=== PATIENT | female | born 1945 | race Caucasian/White ===

== ENCOUNTER 2022-01-23 12:42 | Emergency (ER) | payer OTHER, MEDICARE ==
--- OUTSIDE RECORDS SUMMARY | 2022-01-23 12:59 | XMS REPORT | Continuity of Care Document ---
:[address] [facility] t Address [address] [place] [address] Dr. Guerrero [address] [place] [address] Care Team Providers Name Role Phone MEHDI CASAREZ Primary Care Physician Unavailable HENRRY FERNÁNDEZ Attending Clinician Unavailable RENETTA LOPES APN Attending Clinician Unavailable SYSTEM, PROVIDER NOT IN Attending Clinician Unavailable 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, NON STAFF Attending Clinician Unavailable MEHDI CASAREZ Attending Clinician Unavailable Elissa SINGLETARY Attending Clinician Unavailable JEFFREY BOYD Attending Clinician Unavailable ROC TERESA Attending Clinician Unavailable BEST BARBER Attending Clinician Unavailable ROC TERESA Attending Clinician Unavailable RENETTA LOPES Attending Clinician Unavailable Henrry Fernández MD Attending Clinician LINWOOD CORCORAN Attending Clinician Unavailable SAM GARSIA Attending Clinician Unavailable PAPA MOON I Attending Clinician Unavailable MARK SONI Attending Clinician Unavailable Tomy Dahl Attending Clinician Unavailable CHAGO ESPINOSA Attending Clinician Unavailable FABIO DENISE Attending Clinician Unavailable HENRRY FERNÁNDEZ Admitting Clinician Unavailable ROC TERESA Admitting Clinician Unavailable CHAGO ESPINOSA Admitting Clinician Unavailable Payers Payer Name Policy Type Policy Number Effective Date Expiration Date S [place] MEDICARE A B [id number] 2005 00:00:00 [facility] [id number] 2017 HEALTHCARE 00:00:00 MEDICARE PART A AND [id number] 2005 B 00:00:00 AARP-SECONDARY ONLY [id number] 2012 00:00:00 Problems Condition Condition Condition Status Onset Resolution Last Treating Co mments Source Name Details Category Date Date Treatment Clinician Date PFO PFO Disease Active [facility] (patent (patent 5-27 [facility] foramen foramen 00:00: Medical ovale) ovale) 00 Center HTN HTN Disease Active [facility] (hypertens (hypertens 2-13 [facility] ion), ion), 00:00: Medical chronic chronic 00 Center arterial arterial H/O Wound H/O Wound Disease Active [facility] dehiscence dehiscence 2-13 [facility] , L groin , L groin 00:00: Medi adrianne S/P S/P 00 Center debridemen debridemen t and t and closure closure (12/06/2017 (12/06/2017 ) ) Persistent Persistent Disease Active [facility] false false 2-13 [facility] channel channel 00:00: Medical post TEVAR post TEVAR 00 Ce nter (10/2017) (10/2017) S/P TEVAR S/P TEVAR extended extended with [facility] with [employer] Alpha 34 X Alpha 34 X 161 (DrElver 161 (Dr. Espinosa, Nely, 05/02/2018 05/02/2018 ) ) COPD COPD Disease Active [facility] (chronic (chronic 8-17 [facility] obstructiv obstructiv 00:00: Me dical e e 00 Center pulmonary pulmonary disease) disease) Stroke in Stroke in Disease Active [facility] the past, the past, 8-17 [facility] residual residual 00:00: Medica l vertigo vertigo 00 Center (1998) (1998) TIA TIA Disease Active [facility] (transient (transient 8-17 [facility] ischemic ischemic 00:00: Medica l attack) on attack) on 00 Ce nter Plavix Plavix IBS IBS Disease Active [facility] (irritable (irritable 8-17 [facility] bowel bowel 00:00: Medical syndrome) syndrome) 00 Cent er H/O 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 ) 2018) ) 2018) Obesity Obesity Disease Active 2016- [facility] (BMI (BMI 2-07 [facility] 30-39.9) 30-39.9) 00:00: Medica l 00 Center Lateral Problem Active [facility] knee pain S Health Arthritis Problem Active [facility] Recurrent Problem Active [facility] incisional S hernia Health Gastrointe Problem Active [facility] stinal S hemorrhage Health Anemia due Problem Active [facility] to acute S blood loss Health Chronic Problem Active [facility] diarrhea S Health History of Problem Active [facility] transient S ischemic Health attack Hyperlipid Problem Active [facility] emia S Health Diabetes Problem Active [facility] mellitus S Health Chronic Problem Active [facility] vertigo S Health Anxiety Problem Active [facility] and S depression Health Hemorrhage Problem Inactiv [facility] e S Health Thrombosed Problem Active [facility] external S hemorrhoid Health s Morbid Problem Active [facility] obesity S Health History of Problem Active [facility] aortic S dissection Health Rib pain Problem Inactiv [facility] Health Aortic Problem Inactiv [facility] dissection e S distal to Health left subclavian Encounter Problem Inactiv [facility] for e S monitoring Health clopidogre l therapy Fatigue Problem Inactiv [facility] e S Health Anemia Problem Inactiv [facility] e S Health Urinary Problem Inactiv [facility] tract e S infection Health Fracture Problem Inactiv [facility] of e S proximal Health end of humerus Back pain Problem Inactiv [facility] e S Health Status Problem Active [facility] post total S knee Health replacemen t Peripheral Problem Active [facility] arterial S disease Health Gastroesop Problem Active [facility] hageal S reflux Health disease History of Problem Active [facility] cerebrovas S cular Health accident Atrial Problem Active [facility] septal S defect Health Abdominal Problem Active [facility] aortic S aneurysm Health (AAA) without rupture Cardiac Problem Inactiv [facility] chest pain e S Health Osteoarthr Problem Active [facility] osis of S hip Health Status Problem Active [facility] post total S replacemen Health t of left hip Lateral Problem Active [facility] knee pain S Health 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 (H[facility]) Respirator Respirator Disease Active [facility] aylor y failure, y failure, Co llege post-opera post-opera of tive tive Medicin (HCCode) (HCCode) e Post-opera Post-opera Disease Active Overview : [facility] [place] tive tive left B And E infection infection groin of Medicin e Allergies, Adverse Reactions, Alerts Allergy Allergy Status Severity Reaction(s) Onset Inactive Treating Comm ents Source Name Type Date Date Clinician NO KNOWN Allergy Active Unknown 2019-03 [facility] ALLERGY to 1-17 S substanc 00:00: Health e 00 NO KNOWN Allergy Active Unknown [facility] ALLERGY to 2-05 S substanc 00:00: Health e 00 NO KNOWN Allergy Active Unknown 2017- [facility] ALLERGY to 7-20 S substanc 00:00: Health e 00 NO KNOWN Allergy Active [facility] Family History Family Member Diagnosis Comments Start Date Stop Date Source Natural father Emphysema [facility] Natural mother Hypothyroidism [facility] Social History Social Habit Start Date Stop Date Quantity Comments Source History of [place]A [place] h tobacco use Exposure to Not sure [facility] [place] Colle e SARS-CoV-2 of Medicine (event) Alcohol intake 2019-08-15 2019-08-15 Current [facility] 00:00:00 00:00:00 non-drinker of Medical Ce nter alcohol (finding) Tobacco use and 2017-12-05 2017-12-05 Never used [facility] exposure 00:00:00 00:00:00 [facility] Sex [birth year] [facility] 00:00:00 00:00:00 [facility] Smoking Status Start Date Stop Date Source Never smoked tobacco (finding) [employer] Ingenierie britebill Medications Ordered Filled Start Stop Current Ordering Indication Dosage Frequency Signature Comments Components Source Medication Medication Date Date Medication? Clinician (SIG) Name Name colesevelam Yes 625mg Take 625 B aylor (WELCHOL) 7-14 mg by B And E 625 MG 18:50: mouth 2 of tablet 24 times Medicin daily e (with meals). DiphenhydrA Yes Take by [place] kalpana MINE HCl 7-14 mouth. B And E (DIPHEN OR) 18:50: of 24 Medicin e simvastatin 2020-0 Yes 40mg Take 40 mg Dao (ZOCOR) 40 7-14 by mouth Colle ge MG tablet 18:50: every of 24 evening. Medicin e buPROPion 2020-0 Yes 150mg Take 150 [place] kalpana (WELLBUTRIN 7-14 mg by B And E ) 150 MG XL 18:50: mouth of tablet 24 every Medicin morning. e clopidogrel 2020-0 Yes 75mg Take 75 mg Dao (PLAVIX) 75 7-14 by mouth Galina ege MG tablet 18:50: daily. of 24 Medicin e diazepam 2020-0 Yes 5mg Take 5 mg [facility]l or (VALIUM) 5 7-14 by mouth Colle ge MG tablet 18:50: every 6 of 24 hours as Medicin needed for e Anxiety. Metoprolol 2020-0 Yes Take by Bayl or Succinate 7- mouth. B And E 25 MG CS24 18:50: of 24 Medicin e cetirizine, 2020-0 Yes 10mg Take 10 mg [facility] [place] ZYRTEC, 10 09-30 by mouth Colle ge MG tablet 18:50: once. of 24 Medicin e LINN 2020-0 Yes daily. [facility] [place] ASPIRIN EC 09-30 B And E LOW DOSE OR 18:50: of 24 Medicin e Cholecalcif 2020-0 Yes [facility] [place] corona 09-30 B And E (VITAMIN 18:50: of D3) 125 MCG 24 Medicin (5000 UT) e CAPS buPROPion 2020-0 Yes 150mg QD Take [address] [facility] (WELLBUTRIN 5-28 mg by [facility] XL) 150 MG 13:32: mouth Medica l 24 hr 26 daily. Center tablet metoprolol 2020-0 Yes 25mg Q.5D Take [address] (LOPRESSOR) 5-28 by mouth 2 [facility] k[facility] 25 MG 13:32: (two) Medical tablet 26 times Center daily . clopidogrel 2020-0 Yes 75mg QD Take [address] [facility] (PLAVIX) 75 5-28 by mouth Luke s mg tablet 13:32: daily. Medica l 26 [place] cetirizine 2020-0 Yes 5mg QD Take [address] (ZYRTEC) 5 5-28 by mouth [facility] MG tablet 13:32: daily. Medica l 26 [place] aspirin 81 2020-0 Yes 81mg QD Take [address] MG EC 5-28 by mouth [facility] tablet 13:32: daily. Medical 26 Center cholecalcif Yes 5000U QD Take 5,[address] [facility] corona, 5-28 Units by LuMotomotives vitamin D3, 13:32: mouth Medic al 125 mcg 26 daily. Center (5,000 unit) Tab acetaminoph Yes 1{tbl} Take [address] en-codeine 5-28 tablet by Kameron s (TYLENOL 13:32: mouth Medical #3) 300-30 26 every 4 Center mg per (four) tablet hours as needed for Pain. Hydrocortis 2018-03 No 1 Twice A [facility] one 0-29 Day S 16:49: Health 00 Hydrocortis 2018-03 No 1 Twice A [facility] one 0-29 Day S 16:49: Health 00 Hydrocortis 2018-03- No Twice A [facility] one 0-17 04-14 Day S (Proctosol 16:49: 00:00 Health Hc 2.5% 00 :00 Crm) 2.5% TUBE Hydrocortis 2018-03- No Twice A [facility] one 0-14 Day S (Proctosol 16:49: 00:00 Health Hc 2.5% 00 :00 Crm) 2.5% TUBE Hydrocortis 2018-03- No Twice A [facility] one 0-17 04-14 Day S (Proctosol 16:49: 00:00 Health Hc 2.5% 00 :00 Crm) 2.5% TUBE Hydrocortis 2018-03- No Twice A [facility] one 0-14 Day S (Proctosol 16:49: 00:00 Health Hc 2.5% 00 :00 Crm) 2.5% TUBE Hydrocortis 2018-03- No Twice A [facility] one 0-14 Day S (Proctosol 16:49: 00:00 Health Hc 2.5% 00 :00 Crm) 2.5% TUBE Hydrocortis 2018-03- No Twice A [facility] one 0-17 04-14 Day S (Proctosol 16:49: 00:00 Health Hc 2.5% 00 :00 Crm) 2.5% TUBE Hydrocortis 2018-03 Twice A [facility] one 014 Day S (Proctosol 16:49: 00:00 Health Hc 2.5% 00 :00 Crm) 2.5% TUBE Hydrocortis 2018-03 Twice A [facility] one 14 Day S (Proctosol 16:49: 00:00 Health Hc 2.5% 00 :00 Crm) 2.5% TUBE Hydrocortis 2018-03 Twice A [facility] one 014 Day S (Proctosol 16:49: 00:00 Health Hc 2.5% 00 :00 Crm) 2.5% TUBE Hydrocortis 2018-03 Twice A [facility] one 04-02 Day S (Proctosol 16:49: 00:00 Health Hc 2.5% 00 :00 Crm) 2.5% TUBE Hydrocortis 2018-03 Twice A [facility] one 04-02 Day S (Proctosol 16:49: 00:00 Health Hc 2.5% 00 :00 Crm) 2.5% TUBE Hydrocortis 2018-03 Twice A [facility] one 14 Day S (Proctosol 16:49: 00:00 Health Hc 2.5% 00 :00 Crm) 2.5% TUBE Hydrocortis 2018-03 Twice A [facility] one 04-02 Day S (Proctosol 16:49: 00:00 Health Hc 2.5% 00 :00 Crm) 2.5% TUBE Hydrocortis 2018-03 Twice A [facility] one 0-14 Day S (Proctosol 16:49: 00:00 Health Hc 2.5% 00 :00 Crm) 2.5% TUBE Diazepam 2018-03 No 5mg Daily [facility] (Valium) 5 0-29 S Mg TAB 16:29: Health 00 Diazepam 2018-03 No 5mg Daily [facility] (Valium) 5 0-29 S Mg TAB 16:29: Health 00 Diazepam 2018-03 No 5mg Daily [facility] (Valium) 5 0-29 S Mg TAB 16:29: Health 00 Diazepam 2018-03 No 5mg Daily [facility] (Valium) 5 0-29 S Mg TAB 16:29: Health 00 Diazepam 2018-03 No 5mg Daily [facility] (Valium) 5 0-29 S Mg TAB 16:29: Health 00 Diazepam 2018-03 No 5mg Daily [facility] (Valium) 5 0-29 S Mg TAB 16:29: Health 00 Diazepam 2018-03 No 5mg Daily [facility] (Valium) 5 0-29 S Mg TAB 16:29: Health 00 Diazepam 2018-03 No 5mg Daily [facility] 0-29 S 16:29: Health 00 Prednisone 2018-03 No 50mg Daily [facility] 0-29 S 16:29: Health 00 Tramadol 2018-03 No 50mg Every 6 [facility] Hcl 0-29 Hours S 16:29: Health 00 Diazepam 2018-03 No 5mg Daily [facility] 0-29 S 16:29: Health 00 Prednisone 2018-03 No 50mg Daily [facility] 0-29 S 16:29: Health 00 Tramadol 2018-03 No 50mg Every 6 [facility] Hcl 0-29 Hours S 16:29: Health 00 Diazepam 2018-03 No 5mg Daily [facility] (Valium) 5 0-29 S Mg TAB 16:29: Health 00 Diazepam 2018-03 No 5mg Daily [facility] (Valium) 5 0-29 S Mg TAB 16:29: Health 00 Diazepam 2018-03 No 5mg Daily [facility] (Valium) 5 0-29 S Mg TAB 16:29: Health 00 Diazepam 2018- No 5mg Daily [facility] (Valium) 5 0-29 S Mg TAB 16:29: Health 00 Diazepam 2018-03 No 5mg Daily [facility] (Valium) 5 0-29 S Mg TAB 16:29: Health 00 Diazepam 2018-03 No 5mg Daily [facility] (Valium) 5 0-29 S Mg TAB 16:29: Health 00 Diazepam 2018-03 No 5mg Daily [facility] (Valium) 5 0-29 S Mg TAB 16:29: Health 00 Prednisone 2018-2019- No 50mg Daily [facility] TU (Deltasone) 0-29 01-14 S 50 Mg TAB 16:29: 00:00 Health 00 :00 Prednisone 2018-2019- No 50mg Daily [facility] TU (Deltasone) 0-29 01-14 S 50 Mg TAB 16:29: 00:00 Health 00 :00 Prednisone 2019-1 2020- No 50mg Daily DENNIS HEDRICK (Deltasone) 0-29 01-14 S 50 Mg TAB 16:29: 00:00 Health 00 :00 Prednisone 2019-1 2020- No 50mg Daily [facility] TU (Deltasone) 0-29 01-14 S 50 Mg TAB 16:29: 00:00 Health 00 :00 Prednisone 2019-1 2020- No 50mg Daily [facility] TU (Deltasone) 0-29 01-14 S 50 Mg TAB 16:29: 00:00 Health 00 :00 Prednisone 2019-1 2020- No 50mg Daily [facility] TU (Deltasone) 0-29 01-14 S 50 Mg TAB 16:29: 00:00 Health 00 :00 Prednisone 2019-1 2020- No 50mg Daily DENNIS HEDRICK (Deltasone) 0-29 01-14 S 50 Mg TAB 16:29: 00:00 Health 00 :00 Prednisone 2019-1 2020- No 50mg Daily DENNIS HEDIRCK (Deltasone) 0-29 01-14 S 50 Mg TAB 16:29: 00:00 Health 00 :00 Prednisone 2019-1 2020- No 50mg Daily DENNIS HEDRICK (Deltasone) 0-29 01-14 S 50 Mg TAB 16:29: 00:00 Health 00 :00 Prednisone 2019-1 2020- No 50mg Daily DENNIS HEDRICK (Deltasone) 0-29 01-14 S 50 Mg TAB 16:29: 00:00 Health 00 :00 Prednisone 2019-1 2020- No 50mg Daily DENNIS HEDRICK (Deltasone) 0-29 01-14 S 50 Mg TAB 16:29: 00:00 Health 00 :00 Prednisone 2019-1 2020- No 50mg Daily DENNIS HEDRICK (Deltasone) 0-29 01-14 S 50 Mg TAB 16:29: 00:00 Health 00 :00 Prednisone 2019-1 2020- No 50mg Daily DENNIS TU (Deltasone) 0-29 01-14 S 50 Mg TAB 16:29: 00:00 Health 00 :00 Prednisone 2019-1 2020- No 50mg Daily DENN[facility] TU (Deltasone) 0-29 01-14 S 50 Mg TAB 16:29: 00:00 Health 00 :00 Tramadol 2019- 2019- No 50mg Every 6 DENNIS TU Hcl 0-29 11-29 Hours S (Ultram) 50 16:29: 00:00 Healt h Mg TAB 00 :00 Tramadol 2018-03- No 50mg Every 6 DENNIS TU Hcl 0-29 11-29 Hours S (Ultram) 50 16:29: 00:00 Healt h Mg TAB 00 :00 Tramadol 2018-03- No 50mg Every 6 DENNIS TU Hcl 0-29 11-29 Hours S (Ultram) 50 16:29: 00:00 Healt h Mg TAB 00 :00 Tramadol 2018-03- No 50mg Every 6 DENNIS TU Hcl 0-29 11-29 Hours S (Ultram) 50 16:29: 00:00 Healt h Mg TAB 00 :00 Tramadol 2018-03- No 50mg Every 6 DENN[facility] TU Hcl 0-29 11-29 Hours S (Ultram) 50 16:29: 00:00 Healt h Mg TAB 00 :00 Tramadol 2018-03- No 50mg Every 6 [facility] TU Hcl 0-29 11-29 Hours S (Ultram) 50 16:29: 00:00 Healt h Mg TAB 00 :00 Tramadol 2018-03- No 50mg Every 6 DENNIS TU Hcl 0-29 11-29 Hours S (Ultram) 50 16:29: 00:00 Healt h Mg TAB 00 :00 Tramadol 2018-03- No 50mg Every 6 DENNIS TU Hcl 0-29 11-29 Hours S (Ultram) 50 16:29: 00:00 Healt h Mg TAB 00 :00 Tramadol 2018-03- No 50mg Every 6 DENNIS TU Hcl 0-29 11-29 Hours S (Ultram) 50 16:29: 00:00 Healt h Mg TAB 00 :00 Tramadol 2018-03- No 50mg Every 6 DENNIS TU Hcl 0-29 11-29 Hours S (Ultram) 50 16:29: 00:00 Healt h Mg TAB 00 :00 Tramadol 2018-03- No 50mg Every 6 DENNIS TU Hcl 0-29 11-29 Hours S (Ultram) 50 16:29: 00:00 Healt h Mg TAB 00 :00 Tramadol 2018-03- No 50mg Every 6 DENNIS TU Hcl 0-29 11-29 Hours S (Ultram) 50 16:29: 00:00 Healt h Mg TAB 00 :00 Tramadol 2018-03- No 50mg Every 6 DENNIS TU Hcl 0-29 11-29 Hours S (Ultram) 50 16:29: 00:00 Healt h Mg TAB 00 :00 Tramadol 2018-03 2019- No 50mg Every 6 DENNIS TU Hcl 0-29 11-29 Hours S (Ultram) 50 16:29: 00:00 Healt h Mg TAB 00 :00 Acetaminoph 2019- No 1 Every 8 [facility] en/Codeine 5-02 05-08 Hours as S Phosphate 16:18: 00:00 needed for H ealth (Tylenol 00 :00 Pain #3) 1 Tab TAB Ibuprofen 2019- No 600mg Three DENNIS TU (Motrin) 5-02 05-08 Times A S 600 Mg TAB 16:18: 00:00 Day Health 00 :00 Acetaminoph 2019- No 1 Every 8 [facility] en/Codeine 5-02 05-08 Hours as S Phosphate 16:18: 00:00 needed for H ealth (Tylenol 00 :00 Pain #3) 1 Tab TAB Ibuprofen 2018- No 600mg Three DENNIS TU (Motrin) 5-02 05-08 Times A S 600 Mg TAB 16:18: 00:00 Day Health 00 :00 Acetaminoph 2019- No 1 Every 8 [facility] en/Codeine 5-02 05-08 Hours as S Phosphate 16:18: 00:00 needed for H ealth (Tylenol 00 :00 Pain #3) 1 Tab TAB Ibuprofen 2019- No 600mg Three DENNIS TU (Motrin) 5-02 05-08 Times A S 600 Mg TAB 16:18: 00:00 Day Health 00 :00 Acetaminoph 2019- No 1 Every 8 [facility] en/Codeine 5-02 05-08 Hours as S Phosphate 16:18: 00:00 needed for H ealth (Tylenol 00 :00 Pain #3) 1 Tab TAB Ibuprofen 2019- No 600mg Three DENNIS TU (Motrin) 5-02 05-08 Times A S 600 Mg TAB 16:18: 00:00 Day Health 00 :00 Acetaminoph 2019- No 1 Every 8 [facility] en/Codeine 5-02 05-08 Hours as S Phosphate 16:18: 00:00 needed for H ealth (Tylenol 00 :00 Pain #3) 1 Tab TAB Ibuprofen 2018- No 600mg Three DENNIS TU (Motrin) 5-02 05-08 Times A S 600 Mg TAB 16:18: 00:00 Day Health 00 :00 Acetaminoph 2019- No 1 Every 8 [facility] en/Codeine 5-02 05-08 Hours as S Phosphate 16:18: 00:00 needed for H ealth (Tylenol 00 :00 Pain #3) 1 Tab TAB Ibuprofen 2019- No 600mg Three DENNIS TU (Motrin) 5-02 05-08 Times A S 600 Mg TAB 16:18: 00:00 Day Health 00 :00 Acetaminoph 2019- No 1 Every 8 [facility] en/Codeine 5-02 05-08 Hours as S Phosphate 16:18: 00:00 needed for H ealth (Tylenol 00 :00 Pain #3) 1 Tab TAB Ibuprofen 2018- No 600mg Three DENNIS TU (Motrin) 5- 05-08 Times A S 600 Mg TAB 16:18: 00:00 Day Health 00 :00 Acetaminoph 2019- No 1 Every 8 [facility] en/Codeine 5-02 05-08 Hours as S Phosphate 16:18: 00:00 needed for H ealth (Tylenol 00 :00 Pain #3) 1 Tab TAB Ibuprofen 2018- No 600mg Three DENNIS TU (Motrin) - 05-08 Times A S 600 Mg TAB 16:18: 00:00 Day Health 00 :00 Acetaminoph 2019- No 1 Every 8 [facility] en/Codeine 5-02 05-08 Hours as S Phosphate 16:18: 00:00 needed for H ealth (Tylenol 00 :00 Pain #3) 1 Tab TAB Ibuprofen 2019- No 600mg Three DENNIS TU (Motrin) 5-02 05-08 Times A S 600 Mg TAB 16:18: 00:00 Day Health 00 :00 Acetaminoph 2019- No 1 Every 8 [facility] en/Codeine 5-02 05-08 Hours as S Phosphate 16:18: 00:00 needed for H ealth (Tylenol 00 :00 Pain #3) 1 Tab TAB Ibuprofen 2019- No 600mg Three DENNIS TU (Motrin) 5-02 05-08 Times A S 600 Mg TAB 16:18: 00:00 Day Health 00 :00 Acetaminoph 2019- No 1 Every 8 [facility] en/Codeine 5-02 05-08 Hours as S Phosphate 16:18: 00:00 needed for H ealth (Tylenol 00 :00 Pain #3) 1 Tab TAB Ibuprofen 2019- No 600mg Three DENNIS TU (Motrin) 5- 05-08 Times A S 600 Mg TAB 16:18: 00:00 Day Health 00 :00 Acetaminoph 2019- No 1 Every 8 [facility] en/Codeine 5-02 05-08 Hours as S Phosphate 16:18: 00:00 needed for H ealth (Tylenol 00 :00 Pain #3) 1 Tab TAB Ibuprofen 2018- No 600mg Three DENNIS TU (Motrin) 5- 05-08 Times A S 600 Mg TAB 16:18: 00:00 Day Health 00 :00 Acetaminoph 2019- No 1 Every 8 [facility] en/Codeine 5-02 05-08 Hours as S Phosphate 16:18: 00:00 needed for H ealth (Tylenol 00 :00 Pain #3) 1 Tab TAB Ibuprofen 2019- No 600mg Three DENNIS TU (Motrin) 5-02 05-08 Times A S 600 Mg TAB 16:18: 00:00 Day Health 00 :00 Acetaminoph 2019- No 1 Every 8 [facility] en/Codeine 5-02 05-08 Hours as S Phosphate 16:18: 00:00 needed for H ealth (Tylenol 00 :00 Pain #3) 1 Tab TAB Ibuprofen 2019- No 600mg Three DENNIS TU (Motrin) 5-02 05-08 Times A S 600 Mg TAB 16:18: 00:00 Day Health 00 :00 Psyllium 2019-0 No 1 Twice A GIO U Hydrophilic 4-07 Day S Mucilloid 08:42: Health 00 Psyllium 2019-0 No 1 Twice A GIO U Hydrophilic 4- Day S Mucilloid 08:42: Health 00 Psyllium 2018- 2020- No 1 Twice A DENNIS TU Hydrophilic 4-07 01-14 Day S Mucilloid 08:42: 00:00 Health (Metamucil 00 :00 Smooth Texture) 1 Ea PACK Psyllium 2019-0 2020- No 1 Twice A DENNIS TU Hydrophilic 4-14 Day S Mucilloid 08:42: 00:00 Health (Metamucil 00 :00 Smooth Texture) 1 Ea PACK Psyllium 2019-0 2020- No 1 Twice A DENNIS TU Hydrophilic 4-14 Day S Mucilloid 08:42: 00:00 Health (Metamucil 00 :00 Smooth Texture) 1 Ea PACK Psyllium 2019-0 2020- No 1 Twice A DENNIS TU Hydrophilic 4-14 Day S Mucilloid 08:42: 00:00 Health (Metamucil 00 :00 Smooth Texture) 1 Ea PACK Psyllium 2019-0 2020- No 1 Twice A DENNIS TU Hydrophilic 4-14 Day S Mucilloid 08:42: 00:00 Health (Metamucil 00 :00 Smooth Texture) 1 Ea PACK Psyllium 2019-0 2020- No 1 Twice A DENNIS TU Hydrophilic 4-14 Day S Mucilloid 08:42: 00:00 Health (Metamucil 00 :00 Smooth Texture) 1 Ea PACK Psyllium 2019-0 2020- No 1 Twice A DENNIS TU Hydrophilic 4-14 Day S Mucilloid 08:42: 00:00 Health (Metamucil 00 :00 Smooth Texture) 1 Ea PACK Psyllium 2019-0 2020- No 1 Twice A DENNIS TU Hydrophilic 4-14 Day S Mucilloid 08:42: 00:00 Health (Metamucil 00 :00 Smooth Texture) 1 Ea PACK Psyllium 2019-0 2020- No 1 Twice A DENNIS TU Hydrophilic 4-09 17-14 Day S Mucilloid 08:42: 00:00 Health (Metamucil 00 :00 Smooth Texture) 1 Ea PACK Psyllium 2019-0 2020- No 1 Twice A DENNIS TU Hydrophilic 4-14 Day S Mucilloid 08:42: 00:00 Health (Metamucil 00 :00 Smooth Texture) 1 Ea PACK Psyllium 2019-0 2020- No 1 Twice A DENNIS TU Hydrophilic 4-09 17-14 Day S Mucilloid 08:42: 00:00 Health (Metamucil 00 :00 Smooth Texture) 1 Ea PACK Psyllium 2019-0 2020- No 1 Twice A DENNIS TU Hydrophilic 4-09 17-14 Day S Mucilloid 08:42: 00:00 Health (Metamucil 00 :00 Smooth Texture) 1 Ea PACK Psyllium 2020- No 1 Twice A DENNIS TU Hydrophilic 06-24 Day S Mucilloid 08:42: 00:00 Health (Metamucil 00 :00 Smooth Texture) 1 Ea PACK Psyllium 2018-0 2020- No 1 Twice A DENNIS TU Hydrophilic 06-24 Day S Mucilloid 08:42: 00:00 Health (Metamucil 00 :00 Smooth Texture) 1 Ea PACK WELCHOL 625 Yes 2 (two) [facility] -[facility]: daily with Medical 00 breakfast Center and dinner . diazePAM Yes 5mg QD [address] [facility] (VALIUM) 5 10-23 . [facility] tablet 00:00: Medical 00 Center simvastatin 0 Yes 40mg QD 40 mg [facility] (ZOCOR) 40 6- nightly . Luke s MG tablet 00:00: Medical 00 [place] Tramadol 2016-03- No 50mg Every 6 [facility] TU Hcl 2-04 08-08 Hours as S (Ultram) 50 16:57: 00:00 needed for Health Mg TAB 00 :00 Pain Tramadol 2016-03- No 50mg Every 6 [facility] Hcl 2-04 08-08 Hours as S (Ultram) 50 16:57: 00:00 needed for Health Mg TAB 00 :00 Pain Tramadol 2016-03- No 50mg Every 6 [facility] Hcl 2-04 08-08 Hours as S (Ultram) 50 16:57: 00:00 needed for Health Mg TAB 00 :00 Pain Tramadol 2016-03 2018- No 50mg Every 6 [facility] Hcl 2-04 08-08 Hours as S (Ultram) 50 16:57: 00:00 needed for Health Mg TAB 00 :00 Pain Tramadol 2016-03- No 50mg Every 6 [facility] Hcl 2-04 08-08 Hours as S (Ultram) 50 16:57: 00:00 needed for Health Mg TAB 00 :00 Pain Tramadol 2016-03- No 50mg Every 6 [facility] Hcl 2-04 08-08 Hours as S (Ultram) 50 16:57: 00:00 needed for Health Mg TAB 00 :00 Pain Tramadol 2017-1 2018- No 50mg Every 6 [facility] Hcl 2-04 08-08 Hours as S (Ultram) 50 16:57: 00:00 needed for Health Mg TAB 00 :00 Pain Tramadol 2016-03 2018- No 50mg Every 6 [facility] Hcl 2-04 08-08 Hours as S (Ultram) 50 16:57: 00:00 needed for Health Mg TAB 00 :00 Pain Tramadol 2016-03- No 50mg Every 6 [facility] Hcl 2-04 08-08 Hours as S (Ultram) 50 16:57: 00:00 needed for Health Mg TAB 00 :00 Pain Tramadol 2016-03- No 50mg Every 6 [facility] Hcl 2-04 08-08 Hours as S (Ultram) 50 16:57: 00:00 needed for Health Mg TAB 00 :00 Pain Tramadol 2016-03 2018- No 50mg Every 6 [facility] Hcl 2-04 08-08 Hours as S (Ultram) 50 16:57: 00:00 needed for Health Mg TAB 00 :00 Pain Tramadol 2016-03 2018- No 50mg Every 6 [facility] Hcl 2-04 08-08 Hours as S (Ultram) 50 16:57: 00:00 needed for Health Mg TAB 00 :00 Pain Tramadol 2016-03 2018- No 50mg Every 6 [facility] Hcl 2-04 08-08 Hours as S (Ultram) 50 16:57: 00:00 needed for Health Mg TAB 00 :00 Pain Tramadol 2016-03 2018- No 50mg Every 6 [facility] Hcl 2-04 08-08 Hours as S (Ultram) 50 16:57: 00:00 needed for Health Mg TAB 00 :00 Pain Acetaminoph 2018- No 1 Every 4 [facility] en/Codeine 10-14 08-08 Hours for S Phosphate 15:45: 00:00 Pain Health (Tylenol 00 :00 #3) 1 Tab TAB Acetaminoph 2017- 2018- No 1 Every 4 [facility] en/Codeine 10-14-08 Hours for S Phosphate 15:45: 00:00 Pain Health (Tylenol 00 :00 #3) 1 Tab TAB Acetaminoph 2018- No 1 Every 4 [facility] en/Codeine 10-14-08 Hours for S Phosphate 15:45: 00:00 Pain Health (Tylenol 00 :00 #3) 1 Tab TAB Acetaminoph 2016- 2018- No 1 Every 4 [facility] en/Codeine 10-14 08-08 Hours for S Phosphate 15:45: 00:00 Pain Health (Tylenol 00 :00 #3) 1 Tab TAB Acetaminoph 2016- 2018- No 1 Every 4 [facility] en/Codeine 10-14 08-08 Hours for S Phosphate 15:45: 00:00 Pain Health (Tylenol 00 :00 #3) 1 Tab TAB Acetaminoph 2018- No 1 Every 4 [facility] en/Codeine 10-14 08-08 Hours for S Phosphate 15:45: 00:00 Pain Health (Tylenol 00 :00 #3) 1 Tab TAB Acetaminoph 2016-2017- No 1 Every 4 [facility] en/Codeine 10-14 08-08 Hours for S Phosphate 15:45: 00:00 Pain Health (Tylenol 00 :00 #3) 1 Tab TAB Acetaminoph 2017- No 1 Every 4 [facility] en/Codeine 10-14 08-08 Hours for S Phosphate 15:45: 00:00 Pain Health (Tylenol 00 :00 #3) 1 Tab TAB Acetaminoph 2018- No 1 Every 4 [facility] en/Codeine 10-14 08-08 Hours for S Phosphate 15:45: 00:00 Pain Health (Tylenol 00 :00 #3) 1 Tab TAB Acetaminoph 2018- No 1 Every 4 [facility] en/Codeine 10-14 08-08 Hours for S Phosphate 15:45: 00:00 Pain Health (Tylenol 00 :00 #3) 1 Tab TAB Acetaminoph 2018- No 1 Every 4 [facility] en/Codeine 10-14 08-08 Hours for S Phosphate 15:45: 00:00 Pain Health (Tylenol 00 :00 #3) 1 Tab TAB Acetaminoph 2016- 2018- No 1 Every 4 [facility] en/Codeine 10-14 08-08 Hours for S Phosphate 15:45: 00:00 Pain Health (Tylenol 00 :00 #3) 1 Tab TAB Acetaminoph 2016- 2018- No 1 Every 4 [facility] en/Codeine 10-14 08-08 Hours for S Phosphate 15:45: 00:00 Pain Health (Tylenol 00 :00 #3) 1 Tab TAB Acetaminoph 2018- No 1 Every 4 [facility] en/Codeine 10-14 08-08 Hours for S Phosphate 15:45: 00:00 Pain Health (Tylenol 00 :00 #3) 1 Tab TAB Acetaminoph 2014- No 1 Every 4 - [facility] en/Codeine 03-21 6 Hours as S Phosphate 19:39: 00:00 needed for H ealth (Tylenol 00 :00 Pain #3) 1 Tab TAB Methocarbam 2014- No 500mg Three [facility] ol 03-21 Times A S (Robaxin) 19:39: 00:00 Day Health 500 Mg TAB 00 :00 Acetaminoph 2014- No 1 Every 4 - [facility] en/Codeine 03-21 6 Hours as S Phosphate 19:39: 00:00 needed for H ealth (Tylenol 00 :00 Pain #3) 1 Tab TAB Methocarbam 2014- No 500mg Three [facility] ol 03-21 Times A S (Robaxin) 19:39: 00:00 Day Health 500 Mg TAB 00 :00 Acetaminoph 2014- No 1 Every 4 - [facility] en/Codeine 03-21 6 Hours as S Phosphate 19:39: 00:00 needed for H ealth (Tylenol 00 :00 Pain #3) 1 Tab TAB Methocarbam 2014- No 500mg Three [facility] ol 03-21 Times A S (Robaxin) 19:39: 00:00 Day Health 500 Mg TAB 00 :00 Acetaminoph 2014- No 1 Every 4 - [facility] en/Codeine 03-21 6 Hours as S Phosphate 19:39: 00:00 needed for H ealth (Tylenol 00 :00 Pain #3) 1 Tab TAB Methocarbam 2014- No 500mg Three [facility] ol 03-21 Times A S (Robaxin) 19:39: 00:00 Day Health 500 Mg TAB 00 :00 Acetaminoph 2014- No 1 Every 4 - [facility] en/Codeine 03-21 6 Hours as S Phosphate 19:39: 00:00 needed for H ealth (Tylenol 00 :00 Pain #3) 1 Tab TAB Methocarbam 2014- No 500mg Three [facility] ol 03-21 Times A S (Robaxin) 19:39: 00:00 Day Health 500 Mg TAB 00 :00 Acetaminoph 2014- No 1 Every 4 - [facility] en/Codeine 03-21 6 Hours as S Phosphate 19:39: 00:00 needed for H ealth (Tylenol 00 :00 Pain #3) 1 Tab TAB Methocarbam 2014- No 500mg Three [facility] ol 03-21 Times A S (Robaxin) 19:39: 00:00 Day Health 500 Mg TAB 00 :00 Acetaminoph 2014- No 1 Every 4 - [facility] en/Codeine 03-21 6 Hours as S Phosphate 19:39: 00:00 needed for H ealth (Tylenol 00 :00 Pain #3) 1 Tab TAB Methocarbam 2014- No 500mg Three [facility] ol 03-21 Times A S (Robaxin) 19:39: 00:00 Day Health 500 Mg TAB 00 :00 Acetaminoph 2014- No 1 Every 4 - [facility] en/Codeine 03-21 6 Hours as S Phosphate 19:39: 00:00 needed for H ealth (Tylenol 00 :00 Pain #3) 1 Tab TAB Methocarbam 2014- No 500mg Three [facility] ol 03-21 Times A S (Robaxin) 19:39: 00:00 Day Health 500 Mg TAB 00 :00 Acetaminoph 2014- No 1 Every 4 - [facility] en/Codeine 03-21 6 Hours as S Phosphate 19:39: 00:00 needed for H ealth (Tylenol 00 :00 Pain #3) 1 Tab TAB Methocarbam 2014- No 500mg Three [facility] ol 03-21 Times A S (Robaxin) 19:39: 00:00 Day Health 500 Mg TAB 00 :00 Acetaminoph 2014- No 1 Every 4 - [facility] en/Codeine 03-21 6 Hours as S Phosphate 19:39: 00:00 needed for H ealth (Tylenol 00 :00 Pain #3) 1 Tab TAB Methocarbam 2014- No 500mg Three [facility] ol 03-21- Times A S (Robaxin) 19:39: 00:00 Day Health 500 Mg TAB 00 :00 Acetaminoph 2014- No 1 Every 4 - [facility] en/Codeine 03-21 6 Hours as S Phosphate 19:39: 00:00 needed for H ealth (Tylenol 00 :00 Pain #3) 1 Tab TAB Methocarbam 2014- No 500mg Three [facility] ol 03-21 Times A S (Robaxin) 19:39: 00:00 Day Health 500 Mg TAB 00 :00 Acetaminoph 2014- No 1 Every 4 - [facility] en/Codeine 03-21 6 Hours as S Phosphate 19:39: 00:00 needed for H ealth (Tylenol 00 :00 Pain #3) 1 Tab TAB Methocarbam 2014- No 500mg Three [facility] ol 03-21 Times A S (Robaxin) 19:39: 00:00 Day Health 500 Mg TAB 00 :00 Acetaminoph 2014- No 1 Every 4 - [facility] en/Codeine 03-21 6 Hours as S Phosphate 19:39: 00:00 needed for H ealth (Tylenol 00 :00 Pain #3) 1 Tab TAB Methocarbam 2014- No 500mg Three [facility] ol 03-21- Times A S (Robaxin) 19:39: 00:00 Day Health 500 Mg TAB 00 :00 Acetaminoph 2014- No 1 Every 4 - [facility] en/Codeine 03-21 6 Hours as S Phosphate 19:39: 00:00 needed for H ealth (Tylenol 00 :00 Pain #3) 1 Tab TAB Methocarbam 2014- No 500mg Three [facility] ol 03-21-14 Times A S (Robaxin) 19:39: 00:00 Day Health 500 Mg TAB 00 :00 Ondansetron 2012-03- No 4mg Every 8 [facility] Hcl (Zofran 2-24 09-14 Hours as S Odt) 4 Mg 22:04: 00:00 needed Healt h TAB.RAPDIS 00 Ondansetron 2012-03- No 4mg Every 8 [facility] Hcl (Zofran 2-24 09-14 Hours as S Odt) 4 Mg 22:04: 00:00 needed Healt h TAB.RAPDIS 00 Ondansetron 2012-03- No 4mg Every 8 [facility] Hcl (Zofran 2-24 09-14 Hours as S Odt) 4 Mg 22:04: 00:00 needed Healt h TAB.RAPDIS 00 Ondansetron 2012-03- No 4mg Every 8 [facility] Hcl (Zofran 2-24 09-14 Hours as S Odt) 4 Mg 22:04: 00:00 needed Healt h TAB.RAPDIS 00 Ondansetron 2012-03 No 4mg Every 8 [facility] Hcl (Zofran 2-24 09-14 Hours as S Odt) 4 Mg 22:04: 00:00 needed Healt h TAB.RAPDIS 00 : Ondansetron 2012-03- No 4mg Every 8 [facility] Hcl (Zofran 2-24 09-14 Hours as S Odt) 4 Mg 22:04: 00:00 needed Healt h TAB.RAPDIS 00 Ondansetron 2012-03- No 4mg Every 8 [facility] Hcl (Zofran 2-24 09-14 Hours as S Odt) 4 Mg 22:04: 00:00 needed Healt h TAB.RAPDIS 00 Ondansetron 2012-03- No 4mg Every 8 [facility] Hcl (Zofran 2-24 09-14 Hours as S Odt) 4 Mg 22:04: 00:00 needed Healt h TAB.RAPDIS 00 Ondansetron 2012-03- No 4mg Every 8 [facility] Hcl (Zofran 2-24 09-14 Hours as S Odt) 4 Mg 22:04: 00:00 needed Healt h TAB.RAPDIS 00 Ondansetron 2012-03- No 4mg Every 8 [facility] Hcl (Zofran 2-24 -14 Hours as S Odt) 4 Mg 22:04: 00:00 needed Healt h TAB.RAPDIS 00 :00 Ondansetron 2012-03- No 4mg Every 8 [facility] Hcl (Zofran 2-24 -14 Hours as S Odt) 4 Mg 22:04: 00:00 needed Healt h TAB.RAPDIS 00 :00 Ondansetron 2012-03- No 4mg Every 8 [facility] Hcl (Zofran -24 - Hours as S Odt) 4 Mg 22:04: 00:00 needed Healt h TAB.RAPDIS 00 :00 Ondansetron 2012-03- No 4mg Every 8 [facility] Hcl (Zofran -11 12- Hours as S Odt) 4 Mg 22:04: 00:00 needed Healt h TAB.RAPDIS 00 :00 Ondansetron 2012-03- No 4mg Every 8 [facility] Hcl (Zofran 05-13- Hours as S Odt) 4 Mg 22:04: 00:00 needed Healt h TAB.RAPDIS 00 :00 Ciprofloxac 2012-03- No 500mg Twice A C [facility] in (Cipro) 05-13 Day S 500 Mg TAB 22:03: 00:00 Health 00 :00 Ciprofloxac 2012-03- No 500mg Twice A [facility] in (Cipro) 05-13 Day S 500 Mg TAB 22:03: 00:00 Health 00 :00 Ciprofloxac 2012-03- No 500mg Twice A [facility] in (Cipro) 05-13 Day S 500 Mg TAB 22:03: 00:00 Health 00 :00 Ciprofloxac 2012-03- No 500mg Twice A [facility] in (Cipro) 05-13 Day S 500 Mg TAB 22:03: 00:00 Health 00 :00 Ciprofloxac 2012-03- No 500mg Twice A [facility] in (Cipro) 05-13 Day S 500 Mg TAB 22:03: 00:00 Health 00 :00 Ciprofloxac 2012-03- No 500mg Twice A [facility] in (Cipro) -11 12- Day S 500 Mg TAB 22:03: 00:00 Health 00 :00 Ciprofloxac 2012-03 2015- No 500mg Twice A [facility] in (Cipro) 05-13 Day S 500 Mg TAB 22:03: 00:00 Health 00 :00 Ciprofloxac 2012-03 2015- No 500mg Twice A [facility] in (Cipro) 05-13 Day S 500 Mg TAB 22:03: 00:00 Health 00 :00 Ciprofloxac 2012- 2015- No 500mg Twice A [facility] in (Cipro) 05-13 Day S 500 Mg TAB 22:03: 00:00 Health 00 :00 Ciprofloxac 2012- 2015- No 500mg Twice A [facility] in (Cipro) 05-13 Day S 500 Mg TAB 22:03: 00:00 Health 00 :00 Ciprofloxac 2012-03 2015- No 500mg Twice A [facility] in (Cipro) 05-13 Day S 500 Mg TAB 22:03: 00:00 Health 00 :00 Ciprofloxac 2012-03 2015- No 500mg Twice A [facility] in (Cipro) 05-13 Day S 500 Mg TAB 22:03: 00:00 Health 00 :00 Ciprofloxac 2012-03 2015- No 500mg Twice A [facility] in (Cipro) 05-13 Day S 500 Mg TAB 22:03: 00:00 Health 00 :00 Ciprofloxac 2012- 2015- No 500mg Twice A [facility] in (Cipro) 05-13 Day S 500 Mg TAB 22:03: 00:00 Health 00 :00 Acetaminoph 2011-2014- No 1 Every 6 [facility] en/Hydrocod 10-05-14 Hours S one Bitart 21:18: 00:00 Health (Vicodin 00 :00 5-500) 1 Tab TAB Acetaminoph 2014- No 1 Every 6 [facility] en/Hydrocod 10-05-14 Hours S one Bitart 21:18: 00:00 Health (Vicodin 00 :00 5-500) 1 Tab TAB Acetaminoph 2014- No 1 Every 6 [facility] en/Hydrocod 7-19 09-14 Hours S one Bitart 21:18: 00:00 Health (Vicodin 00 :00 5-500) 1 Tab TAB Acetaminoph 2014- No 1 Every 6 [facility] en/Hydrocod 7-19 09-14 Hours S one Bitart 21:18: 00:00 Health (Vicodin 00 :00 5-500) 1 Tab TAB Acetaminoph 2014- No 1 Every 6 [facility] en/Hydrocod 7-19 09-14 Hours S one Bitart 21:18: 00:00 Health (Vicodin 00 :00 5-500) 1 Tab TAB Acetaminoph 2014- No 1 Every 6 [facility] en/Hydrocod 7-19 09-14 Hours S one Bitart 21:18: 00:00 Health (Vicodin 00 :00 5-500) 1 Tab TAB Acetaminoph 2014- No 1 Every 6 [facility] en/Hydrocod 7-19 09-14 Hours S one Bitart 21:18: 00:00 Health (Vicodin 00 :00 5-500) 1 Tab TAB Acetaminoph 2014- No 1 Every 6 [facility] en/Hydrocod 7-19 09-14 Hours S one Bitart 21:18: 00:00 Health (Vicodin 00 :00 5-500) 1 Tab TAB Acetaminoph 2014- No 1 Every 6 [facility] en/Hydrocod 7-19 09-14 Hours S one Bitart 21:18: 00:00 Health (Vicodin 00 :00 5-500) 1 Tab TAB Acetaminoph 2014- No 1 Every 6 [facility] en/Hydrocod 7-19 09-14 Hours S one Bitart 21:18: 00:00 Health (Vicodin 00 :00 5-500) 1 Tab TAB Acetaminoph 2014- No 1 Every 6 [facility] en/Hydrocod 7-19 09-14 Hours S one Bitart 21:18: 00:00 Health (Vicodin 00 :00 5-500) 1 Tab TAB Acetaminoph 2014- No 1 Every 6 [facility] en/Hydrocod 7-19 09-14 Hours S one Bitart 21:18: 00:00 Health (Vicodin 00 :00 5-500) 1 Tab TAB Acetaminoph 2014- No 1 Every 6 [facility] en/Hydrocod 7- 09-14 Hours S one Bitart 21:18: 00:00 Health (Vicodin 00 :00 5-500) 1 Tab TAB Acetaminoph 2014- No 1 Every 6 [facility] en/Hydrocod 7- 09-14 Hours S one Bitart 21:18: 00:00 Health (Vicodin 00 :00 5-500) 1 Tab TAB Trimethopri 2010-03 No 1 Twice A [facility] m/Sulfameth 2-12-01 Day S oxazole 23:16: 00:00 Health (Bactrim 00 :00 Ds, Septra Ds, Sulfatrim Ds) 1 Tab TAB Trimethopri 2010-03 No 1 Twice A [facility] m/Sulfameth 2-09 12- Day S oxazole 23:16: 00:00 Health (Bactrim 00 :00 Ds, Septra Ds, Sulfatrim Ds) 1 Tab TAB Trimethopri 2010-03 No 1 Twice A [facility] m/Sulfameth 05-11- Day S oxazole 23:16: 00:00 Health (Bactrim 00 :00 Ds, Septra Ds, Sulfatrim Ds) 1 Tab TAB Trimethopri 2010-03 No 1 Twice A [facility] m/Sulfameth 2-09 12- Day S oxazole 23:16: 00:00 Health (Bactrim 00 :00 Ds, Septra Ds, Sulfatrim Ds) 1 Tab TAB Trimethopri 2010-03 No 1 Twice A [facility] m/Sulfameth 2-09 12- Day S oxazole 23:16: 00:00 Health (Bactrim 00 :00 Ds, Septra Ds, Sulfatrim Ds) 1 Tab TAB Trimethopri 2010-03 No 1 Twice A [facility] m/Sulfameth 2-09 12- Day S oxazole 23:16: 00:00 Health (Bactrim 00 :00 Ds, Septra Ds, Sulfatrim Ds) 1 Tab TAB Trimethopri 2010-03 1 Twice A [facility] m/Sulfameth 05-11 Day S oxazole 23:16: 00:00 Health (Bactrim 00 :00 Ds, Septra Ds, Sulfatrim Ds) 1 Tab TAB Trimethopri 2010-03 1 Twice A [facility] m/Sulfameth 05-11 Day S oxazole 23:16: 00:00 Health (Bactrim 00 :00 Ds, Septra Ds, Sulfatrim Ds) 1 Tab TAB Trimethopri 2010-03 1 Twice A [facility] m/Sulfameth 05-11 Day S oxazole 23:16: 00:00 Health (Bactrim 00 :00 Ds, Septra Ds, Sulfatrim Ds) 1 Tab TAB Trimethopri 2010-03 Twice A [facility] m/Sulfameth 05-11 Day S oxazole 23:16: 00:00 Health (Bactrim 00 :00 Ds, Septra Ds, Sulfatrim Ds) 1 Tab TAB Trimethopri 2010-03 1 Twice A [facility] m/Sulfameth 05-11 Day S oxazole 23:16: 00:00 Health (Bactrim 00 :00 Ds, Septra Ds, Sulfatrim Ds) 1 Tab TAB Trimethopri 2010-03 1 Twice A [facility] m/Sulfameth 05-11 Day S oxazole 23:16: 00:00 Health (Bactrim 00 :00 Ds, Septra Ds, Sulfatrim Ds) 1 Tab TAB Trimethopri 2010-03 Twice A [facility] m/Sulfameth 05-11 Day S oxazole 23:16: 00:00 Health (Bactrim 00 :00 Ds, Septra Ds, Sulfatrim Ds) 1 Tab TAB Trimethopri 2010-03 Twice A [facility] m/Sulfameth 05-11 Day S oxazole 23:16: 00:00 Health (Bactrim 00 :00 Ds, Septra Ds, Sulfatrim Ds) 1 Tab TAB Aspirin No 325mg Daily for [facility] (Aspirin Blood S Ec) 325 Mg [facility] TABEC Bupropion No 150mg Twice A [facility] Hcl Day for S (Wellbutrin Anxiety Healt h Sr) 150 Mg TABCR Cetirizine No 10mg Daily [facility] Hcl S (Zyrtec) 10 Health Mg TAB Cholecalcif No 1000 Daily [facility] corona S (Vitamin D Health (D3) 1,000 Units) 1,000 Unit TABLET Clopidogrel No 75mg Daily [facility] Bisulfate S (Plavix) 75 Health Mg TAB Colesevelam No 625mg Twice A [facility] Hcl Day for S (Welchol) Diarrhea Health 625 Mg TAB Diphenoxyla No 2.5mg Every 6 [facility] te Hours as S Hcl/Atropin needed for He alth e (Lomotil) Prn 2.5 Mg TAB Hydroxyzine No 25mg Every 4 [facility] Pamoate Hours for S (Vistaril) [facility] 25 Mg CAP Metoprolol No 25mg Twice A [facility] Succinate Day S (Toprol Xl) Health 25 Mg TABSR Promethazin No 25mg Every 4 [facility] e Hcl Hours for S (Phenergan) Nausea/Vom He alth 25 Mg TAB iting Simvastatin No 40mg Every [facility] (Zocor) 40 Evening S Mg TAB for Health Cholestero l Tramadol No 50mg As Needed [facility] Hcl S (Ultram) 50 Health Mg TAB Aspirin No 325mg Daily for [facility] (Aspirin Blood S Ec) 325 Mg [facility] TABEC Bupropion No 150mg Twice A [facility] Hcl Day for S (Wellbutrin Anxiety Healt h Sr) 150 Mg TABCR Cetirizine No 10mg Daily [facility] Hcl S (Zyrtec) 10 Health Mg TAB Cholecalcif No 1000 Daily [facility] corona S (Vitamin D Health (D3) 1,000 Units) 1,000 Unit TABLET Clopidogrel No 75mg Daily [facility] Bisulfate S (Plavix) 75 Health Mg TAB Colesevelam No 625mg Twice A [facility] Hcl Day for S (Welchol) Diarrhea Health 625 Mg TAB Diphenoxyla No 2.5mg Every 6 [facility] te Hours as S Hcl/Atropin needed for He alth e (Lomotil) Prn 2.5 Mg TAB Hydroxyzine No 25mg Every 4 [facility] Pamoate Hours for S (Vistaril) [facility] 25 Mg CAP Metoprolol No 25mg Twice A [facility] Succinate Day S (Toprol Xl) Health 25 Mg TABSR Promethazin No 25mg Every 4 [facility] e Hcl Hours for S (Phenergan) Nausea/Vom He alth 25 Mg TAB iting Simvastatin No 40mg Every [facility] (Zocor) 40 Evening S Mg TAB for Health Cholestero l Tramadol No 50mg As Needed [facility] Hcl S (Ultram) 50 Health Mg TAB Aspirin No 325mg Daily for [facility] (Aspirin Blood S Ec) 325 Mg [facility] TABEC Bupropion No 150mg Twice A [facility] Hcl Day for S (Wellbutrin Anxiety Healt h Sr) 150 Mg TABCR Cetirizine No 10mg Daily [facility] Hcl S (Zyrtec) 10 Health Mg TAB Cholecalcif No 1000 Daily [facility] corona S (Vitamin D Health (D3) 1,000 Units) 1,000 Unit TABLET Clopidogrel No 75mg Daily [facility] Bisulfate S (Plavix) 75 Health Mg TAB Colesevelam No 625mg Twice A [facility] Hcl Day for S (Welchol) Diarrhea Health 625 Mg TAB Diphenoxyla No 2.5mg Every 6 [facility] te Hours as S Hcl/Atropin needed for He alth e (Lomotil) Prn 2.5 Mg TAB Hydroxyzine No 25mg Every 4 [facility] Pamoate Hours for S (Vistaril) [facility] 25 Mg CAP Metoprolol No 25mg Twice A [facility] Succinate Day S (Toprol Xl) Health 25 Mg TABSR Promethazin No 25mg Every 4 [facility] e Hcl Hours for S (Phenergan) Nausea/Vom He alth 25 Mg TAB iting Simvastatin No 40mg Every [facility] (Zocor) 40 Evening S Mg TAB for Health Cholestero l Tramadol No 50mg As Needed [facility] Hcl S (Ultram) 50 Health Mg TAB Aspirin No 325mg Daily for [facility] (Aspirin Blood S Ec) 325 Mg [facility] TABEC Bupropion No 150mg Twice A [facility] Hcl Day for S (Wellbutrin Anxiety Healt h Sr) 150 Mg TABCR Cetirizine No 10mg Daily [facility] Hcl S (Zyrtec) 10 Health Mg TAB Cholecalcif No 1000 Daily [facility] corona S (Vitamin D Health (D3) 1,000 Units) 1,000 Unit TABLET Clopidogrel No 75mg Daily [facility] Bisulfate S (Plavix) 75 Health Mg TAB Colesevelam No 625mg Twice A [facility] Hcl Day for S (Welchol) Diarrhea Health 625 Mg TAB Diphenoxyla No 2.5mg Every 6 [facility] te Hours as S Hcl/Atropin needed for He alth e (Lomotil) Prn 2.5 Mg TAB Hydroxyzine No 25mg Every 4 [facility] Pamoate Hours for S (Vistaril) [facility] 25 Mg CAP Metoprolol No 25mg Twice A [facility] Succinate Day S (Toprol Xl) Health 25 Mg TABSR Promethazin No 25mg Every 4 [facility] e Hcl Hours for S (Phenergan) Nausea/Vom He alth 25 Mg TAB iting Simvastatin No 40mg Every [facility] (Zocor) 40 Evening S Mg TAB for Health Cholestero l Tramadol No 50mg As Needed [facility] Hcl S (Ultram) 50 Health Mg TAB Aspirin No 325mg Daily for [facility] (Aspirin Blood S Ec) 325 Mg [facility] TABEC Bupropion No 150mg Twice A [facility] Hcl Day for S (Wellbutrin Anxiety Healt h Sr) 150 Mg TABCR Cetirizine No 10mg Daily [facility] Hcl S (Zyrtec) 10 Health Mg TAB Cholecalcif No 1000 Daily [facility] corona S (Vitamin D Health (D3) 1,000 Units) 1,000 Unit TABLET Clopidogrel No 75mg Daily [facility] Bisulfate S (Plavix) 75 Health Mg TAB Colesevelam No 625mg Twice A [facility] Hcl Day for S (Welchol) Diarrhea Health 625 Mg TAB Diphenoxyla No 2.5mg Every 6 [facility] te Hours as S Hcl/Atropin needed for He alth e (Lomotil) Prn 2.5 Mg TAB Hydroxyzine No 25mg Every 4 [facility] Pamoate Hours for S (Vistaril) [facility] 25 Mg CAP Metoprolol No 25mg Twice A [facility] Succinate Day S (Toprol Xl) Health 25 Mg TABSR Promethazin No 25mg Every 4 [facility] e Hcl Hours for S (Phenergan) Nausea/Vom He alth 25 Mg TAB iting Simvastatin No 40mg Every [facility] (Zocor) 40 Evening S Mg TAB for Health Cholestero l Tramadol No 50mg As Needed [facility] Hcl S (Ultram) 50 Health Mg TAB Aspirin No 325mg Daily for [facility] (Aspirin Blood S Ec) 325 Mg [facility] TABEC Bupropion No 150mg Twice A [facility] Hcl Day for S (Wellbutrin Anxiety Healt h Sr) 150 Mg TABCR Cetirizine No 10mg Daily [facility] Hcl S (Zyrtec) 10 Health Mg TAB Cholecalcif No 1000 Daily [facility] corona S (Vitamin D Health (D3) 1,000 Units) 1,000 Unit TABLET Clopidogrel No 75mg Daily [facility] Bisulfate S (Plavix) 75 Health Mg TAB Colesevelam No 625mg Twice A [facility] Hcl Day for S (Welchol) Diarrhea Health 625 Mg TAB Diphenoxyla No 2.5mg Every 6 [facility] te Hours as S Hcl/Atropin needed for He alth e (Lomotil) Prn 2.5 Mg TAB Hydroxyzine No 25mg Every 4 [facility] Pamoate Hours for S (Vistaril) [facility] 25 Mg CAP Metoprolol No 25mg Twice A [facility] Succinate Day S (Toprol Xl) Health 25 Mg TABSR Promethazin No 25mg Every 4 [facility] e Hcl Hours for S (Phenergan) Nausea/Vom He alth 25 Mg TAB iting Simvastatin No 40mg Every [facility] (Zocor) 40 Evening S Mg TAB for Health Cholestero l Tramadol No 50mg As Needed [facility] Hcl S (Ultram) 50 Health Mg TAB Aspirin No 325mg Daily for [facility] (Aspirin Blood S Ec) 325 Mg [facility] TABEC Bupropion No 150mg Twice A [facility] Hcl Day for S (Wellbutrin Anxiety Healt h Sr) 150 Mg TABCR Cetirizine No 10mg Daily [facility] Hcl S (Zyrtec) 10 Health Mg TAB Cholecalcif No 1000 Daily [facility] corona S (Vitamin D Health (D3) 1,000 Units) 1,000 Unit TABLET Clopidogrel No 75mg Daily [facility] Bisulfate S (Plavix) 75 Health Mg TAB Colesevelam No 625mg Twice A [facility] Hcl Day for S (Welchol) Diarrhea Health 625 Mg TAB Diphenoxyla No 2.5mg Every 6 [facility] te Hours as S Hcl/Atropin needed for He alth e (Lomotil) Prn 2.5 Mg TAB Hydroxyzine No 25mg Every 4 [facility] Pamoate Hours for S (Vistaril) [facility] 25 Mg CAP Metoprolol No 25mg Twice A [facility] Succinate Day S (Toprol Xl) Health 25 Mg TABSR Promethazin No 25mg Every 4 [facility] e Hcl Hours for S (Phenergan) Nausea/Vom He alth 25 Mg TAB iting Simvastatin No 40mg Every [facility] (Zocor) 40 Evening S Mg TAB for Health Cholestero l Tramadol No 50mg As Needed [facility] Hcl S (Ultram) 50 Health Mg TAB Allergy No Every 7 [facility] Shot X2 Days S Health Azithromyci No 250mg [facility] n S Health Bupropion No 150mg Twice A GIO U Hcl Day for S Anxiety Health Cetirizine No 10mg Every [facility] Hcl Morning S Health Clopidogrel No 75mg Daily [facility] Bisulfate S Health Colesevelam No 625mg Twice A [facility] Hcl Day for S Diarrhea Health Diphenoxyla No 2.5mg Every 6 [place] [place] te Hours as S Hcl/Atropin needed for He alth e Prn Fluticasone No 1 Daily [facility] /Vilanterol S [facility] Metoprolol No 12.5mg Twice A [place] [place] Tartrate Day S Health Montelukast No 10mg Every [facility] Sodium Evening S Health Prednisone No 20mg Daily [facility] S Health Simvastatin No 40mg Every [place] Evening S for Health Cholestero l Umeclidiniu No 1 Daily [place] m [place] [facility] Allergy No Every 7 [facility] Shot X2 Days S Health Azithromyci No 250mg [facility] n S Health Bupropion No 150mg Twice A GIO U Hcl Day for S Anxiety Health Cetirizine No 10mg Every [facility] Hcl Morning S Health Clopidogrel No 75mg Daily [facility] Bisulfate S [facility] Colesevelam No 625mg Twice A [facility] [place] Hcl Day for S Diarrhea Health Diphenoxyla No 2.5mg Every 6 [place] [place] te Hours as S Hcl/Atropin needed for He alth e Prn Fluticasone No 1 Daily [facility] /Vilanterol S Health Metoprolol No 12.5mg Twice A [facility] [place] Tartrate Day S Health Montelukast No 10mg Every [facility] Sodium Evening S Health Prednisone No 20mg Daily [facility] S Health Simvastatin No 40mg Every [facility] Evening S for Health Cholestero l Umeclidiniu No 1 Daily [place] m [place] [facility] Inh Health Aspirin No 81mg Daily [facility] (Aspirin S Chewable) Health 81 Mg CHEW Bupropion No 150mg Twice A GIO U Hcl Day for S (Wellbutrin Anxiety Healt h Sr) 150 Mg TABCR Cetirizine No 10mg Daily [facility] Hcl S (Zyrtec) 10 Health Mg TAB Cholecalcif No 1000 Daily [facility] corona S (Vitamin D Health (D3)) 1,000 Unit TABLET Clopidogrel No 75mg Daily [facility] Bisulfate S (Plavix) 75 Health Mg TAB Colesevelam No 625mg Twice A [place] [place] Hcl Day for S (Welchol) Diarrhea Health 625 Mg TAB Diphenoxyla No 2.5mg Every 6 [place] [place] te Hours as S Hcl/Atropin needed for He alth e (Lomotil) Prn 2.5 Mg TAB Metoprolol No 25mg Twice A GIO U Succinate Day S (Toprol Xl) Health 25 Mg TABSR Simvastatin No 40mg Every [place] (Zocor) 40 Evening S Mg TAB for Health Cholestero l Aspirin No 325mg Daily for GIO U (Aspirin Blood S Ec) 325 Mg [facility] TABEC Bupropion No 150mg Twice A GIO U Hcl Day for S (Wellbutrin Anxiety Healt h Sr) 150 Mg TABCR Cetirizine No 10mg Daily [facility] Hcl S (Zyrtec) 10 Health Mg TAB Cholecalcif No 1000 Daily [facility] corona S (Vitamin D Health (D3)) 1,000 Unit TABLET Clopidogrel No 75mg Daily [facility] Bisulfate S (Plavix) 75 Health Mg TAB Colesevelam No 625mg Twice A [facility]UNI Hcl Day for S (Welchol) Diarrhea Health 625 Mg TAB Diphenoxyla No 2.5mg Every 6 [facility]UNI te Hours as S Hcl/Atropin needed for He alth e (Lomotil) Prn 2.5 Mg TAB Hydroxyzine No 25mg Every 4 DENN[facility] TU Pamoate Hours for S (Vistaril) [facility] 25 Mg CAP Metoprolol No 25mg Twice A GIO U Succinate Day S (Toprol Xl) Health 25 Mg TABSR Promethazin No 25mg Every 4 DENN[facility] TU e Hcl Hours for S (Phenergan) Nausea/Vom He alth 25 Mg TAB iting Simvastatin No 40mg Every [facility] (Zocor) 40 Evening S Mg TAB for Health Cholestero l Tramadol No 50mg As Needed G[facility] Hcl S (Ultram) 50 Health Mg TAB Aspirin No 325mg Daily for GIO U (Aspirin Blood S Ec) 325 Mg [facility] TABEC Bupropion No 150mg Twice A [facility] Hcl Day for S (Wellbutrin Anxiety Healt h Sr) 150 Mg TABCR Cetirizine No 10mg Daily [facility] Hcl S (Zyrtec) 10 Health Mg TAB Cholecalcif No 1000 Daily [facility] corona S (Vitamin D Health (D3)) 1,000 Unit TABLET Clopidogrel No 75mg Daily [facility] Bisulfate S (Plavix) 75 Health Mg TAB Colesevelam No 625mg Twice A [facility] Hcl Day for S (Welchol) Diarrhea Health 625 Mg TAB Diphenoxyla No 2.5mg Every 6 [facility] te Hours as S Hcl/Atropin needed for He alth e (Lomotil) Prn 2.5 Mg TAB Hydroxyzine No 25mg Every 4 [facility] TU Pamoate Hours for S (Vistaril) [facility] 25 Mg CAP Metoprolol No 25mg Twice A G[facility] Succinate Day S (Toprol Xl) Health 25 Mg TABSR Promethazin No 25mg Every 4 [facility] TU e Hcl Hours for S (Phenergan) Nausea/Vom He alth 25 Mg TAB iting Simvastatin No 40mg Every [facility] (Zocor) 40 Evening S Mg TAB for Health Cholestero l Tramadol No 50mg As Needed [facility] Hcl S (Ultram) 50 Health Mg TAB Aspirin No 325mg Daily for GIO U (Aspirin Blood S Ec) 325 Mg [facility] TABEC Bupropion No 150mg Twice A [facility] Hcl Day for S (Wellbutrin Anxiety Healt h Sr) 150 Mg TABCR Cetirizine No 10mg Daily [facility] Hcl S (Zyrtec) 10 Health Mg TAB Cholecalcif No 1000 Daily [facility] corona S (Vitamin D Health (D3)) 1,000 Unit TABLET Clopidogrel No 75mg Daily [facility] Bisulfate S (Plavix) 75 Health Mg TAB Colesevelam No 625mg Twice A [facility] Hcl Day for S (Welchol) Diarrhea Health 625 Mg TAB Diphenoxyla No 2.5mg Every 6 [facility] te Hours as S Hcl/Atropin needed for He alth e (Lomotil) Prn 2.5 Mg TAB Hydroxyzine No 25mg Every 4 [facility]U Pamoate Hours for S (Vistaril) [facility] 25 Mg CAP Metoprolol No 25mg Twice A [facility] Succinate Day S (Toprol Xl) Health 25 Mg TABSR Promethazin No 25mg Every 4 [facility] TU e Hcl Hours for S (Phenergan) Nausea/Vom He alth 25 Mg TAB iting Simvastatin No 40mg Every [facility] (Zocor) 40 Evening S Mg TAB for Health Cholestero l Tramadol No 50mg As Needed [facility] Hcl S (Ultram) 50 Health Mg TAB Aspirin No 325mg Daily for [facility] (Aspirin Blood S Ec) 325 Mg [facility] TABEC Bupropion No 150mg Twice A [facility] Hcl Day for S (Wellbutrin Anxiety Healt [facility] Sr) 150 Mg TABCR Cetirizine No 10mg Daily [facility] Hcl S (Zyrtec) 10 Health Mg TAB Cholecalcif No 1000 Daily [facility] corona S (Vitamin D Health (D3) 1,000 Units) 1,000 Unit TABLET Clopidogrel No 75mg Daily [facility] Bisulfate S (Plavix) 75 Health Mg TAB Colesevelam No 625mg Twice A [facility] Hcl Day for S (Welchol) Diarrhea Health 625 Mg TAB Diphenoxyla No 2.5mg Every 6 [facility] te Hours as S Hcl/Atropin needed for He alth e (Lomotil) Prn 2.5 Mg TAB Hydroxyzine No 25mg Every 4 [facility] TU Pamoate Hours for S (Vistaril) [facility] 25 Mg CAP Metoprolol No 25mg Twice A [facility] Succinate Day S (Toprol Xl) Health 25 Mg TABSR Promethazin No 25mg Every 4 [facility] TU e Hcl Hours for S (Phenergan) Nausea/Vom He alth 25 Mg TAB iting Simvastatin No 40mg Every [facility] (Zocor) 40 Evening S Mg TAB for Health Cholestero l Tramadol No 50mg As Needed [facility] Hcl S (Ultram) 50 Health Mg TAB Aspirin No 325mg Daily for GIO [facility] (Aspirin Blood S Ec) 325 Mg [facility] TABEC Bupropion No 150mg Twice A [facility] Hcl Day for S (Wellbutrin Anxiety Healt [facility] Sr) 150 Mg TABCR Cetirizine No 10mg Daily [facility] Hcl S (Zyrtec) 10 Health Mg TAB Cholecalcif No 1000 Daily [facility] corona S (Vitamin D Health (D3) 1,000 Units) 1,000 Unit TABLET Clopidogrel No 75mg Daily [facility] Bisulfate S (Plavix) 75 Health Mg TAB Colesevelam No 625mg Twice A [facility] Hcl Day for S (Welchol) Diarrhea Health 625 Mg TAB Diphenoxyla No 2.5mg Every 6 [facility] te Hours as S Hcl/Atropin needed for He alth e (Lomotil) Prn 2.5 Mg TAB Hydroxyzine No 25mg Every 4 [facility] TU Pamoate Hours for S (Vistaril) [facility] 25 Mg CAP Metoprolol No 25mg Twice A G[facility] U Succinate Day S (Toprol Xl) Health 25 Mg TABSR Promethazin No 25mg Every 4 [facility] e Hcl Hours for S (Phenergan) Nausea/Vom He alth 25 Mg TAB iting Simvastatin No 40mg Every [facility] (Zocor) 40 Evening S Mg TAB for Health Cholestero l Tramadol No 50mg As Needed [facility] Hcl S (Ultram) 50 Health Mg TAB Aspirin No 325mg Daily for GIO U (Aspirin Blood S Ec) 325 Mg [facility] TABEC Bupropion No 150mg Twice A [facility] Hcl Day for S (Wellbutrin Anxiety Healt [facility] Sr) 150 Mg TABCR Cetirizine No 10mg Daily [facility] Hcl S (Zyrtec) 10 Health Mg TAB [facility]calcif No 1000 [facility] ([facility] (D3) 1,000 Units) 1,000 Unit TABLET [facility]rel [facility] Bisulfate S (Plavix) 75 Health Mg TAB Colesevelam No 625mg Twice A [facility] Hcl Day for S (Welchol) Diarrhea Health 625 Mg TAB Diphenoxyla No 2.5mg Every 6 [facility] te Hours as S Hcl/Atropin needed for He alth e (Lomotil) Prn 2.5 Mg TAB Hydroxyzine No 25mg Every 4 [facility] TU Pamoate Hours for S (Vistaril) [facility] 25 Mg CAP Metoprolol No 25mg Twice A G[facility] U Succinate Day S (Toprol Xl) Health 25 Mg TABSR Promethazin No 25mg Every 4 [facility] TU e Hcl Hours for S (Phenergan) Nausea/Vom He alth 25 Mg TAB iting Simvastatin No 40mg Every [facility] (Zocor) 40 Evening S Mg TAB for Health Cholestero l Tramadol No 50mg As Needed [facility] U Hcl S (Ultram) 50 Health Mg TAB Aspirin 2020- No 81mg Daily [facility] (Aspirin 11-24 S Chewable) 00:00 Health 81 Mg CHEW :00 Aspirin 2020- No 81mg Daily [facility] (Aspirin 11-24 S Chewable) 00:00 Health 81 Mg CHEW :00 Aspirin 2020- No 81mg Daily [facility] (Aspirin 11-24 S Chewable) 00:00 Health 81 Mg CHEW :00 Aspirin 2020- No 81mg Daily [facility] (Aspirin 11-24 S Chewable) 00:00 Health 81 Mg CHEW :00 Aspirin 2020- No 81mg Daily [facility] (Aspirin 11-24 S Chewable) 00:00 Health 81 Mg CHEW :00 Aspirin 2020- No 81mg Daily [facility] (Aspirin 11-24 S Chewable) 00:00 Health 81 Mg CHEW :00 Aspirin 2020- No 81mg Daily [facility] (Aspirin 11-24 S Chewable) 00:00 Health 81 Mg CHEW :00 Aspirin 2020- No 81mg Daily [facility] (Aspirin 11-24 S Chewable) 00:00 Health 81 Mg CHEW :00 Aspirin 2020- No 81mg Daily [facility] (Aspirin 11-24 S Chewable) 00:00 Health 81 Mg CHEW :00 Aspirin 2020- No 81mg Daily [facility] (Aspirin 11-24 S Chewable) 00:00 Health 81 Mg CHEW :00 Aspirin 2020- No 81mg Daily [facility] (Aspirin 11-24 S Chewable) 00:00 Health 81 Mg CHEW :00 Aspirin 2020- No 81mg Daily [facility] (Aspirin 11-24 S Chewable) 00:00 Health 81 Mg CHEW :00 Aspirin 2020- No 81mg Daily [facility] (Aspirin 11-24 S Chewable) 00:00 Health 81 Mg CHEW :00 Azithromyci 2020- No 250mg GIO U n -14 S (Zithromax) 00:00 Health 250 Mg TAB :00 Cetirizine 2020- No 10mg Every [facility] Hcl -14 Morning S (Zyrtec) 10 00:00 Health Mg TAB :00 Fluticasone 2020- No 1 Daily GIO [facility] /Vilanterol 01-14 S (Breo 00:00 Health Ellipta :00 200-25 Mcg Inh) 1 Each BLST.W.DEV Metoprolol 2020- No 12.5mg Twice A [facility]STU Tartrate - Day S (Lopressor) 00:00 Health 25 Mg TAB :00 Montelukast 2020- No 10mg Every GIO U Sodium - Evening S (Singulair) 00:00 Health 10 Mg TAB :00 Prednisone 2020- No 20mg Daily [facility] (Deltasone) 04-02 S 20 Mg TAB 00:00 Health :00 Umeclidiniu 2020- No 1 Daily GIO U m [place] - S Inh 00:00 Health (Incruse :00 Ellipta Inh) 62.5 Mcg BLST.W.DEV Allergy 2020- No Every 7 [facility] Shot X2 - Days S 00:00 Health :00 Azithromyci 2020- No 250mg GIO U n 04-02 S (Zithromax) 00:00 Health 250 Mg TAB :00 Cetirizine 2020- No 10mg Every [facility] Hcl - Morning S (Zyrtec) 10 00:00 Health Mg TAB :00 Fluticasone 2020- No 1 Daily GIO [facility] /Vilanterol 04-02 S (Breo 00:00 Health Ellipta :00 200-25 Mcg Inh) 1 Each BLST.W.DEV Metoprolol 2020- No 12.5mg Twice A [facility] Tartrate 04-02 Day S (Lopressor) 00:00 Health 25 Mg TAB :00 Montelukast 2020- No 10mg Every GIO U Sodium - Evening S (Singulair) 00:00 Health 10 Mg TAB :00 Prednisone 2020- No 20mg Daily [facility] (Deltasone) 04-02 S 20 Mg TAB 00:00 Health :00 Umeclidiniu 2020- No 1 Daily GIO U m [place] -14 S Inh 00:00 Health (Incruse :00 Ellipta Inh) 62.5 Mcg BLST.W.DEV Allergy 2020- No Every 7 [facility] Shot X2 - Days S 00:00 Health :00 Azithromyci 2020- No 250mg GIO U n -14 S (Zithromax) 00:00 Health 250 Mg TAB :00 Cetirizine 2020- No 10mg Every [facility] Hcl -14 Morning S (Zyrtec) 10 00:00 Health Mg TAB :00 Fluticasone 2020- No 1 Daily GIO [facility] /Vilanterol -14 S (Breo 00:00 Health Ellipta :00 200-25 Mcg Inh) 1 Each BLST.W.DEV Metoprolol 2020- No 12.5mg Twice A [facility] Tartrate - Day S (Lopressor) 00:00 Health 25 Mg TAB :00 Montelukast 2020- No 10mg Every GIO U Sodium - Evening S (Singulair) 00:00 Health 10 Mg TAB :00 Prednisone 2020- No 20mg Daily [facility] (Deltasone) 04-02 S 20 Mg TAB 00:00 Health :00 Umeclidiniu 2020- No 1 Daily GIO U m [place] - S Inh 00:00 Health (Incruse :00 Ellipta Inh) 62.5 Mcg BLST.W.DEV Allergy 2020- No Every 7 [facility] Shot X2 04-02 Days S 00:00 Health :00 Azithromyci 2020- No 250mg GIO U n 04-02 S (Zithromax) 00:00 Health 250 Mg TAB :00 Cetirizine 2020- No 10mg Every [facility] Hcl 04-02 Morning S (Zyrtec) 10 00:00 Health Mg TAB :00 Fluticasone 2020- No 1 Daily GIO [facility] /Vilanterol - S (Breo 00:00 Health Ellipta :00 200-25 Mcg Inh) 1 Each BLST.W.DEV Metoprolol 2020- No 12.5mg Twice A [facility] Tartrate - Day S (Lopressor) 00:00 Health 25 Mg TAB :00 Montelukast 2020- No 10mg Every GIO U Sodium -14 Evening S (Singulair) 00:00 Health 10 Mg TAB :00 Prednisone 2020- No 20mg Daily [facility] (Deltasone) 04-02 S 20 Mg TAB 00:00 Health :00 Umeclidiniu 2020- No 1 Daily GIO U m [place] - S Inh 00:00 Health (Incruse :00 Ellipta Inh) 62.5 Mcg BLST.W.DEV Allergy 2020- No Every 7 [facility] Shot X2 - Days S 00:00 Health :00 Azithromyci 2020- No 250mg GIO U n -14 S (Zithromax) 00:00 Health 250 Mg TAB :00 Cetirizine 2020- No 10mg Every [facility] Hcl -14 Morning S (Zyrtec) 10 00:00 Health Mg TAB :00 Fluticasone 2020- No 1 Daily GIO [facility] /Vilanterol -14 S (Breo 00:00 Health Ellipta :00 200-25 Mcg Inh) 1 Each BLST.W.DEV Metoprolol 2020- No 12.5mg Twice A [facility] Tartrate 04-02 Day S (Lopressor) 00:00 Health 25 Mg TAB :00 Montelukast 2020- No 10mg Every GIO U Sodium -14 Evening S (Singulair) 00:00 Health 10 Mg TAB :00 Prednisone 2020- No 20mg Daily [facility] (Deltasone) 04-02 S 20 Mg TAB 00:00 Health :00 Umeclidiniu 2020- No 1 Daily GIO U m [place] 04-02 S Inh 00:00 Health (Incruse :00 Ellipta Inh) 62.5 Mcg BLST.W.DEV Allergy 2020- No Every 7 [facility] Shot X2 - Days S 00:00 Health :00 Azithromyci 2020- No 250mg GIO U n 04-02 S (Zithromax) 00:00 Health 250 Mg TAB :00 Cetirizine 2020- No 10mg Every [facility] Hcl - Morning S (Zyrtec) 10 00:00 Health Mg TAB :00 Fluticasone 2020- No 1 Daily GIO [facility] /Vilanterol - S (Breo 00:00 Health Ellipta :00 200-25 Mcg Inh) 1 Each BLST.W.DEV Metoprolol 2020- No 12.5mg Twice A [facility] Tartrate 04-02 Day S (Lopressor) 00:00 Health 25 Mg TAB :00 Montelukast 2020- No 10mg Every GIO U Sodium -14 Evening S (Singulair) 00:00 Health 10 Mg TAB :00 Prednisone 2020- No 20mg Daily [facility] (Deltasone) 04-02 S 20 Mg TAB 00:00 Health :00 Umeclidiniu 2020- No 1 Daily GIO U m [place] -14 S Inh 00:00 Health (Incruse :00 Ellipta Inh) 62.5 Mcg BLST.W.DEV Allergy 2020- No Every 7 [facility] Shot X2 -14 Days S 00:00 Health :00 Azithromyci 2020- No 250mg GIO U n - S (Zithromax) 00:00 Health 250 Mg TAB :00 Cetirizine 2020- No 10mg Every [facility] Hcl - Morning S (Zyrtec) 10 00:00 Health Mg TAB :00 Fluticasone 2020- No 1 Daily G[facility] /Vilanterol 04-02 S (Breo 00:00 Health Ellipta :00 200-25 Mcg Inh) 1 Each BLST.W.DEV Metoprolol 2020- No 12.5mg Twice A [facility] Tartrate 04-02 Day S (Lopressor) 00:00 Health 25 Mg TAB :00 Montelukast 2020- No 10mg Every GIO U Sodium 04-02 Evening S (Singulair) 00:00 Health 10 Mg TAB :00 Prednisone 2020- No 20mg Daily [facility] (Deltasone) 04-02 S 20 Mg TAB 00:00 Health :00 Umeclidiniu 2020- No 1 Daily GIO U m [place] 04-02 S Inh 00:00 Health (Incruse :00 Ellipta Inh) 62.5 Mcg BLST.W.DEV Allergy 2020- No Every 7 [facility] Shot X2 04-02 Days S 00:00 Health :00 Azithromyci 2020- No 250mg GIO U n 04-02 S (Zithromax) 00:00 Health 250 Mg TAB :00 Cetirizine 2020- No 10mg Every [facility] Hcl 04-02 Morning S (Zyrtec) 10 00:00 Health Mg TAB :00 Fluticasone 2020- No 1 Daily GIO [facility] /Vilanterol 04-02 S (Breo 00:00 Health Ellipta :00 200-25 Mcg Inh) 1 Each BLST.W.DEV Metoprolol 2020- No 12.5mg Twice A [facility] Tartrate 04-02 Day S (Lopressor) 00:00 Health 25 Mg TAB :00 Montelukast 2020- No 10mg Every GIO U Sodium 04-02 Evening S (Singulair) 00:00 Health 10 Mg TAB :00 Prednisone 2020- No 20mg Daily [facility] (Deltasone) 04-02 S 20 Mg TAB 00:00 Health :00 Umeclidiniu 2020- No 1 Daily GIO U m [place] - S Inh 00:00 Health (Incruse :00 Ellipta Inh) 62.5 Mcg BLST.W.DEV Allergy 2020- No Every 7 [facility] Shot X2 -14 Days S 00:00 Health :00 Azithromyci 2020- No 250mg GIO U n -14 S (Zithromax) 00:00 Health 250 Mg TAB :00 Cetirizine 2020- No 10mg Every [facility] Hcl -14 Morning S (Zyrtec) 10 00:00 Health Mg TAB :00 Fluticasone 2020- No 1 Daily GIO [facility] /Vilanterol -14 S (Breo 00:00 Health Ellipta :00 200-25 Mcg Inh) 1 Each BLST.W.DEV Metoprolol 2020- No 12.5mg Twice A [facility] Tartrate 04-02 Day S (Lopressor) 00:00 Health 25 Mg TAB :00 Montelukast 2020- No 10mg Every GIO U Sodium 04-02 Evening S (Singulair) 00:00 Health 10 Mg TAB :00 Prednisone 2020- No 20mg Daily [facility] (Deltasone) 04-02 S 20 Mg TAB 00:00 Health :00 Umeclidiniu 2020- No 1 Daily GIO U m [place] - S Inh 00:00 Health (Incruse :00 Ellipta Inh) 62.5 Mcg BLST.W.DEV Allergy 2020- No Every 7 [facility] Shot X2 -14 Days S 00:00 Health :00 Azithromyci 2020- No 250mg GIO U n - S (Zithromax) 00:00 Health 250 Mg TAB :00 Cetirizine 2020- No 10mg Every [facility] Hcl -14 Morning S (Zyrtec) 10 00:00 Health Mg TAB :00 Fluticasone 2020- No 1 Daily GIO U /Vilanterol -14 S (Breo 00:00 Health Ellipta :00 200-25 Mcg Inh) 1 Each BLST.W.DEV Metoprolol 2020- No 12.5mg Twice A [facility] Tartrate - Day S (Lopressor) 00:00 Health 25 Mg TAB :00 Montelukast 2020- No 10mg Every GIO U Sodium -14 Evening S (Singulair) 00:00 Health 10 Mg TAB :00 Prednisone 2020- No 20mg Daily [facility] (Deltasone) 14 S 20 Mg TAB 00:00 Health :00 Umeclidiniu 2020- No 1 Daily GIO U m [place] - S Inh 00:00 Health (Incruse :00 Ellipta Inh) 62.5 Mcg BLST.W.DEV Allergy 2020- No Every 7 [facility] Shot X2 -14 Days S 00:00 Health :00 Azithromyci 2020- No 250mg GIO U n -14 S (Zithromax) 00:00 Health 250 Mg TAB :00 Cetirizine 2020- No 10mg Every [facility] Hcl - Morning S (Zyrtec) 10 00:00 Health Mg TAB :00 Fluticasone 2020- No 1 Daily GIO U /Vilanterol 04-02 S (Breo 00:00 Health Ellipta :00 200-25 Mcg Inh) 1 Each BLST.W.DEV Metoprolol 2020- No 12.5mg Twice A [facility] Tartrate 04-02 Day S (Lopressor) 00:00 Health 25 Mg TAB :00 Montelukast 2020- No 10mg Every GIO U Sodium 04-02 Evening S (Singulair) 00:00 Health 10 Mg TAB :00 Prednisone 2020- No 20mg Daily [facility] (Deltasone) 04-02 S 20 Mg TAB 00:00 Health :00 Umeclidiniu 2020- No 1 Daily GIO U m [place] 04-02 S Inh 00:00 Health (Incruse :00 Ellipta Inh) 62.5 Mcg BLST.W.DEV Allergy 2020- No Every 7 [facility] Shot X2 - Days S 00:00 Health :00 Azithromyci 2020- No 250mg GIO U n - S (Zithromax) 00:00 Health 250 Mg TAB :00 Cetirizine 2020- No 10mg Every [facility] Hcl - Morning S (Zyrtec) 10 00:00 Health Mg TAB :00 Fluticasone 2020- No 1 Daily GIO U /Vilanterol 04-02 S (Breo 00:00 Health Ellipta :00 200-25 Mcg Inh) 1 Each BLST.W.DEV Metoprolol 2020- No 12.5mg Twice A [facility] Tartrate - Day S (Lopressor) 00:00 Health 25 Mg TAB :00 Montelukast 2020- No 10mg Every GIO U Sodium -14 Evening S (Singulair) 00:00 Health 10 Mg TAB :00 Prednisone 2020- No 20mg Daily [facility] (Deltasone) 04-02 S 20 Mg TAB 00:00 Health :00 Umeclidiniu 2020- No 1 Daily GIO U m [place] -14 S Inh 00:00 Health (Incruse :00 Ellipta Inh) 62.5 Mcg BLST.W.DEV Allergy 2020- No Every 7 [facility] Shot X2 - Days S 00:00 Health :00 Azithromyci 2020- No 250mg GIO U n -14 S (Zithromax) 00:00 Health 250 Mg TAB :00 Cetirizine 2020- No 10mg Every [facility] Hcl 04-02 Morning S (Zyrtec) 10 00:00 Health Mg TAB :00 Fluticasone 2020- No 1 Daily GIO U /Vilanterol 04-02 S (Breo 00:00 Health Ellipta :00 200-25 Mcg Inh) 1 Each BLST.W.DEV Metoprolol 2020- No 12.5mg Twice A [facility] Tartrate 04-02 Day S (Lopressor) 00:00 Health 25 Mg TAB :00 Montelukast 2020- No 10mg Every GIO U Sodium 04-02 Evening S (Singulair) 00:00 Health 10 Mg TAB :00 Prednisone 2020- No 20mg Daily [facility] (Deltasone) 04-02 S 20 Mg TAB 00:00 Health :00 Umeclidiniu 2020- No 1 Daily GIO U m [place] - S Inh 00:00 Health (Incruse :00 Ellipta Inh) 62.5 Mcg BLST.W.DEV Allergy 2020- No Every 7 [facility] Shot X2 - Days S 00:00 Health :00 Azithromyci 2020- No 250mg GIO U n -14 S (Zithromax) 00:00 Health 250 Mg TAB :00 Cetirizine 2020- No 10mg Every [facility] Hcl -14 Morning S (Zyrtec) 10 00:00 Health Mg TAB :00 Fluticasone 2020- No 1 Daily GIO U /Vilanterol -14 S (Breo 00:00 Health Ellipta :00 200-25 Mcg Inh) 1 Each BLST.W.DEV Metoprolol 2020- No 12.5mg Twice A [facility] Tartrate 04-02 Day S (Lopressor) 00:00 Health 25 Mg TAB :00 Montelukast 2020- No 10mg Every GIO U Sodium 04-02 Evening S (Singulair) 00:00 Health 10 Mg TAB :00 Prednisone 2020- No 20mg Daily [facility] (Deltasone) 04-02 S 20 Mg TAB 00:00 Health :00 Umeclidiniu 2020- No 1 Daily GIO U m [place] 04-02 S Inh 00:00 Health (Incruse :00 Ellipta Inh) 62.5 Mcg BLST.W.DEV Allergy 2020- No Every 7 [facility] Shot X2 04-02 Days S 00:00 Health :00 Diazepam 2019- No 5mg Daily [facility] (Valium) 5 10-29 S Mg TAB 00:00 Health :00 Diazepam 2019- No 5mg Daily [facility] (Valium) 5 10-29 S Mg TAB 00:00 Health :00 Diazepam 2019- No 5mg Daily [facility] (Valium) 5 10-29 S Mg TAB 00:00 Health :00 Diazepam 2019- No 5mg Daily [facility] (Valium) 5 10-29 S Mg TAB 00:00 Health :00 Diazepam 2019- No 5mg Daily [facility] (Valium) 5 10-29 S Mg TAB 00:00 Health :00 Diazepam 2019- No 5mg Daily [facility] (Valium) 5 10-29 S Mg TAB 00:00 Health :00 Diazepam 2019- No 5mg Daily [facility] (Valium) 5 10-29 S Mg TAB 00:00 Health :00 Diazepam 2019- No 5mg Daily [facility] (Valium) 5 10-29 S Mg TAB 00:00 Health :00 Diazepam 2019- No 5mg Daily [facility] (Valium) 5 10-29 S Mg TAB 00:00 Health :00 Diazepam 2019- No 5mg Daily [facility] (Valium) 5 10-29 S Mg TAB 00:00 Health :00 Diazepam 2019- No 5mg Daily [facility] (Valium) 5 10-29 S Mg TAB 00:00 Health :00 Diazepam 2019- No 5mg Daily [facility] (Valium) 5 10-29 S Mg TAB 00:00 Health :00 Diazepam 2019- No 5mg Daily [facility] (Valium) 5 10-29 S Mg TAB 00:00 Health :00 Diazepam 2019- No 5mg Daily [facility] (Valium) 5 10-29 S Mg TAB 00:00 Health :00 Clopidogrel 2018- No 75mg Daily for [facility] Bisulfate 08-14 Tia's S (Plavix) 75 00:00 Health Mg TAB :00 Clopidogrel 2018- No 75mg Daily for [facility] Bisulfate -14 [facility]ia[facility] S (Plavix) 75 00:00 Health Mg TAB :00 Clopidogrel 2018- No 75mg Daily for [facility] Bisulfate -14 Tia[facility] S (Plavix) 75 00:00 Health Mg TAB :00 Clopidogrel 2018- No 75mg Daily for [facility] Bisulfate -14 Tia's S (Plavix) 75 00:00 Health Mg TAB :00 Clopidogrel 2018- No 75mg Daily for [facility] Bisulfate -14 Tia's S (Plavix) 75 00:00 Health Mg TAB :00 Clopidogrel 2018- No 75mg Daily for [facility] Bisulfate -14 Tia's S (Plavix) 75 00:00 Health Mg TAB :00 Clopidogrel 2018- No 75mg Daily for [facility] Bisulfate -14 Tia's S (Plavix) 75 00:00 Health Mg TAB :00 Clopidogrel 2018- No 75mg Daily for [facility] Bisulfate -14 Tia's S (Plavix) 75 00:00 Health Mg TAB :00 Clopidogrel 2018- No 75mg Daily for [facility] Bisulfate -14 Tia's S (Plavix) 75 00:00 Health Mg TAB :00 Clopidogrel 2018- No 75mg Daily for [facility] Bisulfate -14 Tia's S (Plavix) 75 00:00 Health Mg TAB :00 Clopidogrel 2018- No 75mg Daily for [facility] Bisulfate -14 Tia's S (Plavix) 75 00:00 Health Mg TAB :00 Clopidogrel 2018- No 75mg Daily for [facility] Bisulfate -14 Tia's S (Plavix) 75 00:00 Health Mg TAB :00 Clopidogrel 2018- No 75mg Daily for [facility] Bisulfate -14 Tia's S (Plavix) 75 00:00 Health Mg TAB :00 Clopidogrel 2018- No 75mg Daily for [facility] Bisulfate -14 Tia's S (Plavix) 75 00:00 Health Mg TAB :00 Diazepam 2018- No 2mg Daily [facility] (Valium) 2 08-08 S Mg TAB 00:00 Health :00 Diazepam 2018- No 5mg Daily [facility] 08-08 S 00:00 Health :00 Diphenoxyla 2018- No 2.5mg Daily for C [facility] te 08-08 Diarrhea S Hcl/Atropin 00:00 Health e (Lomotil) :00 2.5 Mg TAB Diazepam 2018- No 2mg Daily [facility] (Valium) 2 08-08 S Mg TAB 00:00 Health :00 Diazepam 2018- No 5mg Daily [facility] 08-08 S 00:00 Health :00 Diphenoxyla 2018- No 2.5mg Daily for C [facility] te 08-08 Diarrhea S Hcl/Atropin 00:00 Health e (Lomotil) :00 2.5 Mg TAB Diazepam 2018- No 2mg Daily [facility] (Valium) 2 08-08 S Mg TAB 00:00 Health :00 Diazepam 2018- No 5mg Daily [facility] 08-08 S 00:00 Health :00 Diphenoxyla 2018- No 2.5mg Daily for C [facility] te 08-08 Diarrhea S Hcl/Atropin 00:00 Health e (Lomotil) :00 2.5 Mg TAB Diazepam 2018- No 2mg Daily [facility] (Valium) 2 08-08 S Mg TAB 00:00 Health :00 Diazepam 2018- No 5mg Daily [facility] 08-08 S 00:00 Health :00 Diphenoxyla 2018- No 2.5mg Daily for C [facility] te 08-08 Diarrhea S Hcl/Atropin 00:00 Health e (Lomotil) :00 2.5 Mg TAB Diazepam 2018- No 2mg Daily [facility] (Valium) 2 08-08 S Mg TAB 00:00 Health :00 Diazepam 2018- No 5mg Daily [facility] 08-08 S 00:00 Health :00 Diphenoxyla 2018- No 2.5mg Daily for C [facility] te 08-08 Diarrhea S Hcl/Atropin 00:00 Health e (Lomotil) :00 2.5 Mg TAB Diazepam 2018- No 2mg Daily [facility] (Valium) 2 08-08 S Mg TAB 00:00 Health :00 Diazepam 2018- No 5mg Daily [facility] 08-08 S 00:00 Health :00 Diphenoxyla 2018- No 2.5mg Daily for C [facility] te 08-08 Diarrhea S Hcl/Atropin 00:00 Health e (Lomotil) :00 2.5 Mg TAB Diazepam 2018- No 2mg Daily [facility] (Valium) 2 08-08 S Mg TAB 00:00 Health :00 Diazepam 2018- No 5mg Daily [facility] 08-08 S 00:00 Health :00 Diphenoxyla 2018- No 2.5mg Daily for C [facility] te 08-08 Diarrhea S Hcl/Atropin 00:00 Health e (Lomotil) :00 2.5 Mg TAB Diazepam 2018- No 2mg Daily [facility] (Valium) 2 08-08 S Mg TAB 00:00 Health :00 Diazepam 2018- No 5mg Daily [facility] 08-08 S 00:00 Health :00 Diphenoxyla 2018- No 2.5mg Daily for C [facility] te 08-08 Diarrhea S Hcl/Atropin 00:00 Health e (Lomotil) :00 2.5 Mg TAB Diazepam 2018- No 2mg Daily [facility] (Valium) 2 08-08 S Mg TAB 00:00 Health :00 Diazepam 2018- No 5mg Daily [facility] 08-08 S 00:00 Health :00 Diphenoxyla 2018- No 2.5mg Daily for C [facility] te 08-08 Diarrhea S Hcl/Atropin 00:00 Health e (Lomotil) :00 2.5 Mg TAB Diazepam 2018- No 2mg Daily [facility] (Valium) 2 08-08 S Mg TAB 00:00 Health :00 Diazepam 2018- No 5mg Daily [facility] 08-08 S 00:00 Health :00 Diphenoxyla 2018- No 2.5mg Daily for C [facility] te 08-08 Diarrhea S Hcl/Atropin 00:00 Health e (Lomotil) :00 2.5 Mg TAB Diazepam 2018- No 2mg Daily [facility] (Valium) 2 08-08 S Mg TAB 00:00 Health :00 Diazepam 2018- No 5mg Daily [facility] 08-08 S 00:00 Health :00 Diphenoxyla 2018- No 2.5mg Daily for C [facility] te 08-08 Diarrhea S Hcl/Atropin 00:00 Health e (Lomotil) :00 2.5 Mg TAB Diazepam 2018- No 2mg Daily [facility] (Valium) 2 08-08 S Mg TAB 00:00 Health :00 Diazepam 2018- No 5mg Daily [facility] 08-08 S 00:00 Health :00 Diphenoxyla 2018- No 2.5mg Daily for C [facility] te 08-08 Diarrhea S Hcl/Atropin 00:00 Health e (Lomotil) :00 2.5 Mg TAB Diazepam 2018- No 2mg Daily [facility] (Valium) 2 08-08 S Mg TAB 00:00 Health :00 Diazepam 2018- No 5mg Daily [facility] 08-08 S 00:00 Health :00 Diphenoxyla 2018- No 2.5mg Daily for C [facility] te 08-08 Diarrhea S Hcl/Atropin 00:00 Health e (Lomotil) :00 2.5 Mg TAB Diazepam 2018- No 2mg Daily [facility] (Valium) 2 08-08 S Mg TAB 00:00 Health :00 Diazepam 2018- No 5mg Daily [facility] 08-08 S 00:00 Health :00 Diphenoxyla 2018- No 2.5mg Daily for C [facility] te 08-08 Diarrhea S Hcl/Atropin 00:00 Health e (Lomotil) :00 2.5 Mg TAB Acetaminoph 2017- No Every 4 [facility] en/Hydrocod 07-20 Hours as S one Bitart 00:00 needed for He alth ([place] :00 Pain 10/325) 1 Tab TAB Aspirin 2017- No 325mg Daily [facility] 07-20 S 00:00 Health :00 Calcium 2017- No 500mg [facility] Carbonate 07-20 S (Calcium 00:00 Health 600) 600 Mg :00 TABLET Celecoxib 2017- No 200mg Daily [facility] (Celebrex) 07-20 S 200 Mg CAP 00:00 Health :00 Cholecalcif 2017- No 2000 Daily for [facility] corona 07-20 Breast S (Vitamin D 00:00 Cancer Health (D3)) 2,000 :00 Unit CAP Diazepam 2017- No 5mg Daily for DENNIS TU 07-20 Vertigo S 00:00 Health :00 Enoxaparin 2017- No 40mg Daily [facility] Sodium 07-20 S (Lovenox 00:00 Health Inj) 40 :00 Mg/0.4 Ml SYR Gabapentin 2017- No 300mg Bedtime [facility] (Neurontin) 07-20 S 300 Mg CAP 00:00 Health :00 Hydroxyzine 2017- No 25mg Every 4 [facility] Pamoate 07-20 Hours as S (Vistaril) 00:00 needed for He alth 25 Mg CAP :00 Spasms I Caps 2017- No for [facility] 07-20 Macular S 00:00 [facility] :00 on Promethazin 2017- No 25mg Every 4 [facility] e Hcl 07-20 Hours as S (Phenergan) 00:00 needed for H ealth 25 Mg TAB :00 Nausea Acetaminoph 2017- No Every 4 [facility] en/Hydrocod 07-20 Hours as S one Bitart 00:00 needed for He alth ([place] :00 Pain 10/325) 1 Tab TAB Aspirin 2017- No 325mg Daily [facility] 07-20 S 00:00 Health :00 Calcium 2017- No 500mg [facility] Carbonate 0720 S (Calcium 00:00 Health 600) 600 Mg :00 TABLET Celecoxib 2017- No 200mg Daily [facility] (Celebrex) 10-06 S 200 Mg CAP 00:00 Health :00 Cholecalcif 2017- No 2000 Daily for DONI corona 10-06 Breast S (Vitamin D 00:00 Cancer Health (D3)) 2,000 :00 Unit CAP Diazepam 2017- No 5mg Daily for DENNIS TU 10-06 Vertigo S 00:00 Health :00 Enoxaparin 2017- No 40mg Daily [facility] Sodium 0720 S (Lovenox 00:00 Health Inj) 40 :00 Mg/0.4 Ml SYR Gabapentin 2017- No 300mg Bedtime [facility] (Neurontin) -20 S 300 Mg CAP 00:00 Health :00 Hydroxyzine 2017- No 25mg Every 4 [facility] Pamoate 07-20 Hours as S (Vistaril) 00:00 needed for He alth 25 Mg CAP :00 Spasms I Caps 2017- No for [facility] 07-20 Macular S 00:00 [facility] :00 on Promethazin 2017- No 25mg Every 4 [facility] e Hcl 07-20 Hours as S (Phenergan) 00:00 needed for H ealth 25 Mg TAB :00 Nausea Acetaminoph 2017- No Every 4 [facility] en/Hydrocod 07-20 Hours as S one Bitart 00:00 needed for He alth ([place] :00 Pain 10/325) 1 Tab TAB Aspirin 2017- No 325mg Daily [facility] 07-20 S 00:00 Health :00 Calcium 2017- No 500mg [facility] Carbonate 07-20 S (Calcium 00:00 Health 600) 600 Mg :00 TABLET Celecoxib 2017- No 200mg Daily [facility] (Celebrex) 0720 S 200 Mg CAP 00:00 Health :00 Cholecalcif 2017- No 2000 Daily for [facility] corona 10-06 Breast S (Vitamin D 00:00 Cancer [facility] (D3)) 2,000 :00 Unit CAP Diazepam 2017- No 5mg Daily for 10-06 Vertigo S 00:00 Health :00 Enoxaparin 2017- No 40mg Daily [facility] Sodium 07-20 S (Lovenox 00:00 Health Inj) 40 :00 Mg/0.4 Ml SYR Gabapentin 2017- No 300mg Bedtime [facility] (Neurontin) 0720 S 300 Mg CAP 00:00 Health :00 Hydroxyzine 2017- No 25mg Every 4 [facility] Pamoate 07-20 Hours as S (Vistaril) 00:00 needed for He alth 25 Mg CAP :00 Spasms I Caps 2017- No for [facility] 10-06 Macular S 00:00 [facility] :00 on Promethazin 2017- No 25mg Every 4 [facility] e Hcl 07-20 Hours as S (Phenergan) 00:00 needed for H ealth 25 Mg TAB :00 Nausea Acetaminoph 2017- No Every 4 [facility] en/Hydrocod 07-20 Hours as S one Bitart 00:00 needed for He alth ([place] :00 Pain 10/325) 1 Tab TAB Aspirin 2017- No 325mg Daily [facility] 07-20 S 00:00 Health :00 Calcium 2017- No 500mg [facility] Carbonate 07-20 S (Calcium 00:00 Health 600) 600 Mg :00 TABLET Celecoxib 2017- No 200mg Daily [facility] (Celebrex) 07-20 S 200 Mg CAP 00:00 Health :00 Cholecalcif 2017- No 2000 Daily for [facility] corona - Breast S (Vitamin D 00:00 Cancer [facility] (D3)) 2,000 :00 Unit CAP Diazepam 2017- No 5mg Daily for 10-06 Vertigo S 00:00 Health :00 Enoxaparin 2017- No 40mg Daily [facility] Sodium 07-20 S (Lovenox 00:00 Health Inj) 40 :00 Mg/0.4 Ml SYR Gabapentin 2017- No 300mg Bedtime [facility] (Neurontin) 07-20 S 300 Mg CAP 00:00 Health :00 Hydroxyzine 2017- No 25mg Every 4 [facility] Pamoate 07-20 Hours as S (Vistaril) 00:00 needed for He alth 25 Mg CAP :00 Spasms I Caps 2017- No for [facility] 07-20 Macular S 00:00 [facility] :00 on Promethazin 2017- No 25mg Every 4 [facility] e Hcl 07-20 Hours as S (Phenergan) 00:00 needed for H ealth 25 Mg TAB :00 Nausea Acetaminoph 2017- No Every 4 [facility] en/Hydrocod 07-20 Hours as S one Bitart 00:00 needed for He alth ([place] :00 Pain 10/325) 1 Tab TAB Aspirin 2017- No 325mg Daily [facility] 07-20 S 00:00 Health :00 Calcium 2017- No 500mg [facility] Carbonate 07-20 S (Calcium 00:00 Health 600) 600 Mg :00 TABLET Celecoxib 2017- No 200mg Daily [facility] (Celebrex) 0720 S 200 Mg CAP 00:00 Health :00 Cholecalcif 2017- No 2000 Daily for DEEP STEPHENTBrock corona 0720 Breast S (Vitamin D 00:00 Cancer [facility] (D3)) 2,000 :00 Unit CAP Diazepam 2017- No 5mg Daily for DENNIS TU 10-06 Vertigo S 00:00 Health :00 Enoxaparin 2017- No 40mg Daily [facility] Sodium 07-20 S (Lovenox 00:00 Health Inj) 40 :00 Mg/0.4 Ml SYR Gabapentin 2017- No 300mg Bedtime [facility] (Neurontin) 07-20 S 300 Mg CAP 00:00 Health :00 Hydroxyzine 2017- No 25mg Every 4 [facility] Pamoate 07-20 Hours as S (Vistaril) 00:00 needed for He alth 25 Mg CAP :00 Spasms I Caps 2017- No for [facility] 07-20 Macular S 00:00 [facility] :00 on Promethazin 2017- No 25mg Every 4 [facility] e Hcl 07-20 Hours as S (Phenergan) 00:00 needed for H ealth 25 Mg TAB :00 Nausea Acetaminoph 2017- No Every 4 [facility] en/Hydrocod 07-20 Hours as S one Bitart 00:00 needed for He alth ([place] :00 Pain 10/325) 1 Tab TAB Aspirin 2017- No 325mg Daily [facility] 07-20 S 00:00 Health :00 Calcium 2017- No 500mg [facility] Carbonate 07-20 S (Calcium 00:00 Health 600) 600 Mg :00 TABLET Celecoxib 2017- No 200mg Daily [facility] (Celebrex) 07-20 S 200 Mg CAP 00:00 Health :00 Cholecalcif 2017- No 2000 Daily for [facility] corona - Breast S (Vitamin D 00:00 Cancer [facility] (D3)) 2,000 :00 Unit CAP Diazepam 2017- No 5mg Daily for 10-06 Vertigo S 00:00 Health :00 Enoxaparin 2017- No 40mg Daily [facility] Sodium 07-20 S (Lovenox 00:00 Health Inj) 40 :00 Mg/0.4 Ml SYR Gabapentin 2017- No 300mg Bedtime [facility] (Neurontin) 07-20 S 300 Mg CAP 00:00 Health :00 Hydroxyzine 2017- No 25mg Every 4 [facility] Pamoate 07-20 Hours as S (Vistaril) 00:00 needed for He alth 25 Mg CAP :00 Spasms I Caps 2017- No for [facility] 07-20 Macular S 00:00 [facility] :00 on Promethazin 2017- No 25mg Every 4 [facility] e Hcl 07-20 Hours as S (Phenergan) 00:00 needed for H ealth 25 Mg TAB :00 Nausea Acetaminoph 2017- No Every 4 [facility] en/Hydrocod 07-20 Hours as S one Bitart 00:00 needed for He alth ([place] :00 Pain 10/325) 1 Tab TAB Aspirin 2017- No 325mg Daily [facility] 07-20 S 00:00 Health :00 Calcium 2017- No 500mg [facility] Carbonate 07-20 S (Calcium 00:00 Health 600) 600 Mg :00 TABLET Celecoxib 2017- No 200mg Daily [facility] (Celebrex) 07-20 S 200 Mg CAP 00:00 Health :00 Cholecalcif 2017- No 2000 Daily for [facility] corona -20 Breast S (Vitamin D 00:00 Cancer [facility] (D3)) 2,000 :00 Unit CAP Diazepam 2017- No 5mg Daily for DENNIS 10-06 Vertigo S 00:00 Health :00 Enoxaparin 2017- No 40mg Daily [facility] Sodium 07-20 S (Lovenox 00:00 Health Inj) 40 :00 Mg/0.4 Ml SYR Gabapentin 2017- No 300mg Bedtime [facility] (Neurontin) 07-20 S 300 Mg CAP 00:00 Health :00 Hydroxyzine 2017- No 25mg Every 4 [facility] Pamoate 07-20 Hours as S (Vistaril) 00:00 needed for He alth 25 Mg CAP :00 Spasms I Caps 2017- No for [facility] 20 Macular S 00:00 [facility] :00 on Promethazin 2017- No 25mg Every 4 [facility] e Hcl 07-20 Hours as S (Phenergan) 00:00 needed for H ealth 25 Mg TAB :00 Nausea Acetaminoph 2017- No Every 4 [facility] en/Hydrocod 07-20 Hours as S one Bitart 00:00 needed for He alth ([place] :00 Pain 10/325) 1 Tab TAB Aspirin 2017- No 325mg Daily [facility] - S 00:00 Health :00 Calcium 2017- No 500mg [facility] Carbonate 07 S (Calcium 00:00 Health 600) 600 Mg :00 TABLET Celecoxib 2017- No 200mg Daily [facility] (Celebrex) 10-06 S 200 Mg CAP 00:00 Health :00 Cholecalcif 2017- No 2000 Daily for DONI corona 10-06 Breast S (Vitamin 00:00 Cancer Health D3) :00 (Vitamin D (D3)) 2,000 Unit CAP Diazepam 2017- No 5mg Daily for DENNIS 10-06 Vertigo S 00:00 Health :00 Enoxaparin 2017- No 40mg Daily [facility] Sodium 07-20 S (Lovenox 00:00 Health Inj) 40 :00 Mg/0.4 Ml SYR Gabapentin 2017- No 300mg Bedtime [facility] (Neurontin) 07-20 S 300 Mg CAP 00:00 Health :00 Hydroxyzine 2017- No 25mg Every 4 [facility] Pamoate 07-20 Hours as S (Vistaril) 00:00 needed for He alth 25 Mg CAP :00 Spasms I Caps 2017- No for [facility] -20 Macular S 00:00 [facility] :00 on Promethazin 2017- No 25mg Every 4 [facility] e Hcl 07-20 Hours as S (Phenergan) 00:00 needed for H ealth 25 Mg TAB :00 Nausea Acetaminoph 2017- No Every 4 [facility] en/Hydrocod 07-20 Hours as S one Bitart 00:00 needed for He alth ([place] :00 Pain 10/325) 1 Tab TAB Aspirin 2017- No 325mg Daily [facility] 07-20 S 00:00 Health :00 Calcium 2017- No 500mg [facility] Carbonate 07-20 S (Calcium 00:00 Health 600) 600 Mg :00 TABLET Celecoxib 2017- No 200mg Daily [facility] (Celebrex) 0720 S 200 Mg CAP 00:00 Health :00 Cholecalcif 2017- No 2000 Daily for DEEP MARION corona 10-06 Breast S (Vitamin 00:00 Cancer Health D3) :00 (Vitamin D (D3)) 2,000 Unit CAP Diazepam 2017- No 5mg Daily for DENNIS TU 10-06 Vertigo S 00:00 Health :00 Enoxaparin 2017- No 40mg Daily [facility] Sodium 07-20 S (Lovenox 00:00 Health Inj) 40 :00 Mg/0.4 Ml SYR Gabapentin 2017- No 300mg Bedtime [facility] (Neurontin) 07-20 S 300 Mg CAP 00:00 Health :00 Hydroxyzine 2017- No 25mg Every 4 [facility] Pamoate 07-20 Hours as S (Vistaril) 00:00 needed for He alth 25 Mg CAP :00 Spasms I Caps 2017- No for [facility] 07-20 Macular S 00:00 [facility] :00 on Promethazin 2017- No 25mg Every 4 [facility] e Hcl 07-20 Hours as S (Phenergan) 00:00 needed for H ealth 25 Mg TAB :00 Nausea Acetaminoph 2017- No Every 4 [facility] en/Hydrocod 07-20 Hours as S one Bitart 00:00 needed for He alth ([place] :00 Pain 10/325) 1 Tab TAB Aspirin 2017- No 325mg Daily [facility] 07-20 S 00:00 Health :00 Calcium 2017- No 500mg [facility] Carbonate 07-20 S (Calcium 00:00 Health 600) 600 Mg :00 TABLET Celecoxib 2017- No 200mg Daily [facility] (Celebrex) 07-20 S 200 Mg CAP 00:00 Health :00 Cholecalcif 2017- No 2000 Daily for [facility] corona 10-06 Breast S (Vitamin 00:00 Cancer Health D3) :00 (Vitamin D (D3)) 2,000 Unit CAP Diazepam 2017- No 5mg Daily for DENNIS 10-06 Vertigo S 00:00 Health :00 Enoxaparin 2017- No 40mg Daily [facility] Sodium 07-20 S (Lovenox 00:00 Health Inj) 40 :00 Mg/0.4 Ml SYR Gabapentin 2017- No 300mg Bedtime [facility] (Neurontin) 0720 S 300 Mg CAP 00:00 Health :00 Hydroxyzine 2017- No 25mg Every 4 [facility] Pamoate 07-20 Hours as S (Vistaril) 00:00 needed for He alth 25 Mg CAP :00 Spasms I Caps 2017- No for [facility] 10-06 Macular S 00:00 [facility] :00 on Promethazin 2017- No 25mg Every 4 [facility] e Hcl 07-20 Hours as S (Phenergan) 00:00 needed for H ealth 25 Mg TAB :00 Nausea Acetaminoph 2017- No Every 4 [facility] en/Hydrocod 07-20 Hours as S one Bitart 00:00 needed for He alth ([place] :00 Pain 10/325) 1 Tab TAB Aspirin 2017- No 325mg Daily [facility] 20 S 00:00 Health :00 Calcium 2017- No 500mg [facility] Carbonate 07 S (Calcium 00:00 Health 600) 600 Mg :00 TABLET Celecoxib 2017- No 200mg Daily [facility] (Celebrex) 10-06 S 200 Mg CAP 00:00 Health :00 Cholecalcif 2017- No 2000 Daily for [facility] corona - Breast S (Vitamin 00:00 Cancer Health D3) :00 (Vitamin D (D3)) 2,000 Unit CAP Diazepam 2017- No 5mg Daily for DENNIS 10-06 Vertigo S 00:00 Health :00 Enoxaparin 2017- No 40mg Daily [facility] Sodium 07-20 S (Lovenox 00:00 Health Inj) 40 :00 Mg/0.4 Ml SYR Gabapentin 2017- No 300mg Bedtime [facility] (Neurontin) 0720 S 300 Mg CAP 00:00 Health :00 Hydroxyzine 2017- No 25mg Every 4 [facility] Pamoate 07-20 Hours as S (Vistaril) 00:00 needed for He alth 25 Mg CAP :00 Spasms I Caps 2017- No for [facility] 07-20 Macular S 00:00 [facility] :00 on Promethazin 2017- No 25mg Every 4 [facility] e Hcl 07-20 Hours as S (Phenergan) 00:00 needed for H ealth 25 Mg TAB :00 Nausea Acetaminoph 2017- No Every 4 [facility] en/Hydrocod 07-20 Hours as S one Bitart 00:00 needed for He alth ([place] :00 Pain 10/325) 1 Tab TAB Aspirin 2017- No 325mg Daily [facility] 07-20 S 00:00 Health :00 Calcium 2017- No 500mg [facility] Carbonate 0720 S (Calcium 00:00 Health 600) 600 Mg :00 TABLET Celecoxib 2017- No 200mg Daily [facility] (Celebrex) 0720 S 200 Mg CAP 00:00 Health :00 Cholecalcif 2017- No 2000 Daily for DEEP [place] corona 10-06 Breast S (Vitamin D 00:00 Cancer Health (D3)) 2,000 :00 Unit CAP Diazepam 2017- No 5mg Daily for DENNIS TU 10-06 Vertigo S 00:00 Health :00 Enoxaparin 2017- No 40mg Daily [facility] Sodium 07-20 S (Lovenox 00:00 Health Inj) 40 :00 Mg/0.4 Ml SYR Gabapentin 2017- No 300mg Bedtime [facility] (Neurontin) 07-20 S 300 Mg CAP 00:00 Health :00 Hydroxyzine 2017- No 25mg Every 4 [facility] Pamoate 07-20 Hours as S (Vistaril) 00:00 needed for He alth 25 Mg CAP :00 Spasms I Caps 2017- No for [facility] 07-20 Macular S 00:00 [facility] :00 on Promethazin 2017- No 25mg Every 4 [facility] e Hcl 07-20 Hours as S (Phenergan) 00:00 needed for H ealth 25 Mg TAB :00 Nausea Acetaminoph 2017- No Every 4 [facility] en/Hydrocod 07-20 Hours as S one Bitart 00:00 needed for He alth ([place] :00 Pain 10/325) 1 Tab TAB Aspirin 2017- No 325mg Daily [facility] 07-20 S 00:00 Health :00 Calcium 2017- No 500mg [facility] Carbonate 07-20 S (Calcium 00:00 Health 600) 600 Mg :00 TABLET Celecoxib 2017- No 200mg Daily [facility] (Celebrex) 0720 S 200 Mg CAP 00:00 Health :00 Cholecalcif 2017- No 2000 Daily for R[facility]U corona 10-06 Breast S (Vitamin D 00:00 Cancer [facility] (D3)) 2,000 :00 Unit CAP Diazepam 2017- No 5mg Daily for 10-06 Vertigo S 00:00 Health :00 Enoxaparin 2017- No 40mg Daily [facility] Sodium 07 S (Lovenox 00:00 Health Inj) 40 :00 Mg/0.4 Ml SYR Gabapentin 2017- No 300mg Bedtime [facility] (Neurontin) 0720 S 300 Mg CAP 00:00 Health :00 Hydroxyzine 2017- No 25mg Every 4 [facility] Pamoate 07-20 Hours as S (Vistaril) 00:00 needed for He alth 25 Mg CAP :00 Spasms I Caps 2017- No for [facility] 07 Macular S 00:00 [facility] :00 on Promethazin 2017- No 25mg Every 4 [facility] e Hcl 07-20 Hours as S (Phenergan) 00:00 needed for H ealth 25 Mg TAB :00 Nausea Acetaminoph 2017- No Every 4 [facility] en/Hydrocod 07-20 Hours as S one Bitart 00:00 needed for He alth ([place] :00 Pain 10/325) 1 Tab TAB Aspirin 2017- No 325mg Daily [facility] 07-20 S 00:00 Health :00 Calcium 2017- No 500mg [facility] Carbonate 07-20 S (Calcium 00:00 Health 600) 600 Mg :00 TABLET Celecoxib 2017- No 200mg Daily [facility] (Celebrex) 07-20 S 200 Mg CAP 00:00 Health :00 Cholecalcif 2017- No 2000 Daily for [facility] corona - Breast S (Vitamin D 00:00 Cancer [facility] (D3)) 2,000 :00 Unit CAP Diazepam 2017- No 5mg Daily for 10-06 Vertigo S 00:00 Health :00 Enoxaparin 2017- No 40mg Daily [facility] Sodium 07-20 S (Lovenox 00:00 Health Inj) 40 :00 Mg/0.4 Ml SYR Gabapentin 2017- No 300mg Bedtime [facility] (Neurontin) 07-20 S 300 Mg CAP 00:00 Health :00 Hydroxyzine 2017- No 25mg Every 4 [facility] Pamoate 07-20 Hours as S (Vistaril) 00:00 needed for He alth 25 Mg CAP :00 Spasms I Caps 2017- No for [facility] 07-20 Macular S 00:00 [facility] :00 on Promethazin 2017- No 25mg Every 4 [facility] e Hcl 07-20 Hours as S (Phenergan) 00:00 needed for H ealth 25 Mg TAB :00 Nausea Acetaminoph 2015- No Every 6 [facility] en/Hydrocod 09-14 Hours as S one Bitart 00:00 needed Health ([place] :00 325) 1 Tab TAB Clopidogrel 2015- No 75mg Daily GIO U Bisulfate 12-01 S (Plavix) 75 00:00 Health Mg TAB :00 Desvenlafax 2014- No 50mg Daily GIO U ine 12-01 S Succinate 00:00 Health (Pristiq) :00 50 Mg TAB.SR.24H Diazepam 2014- No 1 Twice A [facility] (Valium) 5 12-01 Day S Mg TAB 00:00 Health :00 Diphenoxyla 2014- No 2.5mg As GIO U te 12-01 Directed S Hcl/Atropin 00:00 Health e (Lomotil) :00 2.5 Mg TAB Escitalopra 2015- No 10mg Daily GIO U m Oxalate 12-01 S (Lexapro) 00:00 Health 10 Mg TAB :00 Ketoconazol 2015- No 1 Twice A [facility] e (Nizoral 12-01 Day S Crm) 15 Gm 00:00 Health CR :00 Simvastatin 2015- No 40mg Bedtime [facility] (Zocor) 40 -14 S Mg TAB 00:00 Health :00 Acetaminoph 2015- No Every 6 [facility] en/Hydrocod 09-14 Hours as S one Bitart 00:00 needed Health ([place] :00 325) 1 Tab TAB Clopidogrel 2015- No 75mg Daily GIO U Bisulfate 12-01 S (Plavix) 75 00:00 Health Mg TAB :00 Desvenlafax 2015- No 50mg Daily GIO U ine 12-01 S Succinate 00:00 Health (Pristiq) :00 50 Mg TAB.SR.24H Diazepam 2015- No 1 Twice A [facility] (Valium) 5 12-01 Day S Mg TAB 00:00 Health :00 Diphenoxyla 2015- No 2.5mg As GIO U te 12-01 Directed S Hcl/Atropin 00:00 Health e (Lomotil) :00 2.5 Mg TAB Escitalopra 2015- No 10mg Daily GIO U m Oxalate 12-01 S (Lexapro) 00:00 Health 10 Mg TAB :00 Ketoconazol 2015- No 1 Twice A [facility] e (Nizoral 12-01 Day S Crm) 15 Gm 00:00 Health CR :00 Simvastatin 2015- No 40mg Bedtime [facility] (Zocor) 40 12-01 S Mg TAB 00:00 Health :00 Acetaminoph 2015- No Every 6 [facility] en/Hydrocod - Hours as S one Bitart 00:00 needed Health ([place] :00 10/325) 1 Tab TAB Clopidogrel 2015- No 75mg Daily GIO U Bisulfate 12-01 S (Plavix) 75 00:00 Health Mg TAB :00 Desvenlafax 2015- No 50mg Daily GOI U ine 12-01 S Succinate 00:00 Health (Pristiq) :00 50 Mg TAB.SR.24H Diazepam 2015- No 1 Twice A [facility] (Valium) 5 12-01 Day S Mg TAB 00:00 Health :00 Diphenoxyla 2015- No 2.5mg As GIO U te 12-01 Directed S Hcl/Atropin 00:00 Health e (Lomotil) :00 2.5 Mg TAB Escitalopra 2015- No 10mg Daily GIO U m Oxalate 12-01 S (Lexapro) 00:00 Health 10 Mg TAB :00 Ketoconazol 2015- No 1 Twice A [facility] e (Nizoral 12-01 Day S Crm) 15 Gm 00:00 Health CR :00 Simvastatin 2015- No 40mg Bedtime [facility] (Zocor) 40 -14 S Mg TAB 00:00 Health :00 Acetaminoph 2015- No Every 6 [facility] en/Hydrocod -14 Hours as S one Bitart 00:00 needed Health ([place] :00 10325) 1 Tab TAB Clopidogrel 2015- No 75mg Daily GIO U Bisulfate 12-01 S (Plavix) 75 00:00 Health Mg TAB :00 Desvenlafax 2015- No 50mg Daily GIO U ine 12-01 S Succinate 00:00 Health (Pristiq) :00 50 Mg TAB.SR.24H Diazepam 2015- No 1 Twice A [facility] (Valium) 5 12-01 Day S Mg TAB 00:00 Health :00 Diphenoxyla 2015- No 2.5mg As GIO U te 12-01 Directed S Hcl/Atropin 00:00 Health e (Lomotil) :00 2.5 Mg TAB Escitalopra 2015- No 10mg Daily GIO U m Oxalate 12-01 S (Lexapro) 00:00 Health 10 Mg TAB :00 Ketoconazol 2015- No 1 Twice A [facility] e (Nizoral 12-01 Day S Crm) 15 Gm 00:00 Health CR :00 Simvastatin 2015- No 40mg Bedtime [facility] (Zocor) 40 12-01 S Mg TAB 00:00 Health :00 Acetaminoph 2015- No Every 6 [facility] en/Hydrocod 09-14 Hours as S one Bitart 00:00 needed Health ([place] :00 10325) 1 Tab TAB Clopidogrel 2015- No 75mg Daily GIO U Bisulfate 12-01 S (Plavix) 75 00:00 Health Mg TAB :00 Desvenlafax 2015- No 50mg Daily GIO U ine 12-01 S Succinate 00:00 Health (Pristiq) :00 50 Mg TAB.SR.24H Diazepam 2015- No 1 Twice A [facility] (Valium) 5 12-01 Day S Mg TAB 00:00 Health :00 Diphenoxyla 2015- No 2.5mg As GIO U te 12-01 Directed S Hcl/Atropin 00:00 Health e (Lomotil) :00 2.5 Mg TAB Escitalopra 2015- No 10mg Daily GIO U m Oxalate 12-01 S (Lexapro) 00:00 Health 10 Mg TAB :00 Ketoconazol 2015- No 1 Twice A [facility] e (Nizoral 12-01 Day S Crm) 15 Gm 00:00 Health CR :00 Simvastatin 2015- No 40mg Bedtime [facility] (Zocor) 40 -14 S Mg TAB 00:00 Health :00 Acetaminoph 2015- No Every 6 [facility] en/Hydrocod 09-14 Hours as S one Bitart 00:00 needed Health ([place] :00 10/325) 1 Tab TAB Clopidogrel 2015- No 75mg Daily GIO U Bisulfate 12-01 S (Plavix) 75 00:00 Health Mg TAB :00 Desvenlafax 2015- No 50mg Daily GIO U ine 12-01 S Succinate 00:00 Health (Pristiq) :00 50 Mg TAB.SR.24H Diazepam 2015- No 1 Twice A [facility] (Valium) 5 12-01 Day S Mg TAB 00:00 Health :00 Diphenoxyla 2015- No 2.5mg As GIO U te 12-01 Directed S Hcl/Atropin 00:00 Health e (Lomotil) :00 2.5 Mg TAB Escitalopra 2015- No 10mg Daily GIO U m Oxalate 12-01 S (Lexapro) 00:00 Health 10 Mg TAB :00 Ketoconazol 2015- No 1 Twice A [facility] e (Nizoral 12-01 Day S Crm) 15 Gm 00:00 Health CR :00 Simvastatin 2015- No 40mg Bedtime [facility] (Zocor) 40 - S Mg TAB 00:00 Health :00 Acetaminoph 2015- No Every 6 [facility] en/Hydrocod -14 Hours as S one Bitart 00:00 needed Health ([place] :00 10/325) 1 Tab TAB Clopidogrel 2015- No 75mg Daily GIO U Bisulfate 12-01 S (Plavix) 75 00:00 Health Mg TAB :00 Desvenlafax 2015- No 50mg Daily GIO U ine 12-01 S Succinate 00:00 Health (Pristiq) :00 50 Mg TAB.SR.24H Diazepam 2015- No 1 Twice A [facility] (Valium) 5 12-01 Day S Mg TAB 00:00 Health :00 Diphenoxyla 2015- No 2.5mg As GIO U te 12-01 Directed S Hcl/Atropin 00:00 Health e (Lomotil) :00 2.5 Mg TAB Escitalopra 2015- No 10mg Daily GIO U m Oxalate 12-01 S (Lexapro) 00:00 Health 10 Mg TAB :00 Ketoconazol 2015- No 1 Twice A [facility] e (Nizoral 12-01 Day S Crm) 15 Gm 00:00 Health CR :00 Simvastatin 2015- No 40mg Bedtime [facility] (Zocor) 40 -14 S Mg TAB 00:00 Health :00 Acetaminoph 2015- No Every 6 [facility] en/Hydrocod 09-14 Hours as S one Bitart 00:00 needed Health ([place] :00 10325) 1 Tab TAB Clopidogrel 2015- No 75mg Daily GIO U Bisulfate 12-01 S (Plavix) 75 00:00 Health Mg TAB :00 Desvenlafax 2015- No 50mg Daily GIO U ine 12-01 S Succinate 00:00 Health (Pristiq) :00 50 Mg TAB.SR.24H Diazepam 2014- No 1 Twice A [facility] (Valium) 5 12-01 Day S Mg TAB 00:00 Health :00 Diphenoxyla 2015- No 2.5mg As GIO U te 12-01 Directed S Hcl/Atropin 00:00 Health e (Lomotil) :00 2.5 Mg TAB Escitalopra 2015- No 10mg Daily GIO U m Oxalate 12-01 S (Lexapro) 00:00 Health 10 Mg TAB :00 Ketoconazol 2015- No 1 Twice A [facility] e (Nizoral 12-01 Day S Crm) 15 Gm 00:00 Health CR :00 Simvastatin 2015- No 40mg Bedtime [facility] (Zocor) 40 -14 S Mg TAB 00:00 Health :00 Acetaminoph 2015- No Every 6 [facility] en/Hydrocod - Hours as S one Bitart 00:00 needed Health ([place] :00 325) 1 Tab TAB Clopidogrel 2015- No 75mg Daily GIO U Bisulfate 12-01 S (Plavix) 75 00:00 Health Mg TAB :00 Desvenlafax 2015- No 50mg Daily GIO U ine 12-01 S Succinate 00:00 Health (Pristiq) :00 50 Mg TAB.SR.24H Diazepam 2015- No 1 Twice A CHRISTU (Valium) 5 12-01 Day S Mg TAB 00:00 Health :00 Diphenoxyla 2015- No 2.5mg As GIO U te 12-01 Directed S Hcl/Atropin 00:00 Health e (Lomotil) :00 2.5 Mg TAB Escitalopra 2015- No 10mg Daily GIO U m Oxalate - S (Lexapro) 00:00 Health 10 Mg TAB :00 Ketoconazol 2015- No 1 Twice A CHRI JUNI e (Nizoral 12-01 Day S Crm) 15 Gm 00:00 Health CR :00 Simvastatin 2015- No 40mg Bedtime CHRI JUNI (Zocor) 40 09-14 S Mg TAB 00:00 Health :00 Acetaminoph 2015- No Every 6 [facility] JUNI en/Hydrocod 09-14 Hours as S one Bitart 00:00 needed Health ([place] :00 [id number]) 1 Tab TAB Clopidogrel 2015- No 75mg Daily GIO U Bisulfate 12-01 S (Plavix) 75 00:00 Health Mg TAB :00 Desvenlafax 2015- No 50mg Daily GIO U ine 12-01 S Succinate 00:00 Health (Pristiq) :00 50 Mg TAB.SR.24H Diazepam 2015- No 1 Twice A CHRISTU (Valium) 5 12-01 Day S Mg TAB 00:00 Health :00 Diphenoxyla 2015- No 2.5mg As GIO U te 12-01 Directed S Hcl/Atropin 00:00 Health e (Lomotil) :00 2.5 Mg TAB Escitalopra 2015- No 10mg Daily GIO U m Oxalate 12-01 S (Lexapro) 00:00 Health 10 Mg TAB :00 Ketoconazol 2015- No 1 Twice A [facility]RI JUNI e (Nizoral 12-01 Day S Crm) 15 Gm 00:00 Health CR :00 Simvastatin 2015- No 40mg Bedtime [facility]RI JUNI (Zocor) 40 09-14 S Mg TAB 00:00 Health :00 Acetaminoph 2015- No Every 6 [facility] JUNI en/Hydrocod 09-14 Hours as S one [place]art 00:00 needed Health ([place] :00 [id number]) 1 Tab TAB Clopidogrel 2015- No 75mg Daily GIO U Bisulfate 12-01 S (Plavix) 75 00:00 Health Mg TAB :00 Desvenlafax 2015- No 50mg Daily GIO U ine - S Succinate 00:00 Health ([place]ristiq) :00 50 Mg TAB.SR.24H Diazepam 2015- No 1 Twice A [facility]RISTU (Valium) 5 - Day S Mg TAB 00:00 Health :00 Diphenoxyla 2015- No 2.5mg As GIO U te 12-01 Directed S Hcl/Atropin 00:00 Health e (Lomotil) :00 2.5 Mg TAB Escitalopra 2015- No 10mg Daily GIO U m Oxalate 12-01 S (Lexapro) 00:00 Health 10 Mg TAB :00 Ketoconazol 2015- No 1 Twice A [facility]RI JUNI e (Nizoral 12-01 Day S Crm) 15 Gm 00:00 Health CR :00 Simvastatin 2015- No 40mg Bedtime [facility] J[facility]I (Zocor) 40 - S Mg TAB 00:00 Health :00 Acetaminoph 2015- No Every 6 [facility] en/Hydrocod - Hours as S one Bitart 00:00 needed Health ([place] :00 [id number]) 1 Tab TAB Clopidogrel 2015- No 75mg Daily GIO U Bisulfate 12-01 S (Plavix) 75 00:00 Health Mg TAB :00 Desvenlafax 2015- No 50mg Daily GIO U ine 12-01 S Succinate 00:00 Health (Pristiq) :00 50 Mg TAB.SR.24H Diazepam 2015- No 1 Twice A [facility] (Valium) 5 12-01 Day S Mg TAB 00:00 Health :00 Diphenoxyla 2015- No 2.5mg As GIO U te 12-01 Directed S Hcl/Atropin 00:00 Health e (Lomotil) :00 2.5 Mg TAB Escitalopra 2015- No 10mg Daily GIO U m Oxalate 12-01 S (Lexapro) 00:00 Health 10 Mg TAB :00 Ketoconazol 2015- No 1 Twice A [facility] e (Nizoral 12-01 Day S Crm) 15 Gm 00:00 Health CR :00 Simvastatin 2015- No 40mg Bedtime [facility] (Zocor) 40 -14 S Mg TAB 00:00 Health :00 Acetaminoph 2015- No Every 6 [facility] en/Hydrocod 09- Hours as S one Bitart 00:00 needed Health ([place] :00 [address]) 1 Tab TAB Clopidogrel 2015- No 75mg Daily GIO U Bisulfate 12-01 S (Plavix) 75 00:00 Health Mg TAB :00 Desvenlafax 2015- No 50mg Daily GIO U ine 12-01 S Succinate 00:00 Health (Pristiq) :00 50 Mg TAB.SR.24H Diazepam 2014- No 1 Twice A [facility] (Valium) 5 12-01 Day S Mg TAB 00:00 Health :00 Diphenoxyla 2015- No 2.5mg As GIO U te 12-01 Directed S Hcl/Atropin 00:00 Health e (Lomotil) :00 2.5 Mg TAB Escitalopra 2015- No 10mg Daily GIO U m Oxalate 12-01 S (Lexapro) 00:00 Health 10 Mg TAB :00 Ketoconazol 2015- No 1 Twice A [facility] e (Nizoral 12-01 Day S Crm) 15 Gm 00:00 Health CR :00 Simvastatin 2015- No 40mg Bedtime [facility] (Zocor) 40 12-01 S Mg TAB 00:00 Health :00 Acetaminoph 2015- No Every 6 [facility] en/Hydrocod 12-01 Hours as S one Bitart 00:00 needed Health ([place] :00 [id number]) 1 Tab TAB Clopidogrel 2015- No 75mg Daily GIO U Bisulfate 12-01 S (Plavix) 75 00:00 Health Mg TAB :00 Desvenlafax 2015- No 50mg Daily GIO U ine 12-01 S Succinate 00:00 Health (Pristiq) :00 50 Mg TAB.SR.24H Diazepam 2014- No 1 Twice A [facility] (Valium) 5 12-01 Day S Mg TAB 00:00 Health :00 Diphenoxyla 2015- No 2.5mg As GIO U te 12-01 Directed S Hcl/Atropin 00:00 Health e (Lomotil) :00 2.5 Mg TAB Escitalopra 2015- No 10mg Daily GIO U m Oxalate 12-01 S (Lexapro) 00:00 Health 10 Mg TAB :00 Ketoconazol 2015- No 1 Twice A [facility] e (Nizoral 12-01 Day S Crm) 15 Gm 00:00 Health CR :00 Simvastatin 2015- No 40mg Bedtime [facility] (Zocor) 40 - S Mg TAB 00:00 Health :00 Diphenoxyla 2010- No 1 Daily GIO U te 12-22 S Hcl/Atropin 00:00 Health e (Lomotil) :00 2.5 Mg TAB Furosemide 2010- No 1 Daily [facility] (Lasix) 20 12-22 S Mg TAB 00:00 Health :00 Diphenoxyla 2010- No 1 Daily GIO U te 12-22 S Hcl/Atropin 00:00 Health e (Lomotil) :00 2.5 Mg TAB Furosemide 2010- No 1 Daily [facility] (Lasix) 20 12-22 S Mg TAB 00:00 Health :00 Diphenoxyla 2010- No 1 Daily GIO U te 12-22 S Hcl/Atropin 00:00 Health e (Lomotil) :00 2.5 Mg TAB Furosemide 2010- No 1 Daily [facility] (Lasix) 20 12-22 S Mg TAB 00:00 Health :00 Diphenoxyla 2010- No 1 Daily GIO U te 12-22 S Hcl/Atropin 00:00 Health e (Lomotil) :00 2.5 Mg TAB Furosemide 2010- No 1 Daily [facility] (Lasix) 20 12-22 S Mg TAB 00:00 Health :00 Diphenoxyla 2010- No 1 Daily GIO U te 12-22 S Hcl/Atropin 00:00 Health e (Lomotil) :00 2.5 Mg TAB Furosemide 2010- No 1 Daily [facility] (Lasix) 20 12-22 S Mg TAB 00:00 Health :00 Diphenoxyla 2010- No 1 Daily GIO U te 12-22 S Hcl/Atropin 00:00 Health e (Lomotil) :00 2.5 Mg TAB Furosemide 2010- No 1 Daily [facility] (Lasix) 20 12-22 S Mg TAB 00:00 Health :00 Diphenoxyla 2010- No 1 Daily GIO U te 12-22 S Hcl/Atropin 00:00 Health e (Lomotil) :00 2.5 Mg TAB Furosemide 2010- No 1 Daily [facility] (Lasix) 20 12-22 S Mg TAB 00:00 Health :00 Diphenoxyla 2010- No 1 Daily GIO U te 12-22 S Hcl/Atropin 00:00 Health e (Lomotil) :00 2.5 Mg TAB Furosemide 2010- No 1 Daily [facility] (Lasix) 20 12-22 S Mg TAB 00:00 Health :00 Diphenoxyla 2010- No 1 Daily GIO U te 12-22 S Hcl/Atropin 00:00 Health e (Lomotil) :00 2.5 Mg TAB Furosemide 2010- No 1 Daily [facility] (Lasix) 20 12-22 S Mg TAB 00:00 Health :00 Diphenoxyla Daily GIO U te 12-22 S Hcl/Atropin 00:00 Health e (Lomotil) :00 2.5 Mg TAB Furosemide Daily [facility] (Lasix) 20 12-22 S Mg TAB 00:00 Health :00 Diphenoxyla Daily GIO U te 12-22 S Hcl/Atropin 00:00 Health e (Lomotil) :00 2.5 Mg TAB Furosemide Daily [facility] (Lasix) 20 12-22 S Mg TAB 00:00 Health :00 Diphenoxyla Daily GIO U te 12-22 S Hcl/Atropin 00:00 Health e (Lomotil) :00 2.5 Mg TAB Furosemide Daily [facility] (Lasix) 20 12-22 S Mg TAB 00:00 Health :00 Diphenoxyla Daily GIO U te 12-22 S Hcl/Atropin 00:00 Health e (Lomotil) :00 2.5 Mg TAB Furosemide Daily [facility] (Lasix) 20 12-22 S Mg TAB 00:00 Health :00 Diphenoxyla Daily GIO U te 12-22 S Hcl/Atropin 00:00 Health e (Lomotil) :00 2.5 Mg TAB Furosemide Daily [facility] (Lasix) 20 12-22 S Mg TAB 00:00 Health :00 Vital Signs Vital Name Observation Time Observation Value Comments Source HEIGHT 2019-08-01 00:00:00 160 cm WEIGHT 2019-08-01 00:00:00 75.3 kg HEIGHT 2020-04-24 09:01:40 159 cm WEIGHT 2020-04-24 09:01:40 79.2 kg Systolic blood 2019-10-01 18:47:00 131 mm[Hg] [facility] pressure Medicine Diastolic blood 2019-10-01 18:47:00 79 mm[Hg] [facility] pressure Medicine Heart rate 2019-10-01 18:47:00 65 /min [facility] Respiratory rate 2019-10-01 18:47:00 16 /min [facility] Body height 2019-10-01 18:47:00 160 cm [facility] Body weight 2019-10-01 18:47:00 78.926 kg [facility] BMI 2019-10-01 18:47:00 30.82 kg/m2 [facility] Oxygen saturation in 2019-10-01 18:47:00 95 /min [facility] blood by Medicine Pulse oximetry Systolic blood 2019-10-01 18:47:00 131 mm[Hg] [facility] pressure Medicine Diastolic blood 2019-10-01 18:47:00 79 mm[Hg] [facility] Medicine Heart rate 2019-10-01 18:47:00 65 /min [facility] Respiratory rate 2019-10-01 18:47:00 16 /min [facility] Body height 2019-10-01 18:47:00 160 cm [facility] Body weight 2019-10-01 18:47:00 78.926 kg [facility] BMI 2019-10-01 18:47:00 30.82 kg/m2 [facility] Oxygen saturation in 2019-10-01 18:47:00 95 /min [facility] blood by Medicine Pulse oximetry HEIGHT 2019-08-01 00:00:00 160 cm WEIGHT 2019-08-01 00:00:00 75.3 kg BP Diastolic 2020-02-11 11:45:00 64 mm[Hg] [facility] BP Systolic 2020-02-11 11:45:00 97 mm[Hg] [facility] Heart Rate 2020-02-11 11:45:00 69 /min [facility] Respiratory rate 2020-02-11 11:45:00 18 /min [facility] Body Temperature 2020-02-11 11:45:00 97.4 [degF] [facility] BP Diastolic 2020-02-11 06:30:00 73 mm[Hg] [facility] BP Systolic 2020-02-11 06:30:00 111 mm[Hg] [facility] Heart Rate 2020-02-11 06:30:00 67 /min [facility] Respiratory rate 2020-02-11 06:30:00 18 /min [facility] Body Temperature 2020-02-11 06:30:00 97.6 [degF] [facility] BP Diastolic 2020-02-11 05:34:00 68 mm[Hg] [facility] BP Systolic 2020-02-11 05:34:00 104 mm[Hg] [facility] Heart Rate 2020-02-11 05:34:00 71 /min [facility] Respiratory rate 2020-02-11 05:34:00 16 /min [facility] Body Temperature 2020-02-11 05:34:00 98.4 [degF] [facility] BP Diastolic 2020-02-11 00:45:00 87 mm[Hg] [facility] BP Systolic 2020-02-11 00:45:00 142 mm[Hg] [facility] Heart Rate 2020-02-11 00:45:00 74 /min [facility] Respiratory rate 2020-02-11 00:45:00 18 /min [facility] Body Temperature 2020-02-11 00:45:00 97.9 [degF] [facility] BP Diastolic 2020-02-10 20:33:00 82 mm[Hg] [facility] BP Systolic 2020-02-10 20:33:00 144 mm[Hg] [facility] Heart Rate 2020-02-10 20:33:00 72 /min [facility] Respiratory rate 2020-02-10 20:33:00 17 /min [facility] Body Temperature 2020-02-10 20:33:00 97.7 [degF] [facility] BP Diastolic 2020-02-10 18:15:00 90 mm[Hg] [facility] BP Systolic 2020-02-10 18:15:00 148 mm[Hg] [facility] Heart Rate 2020-02-10 18:15:00 65 /min [facility] Respiratory rate 2020-02-10 18:15:00 20 /min [facility] Body Temperature 2020-02-10 18:15:00 95.0 [degF] [facility] BP Diastolic 2020-02-10 17:15:00 91 mm[Hg] [facility] BP Systolic 2020-02-10 17:15:00 138 mm[Hg] [facility] Heart Rate 2020-02-10 17:15:00 75 /min [facility] BP Diastolic 2020-02-10 16:15:00 95 mm[Hg] [facility] BP Systolic 2020-02-10 16:15:00 157 mm[Hg] [facility] Heart Rate 2020-02-10 16:15:00 75 /min [facility] BP Diastolic 2020-02-10 15:45:00 85 mm[Hg] [facility] BP Systolic 2020-02-10 15:45:00 140 mm[Hg] [facility] Heart Rate 2020-02-10 15:45:00 71 /min [facility] BP Diastolic 2020-02-10 15:15:00 82 mm[Hg] [facility] BP Systolic 2020-02-10 15:15:00 138 mm[Hg] [facility] Heart Rate 2020-02-10 15:15:00 72 /min [facility] BP Diastolic 2020-02-10 14:45:00 75 mm[Hg] [facility] BP Systolic 2020-02-10 14:45:00 150 mm[Hg] [facility] Heart Rate 2020-02-10 14:45:00 74 /min [facility] BP Diastolic 2020-02-10 14:30:00 65 mm[Hg] [facility] BP Systolic 2020-02-10 14:30:00 136 mm[Hg] [facility] Heart Rate 2020-02-10 14:30:00 76 /min [facility] Respiratory rate 2020-02-10 14:30:00 14 /min [facility] BP Diastolic 2020-02-10 14:15:00 61 mm[Hg] [facility] BP Systolic 2020-02-10 14:15:00 142 mm[Hg] [facility] Heart Rate 2020-02-10 14:15:00 75 /min [facility] Respiratory rate 2020-02-10 14:15:00 12 /min [facility] BP Diastolic 2020-02-10 14:00:00 63 mm[Hg] [facility] BP Systolic 2020-02-10 14:00:00 148 mm[Hg] [facility] Heart Rate 2020-02-10 14:00:00 74 /min [facility] Respiratory rate 2020-02-10 14:00:00 14 /min [facility] BP Diastolic 2020-02-10 13:45:00 68 mm[Hg] [facility] BP Systolic 2020-02-10 13:45:00 151 mm[Hg] [facility] Heart Rate 2020-02-10 13:45:00 99 /min [facility] Respiratory rate 2020-02-10 13:45:00 12 /min [facility] BP Diastolic 2020-02-10 13:30:00 63 mm[Hg] [facility] BP Systolic 2020-02-10 13:30:00 148 mm[Hg] [facility] Heart Rate 2020-02-10 13:30:00 80 /min [facility] Respiratory rate 2020-02-10 13:30:00 15 /min [facility] BP Diastolic 2020-02-10 13:15:00 59 mm[Hg] [facility] BP Systolic 2020-02-10 13:15:00 123 mm[Hg] [facility] Heart Rate 2020-02-10 13:15:00 74 /min [facility] Respiratory rate 2020-02-10 13:15:00 12 /min [facility] Body Temperature 2020-02-10 13:15:00 98.3 [degF] [facility] BP Diastolic 2020-02-10 08:20:00 82 mm[Hg] [facility] BP Systolic 2020-02-10 08:20:00 125 mm[Hg] [facility] Heart Rate 2020-02-10 08:20:00 62 /min [facility] Respiratory rate 2020-02-10 08:20:00 18 /min [facility] Body Temperature 2020-02-10 08:20:00 98.6 [degF] [facility] Heart Rate 2019-01-15 17:12:00 63 /min [facility] Respiratory rate 2019-01-15 17:12:00 17 /min [facility] BP Systolic 2019-01-15 17:12:00 135 mm[Hg] [facility] BP Diastolic 2019-01-15 17:12:00 77 mm[Hg] [facility] Heart Rate 2019-01-15 16:10:00 69 /min [facility] Respiratory rate 2019-01-15 16:10:00 22 /min [facility] BP Systolic 2019-01-15 16:10:00 135 mm[Hg] [facility] BP Diastolic 2019-01-15 16:10:00 77 mm[Hg] [facility] Body Temperature 2019-01-15 12:56:00 97.5 [degF] [facility] Procedures Procedure Date / Time Performed Performing Clinician Sourc e Low level established 2020-12-15 00:00:00 [facility] patient office visit EXTRACRANIAL BILAT STUDY 2020-11-24 00:00:00 [facility] Complete Doppler 2020-11-24 00:00:00 MINA chika ultrasound of carotid artery MRI BRAIN STEM W/O DYE 2020-11-19 00:00:00 [facility] Magnetic resonance imaging 2020-11-19 00:00:[address] [facility] of brain without contrast Epidural injection 2020-11-06 00:00:00 [facility] Fluoro-Tracking No Charge 2020-11-06 00:00:00 [facility] Epidural injection 2020-10-23 00:00:00 [facility] Fluoro-Tracking No Charge 2020-10-23 00:00:00 [facility] Inj for sacroiliac jt 2020-10-23 00:00:00 [facility] anesth Inj, propofol, 10 mg 2020-10-23 00:00:00 [facility] Triamcinolone acet inj nos 2020-10-23 00:00:[address] [facility] Drugs unclassified 2020-10-23 00:00:00 [facility] injection Ringers lactate infusion 2020-10-23 00:00:00 [facility] Locm 300-399mg/ml 2020-10-23 00:00:00 MINA love iodine,1ml Low level established 2020-10-01 00:00:00 [facility] patient office visit Low level established 2020-07-22 00:00:00 [facility] patient office visit ROUTINE VENIPUNCTURE 2020-07-14 00:00:00 [facility] COMPREHEN METABOLIC PANEL 2020-07-14 00:00:00 [facility] LIPID PANEL 2020-07-14 00:00:00 MINA Morales lth URINALYSIS AUTO W/O SCOPE 2020-07-14 00:00:00 [facility] VITAMIN D 25 HYDROXY 2020-07-14 00:00:00 [facility] GLYCOSYLATED HEMOGLOBIN 2020-07-14 00:00:00 [facility] TEST ASSAY THYROID STIM HORMONE 2020-07-14 00:00:[address] [facility] COMPLETE CBC W/AUTO DIFF 2020-07-14 00:00:00 [facility] WBC Epidural injection 2020-07-09 00:00:00 [facility] Fluoro-Tracking No Charge 2020-07-09 00:00:00 [facility] NJX AA&/STRD TFRM EPI L/S 2020-07-09 00:00:00 [facility] 1 NJX AA&/STRD TFRM EPI L/S 2020-07-09 00:00:00 [facility] EA CORONAVIRUS AG IA 2020-07-09 00:00:00 [facility] Dexamethasone sodium phos 2020-07-09 00:00:00 [facility] Inj, propofol, 10 mg 2020-07-09 00:00:00 [facility] Drugs unclassified 2020-07-09 00:00:00 [facility] injection Ringers lactate infusion 2020-07-09 00:00:00 [facility] Locm 300-399mg/ml 2020-07-09 00:00:00 [facility] iodine,1ml Minor level established 2020-07-02 00:00:00 [facility] patient office visit Epidural injection 2020-06-25 00:00:00 [facility] Fluoro-Tracking No Charge 2020-06-25 00:00:00 [facility] NJX AA&/STRD TFRM EPI L/S 2020-06-25 00:00:00 [facility] 1 NJX AA&/STRD TFRM EPI L/S 2020-06-25 00:00:00 [facility] EA CORONAVIRUS AG IA 2020-06-25 00:00:00 [facility] Dexamethasone sodium phos 2020-06-25 00:00:00 [facility] Inj, propofol, 10 mg 2020-06-25 00:00:00 [facility] Drugs unclassified 2020-06-25 00:00:00 [facility] injection Ringers lactate infusion 2020-06-25 00:00:00 [facility] Locm 300-399mg/ml 2020-06-25 00:00:00 [facility] iodine,1ml Low level established 2020-05-26 00:00:00 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 Single injection for block 2020-02-10 00:00:00 [facility] [employer] of femoral nerve Occupational therapy 2020-02-10 00:00:00 [facility] S Health evaluation and treatment Physical therapy 2020-02-10 00:00:00 [facility] evaluation and treatment X-ray of pelvis, one or 2020-02-10 00:00:00 [facility] two views Encounter Stat Only Day 2020-02-10 00:00:00 [facility] Sgy ECG (electrocardiogram) 2020-02-04 00:00:00 [facility] X-ray of chest, two views 2020-02-04 00:00:00 [facility] Hospital outpt clinic 2020-01-16 00:00:00 [facility] visit Minor level established 2020-01-16 00:00:00 [facility] patient office visit ECG (electrocardiogram) 2019-01-15 00:00:00 [facility] Computed tomography 2019-01-15 00:00:00 [facility] angiography of abdomen and pelvis Minor level established 2019-01-11 00:00:00 [facility] patient office visit X-ray exam hip uni 2-3 2019-01-11 00:00:00 [facility] Plan of Care Planned Activity Planned Date Details Comments Source Future Scheduled 2021-11-18 INFLUENZA VACCINE (#1) [facility] 00:00:00 [code = INFLUENZA Medical Ce nter VACCINE (#1)] Future Scheduled 2021-03-[address] [facility] 00:00:00 (12+) [code = Medical Center DEPRESSION SCREENING (12+)] Future Scheduled 2021-03-20 FALLS RISK SCREENING [facility] 00:00:00 [code = FALLS RISK Medical C enter SCREENING] Future Scheduled 2006-05-[address] [facility] 00:00:00 WELLNESS (YEAR 2 or Medical Center FIRST YEAR if no IPPE) [code = MEDICARE ANNUAL WELLNESS (YEAR 2 or FIRST YEAR if no IPPE)] Future Scheduled 1997-08-22 SHINGLES VACCINES ([address] [facility] 00:00:00 2) [code = SHINGLES Medical Center VACCINES (1 of 2)] Future Scheduled 1966-08-22 DTAP/TDAP/TD VACCINES [facility] 00:00:00 (1 - Tdap) [code = Medical C enter DTAP/TDAP/TD VACCINES (1 - Tdap)] Future Scheduled 1953-08-22 PNEUMOCOCCAL 65+ YRS ([address] [facility] Test 00:00:00 - PCV) [code = Medical Cente r PNEUMOCOCCAL 65+ YRS (1 - PCV)] Future Scheduled 1948-02-22 COVID-19 VACCINE (#1) [facility] 00:00:00 [code = COVID-[address] VACCINE (#1)] Future Scheduled 1947 Screening for malignant [facility] Test 00:00:00 neoplasm of breast Medical C enter (procedure) [code = 308589304] Future Scheduled 1947 CT Colonography (combo) [facility] Test 00:00:00 [code = CT Colonography [facility] (combo)] Future Scheduled 1947 Screening for malignant [facility] Test 00:00:00 neoplasm of colon Medical Ce nter (procedure) [code = 410908379] Future Scheduled 1947 Screening for malignant [facility] Test 00:00:00 neoplasm of colon Medical Ce nter (procedure) [code = 584181287] Future Scheduled 1947 DXA SCAN [code = DXA [facility] Test 00:00:00 SCAN] [facility] Future Scheduled 1947 Screening for malignant [facility] Test 00:00:00 neoplasm of colon Medical Ce nter (procedure) [code = 723882985] Future Scheduled 1947 Screening for malignant [facility] Test 00:00:00 neoplasm of colon Medical Ce nter (procedure) [code = 695430506] Future Scheduled 1947 Sigmoidoscopy [code = [facility] 00:00:00 Sigmoidoscopy] Medical Andrés r Future Scheduled COLON CANCER SCREENING: [facility] Test COLONOSCOPY [code = Medicine COLON CANCER SCREENING: COLONOSCOPY] Future Scheduled MAMMOGRAM ANNUAL [code B [facility] Test = MAMMOGRAM ANNUAL] Medicine Future Scheduled TETANUS SHOT (ADULT) [facility] Test [code = TETANUS SHOT Medicin e (ADULT)] Future Scheduled BMI FOLLOW UP PLAN [facility] Test [code = BMI FOLLOW UP Medici ne PLAN] Future Scheduled MEDICARE AWV (Initial) B [facility] Test [code = MEDICARE AWV Medicin e (Initial)] Future Scheduled FALL SCREEN [code = [facility] Test FALL SCREEN] Medicine Future Scheduled OSTEOPOROSIS SCREENING B [facility] Test [code = OSTEOPOROSIS Medicin e SCREENING] Future Scheduled PNEUMOVAX >=65 (PPSV23) [facility] Test [code = PNEUMOVAX >=65 Medic ine (PPSV23)] Future Scheduled FLU VACCINE > 6 MONTHS B [facility] Test [code = FLU VACCINE > 6 Medi cine MONTHS] Encounters Start End Encounter Admission Attending Care Care Encounter Source Date/Time Date/Time Type Type Clinicians Facility Department ID 2021-01-11 Outpatient MINA ENRIQUEZ [id number] [facility] 00:49:03 [id number] [facility] 2021-01-11 Outpatient MINA ENRIQUEZ [id number] [facility] 00:42:49 [id number] S [facility] 2020-12-22 Outpatient FERNÁNDEZ [facility] Surgery [id number] SLE 13:55:15 [facility] 2020-11-17 Inpatient [facility] [id number] [facility] 14:30:00 RENETTA 44 [facility] 2020-09-09 Outpatient [facility] [id number] 06:22:12 PROVIDER Osiel o n 2020-09-01 Inpatient 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, MINA ENRIQUEZ [id number] [facility] 09:00:00 NON 52 S [facility] 2020-05-14 [id number] [facility] 09:45:00 MEHDI 80 S [facility] 2022-01-12 2022-01-17 Outpatient Elissa KIRAN [id number] [facility] 11:00:00 00:01:00 [id number] Health 2021-12-29 2021-12-29 Outpatient DEB, MINA POWERSUS [id number] [facility] 08:30:00 08:30:00 JEFFREY [id number] S Health 2021-12-15 2021-12-17 Outpatient Elissa SINGLETARY [facility] [id number] [facility] 08:29:00 00:01:00 [id number] S Health 2021-10-14 2021-10-14 Outpatient [facility] AE0 [id number] [facility] 07:10:00 07:10:00 MEHDI 34 S Health 2021-10-14 2021-10-14 Outpatient [facility] [id number] [facility] 07:10:00 07:10:00 MEHDI [id number] Health 2021-07-12 2021-07-12 Outpatient [facility] AE0 [id number] [facility] 08:25:00 08:25:00 MEHDI 48 S Health 2021-05-18 2021-05-18 Outpatient [facility] AE0 [id number] [facility] 08:01:00 08:01:00 MEHDI 83 S Health 2021-04-14 2021-04-14 Outpatient [facility] AE0 [id number] [facility] 08:33:00 08:33:00 MEHDI 10 Health 2020-12-15 2020-12-[address] [facility] [id number] [facility] 12:01:00 00:01:00 Recurring SASSAN 54 S Health 2020-12-15 2020-12-15 Outpatient SUNIL, [facility] [id number] [facility] 12:25:00 12:25:00 BEST 60 S Health 2020-11-24 2020-11-24 Registered [facility] AE0 [id number] [facility] 09:35:00 09:35:00 Clinic MEHDI 26 S Health 2020-11-19 2020-11-19 Registered [facility] AE0 [id number] [facility] 10:30:00 08:28:00 Clinic [place] 93 S Health 2020-11-06 2020-11-06 Departed AV TERESA GIO MINA [id number] [facility] 13:00:00 09:58:00 Surgical [facility] 2020-10-23 2020-10-23 Depart[address] AV TERESA GIO GIO [id number] [facility] 12:45:00 10:04:00 Surgical [facility] 2020-10-01 2020-10-17 Discharged AV TERESA GIO MINA [id number] [facility] 08:21:00 23:59:00 Recurring [facility] 31 [facility] 2020-10-01 2020-10-01 Outpatient BRII, MINA ENRIQUEZ [id number] [facility] 12:45:00 12:45:00 [facility] 60 [facility] 2020-07-22 2020-08-17 Discharged AV TERESA MINA ENRIQUEZ [id number] [facility] 09:27:00 23:59:00 Recurring [facility] 60 [facility] 2020-07-22 2020-07-22 Outpatient SUNILMINA [id number] [facility] 08:43:00 08:43:00 [facility] 60 [facility] 2020-07-14 2020-07-14 Registered AV CASAREZ MINA ENRIQUEZ [id number] [facility] 08:18:00 08:18:[address] 2020-07-09 2020-07-09 Departed AV JEREMIEOPALMINA [id number] [facility] 09:30:00 09:33:00 Surgical [facility] 2020-07-02 2020-07-02 Discharged Elissa KIRAN [id number] [facility] 10:15:00 10:15:00 [facility] 2020-06-25 2020-06-25 Departed AV JEREMIEOPAL MINA ENRIQUEZ [id number] [id number] 06:46:00 09:09:00 Surgical [facility] 2020-05-26 2020-06-17 Discharged AIRAM ENRIQUEZ [id number] [facility] 13:17:00 23:59:[address] 2020-05-26 2020-05-26 Outpatient BRII MINA ENRIQUEZ [id number] [facility] 13:15:00 13:15:00 SASSAN [address] [facility] 2020-05-22 2020-05-22 Outpatient AV LOPES MDA MDA [id number] MD 11:45:48 11:45:48 RENETTA Juarezer so n 2020-05-20 2020-05-20 Discharged Elissa KIRAN AE0 [id number] [facility] 10:15:00 10:15:00 Recurring [address] [facility] 2020-04-24 2020-04-24 Outpatient AV LOPES, MDA MDA [id number] MD 13:02:23 23:59:00 RENETTA Juarezer so n 2020-04-24 2020-04-24 Outpatient AV LOPES MDA MDA [id number] MD 10:48:43 13:01:00 RENETTA Juarezer so n 2020-04-24 2020-04-24 Outpatient MARIANNE MDA MDA [id number] MD 09:46:07 09:46:07 RENETTA Juarezer so n 2020-04-24 2020-04-24 Outpatient MARIANNE, MDA MDA [id number] MD 08:04:41 09:31:13 [facility] 2020-04-24 2020-04-24 Outpatient MARIANNE MDA MDA [id number] MD 07:18:47 07:18:47 RENETTA Mike so n 2020-03-25 2020-03-25 Discharged Elissa KIRAN AE0 [id number] [facility] 12:00:00 12:00:00 Recurring [facility] 2020-02-26 2020-02-26 Discharged Elissa KIRAN AE0 [id number] [facility] 10:24:00 10:24:00 Recurring 60 [address] [facility] 2020-02-10 2020-02-11 Departed Elissa KIRAN [id number] [facility] 08:45:00 16:47:00 Surgical [facility] [address] [facility] 2020-01-16 2020-01-16 Discharged Elissa KIRAN AE0 [id number] [facility] 07:45:00 07:45:00 Recurring [facility] 2019-10-01 2019-10-01 Office HUAN Fernández [id number] 13:05:28 14:16:22 Visit Henrry AMBULATOR [id number] Y [id number] 2019-10-01 2019-10-01 Office HUAN Fernández [id number] [facility] [place] 13:05:28 14:16:22 Visit Henrry AMBULATOR [id number] College Y [id number] of [id number] [facility] 370 e 2019-08-10 2019-08-10 Outpatient EL SLEH SLEH [id number] [facility] 00:00:00 00:00:00 2019-08-01 2019-08-01 Outpatient EL JEWELL, MINA ENRIQUEZ AE [id number] [facility] 05:52:00 05:52:00 LINWOOD [facility] 2019-05-23 2019-05-23 Outpatient EL SUN, MINA ENRIQUEZ [id number] [facility] 09:45:00 09:45:00 SAM [facility] 2019-04-24 2019-04-24 Outpatient EL SARAI, MINA ENRIQUEZ AE0 [id number] [facility] 06:52:00 12:15:00 HUEAMMAD [facility] 2019-03-26 2019-04-19 Outpatient EL NAE, MINA ENRIQUEZ AE [id number] [facility] 13:22:00 00:01:00 MARK 21 [facility] 2019-01-11 2019-01-17 Discharged AIRAM ENRIQUEZ [id number] [facility] 09:20:00 23:59:[address] [facility] 2019-01-15 2019-01-15 Departed AIRAM ENRIQUEZ [id number] [facility] 13:29:00 17:00:00 Emergency [facility] [address] [facility] 2018-10-08 2018-10-08 Outpatient MARILU Dahl [id number] [facility] 13:33:00 13:33:00 [facility] 2018-02-22 2018-02-22 Outpatient MARILU Dahl [id number] [facility] 14:08:00 14:08:00 [facility] 2016-12-26 2016-12-26 Outpatient DavidServandoBerkley, MARILU MICHEL [id number] [facility] 12:08:00 12:08:00 [facility] 2016-12-05 2016-12-05 Outpatient DavidServandoBerkley, MARILU SETMELISSA [id number] [facility] 13:18:00 13:18:00 [facility] Results Test Description Test Time Test Comments Results Result Comments Source Urinalysis specimen collection method 2020-07-14 08:45:00 Test Item Value Reference Range Interpretation Comme nts Urine Source (test code = 78194-0) URINE [facility] HealthColor of Urine by Ypli6131-22-15 08:45:00 Test Item Value Reference Range Interpretation Comments Urine Color (test code = 03136-3) Lt Yellow Yel-Yasmine * [facility] HealthUrine clarity ewbkxnlvzqemk2248-71-00 08:45:00 Test Item Value Reference Range Interpretation Comments Urine Appearance (test code = 17362-3) Clear Clear * [facility] HealthUrine pH measurement by automated test gecjw5360-05-87 08:45:00 Test Item Value Reference Range Interpretation Comments Urine pH (test code = 49969-6) 5.5 5.0-8.0 [facility] HealthSpecific gravity of Urine by Automated test [id number] 08:45:00 Test Item Value Reference Range Interpretation Comments Urine Specific [place] (test code = 1.019 1.005-1.030 16528-8) [facility] HealthUrine protein measurement by automated test strip (mass/volume) 2020-07-14 08:45:00 Test Item Value Reference Range Interpretation Comments Urine Protein (test code = 30671-3) Negative Negative * [facility] HealthUrine glucose measurement by automated test strip (mass/volume) 2020-07-14 08:45:00 Test Item Value Reference Range Interpretation Comments Urine Glucose (UA) (test code = Negative Negative * 68730-3) [facility] HealthKetones [Mass/volume] in Urine by Automated test [id number] 08:45:00 Test Item Value Reference Range Interpretation Comments Urine Ketones (test code = 60882-8) Negative Negative * [facility] HealthUrine erythrocytes count by automated test strip (number/volume) 2020-07-14 08:45:00 Test Item Value Reference Range Interpretation Comments Urine Occult Blood (test code = Trace Negative * 43050-2) [facility] HealthUrine nitrite detection by automated test [id number] 08:45:00 Test Item Value Reference Range Interpretation Comments Urine Nitrite (test code = 57319-3) Negative Negative [facility] HealthUrine total bilirubin measurement by automated test strip (mass/volume)2020-07-14 08:45:00 Test Item Value Reference Range Interpretation Comments Urine Bilirubin (test code = Negative Negative 72403-9) [facility] HealthUrine urobilinogen measurement by automated test strip (mass/volume)2020-07-14 08:45:00 Test Item Value Reference Range Interpretation Comments Urine Urobilinogen (test code = Negative 0.0-1.0 39214-8) [facility] HealthUrine leukocytes count by automated test strip (number/volume) 2020-07-14 08:45:00 Test Item Value Reference Range Interpretation Comments Urine Leukocyte Esterase (test code = 250 Negative 02672-3) [facility] HealthMicroscopic examination of scyyc6747-77-43 08:45:00 Test Item Value Reference Range Interpretation Comments Microscopic Urinalysis (T) (test code = ----- 28716-3) [facility] HealthUrine sediment erythrocyte count by microscopy (number/high power field)2020-07-14 08:45:00 Test Item Value Reference Range Interpretation Comments Urine RBC (test code = 43614-3) 0-2 0-2 [facility] HealthUrine sediment leukocyte count by microscopy (number/high power field)2020-07-14 08:45:00 Test Item Value Reference Range Interpretation Comments Urine WBC (test code = 5821-4) 6-20 0-5 [facility] HealthUrine sediment epithelial cell count by microscopy (number/high power field)2020-07-14 08:45:00 Test Item Value Reference Range Interpretation Comments Urine Epithelial Cells (test code = None Seen Few 5787-7) [facility] HealthUrine sediment crystal count by microscopy (number/high power field)2020-07-14 08:45:00 Test Item Value Reference Range Interpretation Comments Urine Crystals (test code = None Seen None * 33066-2) [facility] HealthUrine sediment bacteria count by microscopy (number/high power field)2020-07-14 08:45:00 Test Item Value Reference Range Interpretation Comments Urine Bacteria (test code = 5769-5) None Seen None [facility] HealthUrine sediment casts count by microscopy (number/low power field) 2020-07-14 08:45:00 Test Item Value Reference Range Interpretation Comments Urine Casts (test code = 9842-6) Present None * [facility] HealthUrine sediment hyaline cast count by microscopy (number/low power field)2020-07-14 08:45:00 Test Item Value Reference Range Interpretation Comments Urine Hyaline Casts (test code = 2-5 0-1 5796-8) [facility] HealthYeast detection in urine sediment by light kwwivzjqqa1554-64-85 08:45:00 Test Item Value Reference Range Interpretation Comments Urine Yeast (test code = 34616-8) None Seen None [facility] comment [id number] 08:45:00 Test Item Value Reference Range Interpretation Comments Urinalysis Comment (test * See_Comment [A utomated message] The code = 8262-8) system which generated this result tra nsmitted reference range : *. The reference range was not used to interpr et this result as normal/abnormal . [facility] HealthAutomated blood leukocyte count (number/volume)2020-07-14 08:35:00 Test Item Value Reference Range Interpretation Comments White Blood Count (test code = 6690-2) 7.2 4.5-11.5 [facility] HealthBlood erythrocytes automated count (number/volume)2020-07-14 08:35:00 Test Item Value Reference Range Interpretation Comments Red Blood Count (test code = 789-8) 4.23 3.8-5.1 [facility] HealthBlood hemoglobin measurement (mass/volume)2020-07-14 08:35:00 Test Item Value Reference Range Interpretation Comments Hemoglobin (test code = 718-7) 12.4 12.0-15.2 [facility] HealthAutomated blood hematocrit (volume fraction)2020-07-14 08:35:00 Test Item Value Reference Range Interpretation Comments Hematocrit (test code = 4544-3) 40.5 34.0-45.5 [facility] HealthAutomated erythrocyte mean corpuscular volume (MCV) measurement 2020-07-14 08:35:00 Test Item Value Reference Range Interpretation Comments Mean Corpuscular Volume (test code = 96 80-94 787-2) [facility] HealthAutomated erythrocyte mean corpuscular hemoglobin (mass per erythrocyte)2020-07-14 08:35:00 Test Item Value Reference Range Interpretation Comments Mean Corpuscular Hemoglobin (test code 29.3 27.0-33.0 = 785-6) [facility] HealthAutomated erythrocyte mean corpuscular hemoglobin concentration measurement (mass/volume)2020-07-14 08:35:00 Test Item Value Reference Range Interpretation Comments Mean Corpuscular Hemoglobin Concent 30.6 33.0-37.0 (test code = 786-4) [facility] HealthAutomated erythrocyte distribution width yjhcv1264-78-28 08:35:00 Test Item Value Reference Range Interpretation Comments Red Cell Distribution Width (test code 14.0 10.7-14.5 = 788-0) [facility] HealthAutomated blood platelet count (count/volume)2020-07-14 08:35:00 Test Item Value Reference Range Interpretation Comments Platelet Count (test code = 777-3) 131 150-450 [facility] HealthAutomated blood platelet mean volume dtqglbkmwyh2677-17-43 08:35:00 Test Item Value Reference Range Interpretation Comments Mean Platelet Volume (test code = 10.7 5.7-10.7 87170-6) [facility] HealthImmature platelet aivmuhmt6606-54-71 08:35:00 Test Item Value Reference Range Interpretation Comments Immature Platelet Fraction (test code = 4.7 0.9-11.2 03649-4) [facility] HealthAutomated blood neutrophil count as percentage of total kiryondbuk9167-00-15 08:35:00 Test Item Value Reference Range Interpretation Comments Neutrophils (%) (Auto) (test code = 61 47-75 770-8) [facility] HealthAutomated blood immature granulocyte count as percentage of total wkrylyrgeq1207-62-35 08:35:00 Test Item Value Reference Range Interpretation Comments Immature Granulocyte % (Auto) (test 1 0-0 code = 34851-9) [facility] HealthAutomated blood lymphocyte count as percentage of total vgtuftmdxi6865-42-16 08:35:00 Test Item Value Reference Range Interpretation Comments Lymphocytes (%) (Auto) (test code = 23 25-44 736-9) [facility] HealthAutomated blood monocyte count as percentage of total leukocytes 2020-07-14 08:35:00 Test Item Value Reference Range Interpretation Comments Monocytes (%) (Auto) (test code = 8 3-10 5905-5) [facility] HealthAutomated blood eosinophil count as percentage of total ezdqrjehgv9414-95-41 08:35:00 Test Item Value Reference Range Interpretation Comments Eosinophils (%) (Auto) (test code = 5 0-7 713-8) [facility] HealthAutomated blood basophil count as percentage of total leukocytes 2020-07-14 08:35:00 Test Item Value Reference Range Interpretation Comments Basophils (%) (Auto) (test code = 1 0-1 706-2) [facility] HealthAutomated blood nucleated erythrocyte count as percentage of total hwqitnnxxq5149-56-21 08:35:00 Test Item Value Reference Range Interpretation Comments Nucleated Red Blood Cells % (test code 0.0 0-0.2 = 98839-6) [facility] HealthAutomated blood neutrophil count (number/volume)2020-07-14 08:35:00 Test Item Value Reference Range Interpretation Comments Neutrophils # (Auto) (test code = 4.4 1.3-6.7 751-8) [facility] HealthAutomated blood immature granulocyte count as percentage of total vjhkmimcat4508-83-95 08:35:00 Test Item Value Reference Range Interpretation Comments Immature Granulocyte # (Auto) (test 0.1 0.0-0.0 code = 66758-4) [facility] HealthAutomated blood lymphocyte count (number/volume)2020-07-14 08:35:00 Test Item Value Reference Range Interpretation Comments Lymphocytes # (Auto) (test code = 1.7 1.4-4.1 731-0) [facility] HealthBlood monocytes automated count (number/volume)2020-07-14 08:35:00 Test Item Value Reference Range Interpretation Comments Monocytes # (Auto) (test code = 742-7) 0.6 0-1.3 [facility] HealthAutomated blood eosinophil enfpu7325-27-77 08:35:00 Test Item Value Reference Range Interpretation Comments Eosinophils # (Auto) (test code = 0.4 0-0.8 711-2) [facility] HealthAutomated blood basophil count (number/volume)2020-07-14 08:35:00 Test Item Value Reference Range Interpretation Comments Basophils # (Auto) (test code = 704-7) 0.1 0-0.1 [facility] HealthAutomated blood nucleated erythrocyte count (count/volume) 2020-07-14 08:35:00 Test Item Value Reference Range Interpretation Comments Nucleated Red Blood Cells # (test code 0.00 0-0.01 = 771-6) [facility] comment [id number] 08:35:00 Test Item Value Reference Range Interpretation Comments Manual Differential (test code = Not Ind 8265-1) [facility] HealthSodium YrmMn-cOzt8990-10-27 08:35:00 Test Item Value Reference Range Interpretation Comments Sodium Level (test code = 2951-2) 144 136-145 [facility] HealthSerum or plasma potassium measurement (moles/volume)2020-07-14 08:35:00 Test Item Value Reference Range Interpretation Comments Potassium Level (test code = 2823-3) 4.7 3.5-5.1 [facility] HealthSerum or plasma chloride measurement (moles/volume)2020-07-14 08:35:00 Test Item Value Reference Range Interpretation Comments Chloride Level (test code = 2075-0) 108 98-107 [facility] HealthSerum or plasma total carbon dioxide measurement (moles/volume) 2020-07-14 08:35:00 Test Item Value Reference Range Interpretation Comments Carbon Dioxide Level (test code = 28 -31 8-9) [facility] HealthSerum or plasma anion gap determination (moles/volume)2020-07-14 08:35:00 Test Item Value Reference Range Interpretation Comments Anion Gap (test code = 84648-2) 13 8-18 [facility] HealthSerum or plasma urea nitrogen measurement (mass/volume)2020-07-14 08:35:00 Test Item Value Reference Range Interpretation Comments Blood Urea Nitrogen (test code = 16 10-20 3094-0) [facility] HealthSerum or plasma creatinine measurement (mass/volume)2020-07-14 08:35:00 Test Item Value Reference Range Interpretation Comments Creatinine (test code = 2160-0) 0.9 0.6-1.1 [facility] HealthGFR/BSA.pred SerPl JOMN-QzHGfl3725-15-27 08:35:00 Test Item Value Reference Range Interpretation Comments Estimat Glomerular Filtration Rate 65 50-100 (test code = 66871-8) [facility] HealthSerum or plasma glucose measurement (mass/volume)2020-07-14 08:35:00 Test Item Value Reference Range Interpretation Comments Glucose Level (test code = 2345-7) 93 60-100 [facility] HealthSerum or plasma calcium measurement (mass/volume)2020-07-14 08:35:00 Test Item Value Reference Range Interpretation Comments Calcium Level (test code = 29596-6) 9.7 8.4-10.2 [facility] HealthSerum or plasma total bilirubin measurement (mass/volume) 2020-07-14 08:35:00 Test Item Value Reference Range Interpretation Comments Total Bilirubin (test code = 1975-2) 0.9 0.2-1.2 [facility] HealthSerum or plasma aspartate aminotransferase measurement (enzymatic activity/volume)2020-07-14 08:35:00 Test Item Value Reference Range Interpretation Comments Aspartate Amino Transf (AST/SGOT) (test 11 5-34 code = 1920-8) [facility] HealthSerum or plasma alanine aminotransferase measurement (enzymatic activity/volume)2020-07-14 08:35:00 Test Item Value Reference Range Interpretation Comments Alanine Aminotransferase (ALT/SGPT) 9 0-55 (test code = 1742-6) [facility] HealthSerum or plasma protein measurement (mass/volume)2020-07-14 08:35:00 Test Item Value Reference Range Interpretation Comments Total Protein (test code = 2885-2) 6.5 5.8-7.6 [facility] HealthSerum or plasma albumin measurement (mass/volume)2020-07-14 08:35:00 Test Item Value Reference Range Interpretation Comments Albumin (test code = 1751-7) 4.1 3.2-4.7 [facility] HealthSerum or plasma alkaline phosphatase measurement (enzymatic activity/volume)2020-07-14 08:35:00 Test Item Value Reference Range Interpretation Comments Alkaline Phosphatase (test code = 83 40-150 6768-6) [facility] HealthSerum or plasma cholesterol measurement (mass/volume)2020-07-14 08:35:00 Test Item Value Reference Range Interpretation Comments Cholesterol Level (test code = 2093-3) 147 < 200 [facility] HealthSerum or plasma triglyceride measurement (mass/volume)2020-07-14 08:35:00 Test Item Value Reference Range Interpretation Comments Triglycerides Level (test code = 116 < 150 2571-8) [facility] GssKh-kMeh0798-10-27 08:35:00 Test Item Value Reference Range Interpretation Comments HDL Cholesterol (test code = 2085-9) 60 40-60 [facility] Qblu-rAoo6538-94-27 08:35:00 Test Item Value Reference Range Interpretation Comments LDL Cholesterol (test code = 80982-2) 64 0-99 [facility]Cholest/HDLc DyuRx0088-56-41 08:35:00 Test Item Value Reference Range Interpretation Comments Cholesterol/HDL Ratio (test code = 2.5 See Note 9830-1) [facility]HDLc ZhvOs4122-20-00 08:35:00 Test Item Value Reference Range Interpretation Comments Cholesterol Ratio (LDL/HDL) (test code 1.1 = 47938-7) [facility]25(OH)D3 AgzFa-fPvs0384-08-27 08:35:00 Test Item Value Reference Range Interpretation Comments Vitamin D 25-Hydroxy (test code = 39 30-80 1989-3) [facility] MFr Xsd6846-11-76 08:35:00 Test Item Value Reference Range Interpretation Comments Hemoglobin A1c (test code = 4548-4) 5.4 <5.7 [facility] HealthSerum or plasma thyrotropin measurement with detection limit of 0.005 mIU/L or less (units/volume)2020-07-14 08:35:00 Test Item Value Reference Range Interpretation Comments Thyroid Stimulating Hormone (TSH) (test 2.02 0.35-4.94 code = 08359-7) [facility] HealthSpec[facility] source [id number] 06:55:00 Test Item Value Reference Range Interpretation Comments SARS CoV-2 Rapid Source (test code Nasal swab = 37529-9) [facility]-CoV+SARS-CoV-2(COVID-19)Ag[Presence]2020-07-09 06:55:00 Test Item Value Reference Range Interpretation Comments SARS-CoV-2 Antigen (Rapid) (test Negative Negative code = 56773-7) [facility] patient employed in a healthcare kumyhva9513-89-11 06:55:00 Test Item Value Reference Range Interpretation Comments N/A (test code = 05133-4) Unknown [facility] HealthPatient has symptoms for condition of kwhejjqk0449-59-93 06:55:00 Test Item Value Reference Range Interpretation Comments N/A (test code = 90853-5) Unknown [facility] 06:55:00 Test Item Value Reference Range Interpretation Comments N/A (test code = 79374-4) Unknown [facility] HealthPatient resides in congregate care yqhfptf2205-79-40 06:55:00 Test Item Value Reference Range Interpretation Comments N/A (test code = 07553-0) Unknown [facility] HealthSpecimen source [id number] 06:55:00 Test Item Value Reference Range Interpretation Comments SARS CoV-2 Rapid Source (test code Nasal swab = 70082-0) [facility] HealthSARS-CoV+SARS-CoV-2(COVID-19)Ag[Presence]2020-07-09 06:55:00 Test Item Value Reference Range Interpretation Comments SARS-CoV-2 Antigen (Rapid) (test Negative Negative code = 71202-8) [facility] patient employed in a healthcare xsnzvll1600-44-22 06:55:00 Test Item Value Reference Range Interpretation Comments N/A (test code = 17094-0) Unknown [facility] HealthPatient has symptoms for condition of vprkljuo7726-50-07 06:55:00 Test Item Value Reference Range Interpretation Comments N/A (test code = 83017-7) Unknown [facility]-78-43 06:55:00 Test Item Value Reference Range Interpretation Comments N/A (test code = 30680-2) Unknown [facility] HealthPatient resides in congregate care vnmtvhr1275-60-52 06:55:00 Test Item Value Reference Range Interpretation Comments N/A (test code = 53605-9) Unknown [facility] HealthSpecimen source [id number] 06:50:00 Test Item Value Reference Range Interpretation Comments SARS CoV-2 Rapid Source (test code Nasal swab = 30766-5) [facility] HealthSARS-CoV+SARS-CoV-2(COVID-19)Ag[Presence]2020-06-25 06:50:00 Test Item Value Reference Range Interpretation Comments SARS-CoV-2 Antigen (Rapid) (test Negative Negative code = 63196-5) [facility] IrwinIs patient employed in a healthcare wuuofav0201-64-68 06:50:00 Test Item Value Reference Range Interpretation Comments N/A (test code = 52525-4) Unknown [facility] HealthPatient has symptoms for condition of unlygjtn0187-62-60 06:50:00 Test Item Value Reference Range Interpretation Comments N/A (test code = 58281-0) Unknown [facility]dd[facility]20-95 06:50:00 Test Item Value Reference Range Interpretation Comments N/A (test code = 92453-8) Unknown [facility] HealthPatient resides in congregate care rypfesj3435-03-49 06:50:00 Test Item Value Reference Range Interpretation Comments N/A (test code = 82231-3) Unknown [facility] HealthSerum or plasma potassium measurement (moles/volume)2020-02-11 15:05:00 Test Item Value Reference Range Interpretation Comments Potassium Level (test code = 2823-3) 4.8 3.5-5.1 [facility] HealthAutomated blood leukocyte count (number/volume)2020-02-11 01:00:00 Test Item Value Reference Range Interpretation Comments White Blood Count (test code = 6690-2) 12.0 4.5-11.5 [facility] HealthBlood erythrocytes automated count (number/volume)2020-02-11 01:00:00 Test Item Value Reference Range Interpretation Comments Red Blood Count (test code = 789-8) 3.36 3.8-5.1 [facility] HealthBlood hemoglobin measurement (mass/volume)2020-02-11 01:00:00 Test Item Value Reference Range Interpretation Comments Hemoglobin (test code = 718-7) 10.4 12.0-15.2 [facility] HealthAutomated blood hematocrit (volume fraction)2020-02-11 01:00:00 Test Item Value Reference Range Interpretation Comments Hematocrit (test code = 4544-3) 33.3 34.0-45.5 [facility] HealthAutomated erythrocyte mean corpuscular volume (MCV) measurement 2020-02-11 01:00:00 Test Item Value Reference Range Interpretation Comments Mean Corpuscular Volume (test code = 99 80-94 787-2) [facility] HealthAutomated erythrocyte mean corpuscular hemoglobin (mass per erythrocyte)2020-02-11 01:00:00 Test Item Value Reference Range Interpretation Comments Mean Corpuscular Hemoglobin (test code 31.0 27.0-33.0 = 785-6) [facility] HealthAutomated erythrocyte mean corpuscular hemoglobin concentration measurement (mass/volume)2020-02-11 01:00:00 Test Item Value Reference Range Interpretation Comments Mean Corpuscular Hemoglobin Concent 31.2 33.0-37.0 (test code = 786-4) [facility] HealthAutomated erythrocyte distribution width ovbvg1202-86-98 01:00:00 Test Item Value Reference Range Interpretation Comments Red Cell Distribution Width (test code 12.8 10.7-14.5 = 788-0) [facility] HealthAutomated blood platelet count (count/volume)2020-02-11 01:00:00 Test Item Value Reference Range Interpretation Comments Platelet Count (test code = 777-3) 132 150-450 [facility] HealthAutomated blood platelet mean volume ohwziqxovgl2402-03-38 01:00:00 Test Item Value Reference Range Interpretation Comments Mean Platelet Volume (test code = 10.3 5.7-10.7 12431-4) [facility] HealthImmature platelet ioexbqnv1345-81-85 01:00:00 Test Item Value Reference Range Interpretation Comments Immature Platelet Fraction (test code = 4.2 0.9-11.2 50381-6) [facility] comment [id number] 01:00:00 Test Item Value Reference Range Interpretation Comments Manual Differential (test code = ----- 8265-1) [facility] HealthManual blood segmented neutrophils/100 yldsjvqmmz1697-44-22 01:00:00 Test Item Value Reference Range Interpretation Comments Neutrophils % (Manual) (test code = 87 42-75 769-0) [facility] HealthManual blood band neutrophils form/100 [id number] 01:00:00 Test Item Value Reference Range Interpretation Comments Band Neutrophils % (Manual) (test code 4 5-11 = 764-1) [facility] HealthManual blood lymphocytes/100 vuqwbekozl0162-18-05 01:00:00 Test Item Value Reference Range Interpretation Comments Lymphocytes % (Manual) (test code = 2 21-51 737-7) [facility] HealthManual blood monocytes/100 vwucyoqmok2355-16-81 01:00:00 Test Item Value Reference Range Interpretation Comments Monocytes % (Manual) (test code = 6 1-9 744-3) [facility] HealthManual blood basophils/100 [id number] 01:00:00 Test Item Value Reference Range Interpretation Comments Basophils % (Manual) (test code = 1 0-2 707-0) [facility] HealthBlood platelet detection by light [id number] 01:00:00 Test Item Value Reference Range Interpretation Comments Platelet Estimate (test code = Decreased 9317-9) [facility] HealthBlood erythrocyte morphology finding [id number] 01:00:00 Test Item Value Reference Range Interpretation Comments Red Blood Cell Morphology (test code = Normal 6742-1) [facility] HealthSerum or plasma sodium measurement (moles/volume)2020-02-11 01:00:00 Test Item Value Reference Range Interpretation Comments Sodium Level (test code = 2951-2) 139 136-145 [facility] HealthSerum or plasma chloride measurement (moles/volume)2020-02-11 01:00:00 Test Item Value Reference Range Interpretation Comments Chloride Level (test code = 2075-0) 109 98-107 [facility] HealthSerum or plasma total carbon dioxide measurement (moles/volume) 2020-02-11 01:00:00 Test Item Value Reference Range Interpretation Comments Carbon Dioxide Level (test code = 22 23-31 8-9) [facility] HealthSerum or plasma anion gap determination (moles/volume)2020-02-11 01:00:00 Test Item Value Reference Range Interpretation Comments Anion Gap (test code = 94042-9) 14 8-18 [facility] HealthSerum or plasma urea nitrogen measurement (mass/volume)2020-02-11 01:00:00 Test Item Value Reference Range Interpretation Comments Blood Urea Nitrogen (test code = 20 10-20 3094-0) [facility] HealthSerum or plasma creatinine measurement (mass/volume)2020-02-11 01:00:00 Test Item Value Reference Range Interpretation Comments Creatinine (test code = 2160-0) 1.2 0.6-1.1 [facility] HealthGFR estimate [id number] 01:00:00 Test Item Value Reference Range Interpretation Comments Estimat Glomerular Filtration Rate 47 50-100 (test code = 549734800) [facility] HealthSerum or plasma glucose measurement (mass/volume)2020-02-11 01:00:00 Test Item Value Reference Range Interpretation Comments Glucose Level (test code = 2345-7) 166 60-100 [facility] HealthSerum or plasma calcium measurement (mass/volume)2020-02-11 01:00:00 Test Item Value Reference Range Interpretation Comments Calcium Level (test code = 03032-5) 8.5 8.4-10.2 [facility] HealthUrinalysis specimen collection [id number] 08:30:00 Test Item Value Reference Range Interpretation Comments Urine Source (test code = 21762-0) URCATH [facility] HealthUrine color [id number] 08:30:00 Test Item Value Reference Range Interpretation Comments Urine Color (test code = 5778-6) Yellow Yel-Yasmine * [facility] HealthUrine clarity [id number] 08:30:00 Test Item Value Reference Range Interpretation Comments Urine Appearance (test code = 80742-1) Clear Clear * [facility] HealthUrine pH measurement by automated test [id number] 08:30:00 Test Item Value Reference Range Interpretation Comments Urine pH (test code = 09370-3) 5.0 5.0-8.0 [facility] HealthSpecific gravity of Urine by Automated test [id number] 08:30:00 Test Item Value Reference Range Interpretation Comments Urine Specific [place] (test code = 1.025 1.005-1.030 34944-5) [facility] HealthUrine protein measurement by automated test strip (mass/volume) 2020-02-10 08:30:00 Test Item Value Reference Range Interpretation Comments Urine Protein (test code = 04768-3) Negative Negative * [facility] HealthUrine glucose measurement by automated test strip (mass/volume) 2020-02-10 08:30:00 Test Item Value Reference Range Interpretation Comments Urine Glucose (UA) (test code = Negative Negative * 18502-7) [facility] HealthUrine ketones measurement by automated test strip (mass/volume) 2020-02-10 08:30:00 Test Item Value Reference Range Interpretation Comments Urine Ketones (test code = 61027-5) Negative Negative * [facility] HealthUrine erythrocytes count by automated test strip (number/volume) 2020-02-10 08:30:00 Test Item Value Reference Range Interpretation Comments Urine Occult Blood (test code = 50 Negative * 68619-0) [facility] HealthUrine nitrite detection by automated test [id number] 08:30:00 Test Item Value Reference Range Interpretation Comments Urine Nitrite (test code = 87416-0) Negative Negative [facility] HealthUrine total bilirubin measurement by automated test strip (mass/volume)2020-02-10 08:30:00 Test Item Value Reference Range Interpretation Comments Urine Bilirubin (test code = Negative Negative 01797-9) [facility] HealthUrine urobilinogen measurement by automated test strip (mass/volume)2020-02-10 08:30:00 Test Item Value Reference Range Interpretation Comments Urine Urobilinogen (test code = Negative 0.0-1.0 74708-1) [facility] HealthUrine leukocytes count by automated test strip (number/volume) 2020-02-10 08:30:00 Test Item Value Reference Range Interpretation Comments Urine Leukocyte Esterase (test code Negative Negative = 18127-3) [facility] HealthUrine sediment erythrocyte count by microscopy (number/high power field)2020-02-10 08:30:00 Test Item Value Reference Range Interpretation Comments Urine RBC (test code = 39581-0) 3-10 0-2 [facility] HealthUrine sediment leukocyte count by microscopy (number/high power field)2020-02-10 08:30:00 Test Item Value Reference Range Interpretation Comments Urine WBC (test code = 5821-4) 0-5 0-5 [facility] HealthUrine sediment epithelial cell count by microscopy (number/high power field)2020-02-10 08:30:00 Test Item Value Reference Range Interpretation Comments Urine Epithelial Cells (test code = Rare Few 5787-7) [facility] HealthUrine sediment crystal count by microscopy (number/high power field)2020-02-10 08:30:00 Test Item Value Reference Range Interpretation Comments Urine Crystals (test code = None Seen None * 11117-6) [facility] HealthUrine sediment bacteria count by microscopy (number/high power field)2020-02-10 08:30:00 Test Item Value Reference Range Interpretation Comments Urine Bacteria (test code = 5769-5) None Seen None [facility] HealthUrine sediment casts count by microscopy (number/low power field) 2020-02-10 08:30:00 Test Item Value Reference Range Interpretation Comments Urine Casts (test code = 9842-6) None Seen None * [facility] HealthYeast detection in urine sediment by light pifvnjlamo6583-71-07 08:30:00 Test Item Value Reference Range Interpretation Comments Urine Yeast (test code = 93685-0) None Seen None [facility] comment 08:30:00 Test Item Value Reference Range Interpretation Comments Urinalysis Comment (test * See_Comment [A utomated message] The code = 8262-8) system which generated this result tra nsmitted reference range : *. The reference range was not used to interpr et this result as normal/abnormal . 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 [id number] 08:20:00 Test Item Value Reference Range Interpretation Comments N/A (test code = 91508-9) No [facility] HealthPatient has symptoms for condition of tceyskgn9660-67-61 08:20:00 Test Item Value Reference Range Interpretation Comments N/A (test code = 44942-4) No [facility] 08:20:00 Test Item Value Reference Range Interpretation Comments N/A (test code = 15939-8) No [facility] HealthPatient resides in congregate care sfuzcmr0481-56-23 08:20:00 Test Item Value Reference Range Interpretation Comments N/A (test code = 46222-9) No [facility] HealthUrine sediment hyaline cast count by microscopy (number/low power field)2020-02-04 11:15:00 Test Item Value Reference Range Interpretation Comments Urine Hyaline Casts (test code = 02-06 0-1 5796-8) [facility] comment 11:15:00 Test Item Value Reference Range Interpretation Comments Urine Culture Indicated (test code To follow = 8264-4) [facility] HealthSerum or plasma total bilirubin measurement (mass/volume) 2020-02-04 11:10:00 Test Item Value Reference Range Interpretation Comments Total Bilirubin (test code = 1975-2) 0.8 0.2-1.2 [facility] HealthSerum or plasma aspartate aminotransferase measurement (enzymatic activity/volume)2020-02-04 11:10:00 Test Item Value Reference Range Interpretation Comments Aspartate Amino Transf (AST/SGOT) (test 11 5-34 code = 1920-8) [facility] HealthSerum or plasma alanine aminotransferase measurement (enzymatic activity/volume)2020-02-04 11:10:00 Test Item Value Reference Range Interpretation Comments Alanine Aminotransferase (ALT/SGPT) 6 0-55 (test code = 1742-6) [facility] HealthSerum or plasma protein measurement (mass/volume)2020-02-04 11:10:00 Test Item Value Reference Range Interpretation Comments Total Protein (test code = 2885-2) 7.0 5.8-7.6 [facility] HealthSerum or plasma albumin measurement (mass/volume)2020-02-04 11:10:00 Test Item Value Reference Range Interpretation Comments Albumin (test code = 1751-7) 4.3 3.2-4.7 [facility] HealthSerum or plasma alkaline phosphatase measurement (enzymatic activity/volume)2020-02-04 11:10:00 Test Item Value Reference Range Interpretation Comments Alkaline Phosphatase (test code = 91 40-150 6768-6) [facility]blq[facility]OSJ[facility]KPT4567[facility] 06:00:00 Test Item Value Reference Range Interpretation Comments MAGNESIUM (BEAKER) (test code = 1.9 mg/dL 1.6-2.6 627) Health And Wellness Instructor ID - ELISEO MBASIC METABOLIC [id number] 06:00:00 Test Item Value Reference Range Interpretation Comments SODIUM (BEAKER) 141 meq/L 136-145 (test code = 381) POTASSIUM (BEAKER) 4.0 meq/L 3.5-5.1 (test code = 379) CHLORIDE (BEAKER) 110 meq/L 98-107 H (test code = 382) CO2 (BEAKER) (test 24 meq/L 22-29 code = 355) BLOOD UREA NITROGEN 13 mg/dL 7-21 (BEAKER) (test code = 354) CREATININE (BEAKER) 0.85 mg/dL 0.57-1.25 (test code = 358) GLUCOSE RANDOM 102 mg/dL 70-105 (BEAKER) (test code = 652) CALCIUM (BEAKER) 8.5 mg/dL 8.4-10.2 (test code = 697) EGFR (BEAKER) (test 66 mL/min/1.73 ESTIMA DEBO GFR IS code = 1092) sq m NOT ACCURATE CREATININE CLEARANCE IN PREDICTING GLOMERULAR FILTRATION RATE . ESTIMATED GFR I S NOT APPLICABLE FOR DIALYSIS PATIEN TS. Health And Wellness Instructor ID - ELISEO MCBC (HEMOGRAM ONLY)2019-08-15 05:41:00 Test Item Value Reference Range Interpretation Comments WHITE BLOOD CELL COUNT (BEAKER) 6.8 K/ L 3.5-10.5 (test code = 775) RED BLOOD CELL COUNT (BEAKER) 3.64 M/ L 3.93-5.22 L (test code = 761) HEMOGLOBIN (BEAKER) (test code = 11.2 GM/DL 11.2-15.7 410) HEMATOCRIT (BEAKER) (test code = 35.1 % 34.1-44.9 411) MEAN CORPUSCULAR VOLUME (BEAKER) 96.4 fL 79.4-94.8 H (test code = 753) MEAN CORPUSCULAR HEMOGLOBIN 30.8 pg 25.6-32.2 (BEAKER) (test code = 751) MEAN CORPUSCULAR HEMOGLOBIN CONC 31.9 GM/DL 32.2-35.5 L (BEAKER) (test code = 752) RED CELL DISTRIBUTION WIDTH 13.2 % 11.7-14.4 (BEAKER) (test code = 412) PLATELET COUNT (BEAKER) (test 121 K/CU MM 150-450 L code = 756) MEAN PLATELET VOLUME (BEAKER) 10.4 fL 9.4-12.3 (test code = 754) NUCLEATED RED BLOOD CELLS 0 /100 WBC 0-0 (BEAKER) (test code = 413) RAD, CHEST, PA OR AP, 1 [id number] 04:44:00Reason for exam:->S/p PFO ClosureFINAL REPORT Chest one view. Clinical history: S/p PFO Closure Comparison: Chest radiograph 08/14/2019. Technique: A single frontal view of the chest was obtained. Findings:There isan endovascular stent in the descending thoracic aorta. There is a PFO occlusion device overlying the right heart. There are surgical clips in the left lower neck and right axilla.The cardiomediastinalcontours are stable. There is a small left pleural effusion with associated compressive atelectasis.There is no pneumothorax. There is lower cervical spinal fixation hardware. Signed: Brodie Ramsay Verified Date/Time: 08/15/2019 04:44:17 [id number] 18:18:00 Test Item Value Reference Range Interpretation Comments ACTIVATED CLOTTING TIME 120 sec : 74 -137 seconds, (BEAKER) (test code = Baseli ne: TESTED AT 441) [address], [facility] 30: Health And Wellness Instructor/Techni driss ID = [id number] for PA LMA JUD [id number] 16:58:00 Test Item Value Reference Range Interpretation Comments ACTIVATED CLOTTING TIME 136 sec : 74 -137 seconds, (BEAKER) (test code = Baseli ne: TESTED AT 441) [address], [facility] 30: Health And Wellness Instructor/Techni driss ID = [id number] for MADELYN REYNA RAD, CHEST, 1 VIEW, NON [id number] 13:22:00Reason for exam:->S/p PFO ClosureFINAL REPORT CLINICAL HISTORY: S/p PFO Closure TECHNIQUE: 1 view of the chest. COMPARISON: 05/06/2018 IMPRESSION: There is new right heart closure device. An aortic stent graft is again seen. The cardiomediastinal silhouette is magnified by technique. There is mild left lung base atelectasis with a small left pleural effusion. The right lung is relatively well-aerated. Surgical clips are again seen in the left thoracic inlet. There is cervical fusion hardware. Signed: Falguni Murray Verified Date/Time: 08/14/2019 13:22:05 Reading Location: [facility] Radiology ReadingRoom [id number] 11:35:00 Test Item Value Reference Range Interpretation Comments ACTIVATED CLOTTING TIME 263 sec : 74 -137 seconds, (BEAKER) (test code = Niesha ne: TESTED AT 441) [facility] [address] [place], [address]: Health And Wellness Instructor/Techni driss ID = [id number] for DENTON DAVIS BASIC METABOLIC [id number] 08:23:00 Test Item Value Reference Range Interpretation Comments SODIUM (BEAKER) 144 meq/L 136-145 (test code = 381) POTASSIUM (BEAKER) 4.2 meq/L 3.5-5.1 (test code = 379) CHLORIDE (BEAKER) 111 meq/L 98-107 H (test code = 382) CO2 (BEAKER) (test 27 meq/L 22-29 code = 355) BLOOD UREA NITROGEN 26 mg/dL 7-21 H (BEAKER) (test code = 354) CREATININE (BEAKER) 1.01 mg/dL 0.57-1.25 (test code = 358) GLUCOSE RANDOM 94 mg/dL 70-105 (BEAKER) (test code = 652) CALCIUM (BEAKER) 8.8 mg/dL 8.4-10.2 (test code = 697) EGFR (BEAKER) (test 54 mL/min/1.73 ESTIMA DEBO GFR IS code = 1092) sq m NOT ACCURATE CREATININE CLEARANCE IN PREDICTING GLOMERULAR FILTRATION RATE . ESTIMATED GFR I S NOT APPLICABLE FOR DIALYSIS PATIEN TS. Health And Wellness Instructor ID - JOSAFAT CPROTHROMBIN [id number] 08:14:00 Test Item Value Reference Range Interpretation Comments PROTIME (BEAKER) (test code = 13.7 seconds 11.9-14.2 759) INR (BEAKER) (test code = 370) 1.1 <=5.9 Effective 08/15/2018: PT Reference Range ChangeNew: 11.9-14.2 Previous: 11.7- 14.7RECOMMENDED COUMADIN/WARFARIN INR THERAPY RANGESSTANDARD DOSE: 2.0-3.0 Includes: PROPHYLAXIS for venous thrombosis, systemic embolization; TREATMENT for venous thrombosis and/or pulmonary embolus.HIGH RISK: Target INR is 2.5-3.5 for patients wiht mechanical heart valves.Within 24 hours, if on CoumadinCBC W/PLT COUNT & AUTO [id number] 08:07:00 Test Item Value Reference Range Interpretation Comments WHITE BLOOD CELL COUNT (BEAKER) 6.5 K/ L 3.5-10.5 (test code = 775) RED BLOOD CELL COUNT (BEAKER) 3.90 M/ L 3.93-5.22 L (test code = 761) HEMOGLOBIN (BEAKER) (test code = 11.6 GM/DL 11.2-15.7 410) HEMATOCRIT (BEAKER) (test code = 37.2 % 34.1-44.9 411) MEAN CORPUSCULAR VOLUME (BEAKER) 95.4 fL 79.4-94.8 H (test code = 753) MEAN CORPUSCULAR HEMOGLOBIN 29.7 pg 25.6-32.2 (BEAKER) (test code = 751) MEAN CORPUSCULAR HEMOGLOBIN CONC 31.2 GM/DL 32.2-35.5 L (BEAKER) (test code = 752) RED CELL DISTRIBUTION WIDTH 13.3 % 11.7-14.4 (BEAKER) (test code = 412) PLATELET COUNT (BEAKER) (test 142 K/CU MM 150-450 L code = 756) MEAN PLATELET VOLUME (BEAKER) 10.2 fL 9.4-12.3 (test code = 754) NUCLEATED RED BLOOD CELLS 0 /100 WBC 0-0 (BEAKER) (test code = 413) NEUTROPHILS RELATIVE PERCENT 62 % (BEAKER) (test code = 429) LYMPHOCYTES RELATIVE PERCENT 24 % (BEAKER) (test code = 430) MONOCYTES RELATIVE PERCENT 10 % (BEAKER) (test code = 431) EOSINOPHILS RELATIVE PERCENT 3 % (BEAKER) (test code = 432) BASOPHILS RELATIVE PERCENT 1 % (BEAKER) (test code = 437) NEUTROPHILS ABSOLUTE COUNT 4.00 K/ L 1.56-6.13 (BEAKER) (test code = 670) LYMPHOCYTES ABSOLUTE COUNT 1.58 K/ L 1.18-3.74 (BEAKER) (test code = 414) MONOCYTES ABSOLUTE COUNT (BEAKER) 0.67 K/ L 0.24-0.36 H (test code = 415) EOSINOPHILS ABSOLUTE COUNT 0.19 K/ L 0.04-0.36 (BEAKER) (test code = 416) BASOPHILS ABSOLUTE COUNT (BEAKER) 0.03 K/ L 0.01-0.08 (test code = 417) IMMATURE GRANULOCYTES-RELATIVE 1 % 0-1 PERCENT (BEAKER) (test code = 2801) SARS-COV2/RT-PCR ([facility])2019-08-11 15:59:00 Test Item Value Reference Range Interpretation Comments SARS-COV2/RT-PCR (test code = Negative Not Detected, Negative 6338469) SARS-COV-2 PERFORMING LAB CPL (test code = 6428634) Whole blood cardiac troponin I measurement (mass/volume)2019-01-15 13:44:00 Test Item Value Reference Range Interpretation Comments Bedside Troponin I (test code = 0.00 ng/mL 0.00-0.07 44452-8) [facility] britebillWhole blood cardiac troponin I measurement (mass/volume) 2019-01-15 13:44:00 Test Item Value Reference Range Interpretation Comments Bedside Troponin I (test code = 0.00 ng/mL 0.00-0.07 83295-7) [facility] HealthAutomated blood leukocyte count (number/volume)2019-01-15 13:40:00 Test Item Value Reference Range Interpretation Comments White Blood Count (test code = 6.6 10*3/uL 4.5-11.5 6690-2) [facility] britebillBlood erythrocytes automated count (number/volume)2019-01-15 13:40:00 Test Item Value Reference Range Interpretation Comments Red Blood Count (test code = 3.94 10*6/uL 3.8-5.1 789-8) [facility] HealthBlood hemoglobin measurement (mass/volume)2019-01-15 13:40:00 Test Item Value Reference Range Interpretation Comments Hemoglobin (test code = 718-7) 11.9 g/dL 12.0-15.2 [facility] HealthAutomated blood hematocrit (volume fraction)2019-01-15 13:40:00 Test Item Value Reference Range Interpretation Comments Hematocrit (test code = 4544-3) 38.2 % 34.0-45.5 [facility] HealthAutomated erythrocyte mean corpuscular volume (MCV) measurement 2019-01-15 13:40:00 Test Item Value Reference Range Interpretation Comments Mean Corpuscular Volume (test code = 97 fL 80-94 787-2) [facility] HealthAutomated erythrocyte mean corpuscular hemoglobin (mass per erythrocyte)2019-01-15 13:40:00 Test Item Value Reference Range Interpretation Comments Mean Corpuscular Hemoglobin (test 30.2 pg 27.0-33.0 code = 785-6) [facility] HealthAutomated erythrocyte mean corpuscular hemoglobin concentration measurement (mass/[id number] 13:40:00 Test Item Value Reference Range Interpretation Comments Mean Corpuscular Hemoglobin Concent 31.2 g/dL 33.0-37.0 (test code = 786-4) [facility] HealthAutomated erythrocyte distribution width [id number] 13:40:00 Test Item Value Reference Range Interpretation Comments Red Cell Distribution Width (test code 13.6 % 10.7-14.5 = 788-0) [facility] HealthAutomated blood platelet count (count/volume)2019-01-15 13:40:00 Test Item Value Reference Range Interpretation Comments Platelet Count (test code = 141 10*3/uL 150-450 777-3) [facility] HealthAutomated blood platelet mean volume [id number] 13:40:00 Test Item Value Reference Range Interpretation Comments Mean Platelet Volume (test code = 10.5 5.7-10.7 14647-6) [facility] HealthSerum or plasma sodium measurement (moles/volume)2019-01-15 13:40:00 Test Item Value Reference Range Interpretation Comments Sodium Level (test code = 2951-2) 141 mmol/L 136-145 [facility] HealthSerum or plasma potassium measurement (moles/volume)2019-01-15 13:40:00 Test Item Value Reference Range Interpretation Comments Potassium Level (test code = 4.0 mmol/L 3.5-5.1 2823-3) [facility] HealthSerum or plasma chloride measurement (moles/volume)2019-01-15 13:40:00 Test Item Value Reference Range Interpretation Comments Chloride Level (test code = 105 mmol/L 98-107 5-0) [facility] HealthSerum or plasma carbon dioxide measurement (moles/volume) 2019-01-15 13:40:00 Test Item Value Reference Range Interpretation Comments Carbon Dioxide Level (test code = 25 mmol/L 24-33 8-9) [facility] HealthSerum or plasma anion gap 4 determination (moles/volume) 2019-01-15 13:40:00 Test Item Value Reference Range Interpretation Comments Anion Gap (test code = 1863-0) 15 8-18 [facility] HealthSerum or plasma urea nitrogen measurement (mass/volume)2019-01-15 13:40:00 Test Item Value Reference Range Interpretation Comments Blood Urea Nitrogen (test code = 11 mg/dL 11-09 3094-0) [facility] HealthSerum or plasma creatinine measurement (mass/volume)2019-01-15 13:40:00 Test Item Value Reference Range Interpretation Comments Creatinine (test code = 2160-0) 0.7 mg/dL 0.7-1.3 [facility] HealthGlomerular filtration rate (GFR) estimation/1.73 sq m using serum, plasma, or whole blood creatininemeasurement with MDRD [id number] 13:40:00 Test Item Value Reference Range Interpretation Comments Estimat Glomerular Filtration Rate 88 50-100 (test code = 64277-6) [facility] HealthSerum or plasma glucose measurement (mass/volume)2019-01-15 13:40:00 Test Item Value Reference Range Interpretation Comments Glucose Level (test code = 2345-7) 100 mg/dL 60-100 [facility] HealthSerum or plasma calcium measurement (mass/volume)2019-01-15 13:40:00 Test Item Value Reference Range Interpretation Comments Calcium Level (test code = 05316-6) 9.5 mg/dL 8.3-10.5 [facility] HealthSerum or plasma total bilirubin measurement (mass/volume) 2019-01-15 13:40:00 Test Item Value Reference Range Interpretation Comments Total Bilirubin (test code = 0.7 mg/dL 0.0-1.0 1975-2) [facility] HealthSerum or plasma aspartate aminotransferase measurement (enzymatic activity/volume)2019-01-15 13:40:00 Test Item Value Reference Range Interpretation Comments Aspartate Amino Transf (AST/SGOT) 14 U/L 0-32 (test code = 1920-8) [facility] HealthSerum or plasma alanine aminotransferase measurement without P-5'-P (enzymatic activity/volume)2019-01-15 13:40:00 Test Item Value Reference Range Interpretation Comments Alanine Aminotransferase (ALT/SGPT) 8 U/L 0-33 (test code = 1744-2) [facility] HealthSerum or plasma protein measurement (mass/volume)2019-01-15 13:40:00 Test Item Value Reference Range Interpretation Comments Total Protein (test code = 2885-2) 6.4 g/dL 6.4-8.3 [facility] HealthSerum or plasma albumin measurement (mass/volume)2019-01-15 13:40:00 Test Item Value Reference Range Interpretation Comments Albumin (test code = 1751-7) 4.0 g/dL 3.5-5.0 [facility] HealthSerum or plasma alkaline phosphatase measurement (enzymatic activity/volume)2019-01-15 13:40:00 Test Item Value Reference Range Interpretation Comments Alkaline Phosphatase (test code = 83 U/L 53-154 6768-6) [facility] HealthAutomated blood leukocyte count (number/volume)2019-01-15 13:40:00 Test Item Value Reference Range Interpretation Comments White Blood Count (test code = 6.6 10*3/uL 4.5-11.5 6690-2) [facility] HealthBlood erythrocytes automated count (number/volume)2019-01-15 13:40:00 Test Item Value Reference Range Interpretation Comments Red Blood Count (test code = 3.94 10*6/uL 3.8-5.1 789-8) [facility] HealthBlood hemoglobin measurement (mass/volume)2019-01-15 13:40:00 Test Item Value Reference Range Interpretation Comments Hemoglobin (test code = 718-7) 11.9 g/dL 12.0-15.2 [facility] HealthAutomated blood hematocrit (volume fraction)2019-01-15 13:40:00 Test Item Value Reference Range Interpretation Comments Hematocrit (test code = 4544-3) 38.2 % 34.0-45.5 [facility] HealthAutomated erythrocyte mean corpuscular volume (MCV) measurement 2019-01-15 13:40:00 Test Item Value Reference Range Interpretation Comments Mean Corpuscular Volume (test code = 97 fL 80-94 787-2) [facility] HealthAutomated erythrocyte mean corpuscular hemoglobin (mass per erythrocyte)2019-01-15 13:40:00 Test Item Value Reference Range Interpretation Comments Mean Corpuscular Hemoglobin (test 30.2 pg 27.0-33.0 code = 785-6) [facility] erythrocyte mean corpuscular hemoglobin concentration measurement (mass/[id number] 13:40:00 Test Item Value Reference Range Interpretation Comments Mean Corpuscular Hemoglobin Concent 31.2 g/dL 33.0-37.0 (test code = 786-4) [facility] erythrocyte distribution width [id number] 13:40:00 Test Item Value Reference Range Interpretation Comments Red Cell Distribution Width (test code 13.6 % 10.7-14.5 = 788-0) [facility] blood platelet count (count/volume)2019-01-15 13:40:00 Test Item Value Reference Range Interpretation Comments Platelet Count (test code = 141 10*3/uL 150-450 777-3) [facility] blood platelet mean volume [id number] 13:40:00 Test Item Value Reference Range Interpretation Comments Mean Platelet Volume (test code = 10.5 5.7-10.7 32781-5) [facility] Health[facility]um or plasma sodium measurement (moles/volume)2019-01-15 13:40:00 Test Item Value Reference Range Interpretation Comments Sodium Level (test code = 2951-2) 141 mmol/L 136-145 [facility] or plasma potassium measurement (moles/volume)2019-01-15 13:40:00 Test Item Value Reference Range Interpretation Comments Potassium Level (test code = 4.0 mmol/L 3.5-5.1 2823-3) [facility] or plasma chloride measurement (moles/volume)2019-01-15 13:40:00 Test Item Value Reference Range Interpretation Comments Chloride Level (test code = 105 mmol/L 98-107 5-0) [facility] or plasma carbon dioxide measurement (moles/volume) 2019-01-15 13:40:00 Test Item Value Reference Range Interpretation Comments Carbon Dioxide Level (test code = 25 mmol/L 24-33 2027-9) [facility] or plasma anion gap 4 determination (moles/volume) 2019-01-15 13:40:00 Test Item Value Reference Range Interpretation Comments Anion Gap (test code = 1863-0) 15 8-18 [facility] or plasma urea nitrogen measurement (mass/volume)2019-01-15 13:40:00 Test Item Value Reference Range Interpretation Comments Blood Urea Nitrogen (test code = 11 mg/dL 11-094-0) [facility] or plasma creatinine measurement (mass/volume)2019-01-15 13:40:00 Test Item Value Reference Range Interpretation Comments Creatinine (test code = 2160-0) 0.7 mg/dL 0.7-1.3 [facility] (GFR) estimation/1.73 sq m using serum, plasma, or whole blood creatininemeasurement with MDRD [id number] 13:40:00 Test Item Value Reference Range Interpretation Comments Estimat Glomerular Filtration Rate 88 50-100 (test code = 19449-3) [facility] or plasma glucose measurement (mass/volume)2019-01-15 13:40:00 Test Item Value Reference Range Interpretation Comments Glucose Level (test code = 2345-7) 100 mg/dL 60-100 [facility] or plasma calcium measurement (mass/volume)2019-01-15 13:40:00 Test Item Value Reference Range Interpretation Comments Calcium Level (test code = 04081-5) 9.5 mg/dL 8.3-10.5 [facility] or plasma total bilirubin measurement (mass/volume) 2019-01-15 13:40:00 Test Item Value Reference Range Interpretation Comments Total Bilirubin (test code = 0.7 mg/dL 0.0-1.0 1975-2) [facility] or plasma aspartate aminotransferase measurement (enzymatic activity/volume)2019-01-15 13:40:00 Test Item Value Reference Range Interpretation Comments Aspartate Amino Transf (AST/SGOT) 14 U/L 0-32 (test code = 1920-8) [facility] or plasma alanine aminotransferase measurement without P-5'-P (enzymatic activity/volume)2019-01-15 13:40:00 Test Item Value Reference Range Interpretation Comments Alanine Aminotransferase (ALT/SGPT) 8 U/L 0-33 (test code = 1744-2) [facility] or plasma protein measurement (mass/volume)2019-01-15 13:40:00 Test Item Value Reference Range Interpretation Comments Total Protein (test code = 2885-2) 6.4 g/dL 6.4-8.3 [facility] or plasma albumin measurement (mass/volume)2019-01-15 13:40:00 Test Item Value Reference Range Interpretation Comments Albumin (test code = 1751-7) 4.0 g/dL 3.5-5.0 [facility] alkaline phosphatase measurement (enzymatic activity/volume)2019-01-15 13:40:00 Test Item Value Reference Range Interpretation Comments Alkaline Phosphatase (test code = 83 U/L 53-154 6768-6) MINA IrwinRAD, CHEST, 1 VIEW, NON [id number] 09:04:00Reason for exam:- >s/p tevarShould this be performed at the bedside?->YesFINAL REPORT Chest, one view. HISTORY: s/p tevar COMPARISON: Radiograph from 05/05/2018 IMPRESSION: Unchanged aortic stent graft. The moderate sized left pleural effusion and atelectasis are unchanged. The right lung is clear. No pneumothorax. The cardiac silhouette is obscured. Noacute bony abnormality. Signed: Darrell Caldwell MDReport Verified Date/Time: 05/06/2018 09:04:22 Reading L ocation: [facility] B1 C013Y CT Body Reading Room [id number] 03:58:00 Test Item Value Reference Range Interpretation Comments PHOSPHORUS (BEAKER) (test code = 2.9 mg/dL 2.3-4.7 604) [id number] 03:58:00 Test Item Value Reference Range Interpretation Comments MAGNESIUM (BEAKER) (test code = 1.8 mg/dL 1.6-2.6 627) BASIC METABOLIC [id number] 03:58:00 Test Item Value Reference Range Interpretation Comments SODIUM (BEAKER) 143 meq/L 136-145 (test code = 381) POTASSIUM (BEAKER) 3.6 meq/L 3.5-5.1 (test code = 379) CHLORIDE (BEAKER) 109 meq/L 98-107 H (test code = 382) CO2 (BEAKER) (test 29 meq/L 22-29 code = 355) BLOOD UREA NITROGEN 8 mg/dL 7-21 (BEAKER) (test code = 354) CREATININE (BEAKER) 0.74 mg/dL 0.57-1.25 (test code = 358) GLUCOSE RANDOM 109 mg/dL 70-105 H (BEAKER) (test code = 652) CALCIUM (BEAKER) 9.1 mg/dL 8.4-10.2 (test code = 697) EGFR (BEAKER) (test 78 mL/min/1.73 ESTIMA DEBO GFR IS code = 1092) sq m NOT ACCURATE CREATININE CLEARANCE IN PREDICTING GLOMERULAR FILTRATION RATE . ESTIMATED GFR I S NOT APPLICABLE FOR DIALYSIS PATIEN SOSA. [id number] 03:13:00 Test Item Value Reference Range Interpretation Comments PARTIAL THROMBOPLASTIN TIME 39.7 seconds 22.5-36.0 H (BEAKER) (test code = 760) PROTHROMBIN [id number] 03:12:00 Test Item Value Reference Range Interpretation Comments PROTIME (BEAKER) (test code = 13.6 seconds 11.7-14.7 759) INR (BEAKER) (test code = 370) 1.0 <=5.9 RECOMMENDED COUMADIN/WARFARIN INR THERAPY RANGESSTANDARD DOSE: 2.0 - 3.0 Includes: PROPHYLAXIS for venous thrombosis, systemic embolization; TREATMENT for venous thrombosis and/or pulmonary embolus.HIGH RISK: Target INR is 2.5-3.5 for patients with mechanical heart valves.CBC (HEMOGRAM ONLY)2018-05-06 03:06:00 Test Item Value Reference Range Interpretation Comments WHITE BLOOD CELL COUNT (BEAKER) 5.8 K/ L 3.5-10.5 (test code = 775) RED BLOOD CELL COUNT (BEAKER) 3.11 M/ L 3.93-5.22 L (test code = 761) HEMOGLOBIN (BEAKER) (test code = 8.8 GM/DL 11.2-15.7 L 410) HEMATOCRIT (BEAKER) (test code = 28.9 % 34.1-44.9 L 411) MEAN CORPUSCULAR VOLUME (BEAKER) 92.9 fL 79.4-94.8 (test code = 753) MEAN CORPUSCULAR HEMOGLOBIN 28.3 pg 25.6-32.2 (BEAKER) (test code = 751) MEAN CORPUSCULAR HEMOGLOBIN CONC 30.4 GM/DL 32.2-35.5 L (BEAKER) (test code = 752) RED CELL DISTRIBUTION WIDTH 15.9 % 11.7-14.4 H (BEAKER) (test code = 412) PLATELET COUNT (BEAKER) (test 123 K/CU MM 150-450 L code = 756) MEAN PLATELET VOLUME (BEAKER) 10.6 fL 9.4-12.3 (test code = 754) NUCLEATED RED BLOOD CELLS 0 /100 WBC 0-0 (BEAKER) (test code = 413) RAD, CHEST, 1 VIEW, NON [id number] 12:01:00Reason for exam:->s/p tevarShould this be performed at the bedside?->YesFINAL REPORT TECHNIQUE: Frontal view of the chest. INDICATION: 72-year-old woman after TEVAR. COMPARISON: Chest radiograph 05/04/2018. FINDINGS: LINES/TUBES: None. LUNGS: No new consolidation or pulmonary edema. PLEURA: Unchanged moderate left pleural effusion. No pneumothorax. HEART AND MEDIASTINUM: The cardiomediastinal silhouette is unchanged. Unchanged stent graft in the thoracic aorta. SOFT TISSUES AND BONES: Unchanged fusion hardware in the cervical spine. Unchanged clips project over the lower left neck. IMPRESSION:No significant change since 05/04/2018. Signed: Manish Espinosa MDReport Verified Date/Time: 05/05/2018 12:01:24 Reading Location: [address] Body ReadingRoom [id number] 05:59:00 Test Item Value Reference Range Interpretation Comments PHOSPHORUS (BEAKER) (test code = 2.9 mg/dL 2.3-4.7 604) [id number] 05:59:00 Test Item Value Reference Range Interpretation Comments MAGNESIUM (BEAKER) (test code = 1.7 mg/dL 1.6-2.6 627) BASIC METABOLIC [id number] 05:59:00 Test Item Value Reference Range Interpretation Comments SODIUM (BEAKER) 143 meq/L 136-145 (test code = 381) POTASSIUM (BEAKER) 3.7 meq/L 3.5-5.1 (test code = 379) CHLORIDE (BEAKER) 109 meq/L 98-107 H (test code = 382) CO2 (BEAKER) (test 28 meq/L 22-29 code = 355) BLOOD UREA NITROGEN 9 mg/dL 7-21 (BEAKER) (test code = 354) CREATININE (BEAKER) 0.72 mg/dL 0.57-1.25 (test code = 358) GLUCOSE RANDOM 106 mg/dL 70-105 H (BEAKER) (test code = 652) CALCIUM (BEAKER) 8.7 mg/dL 8.4-10.2 (test code = 697) EGFR (BEAKER) (test 80 mL/min/1.73 ESTIMA DEBO GFR IS code = 1092) sq m NOT ACCURATE CREATININE CLEARANCE IN PREDICTING GLOMERULAR FILTRATION RATE . ESTIMATED GFR I S NOT APPLICABLE FOR DIALYSIS PATIEN TS. [id number] 04:55:00 Test Item Value Reference Range Interpretation Comments PARTIAL THROMBOPLASTIN TIME 44.0 seconds 22.5-36.0 H (BEAKER) (test code = 760) PROTHROMBIN TIME/[id number] 04:54:00 Test Item Value Reference Range Interpretation Comments PROTIME (BEAKER) (test code = 14.2 seconds 11.7-14.7 759) INR (BEAKER) (test code = 370) 1.1 <=5.9 RECOMMENDED COUMADIN/WARFARIN INR THERAPY RANGESSTANDARD DOSE: 2.0 - 3.0 Includes: PROPHYLAXIS for venous thrombosis, systemic embolization; TREATMENT for venous thrombosis and/or pulmonary embolus.HIGH RISK: Target INR is 2.5-3.5 for patients with mechanical heart valves.CBC (HEMOGRAM ONLY)2018-05-05 04:43:00 Test Item Value Reference Range Interpretation Comments WHITE BLOOD CELL COUNT (BEAKER) 5.6 K/ L 3.5-10.5 (test code = 775) RED BLOOD CELL COUNT (BEAKER) 2.98 M/ L 3.93-5.22 L (test code = 761) HEMOGLOBIN (BEAKER) (test code = 8.6 GM/DL 11.2-15.7 L 410) HEMATOCRIT (BEAKER) (test code = 27.9 % 34.1-44.9 L 411) MEAN CORPUSCULAR VOLUME (BEAKER) 93.6 fL 79.4-94.8 (test code = 753) MEAN CORPUSCULAR HEMOGLOBIN 28.9 pg 25.6-32.2 (BEAKER) (test code = 751) MEAN CORPUSCULAR HEMOGLOBIN CONC 30.8 GM/DL 32.2-35.5 L (BEAKER) (test code = 752) RED CELL DISTRIBUTION WIDTH 15.9 % 11.7-14.4 H (BEAKER) (test code = 412) PLATELET COUNT (BEAKER) (test 108 K/CU MM 150-450 L code = 756) MEAN PLATELET VOLUME (BEAKER) 10.9 fL 9.4-12.3 (test code = 754) NUCLEATED RED BLOOD CELLS 0 /100 WBC 0-0 (BEAKER) (test code = 413) RAD, CHEST, 1 VIEW, NON [id number] 11:02:00Reason for exam:->s/p tevarShould this be performed at the bedside?->YesFINAL REPORT Comparison: 05/03/2018 TECHNIQUE: Single view of the chest FINDINGS: Interval removal of endotracheal tube. No other significant change. Moderate left pleural effusion with adjacent airspace disease again noted. Lungs otherwise clear. Signed: [facility]st[facility] Verified Date/Time: 05/04/2018 11:02:26 Reading Location: [facility] Radiology Reading Room [id number] 04:56:00 Test Item Value Reference Range Interpretation Comments PHOSPHORUS (BEAKER) (test code = 3.4 mg/dL 2.3-4.7 604) [id number] 04:56:00 Test Item Value Reference Range Interpretation Comments MAGNESIUM (BEAKER) (test code = 2.0 mg/dL 1.6-2.6 627) BASIC METABOLIC [id number] 04:56:00 Test Item Value Reference Range Interpretation Comments SODIUM (BEAKER) 142 meq/L 136-145 (test code = 381) POTASSIUM (BEAKER) 3.7 meq/L 3.5-5.1 (test code = 379) CHLORIDE (BEAKER) 109 meq/L 98-107 H (test code = 382) CO2 (BEAKER) (test 27 meq/L 22-29 code = 355) BLOOD UREA NITROGEN 7 mg/dL 7-21 (BEAKER) (test code = 354) CREATININE (BEAKER) 0.80 mg/dL 0.57-1.25 (test code = 358) GLUCOSE RANDOM 109 mg/dL 70-105 H (BEAKER) (test code = 652) CALCIUM (BEAKER) 8.5 mg/dL 8.4-10.2 (test code = 697) EGFR (BEAKER) (test 71 mL/min/1.73 ESTIMA DEBO GFR IS code = 1092) sq m NOT ACCURATE CREATININE CLEARANCE IN PREDICTING GLOMERULAR FILTRATION RATE . ESTIMATED GFR I S NOT APPLICABLE FOR DIALYSIS PATIEN SOSA. [id number] 04:56:00 Test Item Value Reference Range Interpretation Comments PARTIAL THROMBOPLASTIN TIME 40.4 seconds 22.5-36.0 H (BEAKER) (test code = 760) PROTHROMBIN TIME/[id number] 04:55:00 Test Item Value Reference Range Interpretation Comments PROTIME (BEAKER) (test code = 14.5 seconds 11.7-14.7 759) INR (BEAKER) (test code = 370) 1.1 <=5.9 RECOMMENDED COUMADIN/WARFARIN INR THERAPY RANGESSTANDARD DOSE: 2.0 - 3.0 Includes: PROPHYLAXIS for venous thrombosis, systemic embolization; TREATMENT for venous thrombosis and/or pulmonary embolus.HIGH RISK: Target INR is 2.5-3.5 for patients with mechanical heart valves.CBC (HEMOGRAM ONLY)2018-05-04 04:45:00 Test Item Value Reference Range Interpretation Comments WHITE BLOOD CELL COUNT (BEAKER) 6.0 K/ L 3.5-10.5 (test code = 775) RED BLOOD CELL COUNT (BEAKER) 3.16 M/ L 3.93-5.22 L (test code = 761) HEMOGLOBIN (BEAKER) (test code = 8.9 GM/DL 11.2-15.7 L 410) HEMATOCRIT (BEAKER) (test code = 29.9 % 34.1-44.9 L 411) MEAN CORPUSCULAR VOLUME (BEAKER) 94.6 fL 79.4-94.8 (test code = 753) MEAN CORPUSCULAR HEMOGLOBIN 28.2 pg 25.6-32.2 (BEAKER) (test code = 751) MEAN CORPUSCULAR HEMOGLOBIN CONC 29.8 GM/DL 32.2-35.5 L (BEAKER) (test code = 752) RED CELL DISTRIBUTION WIDTH 16.1 % 11.7-14.4 H ([facility]) (test code = 412) PLATELET COUNT ([facility]) (test 112 K/CU MM 150-450 L code = 756) MEAN PLATELET VOLUME ([facility]) 10.7 fL 9.4-12.3 (test code = 754) NUCLEATED RED BLOOD CELLS 0 /100 WBC 0-0 ([facility]) (test code = 413) [id number] 06:18:00 Test Item Value Reference Range Interpretation Comments ACTIVATED CLOTTING TIME 125 sec TEST ED AT [place] [address] ([facility]) (test code = ADWOA Parekh [place] [address]) [id number] 06:18:00 Test Item Value Reference Range Interpretation Comments ACTIVATED CLOTTING TIME 290 sec TEST ED AT [place] [address] ([facility]) (test code = [place] [address]) [id number] 06:18:00 Test Item Value Reference Range Interpretation Comments ACTIVATED CLOTTING TIME 257 sec TEST ED AT [place] [address] ([facility]) (test code = [place] [address]) [id number] RAD, CHEST, 1 VIEW, NON [id number] 04:59:00Reason for exam:->s/p tevarShould this be performed at the bedside?->YesFINAL REPORT CLINICAL INDICATION: Postop Comparison: 05/02/2018 The cardiomediastinal contours are stable. Left-sided parenchymal and pleural opacities are unchanged. There is no pneumothorax. Support lines are stable. Signed: Gabo Pan MDReport Verified Date/Time: 05/03/2018 04:59:30 Reading Location: [address] Reading Room [id number] 03:37:00 Test Item Value Reference Range Interpretation Comments PARTIAL THROMBOPLASTIN TIME 33.6 seconds 22.5-36.0 (BEAKER) (test code = 760) PROTHROMBIN [id number] 03:36:00 Test Item Value Reference Range Interpretation Comments PROTIME (BEAKER) (test code = 15.1 seconds 11.7-14.7 H 759) INR (BEAKER) (test code = 370) 1.2 <=5.9 RECOMMENDED COUMADIN/WARFARIN INR THERAPY RANGESSTANDARD DOSE: 2.0 - 3.0 Includes: PROPHYLAXIS for venous thrombosis, systemic embolization; TREATMENT for venous thrombosis and/or pulmonary embolus.HIGH RISK: Target INR is 2.5-3.5 for patients with mechanical heart valves.[id number] 03:32:00 Test Item Value Reference Range Interpretation Comments PHOSPHORUS (BEAKER) (test code = 2.9 mg/dL 2.3-4.7 604) [id number] 03:32:00 Test Item Value Reference Range Interpretation Comments MAGNESIUM (BEAKER) (test code = 1.9 mg/dL 1.6-2.6 627) BASIC METABOLIC [id number] 03:32:00 Test Item Value Reference Range Interpretation Comments SODIUM (BEAKER) 140 meq/L 136-145 (test code = 381) POTASSIUM (BEAKER) 3.5 meq/L 3.5-5.1 (test code = 379) CHLORIDE (BEAKER) 111 meq/L 98-107 H (test code = 382) CO2 (BEAKER) (test 22 meq/L 22-29 code = 355) BLOOD UREA NITROGEN 9 mg/dL 7-21 (BEAKER) (test code = 354) CREATININE (BEAKER) 0.73 mg/dL 0.57-1.25 (test code = 358) GLUCOSE RANDOM 113 mg/dL 70-105 H (BEAKER) (test code = 652) CALCIUM (BEAKER) 8.6 mg/dL 8.4-10.2 (test code = 697) EGFR (BEAKER) (test 79 mL/min/1.73 ESTIMA DEBO GFR IS code = 1092) sq m NOT ACCURATE CREATININE CLEARANCE IN PREDICTING GLOMERULAR FILTRATION RATE . ESTIMATED GFR I S NOT APPLICABLE FOR DIALYSIS PATIEN TS. CBC (HEMOGRAM ONLY)2018-05-03 03:17:00 Test Item Value Reference Range Interpretation Comments WHITE BLOOD CELL COUNT (BEAKER) 8.1 K/ L 3.5-10.5 (test code = 775) RED BLOOD CELL COUNT (BEAKER) 3.35 M/ L 3.93-5.22 L (test code = 761) HEMOGLOBIN (BEAKER) (test code = 9.4 GM/DL 11.2-15.7 L 410) HEMATOCRIT (BEAKER) (test code = 31.1 % 34.1-44.9 L 411) MEAN CORPUSCULAR VOLUME (BEAKER) 92.8 fL 79.4-94.8 (test code = 753) MEAN CORPUSCULAR HEMOGLOBIN 28.1 pg 25.6-32.2 (BEAKER) (test code = 751) MEAN CORPUSCULAR HEMOGLOBIN CONC 30.2 GM/DL 32.2-35.5 L (BEAKER) (test code = 752) RED CELL DISTRIBUTION WIDTH 15.9 % 11.7-14.4 H (BEAKER) (test code = 412) PLATELET COUNT (BEAKER) (test 118 K/CU MM 150-450 L code = 756) MEAN PLATELET VOLUME (BEAKER) 10.6 fL 9.4-12.3 (test code = 754) NUCLEATED RED BLOOD CELLS 0 /100 WBC 0-0 (BEAKER) (test code = 413) RAD, CHEST, 1 VIEW, NON [id number] 18:58:00Reason for exam:->Post-opShould this be performed at the bedside?->YesFINAL REPORT History: Postoperative evaluation. FINDINGS: Compared with May 01, 2018, a new thoracic aortic endograft has been placed. Several left support tubes and lines have also been placed and appears in expected positions. No pneumothorax. Left hemidiaphragm remains elevated with mild loss in the left lung. Slight increased opacity is present in the right lower lobe, likely atelectasis. Lungs are otherwise clear. No edema. Bones are unremarkable. IMPRESSION: 1. Unremarkable postoperative chest. Life support tubes and lines appear in expected positions. Signed: Savana Mackenzie MDReport Verified Date/Time: 05/02/2018 18:58:14 Reading Location: [facility] C0W Consult Reading Room PHOSPHORUS 2018-05-02 17:59:00 Test Item Value Reference Range Interpretation Comments PHOSPHORUS (BEAKER) (test code = 3.2 mg/dL 2.3-4.7 604) [id number] 17:59:00 Test Item Value Reference Range Interpretation Comments MAGNESIUM (BEAKER) (test code = 2.0 mg/dL 1.6-2.6 627) BASIC METABOLIC [id number] 17:59:00 Test Item Value Reference Range Interpretation Comments SODIUM (BEAKER) 144 meq/L 136-145 (test code = 381) POTASSIUM (BEAKER) 3.8 meq/L 3.5-5.1 (test code = 379) CHLORIDE (BEAKER) 113 meq/L 98-107 H (test code = 382) CO2 (BEAKER) (test 23 meq/L 22-29 code = 355) BLOOD UREA NITROGEN 11 mg/dL 7-21 (BEAKER) (test code = 354) CREATININE (BEAKER) 0.74 mg/dL 0.57-1.25 (test code = 358) GLUCOSE RANDOM 127 mg/dL 70-105 H (BEAKER) (test code = 652) CALCIUM (BEAKER) 8.7 mg/dL 8.4-10.2 (test code = 697) EGFR (BEAKER) (test 78 mL/min/1.73 ESTIMA DEBO GFR IS code = 1092) sq m NOT ACCURATE CREATININE CLEARANCE IN PREDICTING GLOMERULAR FILTRATION RATE . ESTIMATED GFR I S NOT APPLICABLE FOR DIALYSIS PATIEN TS. [id number] 17:34:00 Test Item Value Reference Range Interpretation Comments PARTIAL THROMBOPLASTIN TIME 35.9 seconds 22.5-36.0 (BEAKER) (test code = 760) PROTHROMBIN TIME/[id number] 17:33:00 Test Item Value Reference Range Interpretation Comments PROTIME (BEAKER) (test code = 15.5 seconds 11.7-14.7 H 759) INR (BEAKER) (test code = 370) 1.2 <=5.9 RECOMMENDED COUMADIN/WARFARIN INR THERAPY RANGESSTANDARD DOSE: 2.0 - 3.0 Includes: PROPHYLAXIS for venous thrombosis, systemic embolization; TREATMENT for venous thrombosis and/or pulmonary embolus.HIGH RISK: Target INR is 2.5-3.5 for patients with mechanical heart valves.CBC W/PLT COUNT & AUTO [id number] 17:27:00 Test Item Value Reference Range Interpretation Comments WHITE BLOOD CELL COUNT (BEAKER) 9.2 K/ L 3.5-10.5 (test code = 775) RED BLOOD CELL COUNT (BEAKER) 3.37 M/ L 3.93-5.22 L (test code = 761) HEMOGLOBIN (BEAKER) (test code = 9.7 GM/DL 11.2-15.7 L 410) HEMATOCRIT (BEAKER) (test code = 31.4 % 34.1-44.9 L 411) MEAN CORPUSCULAR VOLUME (BEAKER) 93.2 fL 79.4-94.8 (test code = 753) MEAN CORPUSCULAR HEMOGLOBIN 28.8 pg 25.6-32.2 (BEAKER) (test code = 751) MEAN CORPUSCULAR HEMOGLOBIN CONC 30.9 GM/DL 32.2-35.5 L (BEAKER) (test code = 752) RED CELL DISTRIBUTION WIDTH 16.1 % 11.7-14.4 H (BEAKER) (test code = 412) PLATELET COUNT (BEAKER) (test 133 K/CU MM 150-450 L code = 756) MEAN PLATELET VOLUME (BEAKER) 10.4 fL 9.4-12.3 (test code = 754) NUCLEATED RED BLOOD CELLS 0 /100 WBC 0-0 (BEAKER) (test code = 413) NEUTROPHILS RELATIVE PERCENT 81 % (BEAKER) (test code = 429) LYMPHOCYTES RELATIVE PERCENT 12 % (BEAKER) (test code = 430) MONOCYTES RELATIVE PERCENT 4 % (BEAKER) (test code = 431) EOSINOPHILS RELATIVE PERCENT 1 % (BEAKER) (test code = 432) BASOPHILS RELATIVE PERCENT 0 % (BEAKER) (test code = 437) NEUTROPHILS ABSOLUTE COUNT 7.49 K/ L 1.56-6.13 H (BEAKER) (test code = 670) LYMPHOCYTES ABSOLUTE COUNT 1.11 K/ L 1.18-3.74 L (BEAKER) (test code = 414) MONOCYTES ABSOLUTE COUNT (BEAKER) 0.39 K/ L 0.24-0.36 H (test code = 415) EOSINOPHILS ABSOLUTE COUNT 0.11 K/ L 0.04-0.36 (BEAKER) (test code = 416) BASOPHILS ABSOLUTE COUNT (BEAKER) 0.03 K/ L 0.01-0.08 (test code = 417) IMMATURE GRANULOCYTES-RELATIVE 1 % 0-1 PERCENT (BEAKER) (test code = 2801) OXYGEN SATURATION, [id number] 17:21:00 Test Item Value Reference Range Interpretation Comments O2 SATURATION (MEASURED) (BEAKER) 71.2 % (test code = 1455) CALCIUM, [id number] 17:18:00 Test Item Value Reference Range Interpretation Comments CALCIUM IONIZED (BEAKER) (test 1.12 mmol/L 1.12-1.27 code = 698) PH, BLOOD (BEAKER) (test code = 7.47 1810) BLOOD GAS, [id number] 17:16:00 Test Item Value Reference Range Interpretation Comments PH ARTERIAL (BEAKER) (test code = 7.47 7.35-7.45 H 383) PCO2 ARTERIAL (BEAKER) (test code 35 mmHg 35-45 = 384) PO2 ARTERIAL (BEAKER) (test code = 263 mmHg 80-90 H 385) O2 SATURATION ARTERIAL (BEAKER) 99.7 % 96.0-97.0 H (test code = 386) HCO3 ARTERIAL (BEAKER) (test code 25 mmol/L 21-29 = 388) BASE EXCESS ARTERIAL (BEAKER) 0.8 mmol/L -2.0-3.0 (test code = 387) PATIENT TEMPERATURE (BEAKER) (test 35.4 C code = 1818) FIO2 (BEAKER) (test code = 1819) 60.0 % GLUCOSE-STAT [id number] 17:16:00 Test Item Value Reference Range Interpretation Comments GLUCOSE RANDOM (BEAKER) (test code 132 mg/dL 70-110 H = 652) HGB/HCT (H&H) - STAT [id number] 17:16:00 Test Item Value Reference Range Interpretation Comments HEMOGLOBIN (BEAKER) (test code = 10.4 g/dL 12.0-15.0 L 410) HEMATOCRIT (BEAKER) (test code = 31.0 % 36.0-45.0 L 411) SODIUM NA-STAT [id number] 17:15:00 Test Item Value Reference Range Interpretation Comments SODIUM (BEAKER) (test code = 381) 141 meq/L 135-148 POTASSIUM-STAT [id number] 17:15:00 Test Item Value Reference Range Interpretation Comments POTASSIUM (BEAKER) (test code = 3.6 meq/L 3.6-5.5 379) URINALYSIS W/ [id number] 10:57:00 Test Item Value Reference Range Interpretation Comments COLOR (BEAKER) (test code = 470) Yellow CLARITY (BEAKER) (test code = 469) Clear SPECIFIC GRAVITY UA (BEAKER) (test 1.017 1.001-1.035 code = 468) PH UA (BEAKER) (test code = 467) 5.0 5.0-8.0 PROTEIN UA (BEAKER) (test code = Negative Negative 464) GLUCOSE UA (BEAKER) (test code = Negative Negative 365) KETONES UA (BEAKER) (test code = Negative Negative 371) BILIRUBIN UA (BEAKER) (test code = Negative Negative 462) BLOOD UA (BEAKER) (test code = 461) Trace Negative A NITRITE UA (BEAKER) (test code = Negative Negative 465) LEUKOCYTE ESTERASE UA (BEAKER) Moderate Negative A (test code = 466) UROBILINOGEN UA (BEAKER) (test code 0.2 mg/dL 0.2-1.0 = 463) RBC UA (BEAKER) (test code = 519) 10 /HPF WBC UA (BEAKER) (test code = 520) 5 /HPF BACTERIA (BEAKER) (test code = 517) Rare MUCUS (BEAKER) (test code = 1574) Rare SQUAMOUS EPITHELIAL (BEAKER) (test 6 /HPF code = 516) SOURCE(BEAKER) (test code = 2795) HEPATITIS B [id number] 10:50:00 Test Item Value Reference Range Interpretation Comments HEPATITIS B CORE TOTAL ANTIBODY Nonreactive Nonreactive (BEAKER) (test code = 497) HEPATITIS B SURFACE ANTIBODY < mIU/mL <8.0 (BEAKER) (test code = 647) HEPATITIS B SURFACE ANTIGEN (2) Nonreactive Nonreactive (BEAKER) (test code = 2585) HEPATITIS C [id number] 10:45:00 Test Item Value Reference Range Interpretation Comments HEPATITIS C ANTIBODY (BEAKER) Nonreactive Nonreactive (test code = 367) HIV-1 ANTIGEN WITH HIV-1/2 [id number] 10:45:00 Test Item Value Reference Range Interpretation Comments HIV-1 ANTIGEN WITH HIV 1\T\2 Nonreactive Nonreactive ANTIBODY (2) (BEAKER) (test code = 2586) HEPATIC FUNCTION [id number] 10:30:00 Test Item Value Reference Range Interpretation Comments TOTAL PROTEIN (BEAKER) (test code = 6.8 gm/dL 6.0-8.3 770) ALBUMIN (BEAKER) (test code = 1145) 4.0 g/dL 3.5-5.0 BILIRUBIN TOTAL (BEAKER) (test code 0.9 mg/dL 0.2-1.2 = 377) BILIRUBIN DIRECT (BEAKER) (test 0.4 mg/dL 0.1-0.5 code = 706) ALKALINE PHOSPHATASE (BEAKER) (test 88 U/L 40-150 code = 346) AST (SGOT) (BEAKER) (test code = 10 U/L 5-34 353) ALT (SGPT) (BEAKER) (test code = < U/L 6-55 L 347) RAD, CHEST, 2 [id number] 10:29:00Reason for exam:->SURGRYFINAL REPORT PA and Lateral views of the chest dated 05/01/2018 Clinical information: SURGERY Comment: Heart is normal in size. Thoracic aorta is ectatic. Stent is seen in the thoracic aorta. Pulmonary vasculature is unremarkable. Atelectasis is seen in the left lower lobe. The rest of the lungs are clear. No pulmonary infiltrate or pleural effusion is present. Impression: Ectatic thoracic aorta and left lower lobe atelectasis. Signed: Irena Herrera Verified Date/Time: 05/01/2018 10:29:20 Reading Location: [facility] Radiology Reading Room [id number] 10:23:00 Test Item Value Reference Range Interpretation Comments LIPASE (BEAKER) (test code = 749) 19 U/L 8-78 [id number] 10:23:00 Test Item Value Reference Range Interpretation Comments AMYLASE (BEAKER) (test code = 349) 32 U/L 25-125 BASIC METABOLIC [id number] 10:23:00 Test Item Value Reference Range Interpretation Comments SODIUM (BEAKER) 144 meq/L 136-145 (test code = 381) POTASSIUM (BEAKER) 4.2 meq/L 3.5-5.1 (test code = 379) CHLORIDE (BEAKER) 108 meq/L 98-107 H (test code = 382) CO2 (BEAKER) (test 29 meq/L 22-29 code = 355) BLOOD UREA NITROGEN 12 mg/dL 7-21 (BEAKER) (test code = 354) CREATININE (BEAKER) 0.88 mg/dL 0.57-1.25 (test code = 358) GLUCOSE RANDOM 95 mg/dL 70-105 (BEAKER) (test code = 652) CALCIUM (BEAKER) 9.6 mg/dL 8.4-10.2 (test code = 697) EGFR (BEAKER) (test 64 mL/min/1.73 ESTIMA DEBO GFR IS code = 1092) sq m NOT ACCURATE CREATININE CLEARANCE IN PREDICTING GLOMERULAR FILTRATION RATE . ESTIMATED GFR I S NOT APPLICABLE FOR DIALYSIS PATIEN TS. LACTATE DEHYDROGENASE (LDH)2018-05-01 10:23:00 Test Item Value Reference Range Interpretation Comments LACTATE DEHYDROGENASE (BEAKER) (test 154 U/L 125-220 code = 635) PROTHROMBIN [id number] 10:20:00 Test Item Value Reference Range Interpretation Comments PROTIME (BEAKER) (test code = 15.5 seconds 11.7-14.7 H 759) INR (BEAKER) (test code = 370) 1.2 <=5.9 RECOMMENDED COUMADIN/WARFARIN INR THERAPY RANGESSTANDARD DOSE: 2.0 - 3.0 Includes: PROPHYLAXIS for venous thrombosis, systemic embolization; TREATMENT for venous thrombosis and/or pulmonary embolus.HIGH RISK: Target INR is 2.5-3.5 for patients with mechanical heart valves.[id number] 10:20:00 Test Item Value Reference Range Interpretation Comments PARTIAL THROMBOPLASTIN TIME 32.5 seconds 22.5-36.0 (BEAKER) (test code = 760) RETICULOCYTE [id number] 10:05:00 Test Item Value Reference Range Interpretation Comments RETICULOCYTE COUNT PCT (BEAKER) (test 1.5 % 0.5-1.7 code = 575) CBC W/PLT COUNT & AUTO [id number] 10:05:00 Test Item Value Reference Range Interpretation Comments WHITE BLOOD CELL COUNT (BEAKER) 6.6 K/ L 3.5-10.5 (test code = 775) RED BLOOD CELL COUNT (BEAKER) 4.03 M/ L 3.93-5.22 (test code = 761) HEMOGLOBIN (BEAKER) (test code = 11.4 GM/DL 11.2-15.7 410) HEMATOCRIT (BEAKER) (test code = 37.4 % 34.1-44.9 411) MEAN CORPUSCULAR VOLUME (BEAKER) 92.8 fL 79.4-94.8 (test code = 753) MEAN CORPUSCULAR HEMOGLOBIN 28.3 pg 25.6-32.2 (BEAKER) (test code = 751) MEAN CORPUSCULAR HEMOGLOBIN CONC 30.5 GM/DL 32.2-35.5 L (BEAKER) (test code = 752) RED CELL DISTRIBUTION WIDTH 16.1 % 11.7-14.4 H (BEAKER) (test code = 412) PLATELET COUNT (BEAKER) (test 172 K/CU MM 150-450 code = 756) MEAN PLATELET VOLUME (BEAKER) 10.1 fL 9.4-12.3 (test code = 754) NUCLEATED RED BLOOD CELLS 0 /100 WBC 0-0 (BEAKER) (test code = 413) NEUTROPHILS RELATIVE PERCENT 67 % (BEAKER) (test code = 429) LYMPHOCYTES RELATIVE PERCENT 20 % (BEAKER) (test code = 430) MONOCYTES RELATIVE PERCENT 8 % (BEAKER) (test code = 431) EOSINOPHILS RELATIVE PERCENT 3 % (BEAKER) (test code = 432) BASOPHILS RELATIVE PERCENT 1 % (BEAKER) (test code = 437) NEUTROPHILS ABSOLUTE COUNT 4.43 K/ L 1.56-6.13 (BEAKER) (test code = 670) LYMPHOCYTES ABSOLUTE COUNT 1.33 K/ L 1.18-3.74 (BEAKER) (test code = 414) MONOCYTES ABSOLUTE COUNT (BEAKER) 0.54 K/ L 0.24-0.36 H (test code = 415) EOSINOPHILS ABSOLUTE COUNT 0.20 K/ L 0.04-0.36 (BEAKER) (test code = 416) BASOPHILS ABSOLUTE COUNT (BEAKER) 0.04 K/ L 0.01-0.08 (test code = 417) IMMATURE GRANULOCYTES-RELATIVE 1 % 0-1 PERCENT (BEAKER) (test code = 2801) POCT-GLUCOSE [id number] 17:51:00 Test Item Value Reference Range Interpretation Comments POC-GLUCOSE METER 124 mg/dL 70-110 H TESTED AT [facility] [address] (MARY) (test code = [place] 1538) [address] RAD, CHEST, 1 VIEW, NON [id number] 23:59:00Reason for exam:->interval AAA assessment.Should this be performed at the bedside?->YesFINAL REPORT EXAMINATION: AP PORTABLE CHEST RADIOGRAPH CLINICAL INDICATION: Aortic aneurysm IMPRESSION: Compared with 11/15/2017. 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 The mediastinal contours are grossly stable allowing for differences in technique and positioning. The heart is mildly enlarged as before. A left- sided pleural effusion is again noted with asymmetric consolidation involving the adjacent left lungbase. Although passive atelectasis is favored, an underlying pneumonia or mass lesion cannot be excluded. No evidence of pulmonary edema, pneumothorax or acute osseous abnormality. Numerous surgical clips are again noted in the left lower neck. Signed: Freddy Guthrie MDReport Verified Date/Time: 04/01/2018 23:59:54 Reading Location: [address] [facility] 22:59:00 Test Item Value Reference Range Interpretation Comments PARTIAL THROMBOPLASTIN TIME 33.9 seconds 22.5-36.0 (BEAKER) (test code = 760) PROTHROMBIN [id number] 22:58:00 Test Item Value Reference Range Interpretation Comments PROTIME (BEAKER) (test code = 14.9 seconds 11.7-14.7 H 759) INR (BEAKER) (test code = 370) 1.1 <=5.9 RECOMMENDED COUMADIN/WARFARIN INR THERAPY RANGESSTANDARD DOSE: 2.0 - 3.0 Includes: PROPHYLAXIS for venous thrombosis, systemic embolization; TREATMENT for venous thrombosis and/or pulmonary embolus.HIGH RISK: Target INR is 2.5-3.5 for patients with mechanical heart valves.[id number] 22:55:00 Test Item Value Reference Range Interpretation Comments LIPASE (BEAKER) (test code = 749) 22 U/L 8-78 [id number] 22:55:00 Test Item Value Reference Range Interpretation Comments AMYLASE (BEAKER) (test 31 U/L 25-125 Speci men moderately code = 349) hemolyzed BASIC METABOLIC [id number] 22:55:00 Test Item Value Reference Range Interpretation Comments SODIUM (BEAKER) 143 meq/L 136-145 (test code = 381) POTASSIUM (BEAKER) 4.2 meq/L 3.5-5.1 Specimen moderately (test code = 379) hemolyzed CHLORIDE (BEAKER) 109 meq/L 98-107 H (test code = 382) CO2 (BEAKER) (test 24 meq/L 22-29 code = 355) BLOOD UREA NITROGEN 9 mg/dL 7-21 (BEAKER) (test code = 354) CREATININE (BEAKER) 0.82 mg/dL 0.57-1.25 Specimen moderately (test code = 358) hemolyzed GLUCOSE RANDOM 91 mg/dL 70-105 (BEAKER) (test code = 652) CALCIUM (BEAKER) 9.5 mg/dL 8.4-10.2 (test code = 697) EGFR (BEAKER) (test 69 mL/min/1.73 ESTIMA DEBO GFR IS code = 1092) sq m NOT ACCURATE CREATININE CLEARANCE IN PREDICTING GLOMERULAR FILTRATION RATE . ESTIMATED GFR I S NOT APPLICABLE FOR DIALYSIS PATIEN TS. HEPATIC FUNCTION [id number] 22:55:00 Test Item Value Reference Range Interpretation Comments TOTAL PROTEIN (BEAKER) 7.0 gm/dL 6.0-8.3 Speci men moderately (test code = 770) hemolyzed ALBUMIN (BEAKER) (test 3.8 g/dL 3.5-5.0 Speci men moderately code = 1145) hemolyzed BILIRUBIN TOTAL 0.4 mg/dL 0.2-1.2 Specimen mod erately (BEAKER) (test code = hemoly zed 377) BILIRUBIN DIRECT 0.1 mg/dL 0.1-0.5 Specimen mo derately (BEAKER) (test code = hemoly zed 706) ALKALINE PHOSPHATASE 85 U/L 40-150 (BEAKER) (test code = 346) AST (SGOT) (BEAKER) 16 U/L 5-34 Specimen moderately (test code = 353) hemolyzed ALT (SGPT) (BEAKER) 7 U/L 6-55 Specimen moderately (test code = 347) hemolyzed CBC W/PLT COUNT & AUTO [id number] 22:35:00 Test Item Value Reference Range Interpretation Comments WHITE BLOOD CELL COUNT (BEAKER) 7.7 K/ L 3.5-10.5 (test code = 775) RED BLOOD CELL COUNT (BEAKER) 4.35 M/ L 3.93-5.22 (test code = 761) HEMOGLOBIN (BEAKER) (test code = 12.1 GM/DL 11.2-15.7 410) HEMATOCRIT (BEAKER) (test code = 39.5 % 34.1-44.9 411) MEAN CORPUSCULAR VOLUME (BEAKER) 90.8 fL 79.4-94.8 (test code = 753) MEAN CORPUSCULAR HEMOGLOBIN 27.8 pg 25.6-32.2 (BEAKER) (test code = 751) MEAN CORPUSCULAR HEMOGLOBIN CONC 30.6 GM/DL 32.2-35.5 L (BEAKER) (test code = 752) RED CELL DISTRIBUTION WIDTH 16.2 % 11.7-14.4 H (BEAKER) (test code = 412) PLATELET COUNT (BEAKER) (test 227 K/CU MM 150-450 code = 756) MEAN PLATELET VOLUME (BEAKER) 10.7 fL 9.4-12.3 (test code = 754) NUCLEATED RED BLOOD CELLS 0 /100 WBC 0-0 (BEAKER) (test code = 413) NEUTROPHILS RELATIVE PERCENT 64 % (BEAKER) (test code = 429) LYMPHOCYTES RELATIVE PERCENT 24 % (BEAKER) (test code = 430) MONOCYTES RELATIVE PERCENT 7 % (BEAKER) (test code = 431) EOSINOPHILS RELATIVE PERCENT 3 % (BEAKER) (test code = 432) BASOPHILS RELATIVE PERCENT 1 % (BEAKER) (test code = 437) NEUTROPHILS ABSOLUTE COUNT 4.96 K/ L 1.56-6.13 (BEAKER) (test code = 670) LYMPHOCYTES ABSOLUTE COUNT 1.87 K/ L 1.18-3.74 (BEAKER) (test code = 414) MONOCYTES ABSOLUTE COUNT (BEAKER) 0.56 K/ L 0.24-0.36 H (test code = 415) EOSINOPHILS ABSOLUTE COUNT 0.24 K/ L 0.04-0.36 (BEAKER) (test code = 416) BASOPHILS ABSOLUTE COUNT (BEAKER) 0.06 K/ L 0.01-0.08 (test code = 417) IMMATURE GRANULOCYTES-RELATIVE 1 % 0-1 PERCENT (BEAKER) (test code = 2801) AFB CULTURE + [id number] 16:13:00 Test Item Value Reference Range Interpretation Comments CULTURE (BEAKER) (test No acid-fast bacilli code = 1095) isolated in 42 days AFB SMEAR (BEAKER) No acid fast bacilli (test code = 994) seen FUNGUS CULTURE + [id number] 11:52:00 Test Item Value Reference Range Interpretation Comments CULTURE (BEAKER) (test No fungus isolated in code = 1095) 28 days FUNGUS SMEAR (BEAKER) No fungi seen (test code = 1406) ANAEROBIC [id number] 01:10:00 Test Item Value Reference Range Interpretation Comments CULTURE (BEAKER) (test code A 1+ Prevotella bivia = 1095) BLOOD [id number] 00:00:00 Test Item Value Reference Range Interpretation Comments CULTURE (BEAKER) (test No growth in 5 days code = 1095) SURGICALLY OBTAINED CULTURE + GRAM [id number] 13:07:00 Test Item Value Reference Range Interpretation Comments CULTURE A 1+ Same organis m has (BEAKER) (test been isolated from code = 1095) cultures(s) of the same body site and collection date . Repeat identifi cation and susceptibil ity testing perform ed only after consultat ion with the [facility].Refe r to previous cultur e ofEscherichia c dianne GRAM STAIN <1+ WBCs RESULT (BEAKER) (test code = 1123) GRAM STAIN No organisms seen RESULT (BEAKER) (test code = 840055) [id number] 05:28:00 Test Item Value Reference Range Interpretation Comments MAGNESIUM (BEAKER) (test code = 1.9 mg/dL 1.6-2.6 627) BASIC METABOLIC [id number] 05:28:00 Test Item Value Reference Range Interpretation Comments SODIUM (BEAKER) 140 meq/L 136-145 (test code = 381) POTASSIUM (BEAKER) 3.6 meq/L 3.5-5.1 (test code = 379) CHLORIDE (BEAKER) 106 meq/L 98-107 (test code = 382) CO2 (BEAKER) (test 27 meq/L 22-29 code = 355) BLOOD UREA NITROGEN 8 mg/dL 7-21 (BEAKER) (test code = 354) CREATININE (BEAKER) 0.71 mg/dL 0.57-1.25 (test code = 358) GLUCOSE RANDOM 97 mg/dL 70-105 (BEAKER) (test code = 652) CALCIUM (BEAKER) 8.7 mg/dL 8.4-10.2 (test code = 697) EGFR (BEAKER) (test 81 mL/min/1.73 ESTIMA DEBO GFR IS code = 1092) sq m NOT ACCURATE CREATININE CLEARANCE IN PREDICTING GLOMERULAR FILTRATION RATE . ESTIMATED GFR I S NOT APPLICABLE FOR DIALYSIS PATIEN TS. CBC W/PLT COUNT & AUTO [id number] 04:41:00 Test Item Value Reference Range Interpretation Comments WHITE BLOOD CELL COUNT (BEAKER) 9.2 K/ L 3.5-10.5 (test code = 775) RED BLOOD CELL COUNT (BEAKER) 3.01 M/ L 3.93-5.22 L (test code = 761) HEMOGLOBIN (BEAKER) (test code = 8.6 GM/DL 11.2-15.7 L 410) HEMATOCRIT (BEAKER) (test code = 28.6 % 34.1-44.9 L 411) MEAN CORPUSCULAR VOLUME (BEAKER) 95.0 fL 79.4-94.8 H (test code = 753) MEAN CORPUSCULAR HEMOGLOBIN 28.6 pg 25.6-32.2 (BEAKER) (test code = 751) MEAN CORPUSCULAR HEMOGLOBIN CONC 30.1 GM/DL 32.2-35.5 L (BEAKER) (test code = 752) RED CELL DISTRIBUTION WIDTH 15.9 % 11.7-14.4 H (BEAKER) (test code = 412) PLATELET COUNT (BEAKER) (test 214 K/CU MM 150-450 code = 756) MEAN PLATELET VOLUME (BEAKER) 10.1 fL 9.4-12.3 (test code = 754) NUCLEATED RED BLOOD CELLS 0 /100 WBC 0-0 (BEAKER) (test code = 413) NEUTROPHILS RELATIVE PERCENT 74 % (BEAKER) (test code = 429) LYMPHOCYTES RELATIVE PERCENT 15 % (BEAKER) (test code = 430) MONOCYTES RELATIVE PERCENT 7 % (BEAKER) (test code = 431) EOSINOPHILS RELATIVE PERCENT 3 % (BEAKER) (test code = 432) BASOPHILS RELATIVE PERCENT 0 % (BEAKER) (test code = 437) NEUTROPHILS ABSOLUTE COUNT 6.84 K/ L 1.56-6.13 H (BEAKER) (test code = 670) LYMPHOCYTES ABSOLUTE COUNT 1.34 K/ L 1.18-3.74 (BEAKER) (test code = 414) MONOCYTES ABSOLUTE COUNT (BEAKER) 0.67 K/ L 0.24-0.36 H (test code = 415) EOSINOPHILS ABSOLUTE COUNT 0.25 K/ L 0.04-0.36 (BEAKER) (test code = 416) BASOPHILS ABSOLUTE COUNT (BEAKER) 0.04 K/ L 0.01-0.08 (test code = 417) IMMATURE GRANULOCYTES-RELATIVE 1 % 0-1 PERCENT (BEAKER) (test code = 2801) WOUND CULTURE + GRAM [id number] 14:42:00 Test Item Value Reference Range Interpretation Comments CULTURE (BEAKER) (test ESCHERICHIA COLI A 3 + Escherichia code = 1095) coli Amikacin (test code = S 1) Ampicillin + Sulbactam R (test code = 6) Aztreonam (test code = S 32) Cefepime (test code = S 51) Cefoxitin (test code = R 68) Ceftazidime (test code S = 27) Ceftriaxone (test code S = 52) Ertapenem (test code = S 38) Gentamicin (test code S = 18) Levofloxacin (test S code = 22) Meropenem (test code = S 34) Nitrofurantoin (test S code = 23) Piperacillin + S Tazobactam (test code = 29) Tetracycline (test R code = 2) Tobramycin (test code S = 25) Trimethoprim + R Sulfamethoxazole (test code = 47) GRAM STAIN RESULT 2+ WBCs (BEAKER) (test code = 1123) GRAM STAIN RESULT <1+ gram negative (BEAKER) (test code = rods 840770) GRAM STAIN RESULT <1+ gram positive (BEAKER) (test code = rods 903320) GRAM STAIN RESULT <1+ gram positive (BEAKER) (test code = cocci in pairs 432778) 1+ Skin floraSPIN/CONCENTRATION [id number] 12:34:00 Test Item Value Reference Range Interpretation Comments CONCENTRATION CHARGED (BEAKER) (test Done code = 2657) [id number] 05:19:00 Test Item Value Reference Range Interpretation Comments MAGNESIUM (BEAKER) (test code = 1.8 mg/dL 1.6-2.6 627) BASIC METABOLIC [id number] 05:19:00 Test Item Value Reference Range Interpretation Comments SODIUM (BEAKER) 141 meq/L 136-145 (test code = 381) POTASSIUM (BEAKER) 4.6 meq/L 3.5-5.1 (test code = 379) CHLORIDE (BEAKER) 107 meq/L 98-107 (test code = 382) CO2 (BEAKER) (test 25 meq/L 22-29 code = 355) BLOOD UREA NITROGEN 9 mg/dL 7-21 (BEAKER) (test code = 354) CREATININE (BEAKER) 0.83 mg/dL 0.57-1.25 (test code = 358) GLUCOSE RANDOM 107 mg/dL 70-105 H (BEAKER) (test code = 652) CALCIUM (BEAKER) 8.9 mg/dL 8.4-10.2 (test code = 697) EGFR (BEAKER) (test 68 mL/min/1.73 ESTIMA DEBO GFR IS code = 1092) sq m NOT ACCURATE CREATININE CLEARANCE IN PREDICTING GLOMERULAR FILTRATION RATE . ESTIMATED GFR I S NOT APPLICABLE FOR DIALYSIS PATIEN TS. CBC W/PLT COUNT & AUTO [id number] 05:12:00 Test Item Value Reference Range Interpretation Comments WHITE BLOOD CELL COUNT (BEAKER) 11.1 K/ L 3.5-10.5 H (test code = 775) RED BLOOD CELL COUNT (BEAKER) 3.29 M/ L 3.93-5.22 L (test code = 761) HEMOGLOBIN (BEAKER) (test code = 9.3 GM/DL 11.2-15.7 L 410) HEMATOCRIT (BEAKER) (test code = 31.6 % 34.1-44.9 L 411) MEAN CORPUSCULAR VOLUME (BEAKER) 96.0 fL 79.4-94.8 H (test code = 753) MEAN CORPUSCULAR HEMOGLOBIN 28.3 pg 25.6-32.2 (BEAKER) (test code = 751) MEAN CORPUSCULAR HEMOGLOBIN CONC 29.4 GM/DL 32.2-35.5 L (BEAKER) (test code = 752) RED CELL DISTRIBUTION WIDTH 16.0 % 11.7-14.4 H (BEAKER) (test code = 412) PLATELET COUNT (BEAKER) (test 234 K/CU MM 150-450 code = 756) MEAN PLATELET VOLUME (BEAKER) 10.1 fL 9.4-12.3 (test code = 754) NUCLEATED RED BLOOD CELLS 0 /100 WBC 0-0 (BEAKER) (test code = 413) NEUTROPHILS RELATIVE PERCENT 76 % (BEAKER) (test code = 429) LYMPHOCYTES RELATIVE PERCENT 12 % (BEAKER) (test code = 430) MONOCYTES RELATIVE PERCENT 9 % (BEAKER) (test code = 431) EOSINOPHILS RELATIVE PERCENT 2 % (BEAKER) (test code = 432) BASOPHILS RELATIVE PERCENT 1 % (BEAKER) (test code = 437) NEUTROPHILS ABSOLUTE COUNT 8.41 K/ L 1.56-6.13 H (BEAKER) (test code = 670) LYMPHOCYTES ABSOLUTE COUNT 1.29 K/ L 1.18-3.74 (BEAKER) (test code = 414) MONOCYTES ABSOLUTE COUNT (BEAKER) 0.97 K/ L 0.24-0.36 H (test code = 415) EOSINOPHILS ABSOLUTE COUNT 0.22 K/ L 0.04-0.36 (BEAKER) (test code = 416) BASOPHILS ABSOLUTE COUNT (BEAKER) 0.06 K/ L 0.01-0.08 (test code = 417) IMMATURE GRANULOCYTES-RELATIVE 2 % 0-1 H PERCENT (BEAKER) (test code = 2801) POCT-GLUCOSE [id number] 21:08:00 Test Item Value Reference Range Interpretation Comments POC-GLUCOSE METER 99 mg/dL 70-110 TESTED AT [facility] [address] [facility] (test code = [facility] [address] 1538) POCT-GLUCOSE [id number] 17:32:00 Test Item Value Reference Range Interpretation Comments POC-GLUCOSE METER 144 mg/dL 70-110 H TESTED AT [facility] [address] (BEAKER) (test code = [facility] 1538) [address] CBC W/PLT COUNT & AUTO [id number] 15:54:00 Test Item Value Reference Range Interpretation Comments WHITE BLOOD CELL COUNT (BEAKER) 18.0 K/ L 3.5-10.5 H (test code = 775) RED BLOOD CELL COUNT (BEAKER) 3.47 M/ L 3.93-5.22 L (test code = 761) HEMOGLOBIN (BEAKER) (test code = 10.0 GM/DL 11.2-15.7 L 410) HEMATOCRIT (BEAKER) (test code = 33.4 % 34.1-44.9 L 411) MEAN CORPUSCULAR VOLUME (BEAKER) 96.3 fL 79.4-94.8 H (test code = 753) MEAN CORPUSCULAR HEMOGLOBIN 28.8 pg 25.6-32.2 (BEAKER) (test code = 751) MEAN CORPUSCULAR HEMOGLOBIN CONC 29.9 GM/DL 32.2-35.5 L (BEAKER) (test code = 752) RED CELL DISTRIBUTION WIDTH 16.0 % 11.7-14.4 H (BEAKER) (test code = 412) PLATELET COUNT (BEAKER) (test 288 K/CU MM 150-450 code = 756) MEAN PLATELET VOLUME (BEAKER) 10.4 fL 9.4-12.3 (test code = 754) NUCLEATED RED BLOOD CELLS 0 /100 WBC 0-0 (BEAKER) (test code = 413) NEUTROPHILS RELATIVE PERCENT 80 % (BEAKER) (test code = 429) LYMPHOCYTES RELATIVE PERCENT 10 % (BEAKER) (test code = 430) MONOCYTES RELATIVE PERCENT 6 % (BEAKER) (test code = 431) EOSINOPHILS RELATIVE PERCENT 1 % (BEAKER) (test code = 432) BASOPHILS RELATIVE PERCENT 1 % (BEAKER) (test code = 437) NEUTROPHILS ABSOLUTE COUNT 14.35 K/ L 1.56-6.13 H (BEAKER) (test code = 670) LYMPHOCYTES ABSOLUTE COUNT 1.77 K/ L 1.18-3.74 (BEAKER) (test code = 414) MONOCYTES ABSOLUTE COUNT (BEAKER) 1.05 K/ L 0.24-0.36 H (test code = 415) EOSINOPHILS ABSOLUTE COUNT 0.24 K/ L 0.04-0.36 (BEAKER) (test code = 416) BASOPHILS ABSOLUTE COUNT (BEAKER) 0.09 K/ L 0.01-0.08 H (test code = 417) IMMATURE GRANULOCYTES-RELATIVE 3 % 0-1 H PERCENT (BEAKER) (test code = 2801) BASIC METABOLIC [id number] 15:43:00 Test Item Value Reference Range Interpretation Comments SODIUM (BEAKER) 140 meq/L 136-145 (test code = 381) POTASSIUM (BEAKER) 4.7 meq/L 3.5-5.1 Specimen slightly (test code = 379) hemolyzed CHLORIDE (BEAKER) 108 meq/L 98-107 H (test code = 382) CO2 (BEAKER) (test 22 meq/L 22-29 code = 355) BLOOD UREA NITROGEN 7 mg/dL 7-21 (BEAKER) (test code = 354) CREATININE (BEAKER) 0.72 mg/dL 0.57-1.25 Specimen slightly (test code = 358) hemolyzed GLUCOSE RANDOM 181 mg/dL 70-105 H (BEAKER) (test code = 652) CALCIUM (BEAKER) 8.6 mg/dL 8.4-10.2 (test code = 697) EGFR (BEAKER) (test 80 mL/min/1.73 ESTIMA DEBO GFR IS code = 1092) sq m NOT ACCURATE CREATININE CLEARANCE IN PREDICTING GLOMERULAR FILTRATION RATE . ESTIMATED GFR I S NOT APPLICABLE FOR DIALYSIS PATIEN TS. [id number] 15:42:00 Test Item Value Reference Range Interpretation Comments MAGNESIUM (BEAKER) 1.9 mg/dL 1.6-2.6 Specimen slightly (test code = 627) hemolyzed [id number] 15:42:00 Test Item Value Reference Range Interpretation Comments PHOSPHORUS (BEAKER) 3.6 mg/dL 2.3-4.7 Specimen slightly (test code = 604) hemolyzed PROTHROMBIN [id number] 15:34:00 Test Item Value Reference Range Interpretation Comments PROTIME (BEAKER) (test code = 15.7 seconds 11.7-14.7 H 759) INR (BEAKER) (test code = 370) 1.3 <=5.9 RECOMMENDED COUMADIN/WARFARIN INR THERAPY RANGESSTANDARD DOSE: 2.0 - 3.0 Includes: PROPHYLAXIS for venous thrombosis, systemic embolization; TREATMENT for venous thrombosis and/or pulmonary embolus.HIGH RISK: Target INR is 2.5-3.5 for patients with mechanical heart valves.[id number] 15:34:00 Test Item Value Reference Range Interpretation Comments PARTIAL THROMBOPLASTIN TIME 27.5 seconds 22.5-36.0 (BEAKER) (test code = 760) [id number] 06:06:00 Test Item Value Reference Range Interpretation Comments MAGNESIUM (BEAKER) (test code = 2.0 mg/dL 1.6-2.6 627) BASIC METABOLIC [id number] 06:06:00 Test Item Value Reference Range Interpretation Comments SODIUM (BEAKER) 143 meq/L 136-145 (test code = 381) POTASSIUM (BEAKER) 3.7 meq/L 3.5-5.1 (test code = 379) CHLORIDE (BEAKER) 108 meq/L 98-107 H (test code = 382) CO2 (BEAKER) (test 28 meq/L 22-29 code = 355) BLOOD UREA NITROGEN 7 mg/dL 7-21 (BEAKER) (test code = 354) CREATININE (BEAKER) 0.65 mg/dL 0.57-1.25 (test code = 358) GLUCOSE RANDOM 97 mg/dL 70-105 (BEAKER) (test code = 652) CALCIUM (BEAKER) 8.9 mg/dL 8.4-10.2 (test code = 697) EGFR (BEAKER) (test 90 mL/min/1.73 ESTIMA DEBO GFR IS code = 1092) sq m NOT ACCURATE CREATININE CLEARANCE IN PREDICTING GLOMERULAR FILTRATION RATE . ESTIMATED GFR I S NOT APPLICABLE FOR DIALYSIS PATIEN TS. CBC W/PLT COUNT & AUTO [id number] 05:34:00 Test Item Value Reference Range Interpretation Comments WHITE BLOOD CELL COUNT (BEAKER) 8.6 K/ L 3.5-10.5 (test code = 775) RED BLOOD CELL COUNT (BEAKER) 3.39 M/ L 3.93-5.22 L (test code = 761) HEMOGLOBIN (BEAKER) (test code = 9.5 GM/DL 11.2-15.7 L 410) HEMATOCRIT (BEAKER) (test code = 32.2 % 34.1-44.9 L 411) MEAN CORPUSCULAR VOLUME (BEAKER) 95.0 fL 79.4-94.8 H (test code = 753) MEAN CORPUSCULAR HEMOGLOBIN 28.0 pg 25.6-32.2 (BEAKER) (test code = 751) MEAN CORPUSCULAR HEMOGLOBIN CONC 29.5 GM/DL 32.2-35.5 L (BEAKER) (test code = 752) RED CELL DISTRIBUTION WIDTH 16.0 % 11.7-14.4 H (BEAKER) (test code = 412) PLATELET COUNT (BEAKER) (test 231 K/CU MM 150-450 code = 756) MEAN PLATELET VOLUME (BEAKER) 10.5 fL 9.4-12.3 (test code = 754) NUCLEATED RED BLOOD CELLS 0 /100 WBC 0-0 (BEAKER) (test code = 413) NEUTROPHILS RELATIVE PERCENT 65 % (BEAKER) (test code = 429) LYMPHOCYTES RELATIVE PERCENT 21 % (BEAKER) (test code = 430) MONOCYTES RELATIVE PERCENT 9 % (BEAKER) (test code = 431) EOSINOPHILS RELATIVE PERCENT 2 % (BEAKER) (test code = 432) BASOPHILS RELATIVE PERCENT 1 % (BEAKER) (test code = 437) NEUTROPHILS ABSOLUTE COUNT 5.60 K/ L 1.56-6.13 (BEAKER) (test code = 670) LYMPHOCYTES ABSOLUTE COUNT 1.83 K/ L 1.18-3.74 (BEAKER) (test code = 414) MONOCYTES ABSOLUTE COUNT (BEAKER) 0.80 K/ L 0.24-0.36 H (test code = 415) EOSINOPHILS ABSOLUTE COUNT 0.21 K/ L 0.04-0.36 (BEAKER) (test code = 416) BASOPHILS ABSOLUTE COUNT (BEAKER) 0.04 K/ L 0.01-0.08 (test code = 417) IMMATURE GRANULOCYTES-RELATIVE 2 % 0-1 H PERCENT (BEAKER) (test code = 2801) [id number] 08:24:00 Test Item Value Reference Range Interpretation Comments MAGNESIUM (BEAKER) (test code = 1.9 mg/dL 1.6-2.6 627) BASIC METABOLIC [id number] 04:27:00 Test Item Value Reference Range Interpretation Comments SODIUM (BEAKER) 138 meq/L 136-145 (test code = 381) POTASSIUM (BEAKER) 3.3 meq/L 3.5-5.1 L (test code = 379) CHLORIDE (BEAKER) 104 meq/L 98-107 (test code = 382) CO2 (BEAKER) (test 27 meq/L 22-29 code = 355) BLOOD UREA NITROGEN 8 mg/dL 7-21 (BEAKER) (test code = 354) CREATININE (BEAKER) 0.73 mg/dL 0.57-1.25 (test code = 358) GLUCOSE RANDOM 124 mg/dL 70-105 H (BEAKER) (test code = 652) CALCIUM (BEAKER) 8.8 mg/dL 8.4-10.2 (test code = 697) EGFR (BEAKER) (test 79 mL/min/1.73 ESTIMA EDBO GFR IS code = 1092) sq m NOT ACCURATE CREATININE CLEARANCE IN PREDICTING GLOMERULAR FILTRATION RATE . ESTIMATED GFR I S NOT APPLICABLE FOR DIALYSIS PATIEN TS. CBC W/PLT COUNT & AUTO [id number] 04:20:00 Test Item Value Reference Range Interpretation Comments WHITE BLOOD CELL COUNT (BEAKER) 10.5 K/ L 3.5-10.5 (test code = 775) RED BLOOD CELL COUNT (BEAKER) 3.46 M/ L 3.93-5.22 L (test code = 761) HEMOGLOBIN (BEAKER) (test code = 9.8 GM/DL 11.2-15.7 L 410) HEMATOCRIT (BEAKER) (test code = 32.6 % 34.1-44.9 L 411) MEAN CORPUSCULAR VOLUME (BEAKER) 94.2 fL 79.4-94.8 (test code = 753) MEAN CORPUSCULAR HEMOGLOBIN 28.3 pg 25.6-32.2 (BEAKER) (test code = 751) MEAN CORPUSCULAR HEMOGLOBIN CONC 30.1 GM/DL 32.2-35.5 L (BEAKER) (test code = 752) RED CELL DISTRIBUTION WIDTH 15.9 % 11.7-14.4 H (BEAKER) (test code = 412) PLATELET COUNT (BEAKER) (test 253 K/CU MM 150-450 code = 756) MEAN PLATELET VOLUME (BEAKER) 10.2 fL 9.4-12.3 (test code = 754) NUCLEATED RED BLOOD CELLS 0 /100 WBC 0-0 (BEAKER) (test code = 413) NEUTROPHILS RELATIVE PERCENT 69 % (BEAKER) (test code = 429) LYMPHOCYTES RELATIVE PERCENT 17 % (BEAKER) (test code = 430) MONOCYTES RELATIVE PERCENT 10 % (BEAKER) (test code = 431) EOSINOPHILS RELATIVE PERCENT 2 % (BEAKER) (test code = 432) BASOPHILS RELATIVE PERCENT 1 % (BEAKER) (test code = 437) NEUTROPHILS ABSOLUTE COUNT 7.27 K/ L 1.56-6.13 H (BEAKER) (test code = 670) LYMPHOCYTES ABSOLUTE COUNT 1.79 K/ L 1.18-3.74 (BEAKER) (test code = 414) MONOCYTES ABSOLUTE COUNT (BEAKER) 1.01 K/ L 0.24-0.36 H (test code = 415) EOSINOPHILS ABSOLUTE COUNT 0.17 K/ L 0.04-0.36 (BEAKER) (test code = 416) BASOPHILS ABSOLUTE COUNT (BEAKER) 0.06 K/ L 0.01-0.08 (test code = 417) IMMATURE GRANULOCYTES-RELATIVE 2 % 0-1 H PERCENT (BEAKER) (test code = 2801) BASIC METABOLIC [id number] 19:25:00 Test Item Value Reference Range Interpretation Comments SODIUM (BEAKER) 139 meq/L 136-145 (test code = 381) POTASSIUM (BEAKER) 3.5 meq/L 3.5-5.1 (test code = 379) CHLORIDE (BEAKER) 104 meq/L 98-107 (test code = 382) CO2 (BEAKER) (test 25 meq/L 22-29 code = 355) BLOOD UREA NITROGEN 9 mg/dL 7-21 (BEAKER) (test code = 354) CREATININE (BEAKER) 0.78 mg/dL 0.57-1.25 (test code = 358) GLUCOSE RANDOM 111 mg/dL 70-105 H (BEAKER) (test code = 652) CALCIUM (BEAKER) 9.1 mg/dL 8.4-10.2 (test code = 697) EGFR (BEAKER) (test 73 mL/min/1.73 ESTIMA DEBO GFR IS code = 1092) sq m NOT ACCURATE CREATININE CLEARANCE IN PREDICTING GLOMERULAR FILTRATION RATE . ESTIMATED GFR I S NOT APPLICABLE FOR DIALYSIS PATIEN TS. CBC W/PLT COUNT & AUTO [id number] 19:13:00 Test Item Value Reference Range Interpretation Comments WHITE BLOOD CELL COUNT (BEAKER) 12.0 K/ L 3.5-10.5 H (test code = 775) RED BLOOD CELL COUNT (BEAKER) 3.62 M/ L 3.93-5.22 L (test code = 761) HEMOGLOBIN (BEAKER) (test code = 10.5 GM/DL 11.2-15.7 L 410) HEMATOCRIT (BEAKER) (test code = 34.3 % 34.1-44.9 411) MEAN CORPUSCULAR VOLUME (BEAKER) 94.8 fL 79.4-94.8 (test code = 753) MEAN CORPUSCULAR HEMOGLOBIN 29.0 pg 25.6-32.2 (BEAKER) (test code = 751) MEAN CORPUSCULAR HEMOGLOBIN CONC 30.6 GM/DL 32.2-35.5 L (BEAKER) (test code = 752) RED CELL DISTRIBUTION WIDTH 15.9 % 11.7-14.4 H (BEAKER) (test code = 412) PLATELET COUNT (BEAKER) (test 267 K/CU MM 150-450 code = 756) MEAN PLATELET VOLUME (BEAKER) 10.0 fL 9.4-12.3 (test code = 754) NUCLEATED RED BLOOD CELLS 0 /100 WBC 0-0 (BEAKER) (test code = 413) NEUTROPHILS RELATIVE PERCENT 71 % (BEAKER) (test code = 429) LYMPHOCYTES RELATIVE PERCENT 17 % (BEAKER) (test code = 430) MONOCYTES RELATIVE PERCENT 9 % (BEAKER) (test code = 431) EOSINOPHILS RELATIVE PERCENT 1 % (BEAKER) (test code = 432) BASOPHILS RELATIVE PERCENT 0 % (BEAKER) (test code = 437) NEUTROPHILS ABSOLUTE COUNT 8.42 K/ L 1.56-6.13 H (BEAKER) (test code = 670) LYMPHOCYTES ABSOLUTE COUNT 2.00 K/ L 1.18-3.74 (BEAKER) (test code = 414) MONOCYTES ABSOLUTE COUNT (BEAKER) 1.08 K/ L 0.24-0.36 H (test code = 415) EOSINOPHILS ABSOLUTE COUNT 0.16 K/ L 0.04-0.36 (BEAKER) (test code = 416) BASOPHILS ABSOLUTE COUNT (BEAKER) 0.05 K/ L 0.01-0.08 (test code = 417) IMMATURE GRANULOCYTES-RELATIVE 2 % 0-1 H PERCENT (BEAKER) (test code = 2801) POCT-LACTIC ACID, [id number] 19:11:00 Test Item Value Reference Range Interpretation Comments POC-LACTIC ACID, 1.1 mmol/L 0.9-1.7 TESTED AT [facility] [address] (BEAKER) (test [place] code = 2805) [id number] POCT-GLUCOSE [id number] 08:32:00 Test Item Value Reference Range Interpretation Comments POC-GLUCOSE METER 134 mg/dL 70-110 H TESTED AT [facility] [address] (BEAKER) (test code = [place] 1538) [address] RAD, CHEST, 1 VIEW, NON [id number] 07:57:00Reason for exam:->Postop TEVARShould this be performed at the bedside?->YesFINAL REPORT CLINICAL HISTORY: Postop TEVAR TECHNIQUE: 1 view of the chest. COMP ARISON: 11/14/2017 IMPRESSION: Left lower lung consolidation is again seen with increased layering moderate left pleural effusion. Right basilar atelectasis is unchanged. 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 Left supraclavicular surgical clips are again seen. There is cervical fusion hardware. Signed: Falguni Murray MDReport Verified Date/Time: 11/15/2017 07:57:11 [facility] CALCIUM, [id number] 07:11:00 Test Item Value Reference Range Interpretation Comments CALCIUM IONIZED (BEAKER) (test 1.05 mmol/L 1.12-1.27 L code = 698) PH, BLOOD (BEAKER) (test code = 7.48 1810) Check serum Ionized Calcium level after 4 hours after IV Calcium replacement. [id number] 06:40:00 Test Item Value Reference Range Interpretation Comments PHOSPHORUS (BEAKER) (test code = 3.1 mg/dL 2.3-4.7 604) [id number] 06:40:00 Test Item Value Reference Range Interpretation Comments MAGNESIUM (BEAKER) (test code = 1.6 mg/dL 1.6-2.6 627) BASIC METABOLIC [id number] 06:40:00 Test Item Value Reference Range Interpretation Comments SODIUM (BEAKER) 137 meq/L 136-145 (test code = 381) POTASSIUM (BEAKER) 3.7 meq/L 3.5-5.1 (test code = 379) CHLORIDE (BEAKER) 106 meq/L 98-107 (test code = 382) CO2 (BEAKER) (test 24 meq/L 22-29 code = 355) BLOOD UREA NITROGEN 8 mg/dL 7-21 (BEAKER) (test code = 354) CREATININE (BEAKER) 0.67 mg/dL 0.57-1.25 (test code = 358) GLUCOSE RANDOM 115 mg/dL 70-105 H (BEAKER) (test code = 652) CALCIUM (BEAKER) 8.5 mg/dL 8.4-10.2 (test code = 697) EGFR (BEAKER) (test 87 mL/min/1.73 ESTIMA DEBO GFR IS code = 1092) sq m NOT ACCURATE CREATININE CLEARANCE IN PREDICTING GLOMERULAR FILTRATION RATE . ESTIMATED GFR I S NOT APPLICABLE FOR DIALYSIS PATIEN TS. CBC W/PLT COUNT & AUTO [id number] 06:34:00 Test Item Value Reference Range Interpretation Comments WHITE BLOOD CELL COUNT (BEAKER) 11.3 K/ L 3.5-10.5 H (test code = 775) RED BLOOD CELL COUNT (BEAKER) 2.76 M/ L 3.93-5.22 L (test code = 761) HEMOGLOBIN (BEAKER) (test code = 8.2 GM/DL 11.2-15.7 L 410) HEMATOCRIT (BEAKER) (test code = 27.3 % 34.1-44.9 L 411) MEAN CORPUSCULAR VOLUME (BEAKER) 98.9 fL 79.4-94.8 H (test code = 753) MEAN CORPUSCULAR HEMOGLOBIN 29.7 pg 25.6-32.2 (BEAKER) (test code = 751) MEAN CORPUSCULAR HEMOGLOBIN CONC 30.0 GM/DL 32.2-35.5 L (BEAKER) (test code = 752) RED CELL DISTRIBUTION WIDTH 14.8 % 11.7-14.4 H (BEAKER) (test code = 412) PLATELET COUNT (BEAKER) (test 345 K/CU MM 150-450 code = 756) MEAN PLATELET VOLUME (BEAKER) 10.9 fL 9.4-12.3 (test code = 754) NUCLEATED RED BLOOD CELLS 0 /100 WBC 0-0 (BEAKER) (test code = 413) NEUTROPHILS RELATIVE PERCENT 67 % (BEAKER) (test code = 429) LYMPHOCYTES RELATIVE PERCENT 13 % (BEAKER) (test code = 430) MONOCYTES RELATIVE PERCENT 13 % (BEAKER) (test code = 431) EOSINOPHILS RELATIVE PERCENT 2 % (BEAKER) (test code = 432) BASOPHILS RELATIVE PERCENT 1 % (BEAKER) (test code = 437) NEUTROPHILS ABSOLUTE COUNT 7.58 K/ L 1.56-6.13 H (BEAKER) (test code = 670) LYMPHOCYTES ABSOLUTE COUNT 1.43 K/ L 1.18-3.74 (BEAKER) (test code = 414) MONOCYTES ABSOLUTE COUNT (BEAKER) 1.45 K/ L 0.24-0.36 H (test code = 415) EOSINOPHILS ABSOLUTE COUNT 0.17 K/ L 0.04-0.36 (BEAKER) (test code = 416) BASOPHILS ABSOLUTE COUNT (BEAKER) 0.10 K/ L 0.01-0.08 H (test code = 417) IMMATURE GRANULOCYTES-RELATIVE 5 % 0-1 H PERCENT (BEAKER) (test code = 2801) PROTHROMBIN [id number] 06:28:00 Test Item Value Reference Range Interpretation Comments PROTIME (BEAKER) (test code = 17.1 seconds 11.7-14.7 H 759) INR (BEAKER) (test code = 370) 1.4 <=5.9 RECOMMENDED COUMADIN/WARFARIN INR THERAPY RANGESSTANDARD DOSE: 2.0 - 3.0 Includes: PROPHYLAXIS for venous thrombosis, systemic embolization; TREATMENT for venous thrombosis and/or pulmonary embolus.HIGH RISK: Target INR is 2.5-3.5 for patients with mechanical heart valves.[id number] 06:28:00 Test Item Value Reference Range Interpretation Comments PARTIAL THROMBOPLASTIN TIME 33.2 seconds 22.5-36.0 (BEAKER) (test code = 760) POCT-GLUCOSE [id number] 21:35:00 Test Item Value Reference Range Interpretation Comments POC-GLUCOSE METER 143 mg/dL 70-110 H TESTED AT [facility] [address] ([facility]) (test code = [place] 1538) [id number] POCT-GLUCOSE [id number] 17:41:00 Test Item Value Reference Range Interpretation Comments POC-GLUCOSE METER 149 mg/dL 70-110 H TESTED AT [facility] [address] (BEAKER) (test code = ADWOA Parekh [place] 1538) [address] POCT-GLUCOSE [id number] 11:43:00 Test Item Value Reference Range Interpretation Comments POC-GLUCOSE METER 156 mg/dL 70-110 H TESTED AT [facility] [address] (BEAKER) (test code = ADWOA Parekh [facility] 1538) [address] CBC W/PLT COUNT & AUTO [id number] 11:28:00 Test Item Value Reference Range Interpretation Comments WHITE BLOOD CELL COUNT (BEAKER) 12.8 K/ L 3.5-10.5 H (test code = 775) RED BLOOD CELL COUNT (BEAKER) 2.88 M/ L 3.93-5.22 L (test code = 761) HEMOGLOBIN (BEAKER) (test code = 8.7 GM/DL 11.2-15.7 L 410) HEMATOCRIT (BEAKER) (test code = 29.9 % 34.1-44.9 L 411) MEAN CORPUSCULAR VOLUME (BEAKER) 103.8 fL 79.4-94.8 H (test code = 753) MEAN CORPUSCULAR HEMOGLOBIN 30.2 pg 25.6-32.2 (BEAKER) (test code = 751) MEAN CORPUSCULAR HEMOGLOBIN CONC 29.1 GM/DL 32.2-35.5 L (BEAKER) (test code = 752) RED CELL DISTRIBUTION WIDTH 14.8 % 11.7-14.4 H (BEAKER) (test code = 412) PLATELET COUNT (BEAKER) (test 324 K/CU MM 150-450 code = 756) MEAN PLATELET VOLUME (BEAKER) 10.8 fL 9.4-12.3 (test code = 754) NUCLEATED RED BLOOD CELLS 0 /100 WBC 0-0 (BEAKER) (test code = 413) NEUTROPHILS RELATIVE PERCENT 71 % (BEAKER) (test code = 429) LYMPHOCYTES RELATIVE PERCENT 11 % (BEAKER) (test code = 430) MONOCYTES RELATIVE PERCENT 12 % (BEAKER) (test code = 431) EOSINOPHILS RELATIVE PERCENT 0 % (BEAKER) (test code = 432) BASOPHILS RELATIVE PERCENT 1 % (BEAKER) (test code = 437) NEUTROPHILS ABSOLUTE COUNT 9.14 K/ L 1.56-6.13 H (BEAKER) (test code = 670) LYMPHOCYTES ABSOLUTE COUNT 1.35 K/ L 1.18-3.74 (BEAKER) (test code = 414) MONOCYTES ABSOLUTE COUNT (BEAKER) 1.58 K/ L 0.24-0.36 H (test code = 415) EOSINOPHILS ABSOLUTE COUNT 0.05 K/ L 0.04-0.36 (BEAKER) (test code = 416) BASOPHILS ABSOLUTE COUNT (BEAKER) 0.10 K/ L 0.01-0.08 H (test code = 417) IMMATURE GRANULOCYTES-RELATIVE 5 % 0-1 H PERCENT (BEAKER) (test code = 2801) (CELLAVISION MANUAL DIFF)[id number] 11:28:00 Test Item Value Reference Range Interpretation Comments TOTAL COUNTED (BEAKER) (test code = 1351) RBC MORPHOLOGY (BEAKER) (test code = Normal 762) WBC MORPHOLOGY (BEAKER) (test code = Normal 487) PLT MORPHOLOGY (BEAKER) (test code = Normal 486) RAD, CHEST, 1 VIEW, NON [id number] 09:33:00Reason for exam:->Postop TEVARShould this be performed at the bedside?->YesFINAL REPORT EXAM: Frontal chest radiograph HISTORY PROVIDED: Postop TEVAR SULY RISON: 11/13/2017 IMPRESSION:No significant change in the retrocardiac opacity representing a combination of a small to moderate left pleural effusion and atelectasis/consolidation. The right lung is clear save for minimal right basilar atelectasis. No discernible pneumothorax. Cardiomediastinal contours are stable. The thoracic aorta is tortuous and there is a thoracic stent graft in place as before.Surgical clips project over the left apical region. No acute osseous abnormality. Signed: Angi Arteaga MDReport Verified Date/Time: 11/14/2017 09:33:39 Reading Location: [facility] Women [id number] 06:55:00 Test Item Value Reference Range Interpretation Comments PARTIAL THROMBOPLASTIN TIME 29.8 seconds 22.5-36.0 (BEAKER) (test code = 760) CALCIUM, [id number] 06:44:00 Test Item Value Reference Range Interpretation Comments CALCIUM IONIZED (BEAKER) (test 0.99 mmol/L 1.12-1.27 L code = 698) PH, BLOOD (BEAKER) (test code = 7.49 1810) Check serum Ionized Calcium level after 4 hours after IV Calcium replacement. [id number] 06:07:00 Test Item Value Reference Range Interpretation Comments PHOSPHORUS (BEAKER) (test code = 2.9 mg/dL 2.3-4.7 604) [id number] 06:07:00 Test Item Value Reference Range Interpretation Comments MAGNESIUM (BEAKER) (test code = 1.8 mg/dL 1.6-2.6 627) BASIC METABOLIC [id number] 06:07:00 Test Item Value Reference Range Interpretation Comments SODIUM (BEAKER) 138 meq/L 136-145 (test code = 381) POTASSIUM (BEAKER) 4.1 meq/L 3.5-5.1 (test code = 379) CHLORIDE (BEAKER) 104 meq/L 98-107 (test code = 382) CO2 (BEAKER) (test 24 meq/L 22-29 code = 355) BLOOD UREA NITROGEN 10 mg/dL 7-21 (BEAKER) (test code = 354) CREATININE (BEAKER) 0.68 mg/dL 0.57-1.25 (test code = 358) GLUCOSE RANDOM 133 mg/dL 70-105 H (BEAKER) (test code = 652) CALCIUM (BEAKER) 9.3 mg/dL 8.4-10.2 (test code = 697) EGFR (BEAKER) (test 86 mL/min/1.73 ESTIMA DEBO GFR IS code = 1092) sq m NOT ACCURATE CREATININE CLEARANCE IN PREDICTING GLOMERULAR FILTRATION RATE . ESTIMATED GFR I S NOT APPLICABLE FOR DIALYSIS PATIEN TS. PROTHROMBIN [id number] 05:53:00 Test Item Value Reference Range Interpretation Comments PROTIME (BEAKER) (test code = 15.2 seconds 11.7-14.7 H 759) INR (BEAKER) (test code = 370) 1.2 <=5.9 RECOMMENDED COUMADIN/WARFARIN INR THERAPY RANGESSTANDARD DOSE: 2.0 - 3.0 Includes: PROPHYLAXIS for venous thrombosis, systemic embolization; TREATMENT for venous thrombosis and/or pulmonary embolus.HIGH RISK: Target INR is 2.5-3.5 for patients with mechanical heart valves.POCT-GLUCOSE [id number] 21:36:00 Test Item Value Reference Range Interpretation Comments POC-GLUCOSE METER 161 mg/dL 70-110 H TESTED AT [facility] [address] ([facility]) (test code = ADWOA Parekh [facility] 1538) [id number] POCT-GLUCOSE [id number] 17:43:00 Test Item Value Reference Range Interpretation Comments POC-GLUCOSE METER 155 mg/dL 70-110 H TESTED AT [facility] 67 ([facility]) (test code = ADWOA Parekh [facility] 1538) [id number] POCT-GLUCOSE [id number] 12:59:00 Test Item Value Reference Range Interpretation Comments POC-GLUCOSE METER 166 mg/dL 70-110 H TESTED AT [place] [address] ([facility]) (test code = ADWOA Parekh [facility] 1538) [address] POCT-GLUCOSE [id number] 08:10:00 Test Item Value Reference Range Interpretation Comments POC-GLUCOSE METER 129 mg/dL 70-110 H TESTED AT [place] [address] ([facility]) (test code = ADWOA Parekh [facility] 1538) [address] RAD, CHEST, 1 VIEW, NON [id number] 07:33:00Reason for exam:->Postop TEVARShould this be performed at the bedside?->YesFINAL REPORT HISTORY : Postop TEVAR. Comparison: 11/12/2017 Comment: Single portable view of the chest was obtained. The cardiac silhouette size is within normal limits. There is a tortuous/ectatic thoracic aorta with a thoracic stent graft in place. No pneumothorax is seen. There is a zpfrr-nzuwymby-hvikj left-sided pleural effusion with some adjacent consolidation. No lytic or blastic abnormalities are seen. Some surgical clips are seen over the left apical region. Signed: Marilu He Verified Date/Time: 11/13/2017 07:33:01 Reading Location: [facility] Radiology Reading Room CALCIUM, [id number] 06:20:00 Test Item Value Reference Range Interpretation Comments CALCIUM IONIZED (BEAKER) (test 1.06 mmol/L 1.12-1.27 L code = 698) PH, BLOOD (BEAKER) (test code = 7.44 1810) Check serum Ionized Calcium level after 4 hours after IV Calcium replacement. [id number] 05:37:00 Test Item Value Reference Range Interpretation Comments PHOSPHORUS (BEAKER) (test code = 3.6 mg/dL 2.3-4.7 604) [id number] 05:37:00 Test Item Value Reference Range Interpretation Comments MAGNESIUM (BEAKER) (test code = 2.0 mg/dL 1.6-2.6 627) BASIC METABOLIC [id number] 05:37:00 Test Item Value Reference Range Interpretation Comments SODIUM (BEAKER) 138 meq/L 136-145 (test code = 381) POTASSIUM (BEAKER) 3.7 meq/L 3.5-5.1 (test code = 379) CHLORIDE (BEAKER) 102 meq/L 98-107 (test code = 382) CO2 (BEAKER) (test 28 meq/L 22-29 code = 355) BLOOD UREA NITROGEN 11 mg/dL 7-21 (BEAKER) (test code = 354) CREATININE (BEAKER) 0.67 mg/dL 0.57-1.25 (test code = 358) GLUCOSE RANDOM 121 mg/dL 70-105 H (BEAKER) (test code = 652) CALCIUM (BEAKER) 8.7 mg/dL 8.4-10.2 (test code = 697) EGFR (BEAKER) (test 87 mL/min/1.73 ESTIMA DEBO GFR IS code = 1092) sq m NOT ACCURATE CREATININE CLEARANCE IN PREDICTING GLOMERULAR FILTRATION RATE . ESTIMATED GFR I S NOT APPLICABLE FOR DIALYSIS PATIEN TS. CBC W/PLT COUNT & AUTO [id number] 05:07:00 Test Item Value Reference Range Interpretation Comments WHITE BLOOD CELL COUNT (BEAKER) 11.0 K/ L 3.5-10.5 H (test code = 775) RED BLOOD CELL COUNT (BEAKER) 2.84 M/ L 3.93-5.22 L (test code = 761) HEMOGLOBIN (BEAKER) (test code = 8.6 GM/DL 11.2-15.7 L 410) HEMATOCRIT (BEAKER) (test code = 27.6 % 34.1-44.9 L 411) MEAN CORPUSCULAR VOLUME (BEAKER) 97.2 fL 79.4-94.8 H (test code = 753) MEAN CORPUSCULAR HEMOGLOBIN 30.3 pg 25.6-32.2 (BEAKER) (test code = 751) MEAN CORPUSCULAR HEMOGLOBIN CONC 31.2 GM/DL 32.2-35.5 L (BEAKER) (test code = 752) RED CELL DISTRIBUTION WIDTH 14.6 % 11.7-14.4 H (BEAKER) (test code = 412) PLATELET COUNT (BEAKER) (test 382 K/CU MM 150-450 code = 756) MEAN PLATELET VOLUME (BEAKER) 10.8 fL 9.4-12.3 (test code = 754) NUCLEATED RED BLOOD CELLS 0 /100 WBC 0-0 (BEAKER) (test code = 413) NEUTROPHILS RELATIVE PERCENT 65 % (BEAKER) (test code = 429) LYMPHOCYTES RELATIVE PERCENT 14 % (BEAKER) (test code = 430) MONOCYTES RELATIVE PERCENT 13 % (BEAKER) (test code = 431) EOSINOPHILS RELATIVE PERCENT 1 % (BEAKER) (test code = 432) BASOPHILS RELATIVE PERCENT 1 % (BEAKER) (test code = 437) NEUTROPHILS ABSOLUTE COUNT 7.20 K/ L 1.56-6.13 H (BEAKER) (test code = 670) LYMPHOCYTES ABSOLUTE COUNT 1.50 K/ L 1.18-3.74 (BEAKER) (test code = 414) MONOCYTES ABSOLUTE COUNT (BEAKER) 1.47 K/ L 0.24-0.36 H (test code = 415) EOSINOPHILS ABSOLUTE COUNT 0.15 K/ L 0.04-0.36 (BEAKER) (test code = 416) BASOPHILS ABSOLUTE COUNT (BEAKER) 0.11 K/ L 0.01-0.08 H (test code = 417) IMMATURE GRANULOCYTES-RELATIVE 5 % 0-1 H PERCENT (BEAKER) (test code = 2801) POCT-GLUCOSE [id number] 21:35:00 Test Item Value Reference Range Interpretation Comments POC-GLUCOSE METER 170 mg/dL 70-110 H TESTED AT [facility] 6720 (BEAKER) (test code = ADWOA [place] 1538) [id number] POCT-GLUCOSE [id number] 17:26:00 Test Item Value Reference Range Interpretation Comments POC-GLUCOSE METER 151 mg/dL 70-110 H TESTED AT [place] [address] ([facility]) (test code = ADWOA Parekh [facility] 1538) [address] POCT-GLUCOSE [id number] 12:31:00 Test Item Value Reference Range Interpretation Comments POC-GLUCOSE METER 170 mg/dL 70-110 H TESTED AT [place] [address] ([facility]) (test code = ADWOA Parekh [facility] 1538) [address] RAD, CHEST, 1 VIEW, NON [id number] 08:51:00Reason for exam:->Postop TEVARShould this be performed at the bedside?->YesFINAL REPORT Portable chest. CLINICAL HISTORY: Postop TEVAR. COMPARISON STUDY: R eport from prior day. FINDINGS: The cardiac silhouette is enlarged. The pulmonary parenchyma demonstrates increased interstitial markings with atelectasis or consolidation left lung base and a ytii-ys-vpmaflip effusion. An aortic stent graft is seen. There is no pneumothorax. Clips project over the lef t upper thorax. Degenerative changes are noted. IMPRESSION: Interstitial markings with atelectasis or consolidation in the left lung base and mild to moderate effusion. Signed: Leila Flores MDReportVerified Date/Time: 11/12/2017 08:51:59 Reading Location: [address] Consult Reading Room POCT- GLUCOSE [id number] 08:16:00 Test Item Value Reference Range Interpretation Comments POC-GLUCOSE METER 133 mg/dL 70-110 H TESTED AT [place] [address] ([facility]) (test code = ADWOA Parekh [facility] 1538) [id number] CALCIUM, [id number] 05:55:00 Test Item Value Reference Range Interpretation Comments CALCIUM IONIZED ([facility]) (test 1.09 mmol/L 1.12-1.27 L code = 698) PH, BLOOD ([facility]) (test code = 7.45 1810) Check serum Ionized Calcium level after 4 hours after IV Calcium replacement. [id number] 05:18:00 Test Item Value Reference Range Interpretation Comments PHOSPHORUS (BEAKER) (test code = 2.9 mg/dL 2.3-4.7 604) [id number] 05:18:00 Test Item Value Reference Range Interpretation Comments MAGNESIUM (BEAKER) (test code = 1.9 mg/dL 1.6-2.6 627) BASIC METABOLIC [id number] 05:18:00 Test Item Value Reference Range Interpretation Comments SODIUM (BEAKER) 139 meq/L 136-145 (test code = 381) POTASSIUM (BEAKER) 4.2 meq/L 3.5-5.1 (test code = 379) CHLORIDE (BEAKER) 104 meq/L 98-107 (test code = 382) CO2 (BEAKER) (test 27 meq/L 22-29 code = 355) BLOOD UREA NITROGEN 12 mg/dL 7-21 (BEAKER) (test code = 354) CREATININE (BEAKER) 0.60 mg/dL 0.57-1.25 (test code = 358) GLUCOSE RANDOM 130 mg/dL 70-105 H (BEAKER) (test code = 652) CALCIUM (BEAKER) 9.0 mg/dL 8.4-10.2 (test code = 697) EGFR (BEAKER) (test 99 mL/min/1.73 ESTIMA DEBO GFR IS code = 1092) sq m NOT ACCURATE CREATININE CLEARANCE IN PREDICTING GLOMERULAR FILTRATION RATE . ESTIMATED GFR I S NOT APPLICABLE FOR DIALYSIS PATIEN TS. CBC W/PLT COUNT & AUTO [id number] 04:57:00 Test Item Value Reference Range Interpretation Comments WHITE BLOOD CELL COUNT (BEAKER) 9.9 K/ L 3.5-10.5 (test code = 775) RED BLOOD CELL COUNT (BEAKER) 2.81 M/ L 3.93-5.22 L (test code = 761) HEMOGLOBIN (BEAKER) (test code = 8.5 GM/DL 11.2-15.7 L 410) HEMATOCRIT (BEAKER) (test code = 27.4 % 34.1-44.9 L 411) MEAN CORPUSCULAR VOLUME (BEAKER) 97.5 fL 79.4-94.8 H (test code = 753) MEAN CORPUSCULAR HEMOGLOBIN 30.2 pg 25.6-32.2 (BEAKER) (test code = 751) MEAN CORPUSCULAR HEMOGLOBIN CONC 31.0 GM/DL 32.2-35.5 L (BEAKER) (test code = 752) RED CELL DISTRIBUTION WIDTH 14.7 % 11.7-14.4 H (BEAKER) (test code = 412) PLATELET COUNT (BEAKER) (test 337 K/CU MM 150-450 code = 756) MEAN PLATELET VOLUME (BEAKER) 10.8 fL 9.4-12.3 (test code = 754) NUCLEATED RED BLOOD CELLS 0 /100 WBC 0-0 (BEAKER) (test code = 413) NEUTROPHILS RELATIVE PERCENT 69 % (BEAKER) (test code = 429) LYMPHOCYTES RELATIVE PERCENT 11 % (BEAKER) (test code = 430) MONOCYTES RELATIVE PERCENT 11 % (BEAKER) (test code = 431) EOSINOPHILS RELATIVE PERCENT 2 % (BEAKER) (test code = 432) BASOPHILS RELATIVE PERCENT 1 % (BEAKER) (test code = 437) NEUTROPHILS ABSOLUTE COUNT 6.88 K/ L 1.56-6.13 H (BEAKER) (test code = 670) LYMPHOCYTES ABSOLUTE COUNT 1.06 K/ L 1.18-3.74 L (BEAKER) (test code = 414) MONOCYTES ABSOLUTE COUNT (BEAKER) 1.12 K/ L 0.24-0.36 H (test code = 415) EOSINOPHILS ABSOLUTE COUNT 0.16 K/ L 0.04-0.36 (BEAKER) (test code = 416) BASOPHILS ABSOLUTE COUNT (BEAKER) 0.07 K/ L 0.01-0.08 (test code = 417) IMMATURE GRANULOCYTES-RELATIVE 6 % 0-1 H PERCENT (BEAKER) (test code = 2801) [id number] 04:56:00 Test Item Value Reference Range Interpretation Comments PARTIAL THROMBOPLASTIN TIME 35.4 seconds 22.5-36.0 (BEAKER) (test code = 760) PROTHROMBIN [id number] 04:55:00 Test Item Value Reference Range Interpretation Comments PROTIME (BEAKER) (test code = 15.6 seconds 11.7-14.7 H 759) INR (BEAKER) (test code = 370) 1.2 <=5.9 RECOMMENDED COUMADIN/WARFARIN INR THERAPY RANGESSTANDARD DOSE: 2.0 - 3.0 Includes: PROPHYLAXIS for venous thrombosis, systemic embolization; TREATMENT for venous thrombosis and/or pulmonary embolus.HIGH RISK: Target INR is 2.5-3.5 for patients with mechanical heart valves.CBC W/PLT COUNT & AUTO [id number] 02:39:00 Test Item Value Reference Range Interpretation Comments WHITE BLOOD CELL COUNT 11.5 K/ L 3.5-10.5 H (BEAKER) (test code = 775) RED BLOOD CELL COUNT 2.97 M/ L 3.93-5.22 L (BEAKER) (test code = 761) HEMOGLOBIN (BEAKER) 9.1 GM/DL 11.2-15.7 L (test code = 410) HEMATOCRIT (BEAKER) 29.8 % 34.1-44.9 L (test code = 411) MEAN CORPUSCULAR VOLUME 100.3 fL 79.4-94.8 H (BEAKER) (test code = 753) MEAN CORPUSCULAR 30.6 pg 25.6-32.2 HEMOGLOBIN (BEAKER) (test code = 751) MEAN CORPUSCULAR 30.5 GM/DL 32.2-35.5 L HEMOGLOBIN CONC (BEAKER) (test code = 752) RED CELL DISTRIBUTION 14.7 % 11.7-14.4 H WIDTH (BEAKER) (test code = 412) PLATELET COUNT (BEAKER) 272 K/CU MM 150-450 This is a corrected (test code = 756) result. Pr evious result was 218 K/CU MM on 11/12/2017 at 0016 CDT MEAN PLATELET VOLUME 11.4 fL 9.4-12.3 (BEAKER) (test code = 754) NUCLEATED RED BLOOD 0 /100 WBC 0-0 CELLS (BEAKER) (test code = 413) NEUTROPHILS RELATIVE 69 % PERCENT (BEAKER) (test code = 429) LYMPHOCYTES RELATIVE 12 % PERCENT (BEAKER) (test code = 430) MONOCYTES RELATIVE 11 % PERCENT (BEAKER) (test code = 431) EOSINOPHILS RELATIVE 1 % PERCENT (BEAKER) (test code = 432) BASOPHILS RELATIVE 1 % PERCENT (BEAKER) (test code = 437) NEUTROPHILS ABSOLUTE 7.89 K/ L 1.56-6.13 H COUNT (BEAKER) (test code = 670) LYMPHOCYTES ABSOLUTE 1.34 K/ L 1.18-3.74 COUNT (BEAKER) (test code = 414) MONOCYTES ABSOLUTE 1.31 K/ L 0.24-0.36 H COUNT (BEAKER) (test code = 415) EOSINOPHILS ABSOLUTE 0.15 K/ L 0.04-0.36 COUNT (BEAKER) (test code = 416) BASOPHILS ABSOLUTE 0.10 K/ L 0.01-0.08 H COUNT (BEAKER) (test code = 417) IMMATURE 6 % 0-1 H GRANULOCYTES-RELATIVE PERCENT (BEAKER) (test code = 2801) COMPREHENSIVE METABOLIC [id number] 00:25:00 Test Item Value Reference Range Interpretation Comments TOTAL PROTEIN 5.6 gm/dL 6.0-8.3 L (BEAKER) (test code = 770) ALBUMIN (BEAKER) 2.9 g/dL 3.5-5.0 L (test code = 1145) ALKALINE PHOSPHATASE 88 U/L 40-150 (BEAKER) (test code = 346) BILIRUBIN TOTAL 0.7 mg/dL 0.2-1.2 (BEAKER) (test code = 377) SODIUM (BEAKER) (test 139 meq/L 136-145 code = 381) POTASSIUM (BEAKER) 4.3 meq/L 3.5-5.1 (test code = 379) CHLORIDE (BEAKER) 105 meq/L 98-107 (test code = 382) CO2 (BEAKER) (test 29 meq/L 22-29 code = 355) BLOOD UREA NITROGEN 14 mg/dL 7-21 (BEAKER) (test code = 354) CREATININE (BEAKER) 0.65 mg/dL 0.57-1.25 (test code = 358) GLUCOSE RANDOM 124 mg/dL 70-105 H (BEAKER) (test code = 652) CALCIUM (BEAKER) 8.7 mg/dL 8.4-10.2 (test code = 697) AST (SGOT) (BEAKER) 95 U/L 5-34 H (test code = 353) ALT (SGPT) (BEAKER) 103 U/L 6-55 H (test code = 347) EGFR (BEAKER) (test 90 mL/min/1.73 ESTIMA DEBO GFR IS code = 1092) sq m NOT ACCURATE CREATININE CLEARANCE IN PREDICTING GLOMERULAR FILTRATION RATE . ESTIMATED GFR I S NOT APPLICABLE FOR DIALYSIS PATIEN TS. LACTIC ACID, VENOUS, WHOLE [id number] 00:17:00 Test Item Value Reference Range Interpretation Comments LACTATE BLOOD VENOUS (2) ([facility]) 1.0 mmol/L 0.5-2.2 (test code = 2872) Effective 07/22/2015: Units/Reference Range ChangeNew: 0.5-2.2 mmol/L Previous: 5- 20 mg/dLPOCT-GLUCOSE [id number] 00:01:00 Test Item Value Reference Range Interpretation Comments POC-GLUCOSE METER 151 mg/dL 70-110 H TESTED AT [place] [address] ([facility]) (test code = ADWOA Parekh [facility] 1538) [id number] POCT-GLUCOSE [id number] 21:32:00 Test Item Value Reference Range Interpretation Comments POC-GLUCOSE METER 170 mg/dL 70-110 H TESTED AT [place] [address] ([facility]) (test code = ADWOA Parekh [facility] 1538) [id number] POCT-GLUCOSE [id number] 17:07:00 Test Item Value Reference Range Interpretation Comments POC-GLUCOSE METER 164 mg/dL 70-110 H TESTED AT [place] [address] ([facility]) (test code = ADWOA Parekh [facility] 1538) [id number] POCT-GLUCOSE [id number] 12:41:00 Test Item Value Reference Range Interpretation Comments POC-GLUCOSE METER 149 mg/dL 70-110 H TESTED AT [place] [address] ([facility]) (test code = ADWOA Parekh [facility] 1538) [address] RAD, CHEST, 1 VIEW, NON [id number] 07:54:00Reason for exam:->Postop TEVARShould this be performed at the bedside?->YesFINAL REPORT INDICATION: Postop TEVAR TECHNIQUE: Chest radiograph, single view, portable technique. FINDINGS / IMPRESSION: Aortic arch and descending aortic endograft and left subclavian surgical clips again noted. Moderate left pleural effusion unchanged. There is pulmonary venous congestion without overt pulmonary edema. Right internal jugular line terminates at the cavoatrial junction. No pneumothorax. Signed: Bulmaro Fontenot MDReport Verified Date/Time: 11/11/2017 07:54:03 Reading Location: [address] Consult Reading Room IUM, [id number] 04:00:00 Test Item Value Reference Range Interpretation Comments CALCIUM IONIZED (BEAKER) (test 1.14 mmol/L 1.12-1.27 code = 698) PH, BLOOD (BEAKER) (test code = 7.43 1810) Check serum Ionized Calcium level after 4 hours after IV Calcium replacement. [id number] 03:39:00 Test Item Value Reference Range Interpretation Comments PHOSPHORUS (BEAKER) (test code = 3.2 mg/dL 2.3-4.7 604) [id number] 03:39:00 Test Item Value Reference Range Interpretation Comments MAGNESIUM (BEAKER) (test code = 1.9 mg/dL 1.6-2.6 627) BASIC METABOLIC [id number] 03:39:00 Test Item Value Reference Range Interpretation Comments SODIUM (BEAKER) 137 meq/L 136-145 (test code = 381) POTASSIUM (BEAKER) 3.7 meq/L 3.5-5.1 (test code = 379) CHLORIDE (BEAKER) 102 meq/L 98-107 (test code = 382) CO2 (BEAKER) (test 28 meq/L 22-29 code = 355) BLOOD UREA NITROGEN 21 mg/dL 7-21 (BEAKER) (test code = 354) CREATININE (BEAKER) 0.66 mg/dL 0.57-1.25 (test code = 358) GLUCOSE RANDOM 116 mg/dL 70-105 H (BEAKER) (test code = 652) CALCIUM (BEAKER) 8.7 mg/dL 8.4-10.2 (test code = 697) EGFR (BEAKER) (test 89 mL/min/1.73 ESTIMA DEBO GFR IS code = 1092) sq m NOT ACCURATE CREATININE CLEARANCE IN PREDICTING GLOMERULAR FILTRATION RATE . ESTIMATED GFR I S NOT APPLICABLE FOR DIALYSIS PATIEN TS. [id number] 03:21:00 Test Item Value Reference Range Interpretation Comments PARTIAL THROMBOPLASTIN TIME 35.0 seconds 22.5-36.0 (BEAKER) (test code = 760) PROTHROMBIN [id number] 03:20:00 Test Item Value Reference Range Interpretation Comments PROTIME (BEAKER) (test code = 15.1 seconds 11.7-14.7 H 759) INR (BEAKER) (test code = 370) 1.2 <=5.9 RECOMMENDED COUMADIN/WARFARIN INR THERAPY RANGESSTANDARD DOSE: 2.0 - 3.0 Includes: PROPHYLAXIS for venous thrombosis, systemic embolization; TREATMENT for venous thrombosis and/or pulmonary embolus.HIGH RISK: Target INR is 2.5-3.5 for patients with mechanical heart valves.CBC W/PLT COUNT & AUTO [id number] 03:05:00 Test Item Value Reference Range Interpretation Comments WHITE BLOOD CELL COUNT (BEAKER) 9.8 K/ L 3.5-10.5 (test code = 775) RED BLOOD CELL COUNT (BEAKER) 2.65 M/ L 3.93-5.22 L (test code = 761) HEMOGLOBIN (BEAKER) (test code = 8.0 GM/DL 11.2-15.7 L 410) HEMATOCRIT (BEAKER) (test code = 25.7 % 34.1-44.9 L 411) MEAN CORPUSCULAR VOLUME (BEAKER) 97.0 fL 79.4-94.8 H (test code = 753) MEAN CORPUSCULAR HEMOGLOBIN 30.2 pg 25.6-32.2 (BEAKER) (test code = 751) MEAN CORPUSCULAR HEMOGLOBIN CONC 31.1 GM/DL 32.2-35.5 L (BEAKER) (test code = 752) RED CELL DISTRIBUTION WIDTH 15.0 % 11.7-14.4 H (BEAKER) (test code = 412) PLATELET COUNT (BEAKER) (test 274 K/CU MM 150-450 code = 756) MEAN PLATELET VOLUME (BEAKER) 10.9 fL 9.4-12.3 (test code = 754) NUCLEATED RED BLOOD CELLS 0 /100 WBC 0-0 (BEAKER) (test code = 413) NEUTROPHILS RELATIVE PERCENT 72 % (BEAKER) (test code = 429) LYMPHOCYTES RELATIVE PERCENT 11 % (BEAKER) (test code = 430) MONOCYTES RELATIVE PERCENT 10 % (BEAKER) (test code = 431) EOSINOPHILS RELATIVE PERCENT 1 % (BEAKER) (test code = 432) BASOPHILS RELATIVE PERCENT 1 % (BEAKER) (test code = 437) NEUTROPHILS ABSOLUTE COUNT 7.00 K/ L 1.56-6.13 H (BEAKER) (test code = 670) LYMPHOCYTES ABSOLUTE COUNT 1.07 K/ L 1.18-3.74 L (AKER) (test code = 414) MONOCYTES ABSOLUTE COUNT (AKER) 1.01 K/ L 0.24-0.36 H (test code = 415) EOSINOPHILS ABSOLUTE COUNT 0.14 K/ L 0.04-0.36 (AKER) (test code = 416) BASOPHILS ABSOLUTE COUNT (AKER) 0.06 K/ L 0.01-0.08 (test code = 417) IMMATURE GRANULOCYTES-RELATIVE 5 % 0-1 H PERCENT ([facility]) (test code = 2801) POCT-GLUCOSE [id number] 22:23:00 Test Item Value Reference Range Interpretation Comments POC-GLUCOSE METER 123 mg/dL 70-110 H TESTED AT [facility] 6720 ([facility]) (test code = [employer] [facility] 1538) [id number] POCT-GLUCOSE [id number] 18:21:00 Test Item Value Reference Range Interpretation Comments POC-GLUCOSE METER 189 mg/dL 70-110 H TESTED AT [place] [address] ([facility]) (test code = [employer] [facility] 1538) [id number] CTA, CHEST, ABDOMEN - PELVIS, FOR [id number] 16:08:00Starting from [facility] for exam:->TEVAR follow-up, starting from [place] visualize left subclavian carotid bypass and stentStarting from [facility] NaplesAddendum BeginsREPORT STATUS:A ADDENDUM: Study reviewed by radiology. Agree with the nonvascular findings as described below. Signed: Clayton Robbins MDReport Verified Date/Time: 11/10/2017 16:08:24 Reading Location: [facility] B1 P048 Angio Body Reading RoomAddendum EndsFINAL REPORT CT angiography of the thoracoabdominal aorta and pelvic arteries, 10 November 2017 INDICATION: This is a 72 year old female with endostent placement presents for follow-up assessment. This study is performed in an attempt to avoid an invasive procedure. Last examination was performed a few days ago. 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 TECHNIQUE: Spiral acquisition before and during intravenous contrast administration using a Kylah CT scanner. Images were obtained before and during the dynamic passage of intravenous contrast material. Multi-planar 3-D volume-rendering reconstruction was performed using an independent workstation interactively by the interpreting physician as well as the 3-D specialist for optimal visualisation of the thoracoabdominal aorta, the pelvic arteries as well as its proximal branches. ECG gating was not utilised to minimize radiation exposure to patient. Please refer to the contrast sheet scanned in the EPIC system for the amount and route of contrast given. This exam was performed according to our departmentaldose-optimisation programme, which includes automated exposure control, adjustment of the mA and/or kV according to patient size and/or use of iterative reconstruction technique. Dose modulation, iterative reconstruction, and/or weight based adjustment of the mA/kV was utilized to reduce the radiation dose to as low as reasonably achievable. FINDINGS: VASCULAR: The central pulmonary artery is normal in calibre. The cardiac chambers demonstrate normal atrioventricular and ventriculoarterial concordance, and systemic and pulmonary venous return. The left ventricle is normal in size. Whilst this is a nongated study, the coronary artery origins are well seen and the coronary artery origins are widely patent including the left main and the RCA. In fact, in the available images, no obvious coronary artery calcification is appreciated. No pericardial effusion is seen. When compared to prior examination, the status of the aortic root and ascending thoracic aorta remains unchanged. Since last examination, an extra segment of endostent is placed, starting immediately distal to the innominate artery, extending through the transverse arch, into the distal descending thoracic aorta. In the last examination, endostent is already been present in the descending thoracic aorta. The new segment of the stent is well opposed to the transverse arch, and no endoleak is appreciated at this level. A short vascularstent is present, commencing through the endostent into the proximal left common carotid artery and the left common carotid artery is well enhanced by contrast and no in-stent stenosis identified. Archvessel branching pattern is normal. The innominate artery, the right common carotid and the right subclavian artery is well enhanced by contrast. 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 Due to the placement of the endostent, the proximal vertical segment of the left subclavian artery is not well enhanced by contrast, however, there is interval placement of a vascular graft placed between the left common carotid artery and the mid left subclavian artery and and this graft is widely patent and thereafter remainder of the mid and distal left subclavian artery is widely patent. Immediately distal to the endostent, residual dissection is id entified, extending down into the abdominal aorta, and terminates into the origin of the left SFA involving the entire left pelvic vasculature is an sparing the right pelvic vasculature. The appearanceremains unchanged when compared to prior examination. With the presence of residual dissection, contr ast is seen filling from the false lumen and travels cranially, and there is well explain the presence of contrast is seen inside the [place] descending thoracic aorta, outside the endostent. This should not be regarded as endoleak and hopefully in future examination, the false lumen will be thrombosed. Presumably, this can also explain why the proximal left subclavian artery is still enhanced by contrast though a short segment. The coeliac axis, SMA, and the right renal artery all arise from the true lumen of the dissection and they are widely patent and the left renal artery and LETA arise from thefalse lumen of the dissection and is also patent. Quantitative dimensions of the aorta: Not measured. See prior dictation for details. A central venous catheter is identified, with tip in the distal SVC. NONVASCULAR: THYROID GLAND: Appearance unchanged from prior examination Assessment of the lower neck structures are limited, though no gross abnormality is seen. CHEST WALL AND MEDIASTINUM: Appearance remains unchanged. Tiny lymph nodes are seen. Single right breast implant is present. LUNGS: No obvious endobronchial lesion is seen. Bilateral pleural effusion is identified, moderate in nature in the left with associated atelectatic changes/consolidation, and there is mild pleural effusion in the ri ght, associated atelectatic changes present. The pulmonary vasculature appears to be mildly prominent suggesting mild cardiac congestion. Correlate clinically. Airspace disease is identified in the posterior aspect of the right upper lobe, adjacent to the fissure, that is new finding. Correlate clinically if patient have any respiratory symptoms/infective symptoms. No pneumothorax is identified. Overall, no suspicious pulmonary nodule is identified. LIVER AND SPLEEN: No interval change in appearanceis identified. Small hypodensity is still seen in the right hepatic lobe. 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 Intermediate cystic structure is identified adjacent to the gallbladder fossa, at image 235, already been described in the addendum in prior dictation, with no enhancement after contrast administration. GALLBLADDER: Prior cholecystectomy ADRENAL GLANDS AND PANCREAS: Unchanged in appearance KIDNEYS: Unchanged appearance. Improved in perfusion of the lower pole of the left kidney is identified in this current examination, however, in this current examination, the data is acquired somewhat later, as the false lumen is not well enhanced by contrast in the abdominal aortic level. BOWEL: Incompletely assessed. No interval in appearance is isaiah ntified. Diverticular disease with no evidence of acute diverticulitis. Surgical artefact is seen inthe lower anterior abdominal wall that may represent sequelae of prior hernia repair. Correlate withoperative report. There is no free air or free fluid is identified except for trace presacral oedema. Peña catheter is seen in the bladder. BUS ASSISTANT STRUCTURES: No interval change BONY STRUCTURES: No interval change. Focal calcification identified anterior to the left femoral head image 48, no difference to prior examination. Fusion of L3/L4 level is identified. Surgical material is identified anterior to the cervical vertebral body; correlate with operative report. Some deformity changes are seen in both groins, that may represent prior intervention. Surgical clips are seen anterior to the left SFA. CONCLUSIONS: 1. Appearance of the ascending thoracic aorta and transverse arch remains unchanged. Since last examination, the endostent is placed, commencing immediately distal to the takeoff of the innom inate artery, extending through the transverse arch. This segment of the endostent is well-positioned, no endoleak is identified. A vascular stent is placed with the endostent into the proximal left common carotid artery and the stent is widely patent with no in-stent stenosis identified. 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 Due to the presence of an endostent, part of the left subclavian artery is no longer enhance bycontrast and there is interval placement of a graft between the left common carotid artery and the mid left subclavian artery and this graft is widely patent with no anastomotic stenosis identified andremainder of the left subclavian artery is widely patent. The endostent is already placed in the descending thoracic aorta in the appearance remains unchanged, with residual dissection seen in the abdominal aorta involving the entire left pelvic vasculature which and spares the right pelvic vasculature. The pelvic arteries are widely patent. The renal arteries the mesenteric arteries are well enhanced by contrast. See above for details. 2. Coronary artery origins are well seen and no coronary arterycalcification is identified. 3. Pulmonary findings as described above, with bilateral pleural effusion left greater than right. Pulmonary vasculature is somewhat prominent suggesting a degree of cardiac congestion. Small amounts of air space is identified in the posterior aspect of the right upper lobe; please correlate clinically. An addendum will be dictated thereafter, if needed. 4. Other findingsas described above. 5. An addendum will be dictated regarding the non- vascular findings by the [employer] History Professor Radiologist. Signed: Tushar Helms MDReport Verified Date/Time: 11/10/2017 11:02:31 Reading Location: [place] [address] Cardiology MRI 04: 08 PMPOCT-GLUCOSE [id number] 12:12:00 Test Item Value Reference Range Interpretation Comments POC-GLUCOSE METER 103 mg/dL 70-110 TESTED AT [facility] 6720 ([facility]) (test code = ADWOA REND[place] 1538) [id number] RAD, CHEST, 1 VIEW, NON [id number] 07:54:00Reason for exam:->Postop TEVARShould this be performed at the bedside?->YesFINAL REPORT HISTORY : Postop TEVAR. Comparison: 11/09/2017 Comment: Single portable view of the chest was obtained. The cardiac silhouette size is enlarged. There is a tortuous/ectatic thoracic aorta with a thoracic aortic stent graft in place. There is a stable right-sided internal jugular venous catheter in place. No pneumothorax is seen. There is a moderate sized left-sided pleural effusion with some adjacent consolidation. There are findings of pulmonary venous congestion. Some interstitial prominence may represent interstitial edema. Signed: Marilu He MDReport Verified Date/Time: 11/10/2017 07:54:50 Reading Location: [facility] Diagnostic Imaging Reading Room - [place] [address] [id number] 05:13:00 Test Item Value Reference Range Interpretation Comments PHOSPHORUS (MARY) (test code = 4.1 mg/dL 2.3-4.7 604) [id number] 05:13:00 Test Item Value Reference Range Interpretation Comments MAGNESIUM (BEAKER) (test code = 2.1 mg/dL 1.6-2.6 627) BASIC METABOLIC [id number] 05:13:00 Test Item Value Reference Range Interpretation Comments SODIUM (BEAKER) 137 meq/L 136-145 (test code = 381) POTASSIUM (BEAKER) 3.8 meq/L 3.5-5.1 (test code = 379) CHLORIDE (BEAKER) 102 meq/L 98-107 (test code = 382) CO2 (BEAKER) (test 25 meq/L 22-29 code = 355) BLOOD UREA NITROGEN 23 mg/dL 7-21 H (BEAKER) (test code = 354) CREATININE (BEAKER) 0.72 mg/dL 0.57-1.25 (test code = 358) GLUCOSE RANDOM 116 mg/dL 70-105 H (BEAKER) (test code = 652) CALCIUM (BEAKER) 9.1 mg/dL 8.4-10.2 (test code = 697) EGFR (BEAKER) (test 80 mL/min/1.73 ESTIMA DEBO GFR IS code = 1092) sq m NOT ACCURATE CREATININE CLEARANCE IN PREDICTING GLOMERULAR FILTRATION RATE . ESTIMATED GFR I S NOT APPLICABLE FOR DIALYSIS PATIEN SOSA. [id number] 04:50:00 Test Item Value Reference Range Interpretation Comments PARTIAL THROMBOPLASTIN TIME 35.0 seconds 22.5-36.0 (BEAKER) (test code = 760) PROTHROMBIN [id number] 04:49:00 Test Item Value Reference Range Interpretation Comments PROTIME (BEAKER) (test code = 16.4 seconds 11.7-14.7 H 759) INR (BEAKER) (test code = 370) 1.3 <=5.9 RECOMMENDED COUMADIN/WARFARIN INR THERAPY RANGESSTANDARD DOSE: 2.0 - 3.0 Includes: PROPHYLAXIS for venous thrombosis, systemic embolization; TREATMENT for venous thrombosis and/or pulmonary embolus.HIGH RISK: Target INR is 2.5-3.5 for patients with mechanical heart valves.CBC W/PLT COUNT & AUTO [id number] 04:44:00 Test Item Value Reference Range Interpretation Comments WHITE BLOOD CELL COUNT (BEAKER) 11.8 K/ L 3.5-10.5 H (test code = 775) RED BLOOD CELL COUNT (BEAKER) 2.78 M/ L 3.93-5.22 L (test code = 761) HEMOGLOBIN (BEAKER) (test code = 8.5 GM/DL 11.2-15.7 L 410) HEMATOCRIT (BEAKER) (test code = 26.3 % 34.1-44.9 L 411) MEAN CORPUSCULAR VOLUME (BEAKER) 94.6 fL 79.4-94.8 (test code = 753) MEAN CORPUSCULAR HEMOGLOBIN 30.6 pg 25.6-32.2 (BEAKER) (test code = 751) MEAN CORPUSCULAR HEMOGLOBIN CONC 32.3 GM/DL 32.2-35.5 (BEAKER) (test code = 752) RED CELL DISTRIBUTION WIDTH 15.3 % 11.7-14.4 H (BEAKER) (test code = 412) PLATELET COUNT (BEAKER) (test 272 K/CU MM 150-450 code = 756) MEAN PLATELET VOLUME (BEAKER) 11.0 fL 9.4-12.3 (test code = 754) NUCLEATED RED BLOOD CELLS 0 /100 WBC 0-0 (BEAKER) (test code = 413) NEUTROPHILS RELATIVE PERCENT 74 % (BEAKER) (test code = 429) LYMPHOCYTES RELATIVE PERCENT 10 % (BEAKER) (test code = 430) MONOCYTES RELATIVE PERCENT 10 % (BEAKER) (test code = 431) EOSINOPHILS RELATIVE PERCENT 1 % (BEAKER) (test code = 432) BASOPHILS RELATIVE PERCENT 1 % (BEAKER) (test code = 437) NEUTROPHILS ABSOLUTE COUNT 8.70 K/ L 1.56-6.13 H (BEAKER) (test code = 670) LYMPHOCYTES ABSOLUTE COUNT 1.18 K/ L 1.18-3.74 (BEAKER) (test code = 414) MONOCYTES ABSOLUTE COUNT (BEAKER) 1.22 K/ L 0.24-0.36 H (test code = 415) EOSINOPHILS ABSOLUTE COUNT 0.10 K/ L 0.04-0.36 (BEAKER) (test code = 416) BASOPHILS ABSOLUTE COUNT (BEAKER) 0.07 K/ L 0.01-0.08 (test code = 417) IMMATURE GRANULOCYTES-RELATIVE 4 % 0-1 H PERCENT (BEAKER) (test code = 4981) CALCIUM, [id number] 04:37:00 Test Item Value Reference Range Interpretation Comments CALCIUM IONIZED (BEAKER) (test 1.06 mmol/L 1.12-1.27 L code = 698) PH, BLOOD (BEAKER) (test code = 7.51 1810) Check serum Ionized Calcium level after 4 hours after IV Calcium replacement. POCT-GLUCOSE [id number] 22:56:00 Test Item Value Reference Range Interpretation Comments POC-GLUCOSE METER 132 mg/dL 70-110 H TESTED AT [facility] 67 (BEAKER) (test code = [facility] Izabella [facility] 1538) [id number] POCT-GLUCOSE [id number] 19:01:00 Test Item Value Reference Range Interpretation Comments POC-GLUCOSE METER 160 mg/dL 70-110 H TESTED AT [place] [address] ([facility]) (test code = [facility] 1538) [address] [id number] 17:32:00 Test Item Value Reference Range Interpretation Comments MAGNESIUM (BEAKER) 2.5 mg/dL 1.6-2.6 Specimen slightly (test code = 627) hemolyzed Check Serum Phosphorus level 4 hours after IV phosphorus replacement or 8 hours after PO replacementcompleted.Check Serum Potassium level 2 hours after oral potassium replacement completed or 30 min after intravenous potassium replacement.[id number] 17:32:00 Test Item Value Reference Range Interpretation Comments PHOSPHORUS (BEAKER) 3.4 mg/dL 2.3-4.7 Specimen slightly (test code = 604) hemolyzed Check Serum Phosphorus level 4 hours after IV phosphorus replacement or 8 hours after PO replacementcompleted.Check Serum Potassium level 2 hours after oral potassium replacement completed or 30 min after intravenous potassium replacement.[id number] 17:32:00 Test Item Value Reference Range Interpretation Comments POTASSIUM (BEAKER) 3.7 meq/L 3.5-5.1 Specimen slightly (test code = 379) hemolyzed Check Serum Phosphorus level 4 hours after IV phosphorus replacement or 8 hours after PO replacementcompleted.Check Serum Potassium level 2 hours after oral potassium replacement completed or 30 min after intravenous potassium replacement.CBC W/PLT COUNT & AUTO [id number] 16:58:00 Test Item Value Reference Range Interpretation Comments WHITE BLOOD CELL COUNT (BEAKER) 13.6 K/ L 3.5-10.5 H (test code = 775) RED BLOOD CELL COUNT (BEAKER) 3.06 M/ L 3.93-5.22 L (test code = 761) HEMOGLOBIN (BEAKER) (test code = 9.5 GM/DL 11.2-15.7 L 410) HEMATOCRIT (BEAKER) (test code = 28.7 % 34.1-44.9 L 411) MEAN CORPUSCULAR VOLUME (BEAKER) 93.8 fL 79.4-94.8 (test code = 753) MEAN CORPUSCULAR HEMOGLOBIN 31.0 pg 25.6-32.2 (BEAKER) (test code = 751) MEAN CORPUSCULAR HEMOGLOBIN CONC 33.1 GM/DL 32.2-35.5 (BEAKER) (test code = 752) RED CELL DISTRIBUTION WIDTH 15.3 % 11.7-14.4 H (BEAKER) (test code = 412) PLATELET COUNT (BEAKER) (test 296 K/CU MM 150-450 code = 756) MEAN PLATELET VOLUME (BEAKER) 11.1 fL 9.4-12.3 (test code = 754) NUCLEATED RED BLOOD CELLS 0 /100 WBC 0-0 (BEAKER) (test code = 413) NEUTROPHILS RELATIVE PERCENT 80 % (BEAKER) (test code = 429) LYMPHOCYTES RELATIVE PERCENT 7 % (BEAKER) (test code = 430) MONOCYTES RELATIVE PERCENT 8 % (BEAKER) (test code = 431) EOSINOPHILS RELATIVE PERCENT 1 % (BEAKER) (test code = 432) BASOPHILS RELATIVE PERCENT 0 % (BEAKER) (test code = 437) NEUTROPHILS ABSOLUTE COUNT 10.77 K/ L 1.56-6.13 H (BEAKER) (test code = 670) LYMPHOCYTES ABSOLUTE COUNT 0.91 K/ L 1.18-3.74 L (BEAKER) (test code = 414) MONOCYTES ABSOLUTE COUNT (BEAKER) 1.08 K/ L 0.24-0.36 H (test code = 415) EOSINOPHILS ABSOLUTE COUNT 0.10 K/ L 0.04-0.36 (BEAKER) (test code = 416) BASOPHILS ABSOLUTE COUNT (BEAKER) 0.05 K/ L 0.01-0.08 (test code = 417) IMMATURE GRANULOCYTES-RELATIVE 5 % 0-1 H PERCENT (BEAKER) (test code = 2801) POCT-GLUCOSE [id number] 12:40:00 Test Item Value Reference Range Interpretation Comments POC-GLUCOSE METER 140 mg/dL 70-110 H TESTED AT [facility] 6720 (MARY) (test code = ADWO[facility] Parekh [place] 1538) [id number] POCT-GLUCOSE [id number] 08:21:00 Test Item Value Reference Range Interpretation Comments POC-GLUCOSE METER 146 mg/dL 70-110 H TESTED AT [facility] 6720 ([facility]) (test code = ADWO[facility] Parekh [facility] 1538) [address] RAD, CHEST, 1 VIEW, NON [id number] 04:42:00Reason for exam:->Postop TEVARShould this be performed at the bedside?->YesFINAL REPORT EXAMINATION: AP PORTABLE CHEST RADIOGRAPH CLINICAL INDICATION: Pleural effusion IMPRESSION: Compared with 11/08/2017 The bilateral pleural effusions are stable. The adjacent basilar lung consolidation is also relatively unchanged. Although a component of atelectasis isfavored, superimposed pulmonary edema should also be considered. The heart is mildly enlarged but stable. Mediastinal contours are unchanged. Aortic stent graft and right jugular central line are againnoted. No evidence of a pneumothorax. In summary, no significant interval change. Recommend clinicalcorrelation regarding fluid overload-heart failure. Signed: Freddy Guthrieepcarrington Verified Date/Time: 11/09/2017 04:42:01 Reading Location: [address] Reading Room CBC W/PLT COUNT & AUTO DIFFERENTIAL 2017-11-09 04:32:00 Test Item Value Reference Range Interpretation Comments WHITE BLOOD CELL COUNT (BEAKER) 10.7 K/ L 3.5-10.5 H (test code = 775) RED BLOOD CELL COUNT (BEAKER) 2.30 M/ L 3.93-5.22 L (test code = 761) HEMOGLOBIN (BEAKER) (test code = 7.1 GM/DL 11.2-15.7 L 410) HEMATOCRIT (BEAKER) (test code = 22.4 % 34.1-44.9 L 411) MEAN CORPUSCULAR VOLUME (BEAKER) 97.4 fL 79.4-94.8 H (test code = 753) MEAN CORPUSCULAR HEMOGLOBIN 30.9 pg 25.6-32.2 (BEAKER) (test code = 751) MEAN CORPUSCULAR HEMOGLOBIN CONC 31.7 GM/DL 32.2-35.5 L (BEAKER) (test code = 752) RED CELL DISTRIBUTION WIDTH 15.0 % 11.7-14.4 H (BEAKER) (test code = 412) PLATELET COUNT (BEAKER) (test 229 K/CU MM 150-450 code = 756) MEAN PLATELET VOLUME (BEAKER) 11.0 fL 9.4-12.3 (test code = 754) NUCLEATED RED BLOOD CELLS 0 /100 WBC 0-0 (BEAKER) (test code = 413) NEUTROPHILS RELATIVE PERCENT 75 % (BEAKER) (test code = 429) LYMPHOCYTES RELATIVE PERCENT 10 % (BEAKER) (test code = 430) MONOCYTES RELATIVE PERCENT 11 % (BEAKER) (test code = 431) EOSINOPHILS RELATIVE PERCENT 1 % (BEAKER) (test code = 432) BASOPHILS RELATIVE PERCENT 0 % (BEAKER) (test code = 437) NEUTROPHILS ABSOLUTE COUNT 8.06 K/ L 1.56-6.13 H (BEAKER) (test code = 670) LYMPHOCYTES ABSOLUTE COUNT 1.04 K/ L 1.18-3.74 L (BEAKER) (test code = 414) MONOCYTES ABSOLUTE COUNT (BEAKER) 1.17 K/ L 0.24-0.36 H (test code = 415) EOSINOPHILS ABSOLUTE COUNT 0.10 K/ L 0.04-0.36 (BEAKER) (test code = 416) BASOPHILS ABSOLUTE COUNT (BEAKER) 0.04 K/ L 0.01-0.08 (test code = 417) IMMATURE GRANULOCYTES-RELATIVE 3 % 0-1 H PERCENT (BEAKER) (test code = 280) [id number] 04:31:00 Test Item Value Reference Range Interpretation Comments PHOSPHORUS (BEAKER) (test code = 3.1 mg/dL 2.3-4.7 604) [id number] 04:31:00 Test Item Value Reference Range Interpretation Comments MAGNESIUM (BEAKER) (test code = 2.2 mg/dL 1.6-2.6 627) BASIC METABOLIC [id number] 04:31:00 Test Item Value Reference Range Interpretation Comments SODIUM (BEAKER) 138 meq/L 136-145 (test code = 381) POTASSIUM (BEAKER) 3.6 meq/L 3.5-5.1 (test code = 379) CHLORIDE (BEAKER) 105 meq/L 98-107 (test code = 382) CO2 (BEAKER) (test 25 meq/L 22-29 code = 355) BLOOD UREA NITROGEN 19 mg/dL 7-21 (BEAKER) (test code = 354) CREATININE (BEAKER) 0.67 mg/dL 0.57-1.25 (test code = 358) GLUCOSE RANDOM 127 mg/dL 70-105 H (BEAKER) (test code = 652) CALCIUM (BEAKER) 8.6 mg/dL 8.4-10.2 (test code = 697) EGFR (BEAKER) (test 87 mL/min/1.73 ESTIMA DEBO GFR IS code = 1092) sq m NOT ACCURATE CREATININE CLEARANCE IN PREDICTING GLOMERULAR FILTRATION RATE . ESTIMATED GFR I S NOT APPLICABLE FOR DIALYSIS PATIEN TS. [id number] 04:15:00 Test Item Value Reference Range Interpretation Comments PARTIAL THROMBOPLASTIN TIME 34.1 seconds 22.5-36.0 (BEAKER) (test code = 760) PROTHROMBIN [id number] 04:14:00 Test Item Value Reference Range Interpretation Comments PROTIME (BEAKER) (test code = 15.7 seconds 11.7-14.7 H 759) INR (BEAKER) (test code = 370) 1.3 <=5.9 RECOMMENDED COUMADIN/WARFARIN INR THERAPY RANGESSTANDARD DOSE: 2.0 - 3.0 Includes: PROPHYLAXIS for venous thrombosis, systemic embolization; TREATMENT for venous thrombosis and/or pulmonary embolus.HIGH RISK: Target INR is 2.5-3.5 for patients with mechanical heart valves.CALCIUM, [id number] 04:03:00 Test Item Value Reference Range Interpretation Comments CALCIUM IONIZED (BEAKER) (test 1.11 mmol/L 1.12-1.27 L code = 698) PH, BLOOD (BEAKER) (test code = 7.51 1810) Check serum Ionized Calcium level after 4 hours after IV Calcium replacement. POCT-GLUCOSE [id number] 22:47:00 Test Item Value Reference Range Interpretation Comments POC-GLUCOSE METER 151 mg/dL 70-110 H TESTED AT [place] [address] ([facility]) (test code = [facility] Parekh [place] 1538) [id number] POCT-GLUCOSE [id number] 18:40:00 Test Item Value Reference Range Interpretation Comments POC-GLUCOSE METER 162 mg/dL 70-110 H TESTED AT [place] [address] ([facility]) (test code = ADWO[facility] Parekh [place] 1538) [id number] 14:52:00 Test Item Value Reference Range Interpretation Comments POTASSIUM (BEAKER) (test code = 4.0 meq/L 3.5-5.1 379) [id number] 14:52:00 Test Item Value Reference Range Interpretation Comments MAGNESIUM (BEAKER) (test code = 2.2 mg/dL 1.6-2.6 627) POCT-GLUCOSE [id number] 13:21:00 Test Item Value Reference Range Interpretation Comments POC-GLUCOSE METER 151 mg/dL 70-110 H TESTED AT [place] [address] ([facility]) (test code = ADWO[facility] Parekh [place] 1538) [address] POCT-GLUCOSE [id number] 08:56:00 Test Item Value Reference Range Interpretation Comments POC-GLUCOSE METER 193 mg/dL 70-110 H TESTED AT [place] [address] ([facility]) (test code = ADWO[facility] Parekh [place] 1538) [address] RAD, CHEST, 1 VIEW, NON [id number] 08:02:00Reason for exam:->Postop TEVARShould this be performed at the bedside?->YesFINAL REPORT CLINICAL HISTORY: Postop TEVAR TECHNIQUE: 1 view of the chest. COMP ARISON: 11/07/2017 IMPRESSION: The ETT and NGT have been removed. The right central line remains. Left lower lung consolidation and a small left pleural effusion are increased. Right lower lung airspaceopacity and a trace right effusion are unchanged. Cardiomediastinal silhouette is unchanged with an aortic graft. Signed: Falguni Murray MDReport Verified Date/Time: 11/08/2017 08:02:02 Reading Location: [facility] Radiology Reading Room [id number] 05:05:00 Test Item Value Reference Range Interpretation Comments PHOSPHORUS (BEAKER) (test code = 3.2 mg/dL 2.3-4.7 604) [id number] 05:05:00 Test Item Value Reference Range Interpretation Comments MAGNESIUM (BEAKER) (test code = 2.1 mg/dL 1.6-2.6 627) BASIC METABOLIC [id number] 05:05:00 Test Item Value Reference Range Interpretation Comments SODIUM (BEAKER) 140 meq/L 136-145 (test code = 381) POTASSIUM (BEAKER) 4.1 meq/L 3.5-5.1 (test code = 379) CHLORIDE (BEAKER) 109 meq/L 98-107 H (test code = 382) CO2 (BEAKER) (test 23 meq/L 22-29 code = 355) BLOOD UREA NITROGEN 16 mg/dL 7-21 (BEAKER) (test code = 354) CREATININE (BEAKER) 0.63 mg/dL 0.57-1.25 (test code = 358) GLUCOSE RANDOM 129 mg/dL 70-105 H (BEAKER) (test code = 652) CALCIUM (BEAKER) 8.6 mg/dL 8.4-10.2 (test code = 697) EGFR (BEAKER) (test 93 mL/min/1.73 ESTIMA DEBO GFR IS code = 1092) sq m NOT ACCURATE CREATININE CLEARANCE IN PREDICTING GLOMERULAR FILTRATION RATE . ESTIMATED GFR I S NOT APPLICABLE FOR DIALYSIS PATIEN TS. PROTHROMBIN [id number] 04:45:00 Test Item Value Reference Range Interpretation Comments PROTIME (BEAKER) (test code = 16.3 seconds 11.7-14.7 H 759) INR (BEAKER) (test code = 370) 1.3 <=5.9 RECOMMENDED COUMADIN/WARFARIN INR THERAPY RANGESSTANDARD DOSE: 2.0 - 3.0 Includes: PROPHYLAXIS for venous thrombosis, systemic embolization; TREATMENT for venous thrombosis and/or pulmonary embolus.HIGH RISK: Target INR is 2.5-3.5 for patients with mechanical heart valves.[id number] 04:45:00 Test Item Value Reference Range Interpretation Comments PARTIAL THROMBOPLASTIN TIME 38.9 seconds 22.5-36.0 H (BEAKER) (test code = 760) CBC W/PLT COUNT & AUTO [id number] 04:26:00 Test Item Value Reference Range Interpretation Comments WHITE BLOOD CELL COUNT (BEAKER) 10.5 K/ L 3.5-10.5 (test code = 775) RED BLOOD CELL COUNT (BEAKER) 2.69 M/ L 3.93-5.22 L (test code = 761) HEMOGLOBIN (BEAKER) (test code = 8.2 GM/DL 11.2-15.7 L 410) HEMATOCRIT (BEAKER) (test code = 26.4 % 34.1-44.9 L 411) MEAN CORPUSCULAR VOLUME (BEAKER) 98.1 fL 79.4-94.8 H (test code = 753) MEAN CORPUSCULAR HEMOGLOBIN 30.5 pg 25.6-32.2 (BEAKER) (test code = 751) MEAN CORPUSCULAR HEMOGLOBIN CONC 31.1 GM/DL 32.2-35.5 L (BEAKER) (test code = 752) RED CELL DISTRIBUTION WIDTH 14.7 % 11.7-14.4 H (BEAKER) (test code = 412) PLATELET COUNT (BEAKER) (test 162 K/CU MM 150-450 code = 756) MEAN PLATELET VOLUME (BEAKER) 11.3 fL 9.4-12.3 (test code = 754) NUCLEATED RED BLOOD CELLS 0 /100 WBC 0-0 (BEAKER) (test code = 413) NEUTROPHILS RELATIVE PERCENT 79 % (BEAKER) (test code = 429) LYMPHOCYTES RELATIVE PERCENT 8 % (BEAKER) (test code = 430) MONOCYTES RELATIVE PERCENT 9 % (BEAKER) (test code = 431) EOSINOPHILS RELATIVE PERCENT 1 % (BEAKER) (test code = 432) BASOPHILS RELATIVE PERCENT 1 % (BEAKER) (test code = 437) NEUTROPHILS ABSOLUTE COUNT 8.31 K/ L 1.56-6.13 H (BEAKER) (test code = 670) LYMPHOCYTES ABSOLUTE COUNT 0.82 K/ L 1.18-3.74 L (BEAKER) (test code = 414) MONOCYTES ABSOLUTE COUNT (BEAKER) 0.98 K/ L 0.24-0.36 H (test code = 415) EOSINOPHILS ABSOLUTE COUNT 0.14 K/ L 0.04-0.36 (BEAKER) (test code = 416) BASOPHILS ABSOLUTE COUNT (BEAKER) 0.05 K/ L 0.01-0.08 (test code = 417) IMMATURE GRANULOCYTES-RELATIVE 2 % 0-1 H PERCENT (BEAKER) (test code = 2801) CALCIUM, [id number] 04:12:00 Test Item Value Reference Range Interpretation Comments CALCIUM IONIZED (BEAKER) (test 1.16 mmol/L 1.12-1.27 code = 698) PH, BLOOD (BEAKER) (test code = 7.41 1810) Check serum Ionized Calcium level after 4 hours after IV Calcium replacement. POCT-GLUCOSE [id number] 23:21:00 Test Item Value Reference Range Interpretation Comments POC-GLUCOSE METER 182 mg/dL 70-110 H TESTED AT [place] [address] ([facility]) (test code = [facility] 1538) [id number] POCT-GLUCOSE [id number] 18:43:00 Test Item Value Reference Range Interpretation Comments POC-GLUCOSE METER 190 mg/dL 70-110 H TESTED AT [place] [address] ([facility]) (test code = [facility] 1538) [address] BLOOD GAS, [id number] 06:41:00 Test Item Value Reference Range Interpretation Comments PH ARTERIAL (BEAKER) (test code = 7.48 7.35-7.45 H 383) PCO2 ARTERIAL (BEAKER) (test code 33 mmHg 35-45 L = 384) PO2 ARTERIAL (BEAKER) (test code = 76 mmHg 80-90 L 385) O2 SATURATION ARTERIAL (BEAKER) 96.3 % 96.0-97.0 (test code = 386) HCO3 ARTERIAL (BEAKER) (test code 24 mmol/L 21-29 = 388) BASE EXCESS ARTERIAL (BEAKER) 0.7 mmol/L -2.0-3.0 (test code = 387) PATIENT TEMPERATURE (BEAKER) (test 36.6 C code = 1818) FIO2 (BEAKER) (test code = 1819) 60.0 % CBC W/PLT COUNT & AUTO [id number] 05:35:00 Test Item Value Reference Range Interpretation Comments WHITE BLOOD CELL COUNT (BEAKER) 11.7 K/ L 3.5-10.5 H (test code = 775) RED BLOOD CELL COUNT (BEAKER) 2.71 M/ L 3.93-5.22 L (test code = 761) HEMOGLOBIN (BEAKER) (test code = 8.4 GM/DL 11.2-15.7 L 410) HEMATOCRIT (BEAKER) (test code = 26.6 % 34.1-44.9 L 411) MEAN CORPUSCULAR VOLUME (BEAKER) 98.2 fL 79.4-94.8 H (test code = 753) MEAN CORPUSCULAR HEMOGLOBIN 31.0 pg 25.6-32.2 (BEAKER) (test code = 751) MEAN CORPUSCULAR HEMOGLOBIN CONC 31.6 GM/DL 32.2-35.5 L (BEAKER) (test code = 752) RED CELL DISTRIBUTION WIDTH 15.2 % 11.7-14.4 H (BEAKER) (test code = 412) PLATELET COUNT (BEAKER) (test 144 K/CU MM 150-450 L code = 756) MEAN PLATELET VOLUME (BEAKER) 11.0 fL 9.4-12.3 (test code = 754) NUCLEATED RED BLOOD CELLS 0 /100 WBC 0-0 (BEAKER) (test code = 413) NEUTROPHILS RELATIVE PERCENT 82 % (BEAKER) (test code = 429) LYMPHOCYTES RELATIVE PERCENT 7 % (BEAKER) (test code = 430) MONOCYTES RELATIVE PERCENT 8 % (BEAKER) (test code = 431) EOSINOPHILS RELATIVE PERCENT 1 % (BEAKER) (test code = 432) BASOPHILS RELATIVE PERCENT 1 % (BEAKER) (test code = 437) NEUTROPHILS ABSOLUTE COUNT 9.54 K/ L 1.56-6.13 H (BEAKER) (test code = 670) LYMPHOCYTES ABSOLUTE COUNT 0.80 K/ L 1.18-3.74 L (BEAKER) (test code = 414) MONOCYTES ABSOLUTE COUNT (BEAKER) 0.90 K/ L 0.24-0.36 H (test code = 415) EOSINOPHILS ABSOLUTE COUNT 0.13 K/ L 0.04-0.36 (BEAKER) (test code = 416) BASOPHILS ABSOLUTE COUNT (BEAKER) 0.06 K/ L 0.01-0.08 (test code = 417) IMMATURE GRANULOCYTES-RELATIVE 2 % 0-1 H PERCENT (BEAKER) (test code = 2801) [id number] 05:34:00 Test Item Value Reference Range Interpretation Comments PARTIAL THROMBOPLASTIN TIME 32.8 seconds 22.5-36.0 (BEAKER) (test code = 760) PROTHROMBIN [id number] 05:33:00 Test Item Value Reference Range Interpretation Comments PROTIME (BEAKER) (test code = 16.0 seconds 11.7-14.7 H 759) INR (BEAKER) (test code = 370) 1.3 <=5.9 RECOMMENDED COUMADIN/WARFARIN INR THERAPY RANGESSTANDARD DOSE: 2.0 - 3.0 Includes: PROPHYLAXIS for venous thrombosis, systemic embolization; TREATMENT for venous thrombosis and/or pulmonary embolus.HIGH RISK: Target INR is 2.5-3.5 for patients with mechanical heart valves.[id number] 05:20:00 Test Item Value Reference Range Interpretation Comments PHOSPHORUS (BEAKER) (test code = 3.9 mg/dL 2.3-4.7 604) [id number] 05:20:00 Test Item Value Reference Range Interpretation Comments MAGNESIUM (BEAKER) (test code = 2.5 mg/dL 1.6-2.6 627) BASIC METABOLIC [id number] 05:20:00 Test Item Value Reference Range Interpretation Comments SODIUM (BEAKER) 141 meq/L 136-145 (test code = 381) POTASSIUM (BEAKER) 4.4 meq/L 3.5-5.1 (test code = 379) CHLORIDE (BEAKER) 110 meq/L 98-107 H (test code = 382) CO2 (BEAKER) (test 23 meq/L 22-29 code = 355) BLOOD UREA NITROGEN 12 mg/dL 7-21 (BEAKER) (test code = 354) CREATININE (BEAKER) 0.66 mg/dL 0.57-1.25 (test code = 358) GLUCOSE RANDOM 152 mg/dL 70-105 H (BEAKER) (test code = 652) CALCIUM (BEAKER) 8.6 mg/dL 8.4-10.2 (test code = 697) EGFR (BEAKER) (test 89 mL/min/1.73 ESTIMA DEBO GFR IS code = 1092) sq m NOT ACCURATE CREATININE CLEARANCE IN PREDICTING GLOMERULAR FILTRATION RATE . ESTIMATED GFR I S NOT APPLICABLE FOR DIALYSIS PATIEN TS. CALCIUM, [id number] 05:05:00 Test Item Value Reference Range Interpretation Comments CALCIUM IONIZED (BEAKER) (test 1.15 mmol/L 1.12-1.27 code = 698) PH, BLOOD (BEAKER) (test code = 7.44 1810) BLOOD GAS, [id number] 05:04:00 Test Item Value Reference Range Interpretation Comments PH ARTERIAL (BEAKER) (test code = 7.44 7.35-7.45 383) PCO2 ARTERIAL (BEAKER) (test code 35 mmHg 35-45 = 384) PO2 ARTERIAL (BEAKER) (test code 139 mmHg 80-90 H = 385) O2 SATURATION ARTERIAL (BEAKER) 98.9 % 96.0-97.0 H (test code = 386) HCO3 ARTERIAL (BEAKER) (test code 24 mmol/L 21-29 = 388) BASE EXCESS ARTERIAL (BEAKER) -0.5 mmol/L -2.0-3.0 (test code = 387) PATIENT TEMPERATURE (BEAKER) 36.6 C (test code = 1818) FIO2 (BEAKER) (test code = 1819) 60.0 % RAD, CHEST, 1 VIEW, NON [id number] 04:36:00Reason for exam:->Postop TEVARShould this be performed at the bedside?->YesFINAL REPORT CLINICAL INDICATION: Postop Comparison: 11/06/2017 The cardiomediastinal contours are stable. Central pulmonary vascular prominence and left greater than right parenchymal and pleural opacities are similar to previous. There is no pneumothorax. Support lines are stable. Signed: Gabo Pan MDReport Verified Date/Time: 11/07/2017 04:36:37 Reading Location: [address] Reading Room [id number] 22:17:00 Test Item Value Reference Range Interpretation Comments PHOSPHORUS (BEAKER) (test code = 3.2 mg/dL 2.3-4.7 604) [id number] 22:17:00 Test Item Value Reference Range Interpretation Comments MAGNESIUM (BEAKER) (test code = 1.8 mg/dL 1.6-2.6 627) BASIC METABOLIC [id number] 22:17:00 Test Item Value Reference Range Interpretation Comments SODIUM (BEAKER) 139 meq/L 136-145 (test code = 381) POTASSIUM (BEAKER) 4.1 meq/L 3.5-5.1 (test code = 379) CHLORIDE (BEAKER) 108 meq/L 98-107 H (test code = 382) CO2 (BEAKER) (test 24 meq/L 22-29 code = 355) BLOOD UREA NITROGEN 11 mg/dL 7-21 (BEAKER) (test code = 354) CREATININE (BEAKER) 0.64 mg/dL 0.57-1.25 (test code = 358) GLUCOSE RANDOM 162 mg/dL 70-105 H (BEAKER) (test code = 652) CALCIUM (BEAKER) 8.2 mg/dL 8.4-10.2 L (test code = 697) EGFR (BEAKER) (test 92 mL/min/1.73 ESTIMA DEBO GFR IS code = 1092) sq m NOT ACCURATE CREATININE CLEARANCE IN PREDICTING GLOMERULAR FILTRATION RATE . ESTIMATED GFR I S NOT APPLICABLE FOR DIALYSIS PATIEN TS. LACTIC ACID, ARTERIAL, WHOLE [id number] 22:14:00 Test Item Value Reference Range Interpretation Comments LACTATE BLOOD ARTERIAL (2) 0.8 mmol/L 0.5-2.2 (BEAKER) (test code = 2874) Effective 07/22/2015: Units/Reference Range ChangeNew: 0.5-2.2 mmol/L Previous: 5- 20 mg/dLRAD, CHEST, 1 VIEW, NON [id number] 22:09:00Reason for exam:->Post-opShould this be performed at the bedside?->YesFINAL REPORT EXAMINATION: AP PORTABLE CHEST RADIOGRAPH CLINICAL INDICATION: INTUBATION IMPRESSION: Compared with 11/06/2017. The tip of the endotracheal tube projects over the midline approximately 4 cm superior to the talita. Tip of the nasogastric tube extends below the diaphragmand inferior margin of today's study. The tip of the right jugular central line projects over the right atrium. The mildly enlarged heart, bilateral lung opacities and supposed pleural effusions are grossly stable and worrisome for fluid overload/heart failure. The more confluent patchy opacities are favored to reflect passive atelectasis. No evidence of a significant pneumothorax. Multiple new surgical clips project over the left lower neck-supraclavicular region. Signed: Freddy Guthrie MDReport Verified Date/Time: 11/06/2017 22:09:17 Reading Location: [facility] C013 Transitional Reading Room [id number] 22:08:00 Test Item Value Reference Range Interpretation Comments PARTIAL THROMBOPLASTIN TIME 32.7 seconds 22.5-36.0 (BEAKER) (test code = 760) PROTHROMBIN TIME/[id number] 22:07:00 Test Item Value Reference Range Interpretation Comments PROTIME (BEAKER) (test code = 18.0 seconds 11.7-14.7 H 759) INR (BEAKER) (test code = 370) 1.5 <=5.9 RECOMMENDED COUMADIN/WARFARIN INR THERAPY RANGESSTANDARD DOSE: 2.0 - 3.0 Includes: PROPHYLAXIS for venous thrombosis, systemic embolization; TREATMENT for venous thrombosis and/or pulmonary embolus.HIGH RISK: Target INR is 2.5-3.5 for patients with mechanical heart valves.CBC W/PLT COUNT & AUTO [id number] 22:00:00 Test Item Value Reference Range Interpretation Comments WHITE BLOOD CELL COUNT (BEAKER) 14.7 K/ L 3.5-10.5 H (test code = 775) RED BLOOD CELL COUNT (BEAKER) 2.85 M/ L 3.93-5.22 L (test code = 761) HEMOGLOBIN (BEAKER) (test code = 8.9 GM/DL 11.2-15.7 L 410) HEMATOCRIT (BEAKER) (test code = 27.8 % 34.1-44.9 L 411) MEAN CORPUSCULAR VOLUME (BEAKER) 97.5 fL 79.4-94.8 H (test code = 753) MEAN CORPUSCULAR HEMOGLOBIN 31.2 pg 25.6-32.2 (BEAKER) (test code = 751) MEAN CORPUSCULAR HEMOGLOBIN CONC 32.0 GM/DL 32.2-35.5 L (BEAKER) (test code = 752) RED CELL DISTRIBUTION WIDTH 14.9 % 11.7-14.4 H (BEAKER) (test code = 412) PLATELET COUNT (BEAKER) (test 139 K/CU MM 150-450 L code = 756) MEAN PLATELET VOLUME (BEAKER) 10.3 fL 9.4-12.3 (test code = 754) NUCLEATED RED BLOOD CELLS 0 /100 WBC 0-0 (BEAKER) (test code = 413) NEUTROPHILS RELATIVE PERCENT 79 % (BEAKER) (test code = 429) LYMPHOCYTES RELATIVE PERCENT 9 % (BEAKER) (test code = 430) MONOCYTES RELATIVE PERCENT 6 % (BEAKER) (test code = 431) EOSINOPHILS RELATIVE PERCENT 1 % (BEAKER) (test code = 432) BASOPHILS RELATIVE PERCENT 0 % (BEAKER) (test code = 437) NEUTROPHILS ABSOLUTE COUNT 11.59 K/ L 1.56-6.13 H (BEAKER) (test code = 670) LYMPHOCYTES ABSOLUTE COUNT 1.36 K/ L 1.18-3.74 (BEAKER) (test code = 414) MONOCYTES ABSOLUTE COUNT (BEAKER) 0.89 K/ L 0.24-0.36 H (test code = 415) EOSINOPHILS ABSOLUTE COUNT 0.20 K/ L 0.04-0.36 (BEAKER) (test code = 416) BASOPHILS ABSOLUTE COUNT (BEAKER) 0.03 K/ L 0.01-0.08 (test code = 417) IMMATURE GRANULOCYTES-RELATIVE 4 % 0-1 H PERCENT (BEAKER) (test code = 2801) OXYGEN SATURATION, [id number] 21:53:00 Test Item Value Reference Range Interpretation Comments O2 SATURATION (MEASURED) (BEAKER) 71.8 % (test code = 1455) SODIUM NA-STAT [id number] 21:52:00 Test Item Value Reference Range Interpretation Comments SODIUM (BEAKER) (test code = 381) 137 meq/L 135-148 POTASSIUM-STAT [id number] 21:52:00 Test Item Value Reference Range Interpretation Comments POTASSIUM (BEAKER) (test code = 4.3 meq/L 3.6-5.5 379) CALCIUM, [id number] 21:52:00 Test Item Value Reference Range Interpretation Comments CALCIUM IONIZED (BEAKER) (test 1.08 mmol/L 1.12-1.27 L code = 698) PH, BLOOD (BEAKER) (test code = 7.47 1810) BLOOD GAS, [id number] 21:52:00 Test Item Value Reference Range Interpretation Comments PH ARTERIAL (BEAKER) (test code = 7.48 7.35-7.45 H 383) PCO2 ARTERIAL (BEAKER) (test code 32 mmHg 35-45 L = 384) PO2 ARTERIAL (BEAKER) (test code 176 mmHg 80-90 H = 385) O2 SATURATION ARTERIAL (BEAKER) 99.3 % 96.0-97.0 H (test code = 386) HCO3 ARTERIAL (BEAKER) (test code 23 mmol/L 21-29 = 388) BASE EXCESS ARTERIAL (BEAKER) -0.1 mmol/L -2.0-3.0 (test code = 387) PATIENT TEMPERATURE (BEAKER) 36.2 C (test code = 1818) FIO2 (BEAKER) (test code = 1819) 60.0 % GLUCOSE-STAT [id number] 21:52:00 Test Item Value Reference Range Interpretation Comments GLUCOSE RANDOM (BEAKER) (test code 164 mg/dL 70-110 H = 652) HGB/HCT (H&H) - STAT [id number] 21:52:00 Test Item Value Reference Range Interpretation Comments HEMOGLOBIN (BEAKER) (test code = 9.8 g/dL 12.0-15.0 L 410) HEMATOCRIT (BEAKER) (test code = 29.0 % 36.0-45.0 L 411) BLOOD GAS, [id number] 20:58:00 Test Item Value Reference Range Interpretation Comments PH ARTERIAL (BEAKER) (test code = 7.49 7.35-7.45 H 383) PCO2 ARTERIAL (BEAKER) (test code 31 mmHg 35-45 L = 384) PO2 ARTERIAL (BEAKER) (test code = 394 mmHg 80-90 H 385) O2 SATURATION ARTERIAL (BEAKER) 99.8 % 96.0-97.0 H (test code = 386) HCO3 ARTERIAL (BEAKER) (test code 23 mmol/L 21-29 = 388) BASE EXCESS ARTERIAL (BEAKER) 0.0 mmol/L -2.0-3.0 (test code = 387) PATIENT TEMPERATURE (BEAKER) (test 35.7 C code = 1818) FIO2 (BEAKER) (test code = 1819) 100.0 % GLUCOSE-STAT [id number] 20:58:00 Test Item Value Reference Range Interpretation Comments GLUCOSE RANDOM (BEAKER) (test code 167 mg/dL 70-110 H = 652) HGB/HCT (H&H) - STAT [id number] 20:58:00 Test Item Value Reference Range Interpretation Comments HEMOGLOBIN (BEAKER) (test code = 8.7 g/dL 12.0-15.0 L 410) HEMATOCRIT (BEAKER) (test code = 26.0 % 36.0-45.0 L 411) CALCIUM, [id number] 20:58:00 Test Item Value Reference Range Interpretation Comments CALCIUM IONIZED (BEAKER) (test 0.98 mmol/L 1.12-1.27 L code = 698) PH, BLOOD (BEAKER) (test code = 7.47 1810) SODIUM NA-STAT [id number] 20:57:00 Test Item Value Reference Range Interpretation Comments SODIUM (BEAKER) (test code = 381) 137 meq/L 135-148 POTASSIUM-STAT [id number] 20:57:00 Test Item Value Reference Range Interpretation Comments POTASSIUM (BEAKER) (test code = 4.0 meq/L 3.6-5.5 379) [id number] 20:36:00 Test Item Value Reference Range Interpretation Comments ACTIVATED CLOTTING TIME 136 sec TEST ED AT [place] [address] ([facility]) (test code = GUILLERMOOSMAN Parekh [place] [address]) [id number] 20:36:00 Test Item Value Reference Range Interpretation Comments ACTIVATED CLOTTING TIME 268 sec TEST ED AT [place] [address] ([facility]) (test code = ADWOA Parekh [place] [address]) [id number] 20:36:00 Test Item Value Reference Range Interpretation Comments ACTIVATED CLOTTING TIME 263 sec TEST ED AT [place] [address] ([facility]) (test code = ADWOA Parekh [place] [address]) [address] [id number] 20:36:00 Test Item Value Reference Range Interpretation Comments ACTIVATED CLOTTING TIME 290 sec TEST ED AT [place] [address] ([facility]) (test code = ADWOA Parekh [place] [address]) [id number] 20:36:00 Test Item Value Reference Range Interpretation Comments ACTIVATED CLOTTING TIME 285 sec TEST ED AT [place] [address] ([facility]) (test code = ADWOA Parekh [facility] 441) [address] [id number] 20:36:00 Test Item Value Reference Range Interpretation Comments ACTIVATED CLOTTING TIME 356 sec TEST ED AT [place] [address] ([facility]) (test code = ADWOA Parekh [facility] 441) [address] [id number] 20:36:00 Test Item Value Reference Range Interpretation Comments ACTIVATED CLOTTING TIME 246 sec TEST ED AT [place] [address] ([facility]) (test code = ADWOA Parekh [facility] 441) [address] POCT-GLUCOSE [id number] 18:07:00 Test Item Value Reference Range Interpretation Comments POC-GLUCOSE METER 131 mg/dL 70-110 H TESTED AT [place] [address] ([facility]) (test code = ADWOA Parekh [facility] 1538) [address] CALCIUM, [id number] 16:05:00 Test Item Value Reference Range Interpretation Comments CALCIUM IONIZED (BEAKER) (test 0.99 mmol/L 1.12-1.27 L code = 698) PH, BLOOD (BEAKER) (test code = 7.50 1810) BLOOD GAS, [id number] 16:05:00 Test Item Value Reference Range Interpretation Comments PH ARTERIAL (BEAKER) (test code = 7.51 7.35-7.45 H 383) PCO2 ARTERIAL (BEAKER) (test code 34 mmHg 35-45 L = 384) PO2 ARTERIAL (BEAKER) (test code = 280 mmHg 80-90 H 385) O2 SATURATION ARTERIAL (BEAKER) 99.7 % 96.0-97.0 H (test code = 386) HCO3 ARTERIAL (BEAKER) (test code 26 mmol/L 21-29 = 388) BASE EXCESS ARTERIAL (BEAKER) 3.1 mmol/L -2.0-3.0 H (test code = 387) PATIENT TEMPERATURE (BEAKER) (test 36.6 C code = 1818) FIO2 (BEAKER) (test code = 1819) 99.0 % HGB/HCT (H&H) - STAT [id number] 16:04:00 Test Item Value Reference Range Interpretation Comments HEMOGLOBIN (BEAKER) (test code = 9.7 g/dL 12.0-15.0 L 410) HEMATOCRIT (BEAKER) (test code = 29.0 % 36.0-45.0 L 411) GLUCOSE-STAT [id number] 16:03:00 Test Item Value Reference Range Interpretation Comments GLUCOSE RANDOM (BEAKER) (test code 123 mg/dL 70-110 H = 652) SODIUM NA-STAT [id number] 16:02:00 Test Item Value Reference Range Interpretation Comments SODIUM (BEAKER) (test code = 381) 137 meq/L 135-148 POTASSIUM-STAT [id number] 16:02:00 Test Item Value Reference Range Interpretation Comments POTASSIUM (BEAKER) (test code = 3.7 meq/L 3.6-5.5 379) CTA, CHEST, ABDOMEN - PELVIS, FOR [id number] 09:14:00Please prepare 3D reconstructionReason for exam:->Evaluate for possible dissectionAddendum BeginsREPORT STATUS:A Addendum: I reviewed the nonvascular findings and concur with Dr. Helms's report. Small bilateral pleural effusions Intermediate density approximately 2.6 cm probable cyst in the seven hepatic region near the level of the gallbladder fossa. Gallbladder is been removed. Reduction in perfusion of the lower pole of the left kidney likely related to the dissection Signed: Edgar Irizarry MDReport Verified Date/Time: 11/06/2017 09:14:23 Reading Location: [place] [address] Angio Body Reading RoomAddendum EndsFINAL REPORT CT angiography ofthe thoracoabdominal aorta and pelvic arteries, 05 November 2017 INDICATION: This is a 72 year old female for evaluation of aortic dissection presents for assessment. This study is performed in an attempt to avoid an invasive procedure. TECHNIQUE: Spiral acquisition before and during intravenous contrast administration using a [employer] multidetector CT scanner. Images were obtained before and during the dynamic passage of intravenous contrast material. Multi-planar 3-D volume-rendering reconstructionwas performed using an independent workstation interactively by the interpreting physician as well as the 3-D specialist for optimal visualization of the thoracoabdominal aorta, the pelvic arteries as well as its proximal branches. Please refer to the contrast sheet scanned in the EPIC system for the amount and route of contrast given. This exam was performed according to our departmental dose-optimisation programme, which includes automated exposure control, adjustment of the mA and/or kV accordingto patient size and/or use of iterative reconstruction technique. Dose modulation, iterative reconstr uction, and/or weight based adjustment of the mA/kV was utilized to reduce the radiation dose to as low as reasonably achievable. FINDINGS: VASCULAR: A central venous catheter is seen, with tip identified in the SVC. The central pulmonary arteries are normal in calibre. There is no evidence of centralpulmonary artery embolism. The cardiac chambers demonstrate normal atrioventricular and ventriculoarterial concordance, and systemic and pulmonary venous return. The left ventricle is normal in size. Coronary artery origins are normal and no obvious coronary artery calcification is identified. In factthe major epicardial coronary arteries are seen to be widely patent proximally. The aortic root, ascending thoracic aorta, and transverse arch is unremarkable. Patient is known to have a type B distribution dissection as from outside facility study, and there is interval placement of an endostent place, distal to the takeoff of the left common carotid artery, extends through the distal transverse arch into the descending thoracic aorta and terminates in the distal descending thoracic aorta. The stent is well opposed to the aortic wall. Thereafter, the dissection is seen extending through the remainder of the descending thoracic aorta, into the abdominal aorta, sparing the right pelvic vasculature,and extends into the left external iliac artery, left common femoral artery and terminates in the leora eoff of the left SFA, also involving the left internal iliac artery. The pelvic arteries are seen vijay widely patent. Both the true and false lumen of the dissection is seen to be patent, and would explain the contrast outside the stent, inside the [place] descending thoracic aorta, due to retrograde filling from the dissection false lumen that travels cranially. Arch vessel branching pattern is normal and the visualised arch vessels are seen to be widely patent proximally. The dissection involves the proximal left subclavian artery though despite the stent starts before the takeoff of the left subclavian artery, the left subclavian artery is still well enhanced by contrast. The vertebral arteriesalso well enhanced by contrast, bilaterally. The coeliac axis, SMA, right renal artery arises from the true lumen of the dissection and they are widely patent. The left renal artery and the LETA arises from the false lumen of the dissection and there are also patent. Quantitative dimensions of the aorta are as follows: 3.0 cm at the sinuses of Valsalva (the sino-tubular junction is preserved); 2.9 cm at the proximal ascending thoracic aorta; 2.7 cm at the mid ascending aorta; 2.5 cm at the distal ascending aorta; 2.6 cm at the mid transverse arch; 3.1 x 2.9 cm at the proximal descending aorta; 3.1 cm at the mid descending aorta; 2.9 cm at the diaphragmatic hiatus. In the abdomen, the aorta measures2.6 cm at the mesenteric segment; 2.4 cm at the renal segment,; and 1.9 cm at the aortic bifurcation. NON-VASCULAR: The visualised thyroid gland appears unremarkable. The chest wall and mediastinum hasno acute abnormalities identified. Single right breast implant is seen. Some scattered lymph nodes are present, considered nonspecific in nature. Only trace pericardial effusion is identified, considered physiologic in nature. In the lung windows, no obvious endobronchial lesion is seen, and bibasal pleural effusion is identified, left greater than right, with associated atelectatic changes present. No pneumothorax is identified. No suspicious pulmonary nodule is present. In the abdomen, the liver and spleen appear unremarkable. The liver edge is smooth. No abnormal enhancing structure is identified. There is subcentimeter hypodensities seen in the liver, and they are too small to characterize likely representing tiny cysts. There could be a tiny splenic artery aneurysm seen near the hilum of the spleen, at image 162, measuring 8 mm only, an incidental finding. The pancreas and adrenal glands appears unremarkable. Patient is post cholecystectomy; adjacent to the clips, there is a hypodensity isidentified, at image 176, measures approximately 2.6 x 1.8 cm in diameter, with no enhancement after contrast administration. This could represent a liver cyst. An addendum will be dictated thereafter,if needed. No acute renal pathology is seen and no hydronephrosis or perirenal fluid collection is identified. Subcentimeter hypodensity is identified in the right kidney, too small to characterize. Some reduction in perfusion is identified in the lower pole of the left kidney image 231. No obvious accessory renal artery is identified. This could in part due to the left renal artery arises from the false lumen though the left renal artery is seen to be well enhanced by contrast. No associated inflammatory changes are identified surrounding the lower pole of the left kidney. Bowel is not well assessed by CT angiography as enteric contrast is not given. No obvious bowel dilation is identified. The appendix appears unremarkable. Tiny colonic diverticula is seen with no deformity changes identified. No free air or free fluid is seen in the abdomen and pelvis. No significant retroperitoneal adenopathy is identified. Some inflammatory changes are seen in the right groin indicating prior interventional procedure. High signal density material suggesting surgical mesh is identified in the midline of the lower abdominal wall. Correlate with operative report. The bladder has tiny foci of air seen indicating recent catheterization. The uterus is not well appreciated. No obvious abnormal adnexal mass is seen and CT is not optimizing in the assessment of pelvic gynaecological structures. In the bony windows, no acute bony pathology is identified. Some degenerative changes are noted. Fusion of L2/L3 level vertebral body is identified. CONCLUSIONS: 1. This study is for evaluation of possible dissection, however, patient is already known to have aortic dissection. The ascending thoracic aorta and transverse arch is unremarkable. There is an endostent identified, located immediately distal to the takeoffof the left common carotid artery extending through the majority of the descending thoracic aorta and terminates in the distal descending thoracic aorta. The stent is well-positioned. Both the true andfalse lumen is still enhanced by contrast. Residual dissection is identified extending into the entire abdominal aorta and the dissection terminates in the proximal left SFA, sparing the right pelvic va sculature. The dissection also involves the proximal left subclavian artery. The mesenteric and renal arteries are well enhanced by contrast. See above for details. Quantitative dimensions of the thoracoabdominal aorta are as described above. 2. Normal coronary artery origins. The major epicardial coronary artery is seen to be widely patent and no coronary artery calcification is appreciated. 3. The central pulmonary artery is normal in caliber. No evidence of central pulmonary artery embolism. Bibasal pleural effusions left greater than right. 4. Other findings as described above. 5. An addendum will be dictated by the [employer] History Professor Radiologist regarding the nonvascular findings. Signed: Makayla Helms MDReport Verified Date/Time: 11/06/2017 07:50:43 Reading Location: [place] [id number] Cardiology MRI [id number] 04:20:00 Test Item Value Reference Range Interpretation Comments PHOSPHORUS (BEAKER) (test code = 2.5 mg/dL 2.3-4.7 604) [id number] 04:20:00 Test Item Value Reference Range Interpretation Comments MAGNESIUM (BEAKER) (test code = 1.9 mg/dL 1.6-2.6 627) BASIC METABOLIC [id number] 04:20:00 Test Item Value Reference Range Interpretation Comments SODIUM (BEAKER) 140 meq/L 136-145 (test code = 381) POTASSIUM (BEAKER) 3.9 meq/L 3.5-5.1 (test code = 379) CHLORIDE (BEAKER) 106 meq/L 98-107 (test code = 382) CO2 (BEAKER) (test 27 meq/L 22-29 code = 355) BLOOD UREA NITROGEN 8 mg/dL 7-21 (BEAKER) (test code = 354) CREATININE (BEAKER) 0.62 mg/dL 0.57-1.25 (test code = 358) GLUCOSE RANDOM 141 mg/dL 70-105 H (BEAKER) (test code = 652) CALCIUM (BEAKER) 8.5 mg/dL 8.4-10.2 (test code = 697) EGFR (BEAKER) (test 95 mL/min/1.73 ESTIMA DEBO GFR IS code = 1092) sq m NOT ACCURATE CREATININE CLEARANCE IN PREDICTING GLOMERULAR FILTRATION RATE . ESTIMATED GFR I S NOT APPLICABLE FOR DIALYSIS PATIEN TS. [id number] 04:12:00 Test Item Value Reference Range Interpretation Comments PARTIAL THROMBOPLASTIN TIME 28.8 seconds 22.5-36.0 (BEAKER) (test code = 760) PROTHROMBIN [id number] 04:11:00 Test Item Value Reference Range Interpretation Comments PROTIME (BEAKER) (test code = 16.0 seconds 11.7-14.7 H 759) INR (BEAKER) (test code = 370) 1.3 <=5.9 RECOMMENDED COUMADIN/WARFARIN INR THERAPY RANGESSTANDARD DOSE: 2.0 - 3.0 Includes: PROPHYLAXIS for venous thrombosis, systemic embolization; TREATMENT for venous thrombosis and/or pulmonary embolus.HIGH RISK: Target INR is 2.5-3.5 for patients with mechanical heart valves.CBC (HEMOGRAM ONLY)2017-11-06 04:06:00 Test Item Value Reference Range Interpretation Comments WHITE BLOOD CELL COUNT (BEAKER) 7.6 K/ L 3.5-10.5 (test code = 775) RED BLOOD CELL COUNT (BEAKER) 3.06 M/ L 3.93-5.22 L (test code = 761) HEMOGLOBIN (BEAKER) (test code = 9.3 GM/DL 11.2-15.7 L 410) HEMATOCRIT (BEAKER) (test code = 29.8 % 34.1-44.9 L 411) MEAN CORPUSCULAR VOLUME (BEAKER) 97.4 fL 79.4-94.8 H (test code = 753) MEAN CORPUSCULAR HEMOGLOBIN 30.4 pg 25.6-32.2 (BEAKER) (test code = 751) MEAN CORPUSCULAR HEMOGLOBIN CONC 31.2 GM/DL 32.2-35.5 L (BEAKER) (test code = 752) RED CELL DISTRIBUTION WIDTH 15.9 % 11.7-14.4 H (BEAKER) (test code = 412) PLATELET COUNT (BEAKER) (test 144 K/CU MM 150-450 L code = 756) MEAN PLATELET VOLUME (BEAKER) 10.5 fL 9.4-12.3 (test code = 754) NUCLEATED RED BLOOD CELLS 0 /100 WBC 0-0 (BEAKER) (test code = 413) RAD, CHEST, 1 VIEW, NON [id number] 03:55:00Reason for exam:->post opFINAL REPORT CLINICAL INDICATION: Postop Comparison: 11/05/2017 The cardiomediastinal contours are stable. The lung volumes remain low. A small left pleural effusion and left greater than right bibasilar opacities are unchanged. There is no pneumothorax. A right IJ CVC remains in place. Signed: Gabo Pan Verified Date/Time: 11/06/2017 03:55:15 Reading Location: [address] Reading Room POCT-GLUCOSE [id number] 22:02:00 Test Item Value Reference Range Interpretation Comments POC-GLUCOSE METER 156 mg/dL 70-110 H TESTED AT [facility] 67[facility] ([facility] (test code = ADWOA [place] 1538) [id number] POCT-GLUCOSE [id number] 18:30:00 Test Item Value Reference Range Interpretation Comments POC-GLUCOSE METER 149 mg/dL 70-110 H TESTED AT [place] [address] ([facility]) (test code = ADWOA Parekh [facility] 1538) [id number] CBC (HEMOGRAM ONLY)2017-11-05 15:50:00 Test Item Value Reference Range Interpretation Comments WHITE BLOOD CELL COUNT (BEAKER) 7.2 K/ L 3.5-10.5 (test code = 775) RED BLOOD CELL COUNT (BEAKER) 3.08 M/ L 3.93-5.22 L (test code = 761) HEMOGLOBIN (BEAKER) (test code = 9.7 GM/DL 11.2-15.7 L 410) HEMATOCRIT (BEAKER) (test code = 29.8 % 34.1-44.9 L 411) MEAN CORPUSCULAR VOLUME (BEAKER) 96.8 fL 79.4-94.8 H (test code = 753) MEAN CORPUSCULAR HEMOGLOBIN 31.5 pg 25.6-32.2 (BEAKER) (test code = 751) MEAN CORPUSCULAR HEMOGLOBIN CONC 32.6 GM/DL 32.2-35.5 (BEAKER) (test code = 752) RED CELL DISTRIBUTION WIDTH 15.9 % 11.7-14.4 H (BEAKER) (test code = 412) PLATELET COUNT (BEAKER) (test 124 K/CU MM 150-450 L code = 756) MEAN PLATELET VOLUME (BEAKER) 10.5 fL 9.4-12.3 (test code = 754) NUCLEATED RED BLOOD CELLS 0 /100 WBC 0-0 (BEAKER) (test code = 413) POCT-GLUCOSE [id number] 12:40:00 Test Item Value Reference Range Interpretation Comments POC-GLUCOSE METER 185 mg/dL 70-110 H TESTED AT [place] [address] ([facility]) ([facility] 1538) [id number] POCT-GLUCOSE [id number] 08:13:00 Test Item Value Reference Range Interpretation Comments POC-GLUCOSE METER 147 mg/dL 70-110 H TESTED AT [place] [address] ([facility]) (test code = [facility] Izabella [facility] 1538) [id number] RAD, CHEST, 1 VIEW, NON [id number] 04:07:00Reason for exam:->post opFINAL REPORT EXAMINATION: AP PORTABLE CHEST RADIOGRAPH CLINICAL INDICATION: Pleural effusion. IMPRESSION: Compared with 11/04/2017 A right jugular central line is again noted with the tip projecting over the junction of the superior vena cava and right atrium. The mildly enlarged heart, basilar lung opacities and superimposed pleural effusions are stable. Constellation of findingsmay reflect fluid overload-heart failure. No evidence of new lung consolidation or pneumothorax. As before, the patient is status post endovascular repair of the aorta. Mediastinal contours are unchanged. In summary, no significant interval change. Signed: Freddy Guthrieeport Verified Date/Time: 11/05/2017 04:07:11 Reading Location: [address] Transitional Reading Room [id number] 03:53:00 Test Item Value Reference Range Interpretation Comments PHOSPHORUS (BEAKER) (test code = 2.7 mg/dL 2.3-4.7 604) [id number] 03:53:00 Test Item Value Reference Range Interpretation Comments MAGNESIUM (BEAKER) (test code = 1.9 mg/dL 1.6-2.6 627) BASIC METABOLIC [id number] 03:53:00 Test Item Value Reference Range Interpretation Comments SODIUM (BEAKER) 141 meq/L 136-145 (test code = 381) POTASSIUM (BEAKER) 3.8 meq/L 3.5-5.1 (test code = 379) CHLORIDE (BEAKER) 106 meq/L 98-107 (test code = 382) CO2 (BEAKER) (test 28 meq/L 22-29 code = 355) BLOOD UREA NITROGEN 8 mg/dL 7-21 (BEAKER) (test code = 354) CREATININE (BEAKER) 0.63 mg/dL 0.57-1.25 (test code = 358) GLUCOSE RANDOM 125 mg/dL 70-105 H (BEAKER) (test code = 652) CALCIUM (BEAKER) 8.6 mg/dL 8.4-10.2 (test code = 697) EGFR (BEAKER) (test 93 mL/min/1.73 ESTIMA DEBO GFR IS code = 1092) sq m NOT ACCURATE CREATININE CLEARANCE IN PREDICTING GLOMERULAR FILTRATION RATE . ESTIMATED GFR I S NOT APPLICABLE FOR DIALYSIS PATIEN TS. PROTHROMBIN [id number] 03:50:00 Test Item Value Reference Range Interpretation Comments PROTIME (BEAKER) (test code = 15.8 seconds 11.7-14.7 H 759) INR (BEAKER) (test code = 370) 1.3 <=5.9 RECOMMENDED COUMADIN/WARFARIN INR THERAPY RANGESSTANDARD DOSE: 2.0 - 3.0 Includes: PROPHYLAXIS for venous thrombosis, systemic embolization; TREATMENT for venous thrombosis and/or pulmonary embolus.HIGH RISK: Target INR is 2.5-3.5 for patients with mechanical heart valves.[id number] 03:50:00 Test Item Value Reference Range Interpretation Comments PARTIAL THROMBOPLASTIN TIME 31.2 seconds 22.5-36.0 (BEAKER) (test code = 760) CBC (HEMOGRAM ONLY)2017-11-05 03:37:00 Test Item Value Reference Range Interpretation Comments WHITE BLOOD CELL COUNT (BEAKER) 8.4 K/ L 3.5-10.5 (test code = 775) RED BLOOD CELL COUNT (BEAKER) 2.61 M/ L 3.93-5.22 L (test code = 761) HEMOGLOBIN (BEAKER) (test code = 8.2 GM/DL 11.2-15.7 L 410) HEMATOCRIT (BEAKER) (test code = 26.4 % 34.1-44.9 L 411) MEAN CORPUSCULAR VOLUME (BEAKER) 101.1 fL 79.4-94.8 H (test code = 753) MEAN CORPUSCULAR HEMOGLOBIN 31.4 pg 25.6-32.2 (BEAKER) (test code = 751) MEAN CORPUSCULAR HEMOGLOBIN CONC 31.1 GM/DL 32.2-35.5 L (BEAKER) (test code = 752) RED CELL DISTRIBUTION WIDTH 14.1 % 11.7-14.4 (BEAKER) (test code = 412) PLATELET COUNT (BEAKER) (test 144 K/CU MM 150-450 L code = 756) MEAN PLATELET VOLUME (BEAKER) 10.5 fL 9.4-12.3 (test code = 754) NUCLEATED RED BLOOD CELLS 0 /100 WBC 0-0 (BEAKER) (test code = 413) POCT-GLUCOSE [id number] 11:16:00 Test Item Value Reference Range Interpretation Comments POC-GLUCOSE METER 132 mg/dL 70-110 H TESTED AT [facility] 6720 (BEAKER) (test code = [place] 1538) [id number] 05:12:00 Test Item Value Reference Range Interpretation Comments PHOSPHORUS (BEAKER) (test code = 3.4 mg/dL 2.3-4.7 604) [id number] 05:12:00 Test Item Value Reference Range Interpretation Comments MAGNESIUM (BEAKER) (test code = 2.3 mg/dL 1.6-2.6 627) BASIC METABOLIC [id number] 05:12:00 Test Item Value Reference Range Interpretation Comments SODIUM (BEAKER) 139 meq/L 136-145 (test code = 381) POTASSIUM (BEAKER) 4.3 meq/L 3.5-5.1 (test code = 379) CHLORIDE (BEAKER) 106 meq/L 98-107 (test code = 382) CO2 (BEAKER) (test 25 meq/L 22-29 code = 355) BLOOD UREA NITROGEN 7 mg/dL 7-21 (BEAKER) (test code = 354) CREATININE (BEAKER) 0.64 mg/dL 0.57-1.25 (test code = 358) GLUCOSE RANDOM 128 mg/dL 70-105 H (BEAKER) (test code = 652) CALCIUM (BEAKER) 8.9 mg/dL 8.4-10.2 (test code = 697) EGFR (BEAKER) (test 92 mL/min/1.73 ESTIMA DEBO GFR IS code = 1092) sq m NOT ACCURATE CREATININE CLEARANCE IN PREDICTING GLOMERULAR FILTRATION RATE . ESTIMATED GFR I S NOT APPLICABLE FOR DIALYSIS PATIEN TS. [id number] 04:18:00 Test Item Value Reference Range Interpretation Comments PARTIAL THROMBOPLASTIN TIME 28.8 seconds 22.5-36.0 (BEAKER) (test code = 760) PROTHROMBIN [id number] 04:17:00 Test Item Value Reference Range Interpretation Comments PROTIME (BEAKER) (test code = 15.1 seconds 11.7-14.7 H 759) INR (BEAKER) (test code = 370) 1.2 <=5.9 RECOMMENDED COUMADIN/WARFARIN INR THERAPY RANGESSTANDARD DOSE: 2.0 - 3.0 Includes: PROPHYLAXIS for venous thrombosis, systemic embolization; TREATMENT for venous thrombosis and/or pulmonary embolus.HIGH RISK: Target INR is 2.5-3.5 for patients with mechanical heart valves.RAD, CHEST, 1 VIEW, NON [id number] 04:16:00Reason for exam:->post opFINAL REPORT CLINICAL INDICATION: Postop Comparison: 11/03/2017 The cardiomediastinal contours are stable. Central pulmonary vascular prominence and bilateral parenchymal and pleural opacities are unchanged. There is no pneumothorax. A right IJ CVC is stable. Signed: Gabo Pan MDReport Verified Date/Time: 11/04/2017 04:16:40 Reading Location: [address] Reading Room CBC (HEMOGRAM ONLY)2017-11-04 04:07:00 Test Item Value Reference Range Interpretation Comments WHITE BLOOD CELL COUNT (BEAKER) 10.7 K/ L 3.5-10.5 H (test code = 775) RED BLOOD CELL COUNT (BEAKER) 2.84 M/ L 3.93-5.22 L (test code = 761) HEMOGLOBIN (BEAKER) (test code = 9.1 GM/DL 11.2-15.7 L 410) HEMATOCRIT (BEAKER) (test code = 28.4 % 34.1-44.9 L 411) MEAN CORPUSCULAR VOLUME (BEAKER) 100.0 fL 79.4-94.8 H (test code = 753) MEAN CORPUSCULAR HEMOGLOBIN 32.0 pg 25.6-32.2 (BEAKER) (test code = 751) MEAN CORPUSCULAR HEMOGLOBIN CONC 32.0 GM/DL 32.2-35.5 L (BEAKER) (test code = 752) RED CELL DISTRIBUTION WIDTH 14.1 % 11.7-14.4 (BEAKER) (test code = 412) PLATELET COUNT (BEAKER) (test 134 K/CU MM 150-450 L code = 756) MEAN PLATELET VOLUME (BEAKER) 11.2 fL 9.4-12.3 (test code = 754) NUCLEATED RED BLOOD CELLS 0 /100 WBC 0-0 (BEAKER) (test code = 413) [id number] 19:34:00 Test Item Value Reference Range Interpretation Comments POTASSIUM (BEAKER) (test code = 4.2 meq/L 3.5-5.1 379) [id number] 19:32:00 Test Item Value Reference Range Interpretation Comments MAGNESIUM (BEAKER) (test code = 2.4 mg/dL 1.6-2.6 627) POCT-GLUCOSE [id number] 17:20:00 Test Item Value Reference Range Interpretation Comments POC-GLUCOSE METER 190 mg/dL 70-110 H TESTED AT [facility] 6720 (BEAKER) (test code = [place] 1538) [id number] RAD, CHEST, 1 VIEW, NON [id number] 13:58:00Reason for exam:->Post-opShould this be performed at the bedside?->YesFINAL REPORT EXAM: Frontal chest radiograph HISTORY PROVIDED: Postop COMPARISON: 11/03/2017 at 0326 IMPRESSION:The tip of a right IJ central venous catheter projects over the right atrium. A thin caliber line courses over the right neck, chest, and abdomen which may be external to the patient. Please correlate clinically. There is central pulmonary vascular congestion. Retrocardiac opacity represents a small left pleural effusion and atelectasis/consolidation and there is a smallright pleural effusion and right basilar opacities likely representing atelectasis as before. No discernible pneumothorax. The patient is status post aortic stent graft placement and otherwise cardiomediastinal contours are stable. Signed: Angi Arteaga MDReport Verified Date/Time: 11/03/2017 13:58:30 Reading Location: [facility] BASIC METABOLIC [id number] 13:53:00 Test Item Value Reference Range Interpretation Comments SODIUM (BEAKER) 138 meq/L 136-145 (test code = 381) POTASSIUM (BEAKER) 3.9 meq/L 3.5-5.1 (test code = 379) CHLORIDE (BEAKER) 105 meq/L 98-107 (test code = 382) CO2 (BEAKER) (test 26 meq/L 22-29 code = 355) BLOOD UREA NITROGEN 10 mg/dL 7-21 (BEAKER) (test code = 354) CREATININE (BEAKER) 0.70 mg/dL 0.57-1.25 (test code = 358) GLUCOSE RANDOM 180 mg/dL 70-105 H (BEAKER) (test code = 652) CALCIUM (BEAKER) 8.7 mg/dL 8.4-10.2 (test code = 697) EGFR (BEAKER) (test 83 mL/min/1.73 ESTIMA DEBO GFR IS code = 1092) sq m NOT ACCURATE CREATININE CLEARANCE IN PREDICTING GLOMERULAR FILTRATION RATE . ESTIMATED GFR I S NOT APPLICABLE FOR DIALYSIS PATIEN TS. [id number] 13:53:00 Test Item Value Reference Range Interpretation Comments MAGNESIUM (BEAKER) (test code = 1.7 mg/dL 1.6-2.6 627) [id number] 13:53:00 Test Item Value Reference Range Interpretation Comments PHOSPHORUS (BEAKER) (test code = 3.3 mg/dL 2.3-4.7 604) [id number] 13:46:00 Test Item Value Reference Range Interpretation Comments PARTIAL THROMBOPLASTIN TIME 31.1 seconds 22.5-36.0 (BEAKER) (test code = 760) PROTHROMBIN [id number] 13:45:00 Test Item Value Reference Range Interpretation Comments PROTIME (BEAKER) (test code = 16.7 seconds 11.7-14.7 H 759) INR (BEAKER) (test code = 370) 1.4 <=5.9 RECOMMENDED COUMADIN/WARFARIN INR THERAPY RANGESSTANDARD DOSE: 2.0 - 3.0 Includes: PROPHYLAXIS for venous thrombosis, systemic embolization; TREATMENT for venous thrombosis and/or pulmonary embolus.HIGH RISK: Target INR is 2.5-3.5 for patients with mechanical heart valves.CBC W/PLT COUNT & AUTO [id number] 13:36:00 Test Item Value Reference Range Interpretation Comments WHITE BLOOD CELL COUNT (BEAKER) 13.6 K/ L 3.5-10.5 H (test code = 775) RED BLOOD CELL COUNT (BEAKER) 3.03 M/ L 3.93-5.22 L (test code = 761) HEMOGLOBIN (BEAKER) (test code = 9.6 GM/DL 11.2-15.7 L 410) HEMATOCRIT (BEAKER) (test code = 30.7 % 34.1-44.9 L 411) MEAN CORPUSCULAR VOLUME (BEAKER) 101.3 fL 79.4-94.8 H (test code = 753) MEAN CORPUSCULAR HEMOGLOBIN 31.7 pg 25.6-32.2 (BEAKER) (test code = 751) MEAN CORPUSCULAR HEMOGLOBIN CONC 31.3 GM/DL 32.2-35.5 L (BEAKER) (test code = 752) RED CELL DISTRIBUTION WIDTH 14.4 % 11.7-14.4 (BEAKER) (test code = 412) PLATELET COUNT (BEAKER) (test 127 K/CU MM 150-450 L code = 756) MEAN PLATELET VOLUME (BEAKER) 10.9 fL 9.4-12.3 (test code = 754) NUCLEATED RED BLOOD CELLS 0 /100 WBC 0-0 (BEAKER) (test code = 413) NEUTROPHILS RELATIVE PERCENT 80 % (BEAKER) (test code = 429) LYMPHOCYTES RELATIVE PERCENT 11 % (BEAKER) (test code = 430) MONOCYTES RELATIVE PERCENT 6 % (BEAKER) (test code = 431) EOSINOPHILS RELATIVE PERCENT 2 % (BEAKER) (test code = 432) BASOPHILS RELATIVE PERCENT 0 % (BEAKER) (test code = 437) NEUTROPHILS ABSOLUTE COUNT 10.83 K/ L 1.56-6.13 H (BEAKER) (test code = 670) LYMPHOCYTES ABSOLUTE COUNT 1.47 K/ L 1.18-3.74 (BEAKER) (test code = 414) MONOCYTES ABSOLUTE COUNT (BEAKER) 0.77 K/ L 0.24-0.36 H (test code = 415) EOSINOPHILS ABSOLUTE COUNT 0.21 K/ L 0.04-0.36 (BEAKER) (test code = 416) BASOPHILS ABSOLUTE COUNT (BEAKER) 0.05 K/ L 0.01-0.08 (test code = 417) IMMATURE GRANULOCYTES-RELATIVE 2 % 0-1 H PERCENT (BEAKER) (test code = 2808) CALCIUM, [id number] 13:12:00 Test Item Value Reference Range Interpretation Comments CALCIUM IONIZED (BEAKER) (test 1.02 mmol/L 1.12-1.27 L code = 698) PH, BLOOD (BEAKER) (test code = 7.38 1810) BLOOD GAS, [id number] 13:12:00 Test Item Value Reference Range Interpretation Comments PH ARTERIAL (BEAKER) (test code = 7.39 7.35-7.45 383) PCO2 ARTERIAL (BEAKER) (test code 45 mmHg 35-45 = 384) PO2 ARTERIAL (BEAKER) (test code = 201 mmHg 80-90 H 385) O2 SATURATION ARTERIAL (BEAKER) 99.4 % 96.0-97.0 H (test code = 386) HCO3 ARTERIAL (BEAKER) (test code 27 mmol/L 21-29 = 388) BASE EXCESS ARTERIAL (BEAKER) 1.4 mmol/L -2.0-3.0 (test code = 387) PATIENT TEMPERATURE (BEAKER) (test 36.4 C code = 1818) FIO2 (BEAKER) (test code = 1819) 50.0 % GLUCOSE-STAT [id number] 13:12:00 Test Item Value Reference Range Interpretation Comments GLUCOSE RANDOM (BEAKER) (test code 183 mg/dL 70-110 H = 652) HGB/HCT (H&H) - STAT [id number] 13:12:00 Test Item Value Reference Range Interpretation Comments HEMOGLOBIN (BEAKER) (test code = 10.4 g/dL 12.0-15.0 L 410) HEMATOCRIT (BEAKER) (test code = 31.0 % 36.0-45.0 L 411) SODIUM NA-STAT [id number] 13:08:00 Test Item Value Reference Range Interpretation Comments SODIUM (BEAKER) (test code = 381) 136 meq/L 135-148 POTASSIUM-STAT [id number] 13:08:00 Test Item Value Reference Range Interpretation Comments POTASSIUM (BEAKER) (test code = 3.8 meq/L 3.6-5.5 379) [id number] 12:14:00 Test Item Value Reference Range Interpretation Comments ACTIVATED CLOTTING TIME 301 sec TEST ED AT [facility] 6720 (BEAKER) (test code = [place] [address]) [id number] 12:14:00 Test Item Value Reference Range Interpretation Comments ACTIVATED CLOTTING TIME 560 sec TEST ED AT [place] [address] ([facility]) (test code = [place] 441) [id number] 12:14:00 Test Item Value Reference Range Interpretation Comments ACTIVATED CLOTTING TIME 241 sec TEST ED AT [place] [address] ([facility]) (test code = [place] 441) [address] [id number] 12:14:00 Test Item Value Reference Range Interpretation Comments ACTIVATED CLOTTING TIME 351 sec TEST ED AT [place] [address] ([facility]) (test code = [place] 441) [address] [id number] 12:14:00 Test Item Value Reference Range Interpretation Comments ACTIVATED CLOTTING TIME 252 sec TEST ED AT [place] [address] ([facility]) (test code = [place] 441) [address] BLOOD GAS, [id number] 09:15:00 Test Item Value Reference Range Interpretation Comments PH ARTERIAL (BEAKER) (test code = 7.52 7.35-7.45 H 383) PCO2 ARTERIAL (BEAKER) (test code 34 mmHg 35-45 L = 384) PO2 ARTERIAL (BEAKER) (test code = 349 mmHg 80-90 H 385) O2 SATURATION ARTERIAL (BEAKER) 99.8 % 96.0-97.0 H (test code = 386) HCO3 ARTERIAL (BEAKER) (test code 28 mmol/L 21-29 = 388) BASE EXCESS ARTERIAL (BEAKER) 4.7 mmol/L -2.0-3.0 H (test code = 387) PATIENT TEMPERATURE (BEAKER) (test 36.9 C code = 1818) FIO2 (BEAKER) (test code = 1819) 100.0 % GLUCOSE-STAT [id number] 09:15:00 Test Item Value Reference Range Interpretation Comments GLUCOSE RANDOM (BEAKER) (test code 134 mg/dL 70-110 H = 652) HGB/HCT (H&H) - STAT [id number] 09:15:00 Test Item Value Reference Range Interpretation Comments HEMOGLOBIN (BEAKER) (test code = 10.5 g/dL 12.0-15.0 L 410) HEMATOCRIT (BEAKER) (test code = 31.0 % 36.0-45.0 L 411) SODIUM NA-STAT [id number] 09:13:00 Test Item Value Reference Range Interpretation Comments SODIUM (BEAKER) (test code = 381) 135 meq/L 135-148 POTASSIUM-STAT [id number] 09:13:00 Test Item Value Reference Range Interpretation Comments POTASSIUM (BEAKER) (test code = 4.3 meq/L 3.6-5.5 379) [id number] 04:02:00 Test Item Value Reference Range Interpretation Comments PHOSPHORUS (BEAKER) (test code = 3.3 mg/dL 2.3-4.7 604) [id number] 04:02:00 Test Item Value Reference Range Interpretation Comments MAGNESIUM (BEAKER) (test code = 2.0 mg/dL 1.6-2.6 627) BASIC METABOLIC [id number] 04:02:00 Test Item Value Reference Range Interpretation Comments SODIUM (BEAKER) 139 meq/L 136-145 (test code = 381) POTASSIUM (BEAKER) 4.1 meq/L 3.5-5.1 (test code = 379) CHLORIDE (BEAKER) 104 meq/L 98-107 (test code = 382) CO2 (BEAKER) (test 26 meq/L 22-29 code = 355) BLOOD UREA NITROGEN 11 mg/dL 7-21 (BEAKER) (test code = 354) CREATININE (BEAKER) 0.72 mg/dL 0.57-1.25 (test code = 358) GLUCOSE RANDOM 126 mg/dL 70-105 H (BEAKER) (test code = 652) CALCIUM (BEAKER) 9.2 mg/dL 8.4-10.2 (test code = 697) EGFR (BEAKER) (test 80 mL/min/1.73 ESTIMA DEBO GFR IS code = 1092) sq m NOT ACCURATE CREATININE CLEARANCE IN PREDICTING GLOMERULAR FILTRATION RATE . ESTIMATED GFR I S NOT APPLICABLE FOR DIALYSIS PATIEN TS. [id number] 03:50:00 Test Item Value Reference Range Interpretation Comments PARTIAL THROMBOPLASTIN TIME 31.5 seconds 22.5-36.0 (BEAKER) (test code = 760) PROTHROMBIN [id number] 03:49:00 Test Item Value Reference Range Interpretation Comments PROTIME (BEAKER) (test code = 14.4 seconds 11.7-14.7 759) INR (BEAKER) (test code = 370) 1.1 <=5.9 RECOMMENDED COUMADIN/WARFARIN INR THERAPY RANGESSTANDARD DOSE: 2.0 - 3.0 Includes: PROPHYLAXIS for venous thrombosis, systemic embolization; TREATMENT for venous thrombosis and/or pulmonary embolus.HIGH RISK: Target INR is 2.5-3.5 for patients with mechanical heart valves.RAD, CHEST, 1 VIEW, NON [id number] 03:36:00Reason for exam:->Aortic DissectionShould this be performed at the bedside?->YesFINAL REPORT EXAMINATION: AP PORTABLE CHEST RADIOGRAPH CLINICAL INDICATION: Aortic dissection IMPRESSION: Compared with 11/02/2017. Small bilateral pleural effusions and basilar lung opacities are again noted, left greater than right. Parenchymal lung opacities are favored to reflect passive atelectasis. An underlying pneumonia cannot be excluded. No evidence of new lung consolidation, pulmonary edema or pneumothorax. Cardiac and mediastinal contours are stable. In summary, no significant interval change. Signed: Freddy Guthrie MDRepst. joseph medical center Verified Date/Time: 11/03/2017 03:36:37 Reading Location: [address] Transitional Reading Room CBC (HEMOGRAM ONLY)2017-11-03 03:35:00 Test Item Value Reference Range Interpretation Comments WHITE BLOOD CELL COUNT (BEAKER) 7.6 K/ L 3.5-10.5 (test code = 775) RED BLOOD CELL COUNT (BEAKER) 3.31 M/ L 3.93-5.22 L (test code = 761) HEMOGLOBIN (BEAKER) (test code = 10.6 GM/DL 11.2-15.7 L 410) HEMATOCRIT (BEAKER) (test code = 33.4 % 34.1-44.9 L 411) MEAN CORPUSCULAR VOLUME (BEAKER) 100.9 fL 79.4-94.8 H (test code = 753) MEAN CORPUSCULAR HEMOGLOBIN 32.0 pg 25.6-32.2 (BEAKER) (test code = 751) MEAN CORPUSCULAR HEMOGLOBIN CONC 31.7 GM/DL 32.2-35.5 L ([facility]) (test code = 752) RED CELL DISTRIBUTION WIDTH 14.6 % 11.7-14.4 H ([facility]) (test code = 412) PLATELET COUNT ([facility]) (test 123 K/CU MM 150-450 L code = 756) MEAN PLATELET VOLUME ([facility]) 10.6 fL 9.4-12.3 (test code = 754) NUCLEATED RED BLOOD CELLS 0 /100 WBC 0-0 ([facility]) (test code = 413) POCT-GLUCOSE [id number] 22:37:00 Test Item Value Reference Range Interpretation Comments POC-GLUCOSE METER 155 mg/dL 70-110 H TESTED AT [place] [address] ([facility]) (test code = [facility] [place] [facility] 1538) [id number] POCT-GLUCOSE [id number] 18:42:00 Test Item Value Reference Range Interpretation Comments POC-GLUCOSE METER 165 mg/dL 70-110 H TESTED AT [place] [address] ([facility]) (test code = [facility] 1538) [id number] POCT-GLUCOSE [id number] 12:45:00 Test Item Value Reference Range Interpretation Comments POC-GLUCOSE METER 193 mg/dL 70-110 H TESTED AT [place] [address] ([facility]) (test code = [facility] 1538) [address] RAD, CHEST, 1 VIEW, NON [id number] 04:06:00Reason for exam:->Aortic DissectionShould this be performed at the bedside?->YesFINAL REPORT EXAMINATION: AP PORTABLE CHEST RADIOGRAPH CLINICAL INDICATION: Aort ic dissection IMPRESSION: Compared with 11/01/2017 Overall aeration of the lungs has mildly improved in the interval. The small left pleural effusion and adjacent left basilar lung consolidation are grossly stable. No evidence of new lung consolidation, pulmonary edema or significant pneumothorax. The cardiac and mediastinal contours are also grossly unchanged. Signed: Freddy Guthrie Verified Date/Time: 11/02/2017 04:06:26 Reading Location: [address] Reading Room Electronicallysigned by: FREDDY GUTHRIE M.D. on 11/02/2017 04:06 [id number] 03:43:00 Test Item Value Reference Range Interpretation Comments PHOSPHORUS (BEAKER) (test code = 2.9 mg/dL 2.3-4.7 604) [id number] 03:43:00 Test Item Value Reference Range Interpretation Comments MAGNESIUM (BEAKER) (test code = 1.9 mg/dL 1.6-2.6 627) BASIC METABOLIC [id number] 03:43:00 Test Item Value Reference Range Interpretation Comments SODIUM (BEAKER) 138 meq/L 136-145 (test code = 381) POTASSIUM (BEAKER) 3.7 meq/L 3.5-5.1 (test code = 379) CHLORIDE (BEAKER) 104 meq/L 98-107 (test code = 382) CO2 (BEAKER) (test 25 meq/L 22-29 code = 355) BLOOD UREA NITROGEN 11 mg/dL 7-21 (BEAKER) (test code = 354) CREATININE (BEAKER) 0.75 mg/dL 0.57-1.25 (test code = 358) GLUCOSE RANDOM 123 mg/dL 70-105 H (BEAKER) (test code = 652) CALCIUM (BEAKER) 8.8 mg/dL 8.4-10.2 (test code = 697) EGFR (BEAKER) (test 76 mL/min/1.73 ESTIMA DEBO GFR IS code = 1092) sq m NOT ACCURATE CREATININE CLEARANCE IN PREDICTING GLOMERULAR FILTRATION RATE . ESTIMATED GFR I S NOT APPLICABLE FOR DIALYSIS PATIEN TS. [id number] 03:37:00 Test Item Value Reference Range Interpretation Comments PARTIAL THROMBOPLASTIN TIME 34.9 seconds 22.5-36.0 (BEAKER) (test code = 760) PROTHROMBIN [id number] 03:36:00 Test Item Value Reference Range Interpretation Comments PROTIME (BEAKER) (test code = 16.7 seconds 11.7-14.7 H 759) INR (BEAKER) (test code = 370) 1.4 <=5.9 RECOMMENDED COUMADIN/WARFARIN INR THERAPY RANGESSTANDARD DOSE: 2.0 - 3.0 Includes: PROPHYLAXIS for venous thrombosis, systemic embolization; TREATMENT for venous thrombosis and/or pulmonary embolus.HIGH RISK: Target INR is 2.5-3.5 for patients with mechanical heart valves.CBC (HEMOGRAM ONLY)2017-11-02 03:24:00 Test Item Value Reference Range Interpretation Comments WHITE BLOOD CELL COUNT (BEAKER) 9.0 K/ L 3.5-10.5 (test code = 775) RED BLOOD CELL COUNT (BEAKER) 3.18 M/ L 3.93-5.22 L (test code = 761) HEMOGLOBIN (BEAKER) (test code = 10.2 GM/DL 11.2-15.7 L 410) HEMATOCRIT (BEAKER) (test code = 31.8 % 34.1-44.9 L 411) MEAN CORPUSCULAR VOLUME (BEAKER) 100.0 fL 79.4-94.8 H (test code = 753) MEAN CORPUSCULAR HEMOGLOBIN 32.1 pg 25.6-32.2 (BEAKER) (test code = 751) MEAN CORPUSCULAR HEMOGLOBIN CONC 32.1 GM/DL 32.2-35.5 L (BEAKER) (test code = 752) RED CELL DISTRIBUTION WIDTH 14.6 % 11.7-14.4 H (BEAKER) (test code = 412) PLATELET COUNT (BEAKER) (test 118 K/CU MM 150-450 L code = 756) MEAN PLATELET VOLUME (BEAKER) 10.8 fL 9.4-12.3 (test code = 754) NUCLEATED RED BLOOD CELLS 0 /100 WBC 0-0 (BEAKER) (test code = 413) POCT-GLUCOSE [id number] 22:15:00 Test Item Value Reference Range Interpretation Comments POC-GLUCOSE METER 148 mg/dL 70-110 H TESTED AT [place] [address] ([facility]) (test code = [place] 1538) [id number] POCT-GLUCOSE [id number] 18:17:00 Test Item Value Reference Range Interpretation Comments POC-GLUCOSE METER 114 mg/dL 70-110 H TESTED AT [place] [address] ([facility]) (test code = [place] 1538) [id number] HEMOGLOBIN [id number] 14:17:00 Test Item Value Reference Range Interpretation Comments HEMOGLOBIN A1C (BEAKER) (test code = 4.9 % 4.3-6.1 368) POCT-GLUCOSE [id number] 12:14:00 Test Item Value Reference Range Interpretation Comments POC-GLUCOSE METER 97 mg/dL 70-110 TESTED AT [facility] 6720 (BEAKER) (test code = [place] [id number]) TSH/FREE T4 IF [id number] 04:28:00 Test Item Value Reference Range Interpretation Comments THYROID STIMULATING HORMONE 0.76 uIU/mL 0.35-4.94 (BEAKER) (test code = 772) [id number] 04:07:00 Test Item Value Reference Range Interpretation Comments PHOSPHORUS (BEAKER) (test code = 3.3 mg/dL 2.3-4.7 604) [id number] 04:07:00 Test Item Value Reference Range Interpretation Comments MAGNESIUM (BEAKER) (test code = 1.8 mg/dL 1.6-2.6 627) BASIC METABOLIC [id number] 04:07:00 Test Item Value Reference Range Interpretation Comments SODIUM (BEAKER) 138 meq/L 136-145 (test code = 381) POTASSIUM (BEAKER) 3.8 meq/L 3.5-5.1 (test code = 379) CHLORIDE (BEAKER) 105 meq/L 98-107 (test code = 382) CO2 (BEAKER) (test 24 meq/L 22-29 code = 355) BLOOD UREA NITROGEN 8 mg/dL 7-21 (BEAKER) (test code = 354) CREATININE (BEAKER) 0.73 mg/dL 0.57-1.25 (test code = 358) GLUCOSE RANDOM 107 mg/dL 70-105 H (BEAKER) (test code = 652) CALCIUM (BEAKER) 8.7 mg/dL 8.4-10.2 (test code = 697) EGFR (BEAKER) (test 79 mL/min/1.73 ESTIMA DEBO GFR IS code = 1092) sq m NOT ACCURATE CREATININE CLEARANCE IN PREDICTING GLOMERULAR FILTRATION RATE . ESTIMATED GFR I S NOT APPLICABLE FOR DIALYSIS PATIEN TS. PROTHROMBIN [id number] 04:03:00 Test Item Value Reference Range Interpretation Comments PROTIME (BEAKER) (test code = 15.2 seconds 11.7-14.7 H 759) INR (BEAKER) (test code = 370) 1.2 <=5.9 RECOMMENDED COUMADIN/WARFARIN INR THERAPY RANGESSTANDARD DOSE: 2.0 - 3.0 Includes: PROPHYLAXIS for venous thrombosis, systemic embolization; TREATMENT for venous thrombosis and/or pulmonary embolus.HIGH RISK: Target INR is 2.5-3.5 for patients with mechanical heart valves.[id number] 04:03:00 Test Item Value Reference Range Interpretation Comments PARTIAL THROMBOPLASTIN TIME 30.5 seconds 22.5-36.0 (BEAKER) (test code = 760) CBC (HEMOGRAM ONLY)2017-11-01 03:54:00 Test Item Value Reference Range Interpretation Comments WHITE BLOOD CELL COUNT (BEAKER) 9.0 K/ L 3.5-10.5 (test code = 775) RED BLOOD CELL COUNT (BEAKER) 3.13 M/ L 3.93-5.22 L (test code = 761) HEMOGLOBIN (BEAKER) (test code = 9.9 GM/DL 11.2-15.7 L 410) HEMATOCRIT (BEAKER) (test code = 31.8 % 34.1-44.9 L 411) MEAN CORPUSCULAR VOLUME (BEAKER) 101.6 fL 79.4-94.8 H (test code = 753) MEAN CORPUSCULAR HEMOGLOBIN 31.6 pg 25.6-32.2 (BEAKER) (test code = 751) MEAN CORPUSCULAR HEMOGLOBIN CONC 31.1 GM/DL 32.2-35.5 L (BEAKER) (test code = 752) RED CELL DISTRIBUTION WIDTH 15.0 % 11.7-14.4 H (BEAKER) (test code = 412) PLATELET COUNT (BEAKER) (test 100 K/CU MM 150-450 L code = 756) MEAN PLATELET VOLUME (BEAKER) 10.4 fL 9.4-12.3 (test code = 754) NUCLEATED RED BLOOD CELLS 0 /100 WBC 0-0 (BEAKER) (test code = 413) RAD, CHEST, 1 VIEW, NON [id number] 03:54:00Reason for exam:->Aortic DissectionShould this be performed at the bedside?->YesFINAL REPORT CLINICAL INDICATION: Aortic dissection Comparison: 10/31/2017 The ca rdiomediastinal contours are stable. The lung volumes are low. Retrocardiac opacity in the left lungmay reflect atelectasis but pneumonitis should be excluded clinically. There is no pneumothorax. Signed: Gabo Pan MDReport Verified Date/Time: 11/01/2017 03:54:42 Reading Location: [address] Reading Room POCT-GLUCOSE [id number] 22:28:00 Test Item Value Reference Range Interpretation Comments POC-GLUCOSE METER 120 mg/dL 70-110 H TESTED AT [place] [address] ([facility]) (test code = ADWOA Parekh [place] 15[address]) [id number] POCT-GLUCOSE [id number] 19:00:00 Test Item Value Reference Range Interpretation Comments POC-GLUCOSE METER 106 mg/dL 70-110 TESTED AT [place] [address] ([facility]) (test code = ADWOA Parekh [place] 15[address]) [id number] CBC W/PLT COUNT & AUTO [id number] 14:41:00 Test Item Value Reference Range Interpretation Comments WHITE BLOOD CELL COUNT (BEAKER) 9.7 K/ L 3.5-10.5 (test code = 775) RED BLOOD CELL COUNT (BEAKER) 3.37 M/ L 3.93-5.22 L (test code = 761) HEMOGLOBIN (BEAKER) (test code = 10.9 GM/DL 11.2-15.7 L 410) HEMATOCRIT (BEAKER) (test code = 34.2 % 34.1-44.9 411) MEAN CORPUSCULAR VOLUME (BEAKER) 101.5 fL 79.4-94.8 H (test code = 753) MEAN CORPUSCULAR HEMOGLOBIN 32.3 pg 25.6-32.2 H (BEAKER) (test code = 751) MEAN CORPUSCULAR HEMOGLOBIN CONC 31.9 GM/DL 32.2-35.5 L (BEAKER) (test code = 752) RED CELL DISTRIBUTION WIDTH 15.2 % 11.7-14.4 H (BEAKER) (test code = 412) PLATELET COUNT (BEAKER) (test 119 K/CU MM 150-450 L code = 756) MEAN PLATELET VOLUME (BEAKER) 11.1 fL 9.4-12.3 (test code = 754) NUCLEATED RED BLOOD CELLS 0 /100 WBC 0-0 (BEAKER) (test code = 413) NEUTROPHILS RELATIVE PERCENT 73 % (BEAKER) (test code = 429) LYMPHOCYTES RELATIVE PERCENT 14 % (BEAKER) (test code = 430) MONOCYTES RELATIVE PERCENT 11 % (BEAKER) (test code = 431) EOSINOPHILS RELATIVE PERCENT 2 % (BEAKER) (test code = 432) BASOPHILS RELATIVE PERCENT 0 % (BEAKER) (test code = 437) NEUTROPHILS ABSOLUTE COUNT 7.03 K/ L 1.56-6.13 H (BEAKER) (test code = 670) LYMPHOCYTES ABSOLUTE COUNT 1.36 K/ L 1.18-3.74 (BEAKER) (test code = 414) MONOCYTES ABSOLUTE COUNT (BEAKER) 1.02 K/ L 0.24-0.36 H (test code = 415) EOSINOPHILS ABSOLUTE COUNT 0.15 K/ L 0.04-0.36 (BEAKER) (test code = 416) BASOPHILS ABSOLUTE COUNT (BEAKER) 0.03 K/ L 0.01-0.08 (test code = 417) IMMATURE GRANULOCYTES-RELATIVE 1 % 0-1 PERCENT (BEAKER) (test code = 2801) HEPATIC FUNCTION [id number] 14:11:00 Test Item Value Reference Range Interpretation Comments TOTAL PROTEIN (BEAKER) (test code = 5.8 gm/dL 6.0-8.3 L 770) ALBUMIN (BEAKER) (test code = 1145) 3.5 g/dL 3.5-5.0 BILIRUBIN TOTAL (BEAKER) (test code 1.5 mg/dL 0.2-1.2 H = 377) BILIRUBIN DIRECT (BEAKER) (test 0.6 mg/dL 0.1-0.5 H code = 706) ALKALINE PHOSPHATASE (BEAKER) (test 64 U/L 40-150 code = 346) AST (SGOT) (BEAKER) (test code = 15 U/L 5-34 353) ALT (SGPT) (BEAKER) (test code = 16 U/L 6-55 347) BASIC METABOLIC [id number] 14:11:00 Test Item Value Reference Range Interpretation Comments SODIUM (BEAKER) 141 meq/L 136-145 (test code = 381) POTASSIUM (BEAKER) 3.7 meq/L 3.5-5.1 (test code = 379) CHLORIDE (BEAKER) 107 meq/L 98-107 (test code = 382) CO2 (BEAKER) (test 27 meq/L 22-29 code = 355) BLOOD UREA NITROGEN 7 mg/dL 7-21 (BEAKER) (test code = 354) CREATININE (BEAKER) 0.78 mg/dL 0.57-1.25 (test code = 358) GLUCOSE RANDOM 107 mg/dL 70-105 H (BEAKER) (test code = 652) CALCIUM (BEAKER) 8.8 mg/dL 8.4-10.2 (test code = 697) EGFR (BEAKER) (test 73 mL/min/1.73 ESTIMA DEBO GFR IS code = 1092) sq m NOT ACCURATE CREATININE CLEARANCE IN PREDICTING GLOMERULAR FILTRATION RATE . ESTIMATED GFR I S NOT APPLICABLE FOR DIALYSIS PATIEN TS. [id number] 14:00:00 Test Item Value Reference Range Interpretation Comments PARTIAL THROMBOPLASTIN TIME 31.2 seconds 22.5-36.0 (BEAKER) (test code = 760) PROTHROMBIN TIME/[id number] 13:59:00 Test Item Value Reference Range Interpretation Comments PROTIME (BEAKER) (test code = 15.7 seconds 11.7-14.7 H 759) INR (BEAKER) (test code = 370) 1.3 <=5.9 RECOMMENDED COUMADIN/WARFARIN INR THERAPY RANGESSTANDARD DOSE: 2.0 - 3.0 Includes: PROPHYLAXIS for venous thrombosis, systemic embolization; TREATMENT for venous thrombosis and/or pulmonary embolus.HIGH RISK: Target INR is 2.5-3.5 for patients with mechanical heart valves.RAD, CHEST, 1 VIEW, NON [id number] 13:53:00Reason for exam:->Pre-opShould this be performed at the bedside?->YesFINAL REPORT Chest one view INDICATION: Aortic dissection. Preoperative examination. COMPARISON: Outside chest CT 10/30/2017 IMPRESSION: Aortic tortuosity and mild dilation is in keeping with dissection seen on the chest CT. There are low lung volumes with bibasilar airspace opacities, atelectasis versus pneumonia. Advise clinical correlation. There is bilateral costophrenic angleblunting. Heart size is at the upper limit of normal. A right breast implant and maxillary surgical clips, cervical spine fusion hardware, and osseous degenerative changes with right convex spine curvat ure are noted. Signed: Chantal Burgess MDReport Verified Date/Time: 10/31/2017 13:53:22 ReadingLocation: [facility] B1 C013W Consult Reading Room POCT- GLUCOSE [id number] 13:20:00 Test Item Value Reference Range Interpretation Comments POC-GLUCOSE METER 110 mg/dL 70-110 TESTED AT [place] [id number] ([facility]) (test code = ADWOA [place]ENDON OR 1538) [id number]
[2022-01-23 13:37] LABS: Absolute Lymphocytes (CBC) 1.2 K/uL (0.7-4.9); Hematocrit 38.2 % (36.0-45.0); Lymphocytes % 14.9 % (15.3-44.8); MCV 92.9 fL (80-100); MPV 8.3 fL (7.6-11.3); RBC Red Blood Cell Count 4.11 M/uL (3.86-4.86)
[2022-01-23 13:56] LABS: Potassium 4.4 mmol/L (3.5-5.1); Troponin High Sensitivity 5.8 pg/mL (<58.9)
--- NOTE | 2022-01-23 14:04 | RAD REPORT ---
EXAM DESCRIPTION: CT - Head Brain Wo Cont - 01/23/2022 1:45 pm CLINICAL HISTORY: Vertigo Headache, drowsiness, dizziness COMPARISON: HEAD BRAIN W O CONTRAST dated 04/16/2010 TECHNIQUE: All CT scans are performed using dose optimization technique as appropriate and may inclu de automated exposure control or mA/KV adjustment according to patient size. FINDINGS: No intracranial hemorrhage, hydrocephalus or extra-axial fluid collection.Mild brain atrop hy.No areas of brain edema or evidence of midline shift. The paranasal sinuses and mastoids are clear. The calvarium is intact. IMPRESSION: No acute intracranial abnormality.
--- NOTE | 2022-01-23 14:32 | RAD REPORT ---
EXAM DESCRIPTION: RAD - Chest Single View - 01/23/2022 2:23 pm CLINICAL HISTORY: Vertigo Chest pain. COMPARISON: CHEST SINGLE VIEW dated 04/16/2010 FINDINGS: Portable technique limits examination quality. The lungs are grossly clear. The heart is normal in size. Stent material is present the thoracic aort a.Postsurgical clips are present in the base of the neck on the left. IMPRESSION: No acute intrathoracic process suspected.
--- NOTE | 2022-01-23 14:53 | ER ---
Nurse's Notes [facility] Name: Sandra Figueroa Age: 76 yrs Sex: Female : 1945 Arrival Date: 01/23/2022 Time: 12:46 Bed 18 Private MD: Diagnosis: Dizziness Presentation: 01/23 12:55 Acuity: BRET 3 em6 12:56 Chief complaint: EMS states: "patient states that around 11 her vertigo started getting em6 worse. ringing got worse, felt nauseous and complains of a headache in the back of head. She has history of TIA slurred speech noted. Patient states that her gait is abnormal, but that's her baseline. started an 18 G in the Left AC, gave 4 mg of Zofran and BGL was 122. vitals have been stable. patient took 2 extra strength Tylenol and 5 mg of Valium at 0800.". Coronavirus screen: Client denies travel out of the [place] in the last 14 days. Ebola Screen: Patient negative for fever greater than or equal to 101.5 degrees Fahrenheit, and additional compatible Ebola Virus Disease symptoms. Initial Sepsis Screen: Does the patient meet any 2 criteria? No. Patient's initial sepsis screen is negative. Does the patient have a suspected source of infection? No. Patient's initial sepsis screen is negative. Risk Assessment: Do you want to hurt yourself or someone else? Patient reports no desire to harm self or others. Onset of symptoms was January 23, 2022. 12:56 Method Of Arrival: EMS: [facility] em6 Historical: - Allergies: 13:02 No Known Allergies; em6 - Immunization history:: Adult Immunizations up to date. - Social history:: Smoking status: unknown. Screenin:55 Abuse screen: Denies threats or abuse. Nutritional screening: No deficits noted. em6 13:01 Fall Risk IV access (20 points). Gait- Weak (10 pts.). Total Otero Fall Scale indicates em6 Low Risk Score (25-44 pts). Fall prevention measures have been instituted. Side Rails Up X 2 Placed close to Nursing Station Frequent Obs/Assesments occuring As available Patient and Family Educated on Fall Prevention Program and strategies. 13:03 Tuberculosis screening: No symptoms or risk factors identified. em6 Assessment: 12:53 General: Appears in no apparent distress. comfortable, Behavior is cooperative. Pain: em6 Denies pain. Neuro: Level of Consciousness is awake, alert, obeys commands, Oriented to person, place, time, situation, Reports dizziness, headache occipital area. Cardiovascular: Heart tones present Rhythm is sinus rhythm. Respiratory: Airway is patent Respiratory effort is even, unlabored, Respiratory pattern is regular, symmetrical, Breath sounds are clear bilaterally. GI: Reports nausea. : No signs and/or symptoms were reported regarding the genitourinary system. EENT: Reports ringing. Derm: No signs and/or symptoms reported regarding the dermatologic system. Musculoskeletal: Circulation, motion, and sensation intact. 14:00 Reassessment: Patient appears in no apparent distress at this time. No changes from em6 previously documented assessment. Patient and/or family updated on plan of care and expected duration. Pain level reassessed. Patient is alert, oriented x 3, equal unlabored respirations, skin warm/dry/pink. 15:00 Reassessment: Patient appears in no apparent distress at this time. No changes from em6 previously documented assessment. Patient and/or family updated on plan of care and expected duration. Pain level reassessed. Patient is alert, oriented x 3, equal unlabored respirations, skin warm/dry/pink. Vital Signs: 12:56 BP 136 / 86; Pulse 60; Resp 17; Temp 97.7; Pulse Ox 92% on R/A; Weight 77.56 kg; Height em6 5 ft. 3 in. (160.02 cm); Pain 0/10; 14:30 BP 132 / 50; Pulse 63; Resp 12; Pulse Ox 99% on R/A; em6 12:56 Body Mass Index 30.29 (77.56 kg, 160.02 cm) em6 ED Course: 12:46 Patient arrived in ED. ss 12:53 Martha Renteria, RN is Primary Nurse. em6 12:55 Triage completed. em6 12:55 Arm band placed on. em6 12:59 True Conley DO is Attending Physician. ms3 13:03 Bed in low position. Call light in reach. Side rails up X2. monitor technician on. Pulse em6 ox on. NIBP on. Warm blanket given. 13:15 Maintain EMS IV. Dressing intact. Good blood return noted. Site clean \\T\\ dry. Gauge \\T\\ em 6 site: 18 Left AC . 13:40 Inserted saline lock: 22 gauge in right antecubital area, using aseptic technique. em6 13:47 CT Head Brain wo Cont In Process Unspecified. EDMS 14:11 EKG done, by ED staff, reviewed by True Conley DO. jw7 14:25 XRAY Chest (1 view) In Process Unspecified. EDMS 14:52 Tanner Rodriguez MD is Referral Physician. ms3 15:18 No provider procedures requiring assistance completed. IV discontinued, intact, em6 bleeding controlled, No redness/swelling at site. Pressure dressing applied. Administered Medications: No medications were administered Medication: 13:43 VIS not applicable for this client. em6 Outcome: 14:52 Discharge ordered by . ms3 15:21 Discharged to home via wheelchair. em6 15:21 Condition: stable 15:21 Discharge instructions given to patient, family, Instructed on discharge instructions, follow up and referral plans. Demonstrated understanding of instructions, follow-up care. 15:21 Patient left the ED. em6 Signatures: Dispatcher [employer] Naomy Alvarado, RN RN True Hollingsworth DO DO ms3 Joanie Palafox jw7 Martha Renteria, RN RN em6
--- NOTE | 2022-01-23 14:53 | EDPHYS ---
Physician Documentation [facility] Name: Sandra Figueroa Age: 76 yrs Sex: Female : 1945 Arrival Date: 01/23/2022 Time: 12:46 Bed 18 Private MD: ED Physician True Conley HPI: 01/23 14:52 This 76 yrs old Female presents to ER via EMS with complaints of Vertigo. ms3 14:52 The patient's problem is reported as dizziness. Onset: The symptoms/episode ms3 began/occurred 11 AM. Duration: This was a single incident. Context: occurred at home, patient has experienced these symptoms intermittently since 1998. The symptoms are alleviated by nothing. The symptoms are aggravated by nothing. Associated signs and symptoms: The patient has no apparent associated signs or symptoms. Severity of symptoms: At their worst the symptoms were moderate in the emergency department the symptoms have improved. Historical: - Allergies: 13:02 No Known Allergies; em6 - Immunization history:: Adult Immunizations up to date. - Social history:: Smoking status: unknown. ROS: 14:52 Constitutional: Negative for fever, and chills. Neck: Negative for injury, pain, and ms3 swelling, Cardiovascular: Negative for chest pain, and palpitations. Respiratory: Negative for shortness of breath, cough, wheezing, and pleuritic chest pain, Abdomen/GI: Negative for abdominal pain, nausea, vomiting, diarrhea, and constipation, MS/Extremity: Negative for injury and deformity. 14:52 Neuro: Positive for dizziness. 14:52 All other systems are negative. Exam: 13:59 ECG was reviewed by the Attending Physician. ms3 14:52 Radiologist reports: neg acute ms3 14:52 Constitutional: This is a well developed, well nourished patient who is awake, alert, and in no acute distress. Head/Face: Normocephalic, atraumatic. Neck: Trachea midline, no cervical lymphadenopathy. Supple, full range of motion without nuchal rigidity, or vertebral point tenderness. No Meningismus. Chest/axilla: Normal chest wall appearance and motion. Nontender with no deformity. Cardiovascular: Regular rate and rhythm with a normal S1 and S2. No gallops, murmurs, or rubs. Normal PMI, no JVD. No pulse deficits. Respiratory: Lungs have equal breath sounds bilaterally, clear to auscultation and percussion. No rales, rhonchi or wheezes noted. No increased work of breathing, no retractions or nasal flaring. Abdomen/GI: Soft, non-tender, with normal bowel sounds. No distension or tympany. No guarding or rebound. No evidence of tenderness throughout. Skin: Warm, dry with normal turgor. Normal color with no rashes, no lesions, and no evidence of cellulitis. MS/ Extremity: Pulses equal, no cyanosis. Neurovascular intact. Full, normal range of motion. 14:52 Neuro: Orientation: is normal, to person, place, time \T\ situation. Mentation: is normal, Memory: is normal, Cranial nerves: CN II- XII are normal as tested, Motor: is normal, Sensation: is normal, no obvious gross deficits, Gait: not tested. Vital Signs: 12:56 BP 136 / 86; Pulse 60; Resp 17; Temp 97.7; Pulse Ox 92% on R/A; Weight 77.56 kg; Height em6 5 ft. 3 in. (160.02 cm); Pain 0/10; 14:30 BP 132 / 50; Pulse 63; Resp 12; Pulse Ox 99% on R/A; em6 12:56 Body Mass Index 30.29 (77.56 kg, 160.02 cm) em6 MDM: 13:33 Patient medically screened. ms3 14:52 Differential diagnosis: CVA, TIA, Vertigo. Data reviewed: vital signs, nurses notes, ms3 lab test result(s), EKG, radiologic studies, and as a result, I will discharge patient. Data interpreted: child monitor: rate is 62 beats/min, rhythm is normal sinus rhythm, regular, with no ectopy, Interpretation: normal rate, normal rhythm. Counseling: I had a detailed discussion with the patient and/or guardian regarding: the historical points, exam findings, and any diagnostic results supporting the discharge/admit diagnosis, lab results, radiology results, the need for outpatient follow up, to return to the emergency department if symptoms worsen or persist or if there are any questions or concerns that arise at home. ED course: Discussed observation with patient and her daughter. Patient declines observation at this time. Patient states her symptoms have improved since arrival to the emergency department. Patient states she has these symptoms intermittently since 1998. Patient states she has had work-up by multiple neurologist that were negative. Patient to follow-up with her primary care physician and neurology in 2 days. All questions were answered. Patient understands and agrees with plan. Return precautions discussed include worsening symptoms, or any other concerns. 01/23 13:09 Order name: Basic Metabolic Panel; Complete Time: 14:11 ms3 01/23 13:09 Order name: CBC with Diff; Complete Time: 14:11 ms3 01/23 13:09 Order name: Troponin HS; Complete Time: 14:11 ms3 01/23 13:09 Order name: XRAY Chest (1 view); Complete Time: 14:38 ms3 01/23 13:09 Order name: EKG; Complete Time: 13:10 ms3 01/23 13:09 Order name: CT Head Brain wo Cont; Complete Time: 14:11 ms3 01/23 13:09 Order name: Cardiac monitoring; Complete Time: 13:15 ms3 01/23 13:09 Order name: EKG - Nurse/Tech; Complete Time: 14:15 ms3 01/23 13:09 Order name: IV Saline Lock; Complete Time: 13:15 ms3 01/23 13:09 Order name: Labs collected and sent; Complete Time: 13:39 ms3 01/23 13:09 Order name: O2 Per Protocol; Complete Time: 13:15 ms3 01/23 13:09 Order name: O2 Sat Monitoring; Complete Time: 13:15 ms3 EC:59 Rate is 61 beats/min. Rhythm is regular. QRS Arthur is Normal. RI interval is normal. ms3 Clinical impression: NSR w/ Non-specific ST/T Changes. Interpreted by me. Reviewed by me. Administered Medications: No medications were administered Disposition Summary: 01/23/22 14:52 Discharge Ordered Location: Home ms3 Condition: Stable ms3 Diagnosis - Dizziness ms3 Followup: ms3 - With: Tanner Rodriguez MD - When: 2 - 3 days - Reason: Recheck today's complaints Discharge Instructions: - Discharge Summary Sheet ms3 - Dizziness, [id number] ms3 Forms: - Medication Reconciliation Form ms3 - Thank You Letter ms3 - Antibiotic Education ms3 - Prescription Opioid Use ms3 Signatures: Dispatcher [employer] EDMS True Conley DO DO ms3 Martha Renteria, RN RN em6
[2022-01-23 15:52] VITALS: TEMP 97.7
[2022-01-23 15:59] VITALS: BP 132/50; O2SAT 99
--- NOTE | 2022-01-24 12:13 | EKG ---
Test Date: 2022-01-23 Test Time: 13:59:02 Resin Mixer: GIOVANNI MEASUREMENT RESULTS: Intervals: Rate: 61 AR: 166 QRSD: 84 QT: 476 QTc: 479 [place]: P: 64 AR: 166 QRS: 28 T: 70 INTERPRETIVE STATEMENTS: Normal sinus rhythm Nonspecific T wave abnormality Prolonged QT Abnormal ECG Compared to ECG 04/16/2010 09:33:42 T-wave abnormality now present Prolonged QT interval now present Electronically Signed On 01-24-22 12:11:30 MANUFACTURERS AGENT by Toby Byrne
== END 2022-01-23 15:21 | disposition home or self-care (01) ==
LOC: ER 12:42
DX: R42 Dizziness and giddiness (principal)
CPT/HCPCS: 36415; 70450; 71045; 80048; 84484; 85025; 93005; 99284